=== PATIENT | male | born 1955 | race Caucasian/White ===

== ENCOUNTER 2020-11-05 07:43 | Emergency (ER) | payer MEDICARE, SELFPAY ==
[2020-11-05] VITALS (30 sets, daily range): BP systolic 117–177; BP diastolic 53–83; PULSE 90–113; RESP 16–26; TEMP 37.4; O2SAT 95–99
--- NOTE | ~2020-11-05 | XR_ITS ---
EXAMINATION: XR chest 1V portable EXAM DATE: 11/05/2020 08:30 INDICATION: weakness/fever, HX of diabetes, HTN . TECHNIQUE: Portable AP frontal chest x-ray was obtained. Comparison is made to prior examination from 04/29/2019. FINDINGS: The lungs are clear. There are no pleural effusions. Cardiac silhouette is prominent but magnified on this AP technique. There is no pneumothorax suspected. The bones and soft tissues are unremarkable. IMPRESSION: No acute cardiopulmonary findings. Reviewed, dictated and finalized at location B. ER ASSEMBLER
[2020-11-05 08:04] LABS: Glucose Point of Care 290 (65-105)
--- NOTE | 2020-11-05 08:17 | ED.FEVER ---
HPI - Fever General Chief Complaint: Fever Stated Complaint: Fever Time Seen by Provider: 11/05/20 07:45 History of Present Illness HPI Narrative: Patient is a 65-year-old male who presents the ER. Symptoms began last night and continued this morning. He has been taking Tylenol for it. Reports she was incontinent of urine today and has had some mild nausea. He also reports dizziness when going from sitting to standing. Patient is on tacrolimus due to a liver transplant performed 7 years ago. Denies any runny nose/sore throat/productive cough. No sick contacts. He did go to a yesterday but otherwise has not been out in public over the last couple days. Denies of any abdominal discomfort or additional GI complaints. reports patient occasionally gets mildly confused when he has fevers. Currently patient is oriented x3 but is just having difficulty remembering the name of his rejection medication. Related Data Home Medications Medication Instructions Recorded Confirmed alendronate-vitamin D3 1 tablet PO WEEKLY 11/05/20 amlodipine 5 mg PO DAILY 11/05/20 aspirin 81 mg PO DAILY 11/05/20 insulin glargine [Lantus Solostar 25 unit SUBCUT QAM 11/05/20 U-100 Insulin] insulin lispro 1 sliding scale dose SUBCUT 11/05/20 USEASDIRECTD losartan 100 mg PO DAILY 11/05/20 metoprolol tartrate 50 mg PO DAILY 11/05/20 vobqtfuagytl-mpq-rxqw-FA-vit K tablet PO 11/05/20 [Adults Multivitamin] pravastatin [Pravachol] 40 mg PO DAILY 11/05/20 prednisone 5 mg PO DAILY 11/05/20 tacrolimus [Prograf] 1 mg PO Q12H 11/05/20 Allergies Allergy/AdvReac Type Severity Reaction Status Date / Time No Known Allergies Allergy Verified 03/14/19 21:51 Review of Systems Review of Systems: All systems reviewed & are unremarkable except as noted in HPI and below Constitutional: Constitutional: Reports chills, Reports fatigue and Reports fever(s) ENT: Denies nasal congestion and Denies sore throat Cardiovascular: Cardiovascular: Denies chest pain and Denies radiating jaw, neck or arm pain Respiratory: Respiratory: Denies cough, Denies dyspnea and Denies wheezing Gastrointestinal: Gastrointestinal: Denies abdominal pain, Denies diarrhea, Denies nausea and Denies vomiting Genitourinary: Genitourinary: Denies dysuria and Reports urinary incontinence Musculoskeletal: Musculoskeletal: Denies back pain and Denies muscle cramps PMFSH Past Medical History Medical History (Updated 11/05/20 @ 10:38 by Jerry Doss MD) Diabetes type 2, controlled History of pneumothorax Hyperlipidemia Hypertension Renal cell carcinoma Surgical History Surgical History (Updated 11/05/20 @ 10:36 by Jerry Doss MD) History of chest tube placement History of colonoscopy History of kidney surgery History of liver transplant Social History Social History (Updated 11/05/20 @ 08:21 by Jerry Doss MD) Smoking status: Former smoker Gender identity (if verbalized by the patient): Male Sexual Orientation (if Verbalized by the Patient): Straight or Heterosexual Exam Narrative: Exam Narrative: GENERAL: Well-appearing, well-nourished, and in no acute distress. HEAD: Normocephalic, atraumatic. CHEST: Clear to auscultation. No respiratory distress. HEART: Regular rate and rhythm. Normal peripheral pulses. ABDOMEN: Soft, nontender, nondistended, normal active bowel sounds. EXTREMITIES: Normal range of motion. No edema. SKIN: Warm, dry, no rash. NEURO: Alert and oriented x3. PSYCH: Normal mood and affect. Course CLIENT PROJECT COORDINATOR/PA Physician Supervision Patient resting comfortably. Has received IV fluid. Reports he feels much better and like to go home. He is not having confusion is remembering his medicines. Unremarkable work-up in terms of finding a source of his infection. Patient now reports that he had an operation 2 weeks ago to have some cancer removed from his kidney. This may have caused him to be exposed to COVID-1
[2020-11-05] MEDS: SODIUM CHLORIDE 0.9% IV 1,000 ML 999 ML IV CONT (08:21)
[2020-11-05 08:22] LABS: Basophils Percent Auto 0.4 % (0.2-1.2); Eosinophils Absolute Auto 0.3 K/mm3 (0-0.3); Eosinophils Percent Auto 2.8 % (0-4.4); Hematocrit 36.6 % (42.0-52.0); Hemoglobin 11.9 g/dL (14.0-18.0); Immature Granulocyte Absolute 0.06 K/mm3 (0.00-0.031); Immature Granulocyte Percent A 0.6 % (0-0.5); Lymphocytes Absolute Auto 0.73 K/mm3 (0.9-3.2); Lymphocytes Percent Auto 7.5 % (18.3-44.2); Mean Corpuscular HGB Conc 32.5 g/dl (32-36); Mean Corpuscular Hemoglobin 26.8 pg (26-34); Mean Corpuscular Volume 82.4 fl (80-100); Mean Platelet Volume 11.4 fl (7.4-10.4); Monocytes Percent Auto 9.7 % (2.6-8.5); Neutrophils Absolute Auto 7.7 K/mm3 (1.3-6.7); Platelet Count Result 204 k/mm3 (150-375); Red Blood Count 4.44 M/mm3 (4.6-6.20); Red Cell Distribution Width 14.6 % (11.5-14.5); White Blood Count 9.8 K/mm3 (4.5-10.0)
[2020-11-05 08:41] LABS: Ammonia 11 umol/L (9-30)
[2020-11-05 08:42] LABS: Alanine Aminotransferase 18 U/L (4-50); Albumin Level 3.8 g/dL (3.5-5.1); Alkaline Phosphatase 86 U/L (38-126); Anion Gap 7 mmol/L (8-16); Aspartate Amino Transferase 28 U/L (17-59); Blood Urea Nitrogen 31 mg/dL (9-20); Calcium 8.9 mg/dL (8.4-10.2); Carbon Dioxide 29 mmol/L (22-30); Chloride 98 mmol/L (98-107); Estimated CRCL calculation 50 ml/min; Estimated Glomerular Filt Rate 43; Glucose 280 mg/dL (75-110); Potassium 4.4 mmol/L (3.4-5.0); Sodium 134 mmol/L (137-145)
[2020-11-05 09:47] LABS: Add Urine Microscopic? YES; Appearance Urine Clear (Clear); Bacteria Urine Trace /hpf; Bilirubin Urine Negative (Negative); Blood Urine 1+ (Negative); Color Urine Yellow (Yellow); Glucose Urine UA 1+ mg/dL (Negative); Ketones Urine Negative (Negative); Leukocyte Esterase Ur Trace LEU/UL (Negative); Nitrate Urine Negative (Negative); Protein Urine 1+ mg/dL (Negative); RBC Urine 0-2 /hpf (0-2); Specific Grav Ur 1.017 (1.001-1.035); Urobilinogen Urine Negative mg/dL (<2.0)
[2020-11-05 18:19] LABS: SARS-CoV-2 RNA PCR Negative
== END 2020-11-05 10:57 | disposition home or self-care (01) ==
PROVIDERS: Emergency Provider Emergency Medicine; PCP Internal Medicine
DX: Z20.828 Contact with and (suspected) exposure to other viral communicable diseases (principal); B34.9 Viral infection, unspecified; E11.9 Type 2 diabetes mellitus without complications; Z79.4 Long term (current) use of insulin; E78.5 Hyperlipidemia, unspecified; I10 Essential (primary) hypertension; Z85.528 Personal history of other malignant neoplasm of kidney
CPT/HCPCS: 36415; 71045; 80053; 81001; 82140; 82948; 85025; 87077; 87086; 87088; 87186; 87635; 87804; 96360; 99283; C9803; J7030; U0003

== ENCOUNTER 2020-11-05 16:53 | Emergency (ER) | payer MEDICARE, SELFPAY ==
[2020-11-05] VITALS (7 sets, daily range): BP systolic 146–182; BP diastolic 61–75; PULSE 80–95; RESP 16–28; TEMP 38.1–39.5; O2SAT 95–100
--- NOTE | ~2020-11-05 | CT_ITS ---
EXAMINATION: CT abdomen pelvis w con DATE: 11/05/2020 18:24 INDICATION: Nausea, vomiting and fever. TECHNIQUE: Computed tomography (CT) of the abdomen and pelvis was performed with 100 cc Omnipaque 350 intravenous contrast. The dose-length product was 1158.43 mGy-cm. Automated exposure control and ite rative reconstruction technique were employed. COMPARISON: CT dated 09/22/2012. FINDINGS: There is a 5 mm right lower lobe nodule, image 10. There is dependent atelectasis. Heart si ze normal. There is atherosclerosis. Status post cholecystectomy with expected prominence of the bile ducts. Spleen is enlarged. There is bilateral renal atrophy. There is a hypodense exophytic left dipesh al mass measuring 3.9 x 3.8 cm with surrounding perinephric fluid. There are bilateral renal arterial calcifications. There is a transplant kidney in the the right pelvis with mild periureteral edema. Bowel pattern is nonobstructive. There is fat-containing umbilical hernia. Bladder is distended witho ut focal abnormality. No free air or free fluid. Moderate lumbar spondylosis with dextrocurvature of the lumbar spine. IMPRESSION: 1. Hypodense 3.9 cm left renal mass with surrounding perinephric edema/fluid. Differential diagnosis includes hemorrhagic/infected cyst, subcapsular hematoma and neoplasm. Bilateral renal atrophy. 2: Transplanted right pelvic kidney with mild periureteral/perinephric edema. Consider ascending urin paco tract infection. There are subtle areas of hypovascularity of the transplant kidney, suspicious f or pyelonephritis. 3: 5 mm right lower lobe nodule. Follow-up low dose CT chest in 12 months recommended. Reviewed, dictated and finalized at location A. CORNER MACHINE OPERATOR IMPRESSION: 1. Hypodense 3.9 cm left renal mass with surrounding perinephric edema/fluid. D ifferential diagnosis includes hemorrhagic/infected cyst, subcapsular hematoma and neoplasm. Bilateral renal atrophy. 2: Transplanted right pelvic kidney with mild periureteral/perinephric edema. C onsider ascending urinary tract infection. There are subtle areas of hypovascul arity of the transplant kidney, suspicious for pyelonephritis. 3: 5 mm right lower lobe nodule. Follow-up low dose CT chest in 12 months yael mmended.
--- NOTE | 2020-11-05 16:58 | PC.NURSE ---
PT O2 DROPPED FROM 95% ON RA TO 89%, 2L O2 PLACED VIA NC ON PTLANCE AT BEDSIDE.
[2020-11-05] MEDS: SODIUM CHLORIDE 0.9% IV 1,000 ML 999 ML IV CONT ×2 (17:30→18:17)
[2020-11-05 17:40] LABS: Basophils Percent Auto 0.3 % (0.2-1.2); Eosinophils Absolute Auto 0.1 K/mm3 (0-0.3); Eosinophils Percent Auto 0.4 % (0-4.4); Hematocrit 37.5 % (42.0-52.0); Hemoglobin 12.3 g/dL (14.0-18.0); Immature Granulocyte Absolute 0.14 K/mm3 (0.00-0.031); Immature Granulocyte Percent A 1.1 % (0-0.5); Lymphocytes Absolute Auto 0.47 K/mm3 (0.9-3.2); Lymphocytes Percent Auto 3.8 % (18.3-44.2); Mean Corpuscular HGB Conc 32.8 g/dl (32-36); Mean Corpuscular Hemoglobin 27.4 pg (26-34); Mean Corpuscular Volume 83.5 fl (80-100); Mean Platelet Volume 10.9 fl (7.4-10.4); Monocytes Absolute Auto 1.2 K/mm3 (0.1-0.6); Monocytes Percent Auto 9.6 % (2.6-8.5); Neutrophils Absolute Auto 10.5 K/mm3 (1.3-6.7); Neutrophils Percent Auto 84.8 % (45.5-73.1); Platelet Count Result 168 k/mm3 (150-375); Red Blood Count 4.49 M/mm3 (4.6-6.20); Red Cell Distribution Width 14.7 % (11.5-14.5); White Blood Count 12.3 K/mm3 (4.5-10.0)
[2020-11-05 17:48] LABS: Lactic Acid Reflex 1.3 mmol/L (0.7-2.1)
[2020-11-05 17:49] LABS: Alanine Aminotransferase 17 U/L (4-50); Alkaline Phosphatase 84 U/L (38-126); Anion Gap 11 mmol/L (8-16); Aspartate Amino Transferase 24 U/L (17-59); Bilirubin,Total 1.5 mg/dL (0.2-1.3); Blood Urea Nitrogen 28 mg/dL (9-20); CRP 5.9 mg/dL (<1.0); Calcium 8.6 mg/dL (8.4-10.2); Carbon Dioxide 27 mmol/L (22-30); Chloride 95 mmol/L (98-107); Estimated CRCL calculation 47 ml/min; Estimated Glomerular Filt Rate 40; Glucose 328 mg/dL (75-110); INR 1.2; Potassium 4.8 mmol/L (3.4-5.0); Prothrombin Time 15.9 Seconds (11.1-14.7); Sodium 133 mmol/L (137-145)
[2020-11-05 17:51] LABS: Partial Thromboplastin Time 36.1 SECONDS (22.3-36.8)
--- NOTE | 2020-11-05 18:26 | ED.FEVER ---
HPI - Fever General Chief Complaint: Fever <Jerry Doss MD - Last Filed: 11/05/20 20:32> Stated Complaint: fever <Jerry Doss MD - Last Filed: 11/05/20 20:32> Time Seen by Provider: 11/05/20 20:55 <Jerry Doss MD - Last Filed: 11/05/20 20:32> History of Present Illness HPI Narrative: Patient is a 65-year-old male who presents ER with fever. This is a second visit today. He was swabbed for Covid earlier in the day. He had recurrence of his fever with weakness so they called 9 1 sent him here. His fever is higher than he did experience earlier in the day and is currently 103.1. He had negative chest x-ray and flu swab. He has not been having any symptoms other than fever and weakness. He felt a little forgetful earlier in the day but was not overtly altered. Patient reports he is also feeling foggy now but he is not confused. He is having no pain or cough. Just feels sluggish and weak. He received Tylenol around noon. Of note he did have a surgery 2 weeks ago to remove renal cell carcinoma from the surface of the kidney. He has not been having any flank pain or abdominal pain since then. <Jerry Doss MD - Last Filed: 11/05/20 20:32> Related Data Home Medications: Home Medications Medication Instructions Recorded Confirmed alendronate-vitamin D3 1 tablet PO WEEKLY 11/05/20 amlodipine 5 mg PO DAILY 11/05/20 aspirin 81 mg PO DAILY 11/05/20 insulin glargine [Lantus Solostar 25 unit SUBCUT QAM 11/05/20 U-100 Insulin] insulin lispro 1 sliding scale dose SUBCUT 11/05/20 USEASDIRECTD losartan 100 mg PO DAILY 11/05/20 metoprolol tartrate 50 mg PO DAILY 11/05/20 nagefhwxvwxb-gbr-qwqp-FA-vit K tablet PO 11/05/20 [Adults Multivitamin] pravastatin [Pravachol] 40 mg PO DAILY 11/05/20 prednisone 5 mg PO DAILY 11/05/20 tacrolimus [Prograf] 1 mg PO Q12H 11/05/20 <Jerry Doss MD - Last Filed: 11/05/20 20:32> Allergies/Adverse Reactions: Allergies Allergy/AdvReac Type Severity Reaction Status Date / Time No Known Allergies Allergy Verified 03/14/19 21:51 <Jerry Doss MD - Last Filed: 11/05/20 20:32> Review of Systems Review of Systems: All systems reviewed & are unremarkable except as noted in HPI and below <Jerry Doss MD - Last Filed: 11/05/20 20:32> Constitutional: Constitutional: Reports chills, Reports fever(s) and Reports weakness <Jerry Doss MD - Last Filed: 11/05/20 20:32> ENT: Denies headache(s), Denies nasal congestion, Denies sinus pressure and Denies sore throat <Jerry Doss MD - Last Filed: 11/05/20 20:32> Cardiovascular: Cardiovascular: Denies chest pain, Reports diaphoresis and Denies rapid heart rate <Jerry Doss MD - Last Filed: 11/05/20 20:32> Respiratory: Respiratory: Denies cough and Denies dyspnea <Jerry Doss MD - Last Filed: 11/05/20 20:32> Gastrointestinal: Gastrointestinal: Denies abdominal pain, Denies diarrhea, Reports nausea and Reports vomiting <Jerry Doss MD - Last Filed: 11/05/20 20:32> Genitourinary: Genitourinary: Denies dysuria, Denies flank pain and Reports urinary incontinence (Earlier in the day) <Jerry Doss MD - Last Filed: 11/05/20 20:32> PMF Past Medical History Medical History: Medical History (Updated 11/06/20 @ 00:00 by Kurt Torrez) Diabetes type 2, controlled History of pneumothorax Hyperlipidemia Hypertension Renal cell carcinoma <Jerry Doss MD - Last Filed: 11/05/20 20:32> Surgical History Surgical History: Surgical History (Updated 11/05/20 @ 10:36 by Jerry Doss MD) History of chest tube placement History of colonoscopy History of kidney surgery History of liver transplant <Jerry Doss MD - Last Filed: 11/05/20 20:32> Social History Social History: Social History (Updated 11/05/20 @ 08:21 by Jerry Doss MD) Smoking status: Former smoker Gender id
--- NOTE | 2020-11-05 19:06 | PC.NURSE ---
REPORT TO DIAN SANDERS AT THIS TIME, HE HAS ASSUMED PT CARE.
--- NOTE | 2020-11-05 20:39 | PC.NURSE ---
pt. found sitting on edge of bed; assisted back into bed, yellow clasp on bracelet, bed alarm placed under pt., yellow triangle on door.
[2020-11-05 20:57] LABS: Base Excess ABG -3.5 mEq/l (+/-2.0); Carboxyhemoglobin 1.4 % THb (0-2.0); Device NASAL CANNULA; Fractional Inspired Oxygen 32 %; HCO3 ABG 20.2 mEq/l (22.0-26.0); Methemoglobin ABG 0.2 %THb (0-1.5); Modified Allen's Test Pass; Oxygen Content ABG 15.8 %vol (16.0-22.0); Oxygen Saturation ABG 95.7 % (95.0-100.0); Oxyhemoglobin 93.4 % THb (90.0-100.0); PCO2 ABG 32.1 mmHg (35.0-45.0); PO2 ABG 76.6 mmHg (80.0-100.0); PO2 FiO2 Ratio Arterial Blood 2.39 %; Site Drawn LEFT RADIAL; pH ABG 7.417 (7.350-7.450)
--- NOTE | 2020-11-05 21:39 | PC.NURSE ---
called [facility] to request transport. ETA [phone]
--- NOTE | 2020-11-05 22:49 | PC.NURSE ---
called [facility] for ETA update. ETA [phone]
--- NOTE | 2020-11-05 23:37 | PCDIET ---
[facility] called and update ETA to [phone]
--- NOTE | 2020-11-05 23:38 | PC.NURSE ---
[facility] called and update ETA to [phone].
--- NOTE | 2020-11-06 00:48 | PC.NURSE ---
called [facility] for ETA update. ETA [phone]
[2020-11-06 01:22] VITALS: BP 146/64; PULSE 93; RESP 18; O2SAT 98
[2020-11-06 01:58] VITALS: BP 146/89; PULSE 89; RESP 18; TEMP 37.4; O2SAT 100
== END 2020-11-06 01:59 | disposition short-term general hospital (02) ==
PROVIDERS: Emergency Medicine; Emergency Provider Emergency Medicine; PCP Internal Medicine
DX: N10 Acute pyelonephritis (principal); E11.9 Type 2 diabetes mellitus without complications; E78.6 Lipoprotein deficiency; I10 Essential (primary) hypertension; Z85.528 Personal history of other malignant neoplasm of kidney; Z79.4 Long term (current) use of insulin
CPT/HCPCS: 36415; 36600; 71045; 74177; 80053; 81001; 82140; 82375; 82805; 82948; 83050; 83605; 85025; 85610; 85730; 86140; 87040; 87077; 87086; 87088; 87186; 87804; 96360; 96365; 96367; 99285; C9803; J0131; J0696; J3370; J7030; Q9967; U0003

== ENCOUNTER → 2021-06-02 15:03 | Outpatient (CLI) | payer MEDICARE, SELFPAY ==
--- NOTE | ~2021-06-02 | MR_ITS ---
EXAMINATION: MR brain/brain stem wo con EXAM DATE: 06/02/2021 16:26 INDICATION: Other amnesia . Memory loss. TECHNIQUE: Magnetic resonance imaging (MRI) of the brain/brain stem obtained without contrast. Sagitt al T1, axial diffusion, gradient echo (T2*), T1, T2, FLAIR sequences obtained. There is no prior st udy for comparison. FINDINGS: There are no areas of restricted diffusion to suggest acute infarction. There is no acute hemorrhage seen on the T2*, a hemosiderin sensitive sequence. No intraparenchymal brain mass lesion. There is mild to moderate periventricular and subcortical T2/FLAIR signal hyperintensity, nonspecifi c but probably related to small vessel ischemic disease (microangiopathy). There is mild to moderat e prominence of the sulci and ventricles related to cerebral atrophy. There are no extra-axial meera ections. Flow voids are seen in the cerebral arteries on the T2-weighted sequences consistent with t heir expected patency. The orbits are unremarkable. Soft tissue is unremarkable. IMPRESSION: 1. No acute intracranial findings. 2. Chronic age related findings. Reviewed, dictated and finalized at location G.
== END ==
PROVIDERS: PCP Internal Medicine; Visit Provider Internal Medicine
DX: R41.3 Other amnesia (principal)
CPT/HCPCS: 70551

== ENCOUNTER 2021-11-15 13:26 | Emergency (ER) | payer MEDICARE, SELFPAY ==
[2021-11-15 14:48] VITALS: BP 142/68; PULSE 66; RESP 16; TEMP 36.4; O2SAT 99
--- NOTE | 2021-11-15 15:32 | ED.GENADULT ---
HPI - General Adult General Chief complaint: Upper Respiratory Infection Stated complaint: lump in throat Source: patient Mode of arrival: ambulatory Limitations: no limitations History of Present Illness HPI narrative: Patient presents for evaluation of sore throat that started yesterday. He also reports left sided cervical lymphadenopathy. Denies any fever, chills, cough, shortness of breath. Denies any dental pain. States 2-3 days ago he was around his grandson who tested positive for Covid. Covid test this morning which was negative. Patient states that he had Covid while hospitalized in the past. He has received both Covid vaccinations and his booster. Denies any difficulty breathing or swallowing. No additional complaints or concerns. He states his symptoms are markedly improved since arriving here. No intervention was performed. Related Data Home Medications Medication Instructions Recorded Confirmed alendronate-vitamin D3 1 tablet PO WEEKLY 11/05/20 11/15/21 amlodipine 10 mg PO DAILY 11/05/20 11/15/21 aspirin 81 mg PO DAILY 11/05/20 11/15/21 insulin glargine [Lantus Solostar 25 unit SUBCUT QAM 11/05/20 11/15/21 U-100 Insulin] insulin lispro 1 sliding scale dose SUBCUT 11/05/20 11/15/21 USEASDIRECTD losartan 100 mg PO DAILY 11/05/20 11/15/21 mcffbjzsgsif-qmx-yzyz-FA-vit K 1 tablet PO DAILY 11/05/20 11/15/21 [Adults Multivitamin] tacrolimus [Prograf] 2 mg PO Q12H 11/05/20 metoprolol tartrate 25 mg PO DAILY 11/15/21 11/15/21 Allergies Allergy/AdvReac Type Severity Reaction Status Date / Time No Known Allergies Allergy Verified 11/15/21 15:03 Review of Systems Review of Systems: CONSTITUTIONAL: Denies fever, chills, or sweats. EYES: Denies visual changes, redness, or discharge. ENT: Reports sore throat. Denies rhinorrhea, congestion, or otalgia. CARDIOVASCULAR: Denies chest pain, palpitations, or edema. RESPIRATORY: Denies cough or dyspnea. GASTROINTESTINAL: Denies abdominal pain, nausea, vomiting, or diarrhea. GENITOURINARY: Denies dysuria or hematuria. SKIN: Denies rash or itching. MUSCULOSKELETAL: Denies back pain, joint pain, or myalgia. ENDOCRINE: Reports left sided cervical lymphadenopathy. NEUROLOGIC: Denies headache, numbness, dizziness, or weakness. PSYCHIATRIC: Denies anxiety or depression. [facility] Past Medical History Medical History Diabetes type 2, controlled History of pneumothorax Hyperlipidemia Hypertension Renal cell carcinoma Surgical History Surgical History History of chest tube placement History of colonoscopy History of kidney surgery History of liver transplant Family History Family History Father Heart disease Mother Family history unknown Social History Social History (Updated 11/15/21 @ 15:36 by RACHELLE Diaz, ) Smoking status: Former smoker Substance use: never Gender identity (if verbalized by the patient): Male Sexual Orientation (if Verbalized by the Patient): Straight or Heterosexual Spiritual care concerns: No Exam Narrative: GENERAL: Well-appearing, well-nourished, and in no acute distress. HEAD: Normocephalic, atraumatic. EYES: PERRLA and EOMI. ENT: Nares clear, no rhinorrhea or epistaxis. Mucous membranes moist. Posterior pharynx with erythema but no exudate. Bilateral TMs pearly hernandez nonbulging NECK: Supple. No adenopathy or masses. No carotid bruits or JVD CHEST: Clear to auscultation. No respiratory distress. No wheezes rales or rhonchi HEART: Regular rate and rhythm. No murmur heard. Normal peripheral pulses. ABDOMEN: Soft, nontender, nondistended, normal active bowel sounds. EXTREMITIES: Normal range of motion. No edema. SKIN: Warm, dry, no rash. NEURO: No focal deficits. Alert and oriented x3. PSYCH: Normal mood and affect. Cou
[2021-11-16 14:14] LABS: SARS-CoV-2 RNA PCR Negative
== END 2021-11-15 16:50 | disposition home or self-care (01) ==
PROVIDERS: Emergency Provider Nurse Practitioner; PCP Internal Medicine
DX: J02.9 Acute pharyngitis, unspecified (principal); E11.9 Type 2 diabetes mellitus without complications; E78.5 Hyperlipidemia, unspecified; I10 Essential (primary) hypertension; Z87.891 Personal history of nicotine dependence; Z79.4 Long term (current) use of insulin; Z20.822 Contact with and (suspected) exposure to COVID-19
CPT/HCPCS: 87081; 87880; 99213; C9803; G0463; U0003; U0005

== ENCOUNTER → 2021-11-17 14:33 | Outpatient (CLI) | payer MEDICARE, SELFPAY ==
--- NOTE | ~2021-11-17 | CT_ITS ---
EXAMINATION: CT soft tissue neck w con DATE: 11/17/2021 15:01 INDICATION: Left neck abscess and pain. TECHNIQUE: Computed tomography (CT) of the neck was performed with 75 mL Omnipaque-350 intravenous co ntrast. Automated exposure control and iterative reconstruction technique were employed. The dose-lissett gth product was 413.48 mGy-cm. COMPARISON: None FINDINGS: There is mild emphysema. There is mild scarring at the lung apices. There are likely change s of ocular lens replacement surgeries. The left submandibular gland is enlarged with surrounding fat stranding. There is a 4 x 2 mm stone in the left lower mouth in the duct for left submandibular glan d. There is plaque in the proximal internal carotid arteries with less than 50% stenosis relative to normal distal artery lumen diameters. There is an increased number of normal-sized left submandibular lymph nodes, likely reactive. There is a carious lesion involving a right mandibular molar. There ar e periapical lucencies involving 2 right maxillary molars. There is severe cervical spondylosis. IMPRESSION: 1. 4 x 2 mm stone in the left submandibular duct with inflammation of the left submandibular gland. Reviewed, dictated and finalized at location A. CAPTAIN
[2021-11-17 14:50] LABS: Estimated Glomerular Filt Rate 35
== END ==
PROVIDERS: PCP Internal Medicine; Visit Provider Internal Medicine
DX: R22.1 Localized swelling, mass and lump, neck (principal)
CPT/HCPCS: 70491; Q9967

== ENCOUNTER 2023-08-09 10:54 | Emergency (ER) | payer MEDICARE, SELFPAY ==
--- NOTE | ~2023-08-09 | XR_ITS ---
EXAMINATION: XR chest 2V DATE: 08/09/2023 12:05 INDICATION: Shortness of breath. Atrial fibrillation. TECHNIQUE: PA and lateral views of the chest were obtained. COMPARISON: Chest radiograph dated 11/05/2020 FINDINGS: Minimal streaky atelectasis at the left costophrenic angle. No other airspace opacities, pulmonary ed reji, pleural effusion or pneumothorax. The cardiomediastinal silhouette is normal. Mild thoracic spon dylosis. Postoperative change of the right upper quadrant which appear to correspond to surgical clip s surrounding the inferior vena cava on CT of the abdomen and pelvis dated 11/05/2020. IMPRESSION: 1. Minimal likely lingular streaky atelectasis at the left costophrenic angle. No other acute cardiop ulmonary disease. Reviewed, dictated and finalized at location A. IMPRESSION: 1. Minimal likely lingular streaky atelectasis at the left costophrenic angle. No other acute cardiopulmonary disease.
--- NOTE | 2023-08-09 10:56 | ECG_ITS ---
Measurements Intervals Morris Rate: 72 P: 29 RI: 294 QRS: -52 QRSD: 152 T: 44 QT: 411 QTc: 450 Interpretive Statements SINUS RHYTHM WITH FIRST DEGREE AV BLOCK ATRIAL PREMATURE COMPLEX RIGHT BUNDLE BRANCH BLOCK LEFT ANTERIOR FASCICULAR BLOCK ABNORMAL ECG COMPARED TO ECG 03/14/2019 21:58:40 FIRST DEGREE AV BLOCK NOW PRESENT Electronically Signed On 08-09-2023 11:22:21 CDT by Waldo Arnold D.O.
[2023-08-09 11:03] VITALS: BP 167/76; PULSE 76; RESP 18; TEMP 36.6; O2SAT 100
[2023-08-09 11:27] LABS: Basophils Percent Auto 0.6 % (0.2-1.2); Eosinophils Absolute Auto 0.3 K/mm3 (0-0.3); Eosinophils Percent Auto 4.1 % (0-4.4); Hematocrit 36.7 % (42.0-52.0); Hemoglobin 11.3 g/dL (14.0-18.0); Immature Granulocyte Absolute 0.05 K/mm3 (0.00-0.031); Immature Granulocyte Percent A 0.7 % (0-0.5); Lymphocytes Absolute Auto 1.34 K/mm3 (0.9-3.2); Lymphocytes Percent Auto 18.8 % (18.3-44.2); Mean Corpuscular HGB Conc 30.8 g/dl (32-36); Mean Corpuscular Hemoglobin 26.2 pg (26-34); Mean Corpuscular Volume 85.2 fl (80-100); Mean Platelet Volume 11.5 fl (7.4-10.4); Monocytes Absolute Auto 0.6 K/mm3 (0.1-0.6); Neutrophils Absolute Auto 4.8 K/mm3 (1.3-6.7); Neutrophils Percent Auto 66.8 % (45.5-73.1); Platelet Count Result 165 k/mm3 (150-375); Red Blood Count 4.31 M/mm3 (4.6-6.20); Red Cell Distribution Width 15.3 % (11.5-14.5); White Blood Count 7.1 K/mm3 (4.5-10.0)
[2023-08-09 11:39] LABS: Alanine Aminotransferase 34 U/L (6-50); Albumin Level 4.2 g/dL (3.5-5.1); Alkaline Phosphatase 84 U/L (38-126); Anion Gap 9 mmol/L (8-16); Aspartate Amino Transferase 32 U/L (17-59); Bilirubin,Total 0.6 mg/dL (0.2-1.3); Blood Urea Nitrogen 35 mg/dL (9-20); Calcium 9.3 mg/dL (8.4-10.2); Carbon Dioxide 27 mmol/L (22-30); Chloride 105 mmol/L (98-107); Estimated CRCL calculation 47 ml/min; Estimated Glomerular Filt Rate 43; Glucose 80 mg/dL (65-110); Potassium 4.1 mmol/L (3.4-5.0); Sodium 141 mmol/L (137-145)
[2023-08-09 13:21] VITALS: PULSE 80; O2SAT 99
[2023-08-09 13:22] VITALS: BP 171/77; PULSE 60; RESP 15; TEMP 36.6
[2023-08-09 13:28] LABS: Glucose Point of Care 68 mg/dl (65-105)
[2023-08-09 13:32] VITALS: BP 166/84; PULSE 61; RESP 20; TEMP 36.6
[2023-08-09 14:12] LABS: Glucose Point of Care 84 mg/dl (65-105)
--- NOTE | 2023-08-09 14:13 | PC.NURSE ---
Bedside glucose 84. Pt states he feels better
[2023-08-09 14:17] VITALS: BP 166/69; PULSE 56; RESP 18; TEMP 36.6
[2023-08-09 15:04] LABS: INR 1.1; Prothrombin Time 14.6 Seconds (11.1-14.7)
[2023-08-09 15:05] LABS: Partial Thromboplastin Time 31.7 SECONDS (22.3-36.8)
[2023-08-09 15:08] LABS: D Dimer 0.66 ug/mL (<0.48)
[2023-08-09 15:33] LABS: NT Pro B Type Natriuretic Pept 1510 pg/mL (19.9-100); Troponin I < 0.012 ng/mL (0.000-0.034)
--- NOTE | 2023-08-09 16:17 | ED.SOB ---
HPI - SOB/Dyspnea General Chief Complaint: Shortness of Breath/Dyspnea Stated Complaint: AFIB symptoms Time Seen by Provider: 08/09/23 14:06 Source: patient and RN notes reviewed Mode of arrival: ambulatory Limitations: no limitations History of Present Illness HPI Narrative: This is a 68 year old male with history of hypertension, liver and kidney transplant who presents for evaluation of shortness of breath. PAtient reports he has had shortness of breath with exertion for months. He denies chest pain, cough, wheezing, nausea, vomiting, leg swelling. He states he called his PCP who told him to come to ER. He denies orthopnea, CHF Related Data Home Medications Medication Instructions Recorded Confirmed alendronate 70 mg-cholecalciferol 1 tablet PO WEEKLY 11/05/20 11/15/21 (vitamin D3) 2,800 unit tablet amlodipine 5 mg tablet 10 mg PO DAILY 11/05/20 11/15/21 aspirin 81 mg tablet 81 mg PO DAILY 11/05/20 11/15/21 insulin glargine 100 unit/mL (3 25 unit subcut QAM 11/05/20 11/15/21 mL) subcutaneous pen (Lantus Solostar U-100 Insulin) insulin lispro 100 unit/mL 1 sliding scale dose subcut 11/05/20 11/15/21 subcutaneous cartridge USEASDIRECTD losartan 100 mg tablet 100 mg PO DAILY 11/05/20 11/15/21 multivit with minerals-iron 18 1 tablet PO DAILY 11/05/20 11/15/21 mg-folic ac 400 mcg-vit K 25 mcg tablet (Adults Multivitamin) tacrolimus 1 mg capsule, 2 mg PO Q12H 11/05/20 immediate-release (Prograf) metoprolol tartrate 25 mg tablet 25 mg PO DAILY 11/15/21 11/15/21 Allergies Allergy/AdvReac Type Severity Reaction Status Date / Time No Known Allergies Allergy Verified 11/15/21 15:03 Review of Systems Review of Systems: All systems reviewed & are unremarkable except as noted in HPI and below Constitutional: Constitutional: Denies weakness Cardiovascular: Cardiovascular: Denies syncope, Denies rapid heart rate, Denies irregular heart rhythm, Denies leg edema and Reports dyspnea Respiratory: Respiratory: Denies chest congestion, Denies hemoptysis, Denies excessive phlegm production and Reports dyspnea Gastrointestinal: Gastrointestinal: Denies abdominal pain, Denies hematochezia, Denies diarrhea and Denies vomiting Genitourinary: Genitourinary: Denies hematuria, Denies dysuria, Denies penile discharge and Denies testicular pain Musculoskeletal: Musculoskeletal: Denies joint swelling, Denies loss of height and Denies muscle weakness Neurologic: Denies syncope, Denies focal weakness and Denies weakness PMFSH Past Medical History Medical History Diabetes type 2, controlled History of pneumothorax Hyperlipidemia Hypertension Renal cell carcinoma Surgical History Surgical History History of chest tube placement History of colonoscopy History of kidney surgery History of liver transplant Family History Family History Father Heart disease Mother Family history unknown Social History Social History Smoking status: Former smoker Substance use: never Gender identity (if verbalized by the patient): Male Sexual Orientation (if Verbalized by the Patient): Straight or Heterosexual Spiritual care concerns: No Exam Const: General: no acute distress and alert Nutritional Appearance: well nourished Orientation/consciousness: patient oriented x3 HENMT: Head: normal to inspection Eyes: EOM: EOMs intact bilaterally Resp: Effort & Inspection: normal respiratory effort Auscultation: clear to auscultation bilaterally Cardio: Rate: regular rate Rhythm: regular rhythm Heart sounds: no murmurs GI: GI Palp: Yes Soft to palpation, No Tenderness to palpation present (GI) and No Guarding due to palpation present (GI) Auscultation: normal bowel sounds Back/Spine/P
[2023-08-09 16:35] VITALS: BP 159/89; PULSE 82; RESP 18; O2SAT 97
== END 2023-08-09 16:35 | disposition home or self-care (01) ==
PROVIDERS: Emergency Medicine; Emergency Provider General Practice; PCP Internal Medicine
DX: R06.00 Dyspnea, unspecified (principal); R94.31 Abnormal electrocardiogram [ECG] [EKG]; E11.9 Type 2 diabetes mellitus without complications; Z79.4 Long term (current) use of insulin; I10 Essential (primary) hypertension; E78.5 Hyperlipidemia, unspecified; Z85.528 Personal history of other malignant neoplasm of kidney
CPT/HCPCS: 36415; 71046; 80053; 82948; 83880; 84484; 85025; 85380; 85610; 85730; 93005; 99284

== ENCOUNTER 2024-03-08 21:34 | Inpatient (IN) | payer MEDICARE, SELFPAY ==
--- NOTE | ~2024-03-08 | CT_ITS ---
Clinical Indication: Sepsis CT Scan of the Chest, Abdomen, and Pelvis without Contrast: Technique: Contiguous sections were acquired throughout the chest, abdomen, and pelvis without IV con trast administration. Dose reduction technique was used on this scan by utilizing automated exposure control and iterative reconstruction technique. The dose-length product (DLP) was 1554.21 mGy-cm. COMPARISON: 11/05/2020 Findings: There is no evidence of any significant mediastinal, hilar or axillary lymphadenopathy. There atheros clerotic calcifications of the aorta and coronary arteries. There is no evidence of pleural or pericardial effusion. Stable 5 mm peripheral right basilar pulmonary nodule (axial image 98). There is extensive left lower lobe consolidation, compatible with pneumonia. There is mild emphysematous change in the upper lobes . The liver, spleen, pancreas, gallbladder, and adrenal glands are within normal limits. Kidneys are at rophic bilaterally. There is a fat-containing masslike region at the left kidney which likely represe nt chronic post ablation change as compared to prior CT. Right lower quadrant transplant kidney is pr esent, without hydronephrosis. There are atherosclerotic calcifications of the aorta. No lymphadenop athy. No bowel obstruction or bowel wall thickening. There is no evidence to suggest acute appendicitis. Sm all fat-containing umbilical hernia noted. Probable urinary bladder wall thickening diffusely. No pelvic mass seen. No ascites. Impression: Extensive left lower lobe pneumonia. Stable 5 mm basilar pulmonary nodule. Stability over this time intervals compatible with benignity. Mild emphysema upper lobes. Possible cystitis. Correlate with urinalysis. Fat-containing masslike lesion left kidney suggest chronic postablation changes as compared to prior CT. Correlate with any relevant prior history. Small fat-containing umbilical hernia. Reviewed, dictated and finalized at [facility]. Impression: Extensive left lower lobe pneumonia. Stable 5 mm basilar pulmonary nodule. Stability over this time intervals compat ible with benignity. Mild emphysema upper lobes. Possible cystitis. Correlate with urinalysis. Fat-containing masslike lesion left kidney suggest chronic postablation changes as compared to prior CT. Correlate with any relevant prior history. Small fat-containing umbilical hernia.
--- NOTE | ~2024-03-08 | XR_ITS ---
EXAMINATION: XR chest 2V DATE: 03/08/2024 22:00 INDICATION: Cough and fever. TECHNIQUE: Frontal and lateral views of the chest were obtained on 3 radiographs. COMPARISON: Chest 2 views 08/09/2023 FINDINGS: There are airspace opacities in left lower lobe. No pleural effusion or pneumothorax. The h eart size is normal. There is a left chest wall pacer with leads in the right atrium and right ventri lexy. IMPRESSION: 1. Airspace opacities in left lower lobe, consistent with atelectasis versus pneumonia. Reviewed, dictated and finalized at location E. IMPRESSION: 1. Airspace opacities in left lower lobe, consistent with atelectasis versus pn eumonia.
[2024-03-08 21:39] VITALS: BP 177/99; PULSE 103; RESP 24; TEMP 38.3; O2SAT 97
--- NOTE | 2024-03-08 21:44 | ECG_ITS ---
SEE SCANNED COPY FOR CONFIRMED REPORT MTDD
--- NOTE | 2024-03-08 22:11 | ED.GENADULT ---
HPI - General Adult General Chief complaint: Shortness of Breath/Dyspnea Stated complaint: sob, fever Time Seen by Provider: 03/08/24 21:59 History of Present Illness HPI narrative: Patient is a 68-year-old male who presents to the emergency department this evening accompanied by his due to spiking a fever and having 2 hours prior. Patient states he was doing well and had no symptoms all day today until around 8:00 p.m. when he is developed a fever and started to have some chills. Patient admits that he did start to have some URI symptoms today and started to cough. Patient is currently on immunosuppressants, tacrolimus which she has been taking since 2012 when he had a liver and kidney transplant at [facility]. 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 He denies any additional symptoms including chest pain, dysuria or hematuria, admits to feeling nauseous but denies any vomiting episodes, denies abdominal pain, denies any back pain and has no additional symptoms or concerns at this time. Related Data Home Medications Medication Instructions Recorded Confirmed alendronate 70 mg-cholecalciferol 1 tablet PO WEEKLY 11/05/20 11/15/21 (vitamin D3) 2,800 unit tablet amlodipine 5 mg tablet 10 mg PO DAILY 11/05/20 11/15/21 aspirin 81 mg tablet 81 mg PO DAILY 11/05/20 11/15/21 insulin glargine 100 unit/mL (3 25 unit subcut QAM 11/05/20 11/15/21 mL) subcutaneous pen (Lantus Solostar U-100 Insulin) insulin lispro 100 unit/mL 1 sliding scale dose subcut 11/05/20 11/15/21 subcutaneous cartridge USEASDIRECTD losartan 100 mg tablet 100 mg PO DAILY 11/05/20 11/15/21 multivit with minerals-iron 18 1 tablet PO DAILY 11/05/20 11/15/21 mg-folic ac 400 mcg-vit K 25 mcg tablet (Adults Multivitamin) tacrolimus 1 mg capsule, 2 mg PO Q12H 11/05/20 immediate-release (Prograf) metoprolol tartrate 25 mg tablet 25 mg PO DAILY 11/15/21 11/15/21 Allergies Allergy/AdvReac Type Severity Reaction Status Date / Time No Known Allergies Allergy Verified 11/15/21 15:03 Review of Systems Review of Systems: All systems are reviewed and are negative unless stated otherwise in the HPI. [facility] Past Medical History Medical History Diabetes type 2, controlled History of pneumothorax Hyperlipidemia Hypertension Renal cell carcinoma Surgical History Surgical History History of chest tube placement History of colonoscopy History of kidney surgery History of liver transplant Family History Family History Father Heart disease Mother Family history unknown Social History Social History Smoking status: Former smoker Substance use: never Gender identity (if verbalized by the patient): Male Sexual Orientation (if Verbalized by the Patient): Straight or Heterosexual Spiritual care concerns: No Exam Narrative: General: Alert, awake, febrile, rigors, in no acute distress. HEENT: PERRL, no rhinorrhea, no post nasal drip, oropharynx clear. Neck: Trachea midline, no JVD, no lymphadenopathy. Cardiovascular: Tachycardic with regular rhythm, no murmurs, rubs or gallops, no peripheral edema. Respiratory: Clear to auscultation bilaterally, no tachypnea, no wheezing, no rhonchi, no rubs, no respiratory distress. Abdomen: Soft, nontender, nondistended, no rebound, no guarding, no peritoneal signs. Musculoskeletal: No joint swelling or deformity, normal muscle tone. Skin: No rashes or petechia, no signs of infection. Psychiatric: Alert and oriented, normal behavior and judgment for situation. Neurological: Alert and oriented to person, place, and time. Follows all commands. No focal deficits, speech is clear and fluent. Course Vital Signs Vital signs: Vital Signs Temperat
[2024-03-08] MEDS: IBUPROFEN 400 MG TABLET PO (22:14)
[2024-03-08 22:15] LABS: Basophils Percent Auto 0.3 % (0.2-1.2); Eosinophils Absolute Auto 0.2 K/mm3 (0-0.3); Eosinophils Percent Auto 1.4 % (0-4.4); Hematocrit 39.4 % (42.0-52.0); Hemoglobin 12.4 g/dL (14.0-18.0); Immature Granulocyte Absolute 0.06 K/mm3 (0.00-0.031); Immature Granulocyte Percent A 0.5 % (0-0.5); Lymphocytes Percent Auto 12.3 % (18.3-44.2); Mean Corpuscular HGB Conc 31.5 g/dl (32-36); Mean Corpuscular Hemoglobin 26.2 pg (26-34); Mean Corpuscular Volume 83.1 fl (80-100); Mean Platelet Volume 11.1 fl (7.4-10.4); Monocytes Absolute Auto 0.7 K/mm3 (0.1-0.6); Monocytes Percent Auto 5.7 % (2.6-8.5); Neutrophils Absolute Auto 9.7 K/mm3 (1.3-6.7); Neutrophils Percent Auto 79.8 % (45.5-73.1); Platelet Count Result 215 k/mm3 (150-375); Red Blood Count 4.74 M/mm3 (4.6-6.20); Red Cell Distribution Width 15.9 % (11.5-14.5); White Blood Count 12.2 K/mm3 (4.5-10.0)
[2024-03-08 22:22] LABS: Influenza A QL RT-PCR Negative (Negative); Influenza B QL RT-PCR Negative (Negative); RSV RNA, RT-PCR Negative (Negative); SARS-CoV-2 RNA PCR Negative (Negative)
[2024-03-08 22:26] LABS: Lactic Acid Reflex 1.3 mmol/L (0.7-2.0)
[2024-03-08 22:27] LABS: Alanine Aminotransferase 20 U/L (6-50); Albumin Level 4.7 g/dL (3.5-5.1); Alkaline Phosphatase 74 U/L (38-126); Anion Gap 10 mmol/L (4-12); Aspartate Amino Transferase 28 U/L (17-59); Bilirubin,Total 0.6 mg/dL (0.2-1.3); Blood Urea Nitrogen 46 mg/dL (9-20); Calcium 9.5 mg/dL (8.4-10.2); Carbon Dioxide 25 mmol/L (22-30); Chloride 108 mmol/L (98-107); Estimated CRCL calculation 44 ml/min; Estimated Glomerular Filt Rate 40; Glucose 129 mg/dL (65-110); Potassium 4.7 mmol/L (3.4-5.0); Sodium 143 mmol/L (137-145)
[2024-03-08 22:31] VITALS: BP 184/75; PULSE 91; PULSE 97; RESP 25; TEMP 39.7; O2SAT 100
[2024-03-08 22:32] VITALS: O2SAT 100
[2024-03-08 22:44] VITALS: TEMP 38.3
[2024-03-08 22:48] VITALS: BP 184/75; PULSE 106; RESP 24; TEMP 38.3; O2SAT 97
[2024-03-08] MEDS: ONDANSETRON INJ 4 MG/2 ML VIAL IV PUSH (22:53)
[2024-03-08] MEDS: SODIUM CHLORIDE 0.9% IV 1,000 ML 999 ML IV CONT (23:39)
[2024-03-09] VITALS (22 sets, daily range): BP systolic 112–156; BP diastolic 56–83; PULSE 62–118; RESP 16–95; TEMP 36.1–39.4; O2SAT 22–97; BMI 33.5
[2024-03-09] MEDS: AZITHROMYCIN 500 MG/NS 250 ML 500 MG/250 ML BAG 250 MG IVPB ×2 (00:13→23:38)
--- NOTE | 2024-03-09 00:50 | PC.NURSE ---
Patient's temperature was checked via orally. Temperature of [address] Narvaez who VRBO 650mg PO Tylenol.
[2024-03-09] MEDS: ACETAMINOPHEN 325 MG TABLET 650 MG PO (00:54)
[2024-03-09 01:17] LABS: Appearance Urine Clear (Clear); Bilirubin Urine Negative (Negative); Blood Urine Negative (Negative); Color Urine Yellow (Yellow); Glucose Urine UA Negative (Negative); Ketones Urine Negative (Negative); Leukocyte Esterase Ur Negative LEU/UL (Negative); Nitrate Urine Negative (Negative); Protein Urine Negative (Negative); Specific Grav Ur 1.018 (1.001-1.035); pH Urine 6.5 (5.0-9.0)
[2024-03-09 01:35] LABS: Add Urine Microscopic? NO
[2024-03-09] MEDS: IBUPROFEN 400 MG TABLET PO (02:05)
--- NOTE | 2024-03-09 02:08 | PM.IMHP ---
H&P: HPI History of Present Illness Date/Time: 03/09/24 02:08 Chief Complaint: chills Narrative: This is a 68-year-old male with past medical history significant for liver and kidney transplant, on immunosuppressant therapy, insulin-dependent diabetes mellitus, dyslipidemia. patient presents to the emergency room due to episode of chills, fever generalized malaise, muscle aches and pains x1 day duration. Patient had been in his usual state of health up until this time. Preliminary workup was significant for chest x-ray with left lower lobe infiltrates. Patient has been admitted for further evaluation management and treatment. EXAMINATION: XR chest 2V DATE: 03/08/2024 22:00 INDICATION: Cough and fever. TECHNIQUE: Frontal and lateral views of the chest were obtained on 3 radiographs. COMPARISON: Chest 2 views 08/09/2023 FINDINGS: There are airspace opacities in left lower lobe. No pleural effusion or pneumothorax. The heart size is normal. There is a left chest wall pacer with leads in the right atrium and right ventricle. IMPRESSION: 1. Airspace opacities in left lower lobe, consistent with atelectasis versus pneumonia. Review of Systems Review of Systems: chills, fever, generalized malaise x1 day Constitutional: Constitutional: Reports chills, Reports fever(s), Reports malaise, Reports poor appetite and Reports weakness Eyes: Eyes: Denies change in vision ENT: Denies dysphagia and Denies odynophagia Cardiovascular: Cardiovascular: Denies chest pain, Denies radiating jaw, neck or arm pain and Denies palpitations Respiratory: Respiratory: Denies cough, Denies excessive phlegm production and Denies dyspnea Gastrointestinal: Gastrointestinal: Denies abdominal pain, Denies diarrhea, Denies nausea and Denies vomiting Genitourinary: Genitourinary: Denies dysuria Musculoskeletal: Musculoskeletal: Reports myalgias Integumentary/Breasts: Skin/Breast: Denies rash Neurologic: Denies focal weakness and Denies Sensory deficit (Neuro) Psychiatric: Psychiatric: Reports no additional psychiatric complaints and Reports as per HPI Endocrine: Endocrine: Denies cold intolerance, Denies fatigue, Denies flushing, Denies heat intolerance, Denies polyphagia, Denies polydipsia, Denies polyuria and Denies palpitations Hematologic/Lymphatic: Hematologic/Lymphatic: Reports no additional hematologic/lymphatic complaints and Reports as per HPI Allergic/Immunologic: Allergic/Immunologic: Reports no additional allergic/immunologic complaints and Reports as per HPI [facility] Past Medical History Medical History (Updated 03/09/24 @ 05:55 by Chivo Monaco MD) Diabetes type 2, controlled History of pneumothorax Hyperlipidemia Hypertension Renal cell carcinoma Surgical History Surgical History History of chest tube placement History of colonoscopy History of kidney surgery History of liver transplant Family History Family History Father Heart disease Mother Family history unknown Social History Social History Smoking status: Former smoker Alcohol intake: former Substance use: never Do You Feel Safe in your Home?: Yes Lack of Transportation: No Lack of Food: Never True Current Housing: I Have Housing Concerned About Future Housing: No Difficulty Paying Gas/Electric Bills: No Difficulty Paying for Meds: No Currently Unemployed: No Education: High School Diploma/GED Difficulty w/ Childcare or Family Care: No Gender identity (if verbalized by the patient): Male Sexual Orientation (if Verbalized by the Patient): Straight or Heterosexual Spiritual care concerns: Yes Meds Home Medications and Allergies Home Medications Medication Instructions Recorded Confirmed Type alendronate 70 mg-cholecalciferol 1 tab
--- NOTE | 2024-03-09 03:13 | ADMGEN ---
This patient, Luis Manuel Tracy, was admitted to 3 [facility] Surg Room 331-01. Patient/family oriented to hospital policies and general routines including ID bracelet, bed and alarms, visiting hours, pain management, procedures, bathroom and other care routines, personal items, smoking policy, room service/diet, and visiting hours. Information on how to activate the Rapid Response Team has been discussed. Patient/Family are encouraged to report perceived risks to care and to ask questions if they do not understand what they are told or what they should do.
[2024-03-09] MEDS: VANCOMYCIN 1,250 MG/NS 250 ML 1,250 MG/250 ML BAG 166.67 MG IVPB ×2 (08:02→10:06)
[2024-03-09] MEDS: METOPROLOL TARTRATE 25 MG TABLET PO ×2 (08:03→20:47)
[2024-03-09] MEDS: LOSARTAN POTASSIUM 100 MG TABLET PO (08:03)
[2024-03-09] MEDS: amLODIPine BESYLATE 5 MG TABLET PO ×2 (08:04→20:47)
[2024-03-09] MEDS: INSULIN GLARGINE (*BKC) 100 UNITS/ML 25 UNITS SUB-Q (08:05)
[2024-03-09] MEDS: TACROLIMUS 0.5 MG CAPSULE 2 MG PO ×2 (08:05→20:47)
[2024-03-09 08:42] LABS: Basophils Percent Auto 0.2 % (0.2-1.2); Eosinophils Absolute Auto 0.2 K/mm3 (0-0.3); Eosinophils Percent Auto 0.9 % (0-4.4); Hematocrit 35.7 % (42.0-52.0); Immature Granulocyte Absolute 0.19 K/mm3 (0.00-0.031); Lymphocytes Absolute Auto 1.61 K/mm3 (0.9-3.2); Lymphocytes Percent Auto 8.7 % (18.3-44.2); Mean Corpuscular HGB Conc 30.8 g/dl (32-36); Mean Corpuscular Hemoglobin 26.2 pg (26-34); Mean Platelet Volume 11.7 fl (7.4-10.4); Monocytes Absolute Auto 1.6 K/mm3 (0.1-0.6); Monocytes Percent Auto 8.8 % (2.6-8.5); Neutrophils Absolute Auto 14.9 K/mm3 (1.3-6.7); Neutrophils Percent Auto 80.4 % (45.5-73.1); Platelet Count Result 171 k/mm3 (150-375); Red Cell Distribution Width 16.6 % (11.5-14.5); White Blood Count 18.6 K/mm3 (4.5-10.0)
[2024-03-09 08:45] LABS: Glucose Point of Care 138 mg/dl (65-105)
[2024-03-09 08:56] LABS: Alanine Aminotransferase 16 U/L (6-50); Albumin Level 3.9 g/dL (3.5-5.1); Alkaline Phosphatase 65 U/L (38-126); Anion Gap 5 mmol/L (4-12); Aspartate Amino Transferase 21 U/L (17-59); Bilirubin,Total 0.9 mg/dL (0.2-1.3); Blood Urea Nitrogen 47 mg/dL (9-20); Calcium 8.4 mg/dL (8.4-10.2); Carbon Dioxide 26 mmol/L (22-30); Chloride 108 mmol/L (98-107); Estimated CRCL calculation 38 ml/min; Estimated Glomerular Filt Rate 33; Glucose 141 mg/dL (65-110); Potassium 4.9 mmol/L (3.4-5.0); Sodium 139 mmol/L (137-145)
[2024-03-09] MEDS: CEFEPIME 1 GM/NS 50 ML 1 GM/50 ML BAG IVPB ×2 (09:40→20:48)
[2024-03-09 09:47] LABS: MRSA (PCR) NOT DETECTED (NOT DETECTE)
--- NOTE | 2024-03-09 10:35 | PC.NURSE ---
Received from via wheelchair. Voiding without difficulty.
[2024-03-09 11:42] LABS: Glucose Point of Care 186 mg/dl (65-105)
--- NOTE | 2024-03-09 13:33 | PC.NURSE ---
On 03/09/24, the student, [Elena Crow], provided care and [facility] patient. I have reviewed the student's documentation and agree with the findings.
--- NOTE | 2024-03-09 14:50 | PM.IMPN ---
Progress Note: A&P Assessment and Plan (1) Pneumonia: Code(s): J18.9 - Pneumonia, unspecified organism Status: Acute Assessment and Plan: Patient presented to the ED due to fever, fatigue, cough and shortness of breath. Chest x-ray consistent with atelectasis versus pneumonia. CT chest abdomen pelvis showing extensive lower lobe pneumonia. In giving history of immuno suppressant therapy we are going to switch to broad-spectrum antibiotic Rocephin and Zithromax initiated on 03/08, vanco added on 03/09 Duonebs q6h Sputum culture ordered. Blood culture pending. RSV, flu and COVID negative Patient not requiring O2 supplementation at this time. (2) Diabetes type 2, controlled: Code(s): E11.9 - Type 2 diabetes mellitus without complications Status: Acute Assessment and Plan: Insulin Lispro sliding scale, Accu-checks qAc and HS and Hold oral hypoglycemics Initiate hypoglycemic precautions (3) Hypertension: Code(s): I10 - Essential (primary) hypertension Status: Acute Assessment and Plan: continue home meds Subjective Date/time seen: 03/09/24 14:50 Interval history: patient doing well today. Patient's symptoms developed several hours prior to ED presentation. He developed high a grade fevers as well as cough and shortness of breath. Patient states that he has been short of breath for quite some time now and got a pacemaker back in December in hopes that this would help but it has not. He has no history of lung disease. Will order DuoNebs for him. Patient originally in a double room but due to his immunocompromised state I requested him to be put in a single room. Exam Narrative: GENERAL: Comfortable, no acute distress HENMT: moist mucous membranes EYES: EOM intact b/l NECK: no lymphadenopathy RESPIRATORY: bibasilar crackles, no increased respiratory effort CARDIO: Regular rate and rhythm GI: soft, nontender, bowel sounds present SKIN/EXTREMITIES: no rashes, no edema, no redness or tenderness NEURO: PROM intact, answers questions appropriately, A&O x4 Objective Data Vital Signs Vital Signs: Vital Signs - 24 hr 03/08/24 21:39 03/08/24 22:31 03/08/24 22:31 Temperature 100.9 F H Pulse Rate 103 H 97 Respiratory Rate 24 H Blood Pressure 177/99 H Pulse Oximetry 97 100 Oxygen Delivery Room Air Room Air 03/08/24 22:31 03/08/24 22:32 03/08/24 22:44 Temperature 103.4 F H 100.9 F H Pulse Rate 91 Respiratory Rate 25 H Blood Pressure 184/75 H Pulse Oximetry 100 100 Oxygen Delivery Room Air 03/08/24 22:48 03/09/24 00:49 03/09/24 01:41 Temperature 100.9 F H 103 F H Pulse Rate 106 H 90 74 Respiratory Rate 24 H 17 20 Blood Pressure 184/75 H 136/62 116/63 Pulse Oximetry 97 94 94 Oxygen Delivery 03/09/24 01:24 03/09/24 01:51 03/09/24 02:35 Temperature 102.2 F H 102.2 F H 100.5 F H Pulse Rate Respiratory Rate Blood Pressure Pulse Oximetry Oxygen Delivery 03/09/24 02:58 03/09/24 04:28 03/09/24 03:28 Temperature 98.1 F Pulse Rate 70 69 70 Respiratory Rate 95 H 20 Blood Pressure 112/76 120/56 L Pulse Oximetry 22 L 94 Oxygen Delivery 03/09/24 08:15 03/09/24 08:15 03/09/24 10:30 Temperature 97.0 F L Pulse Rate 118 H 87 Respiratory Rate 17 Blood Pressure 119/83 Pulse Oximetry 96 Oxygen Delivery Room Air 03/09/24 12:04 03/09/24 12:50 03/09/24 13:35 Temperature 97.1 F L Pulse Rate 74 62 Respiratory Rate 16 Blood Pressure 133/61 Pulse Oximetry 97 Oxygen Delivery Room Air Intake/Output Intake/Output: Intake & Output 03/06/24 03/07/24 03/08/24 03/09/24 23:59 23:59 23:59 23:59 Intake Total 2470 Balance 2470 Meds/Results Medications: Active Medications Generic Name Dose Route Start Last Admin Trade Name Freq PRN Reason Stop Dose Admin Amlodipine Besylate 5 mg 03/09/24 09:00 03/09/24 08:04 A
[2024-03-09 16:41] LABS: Glucose Point of Care 203 mg/dl (65-105)
[2024-03-09] MEDS: INSULIN ASPART (*BKC) 100 UNITS/ML SUB-Q (16:54)
[2024-03-09] MEDS: INSULIN GLARGINE (*BKC) 100 UNITS/ML 20 UNITS SUB-Q (17:14)
[2024-03-09 20:44] LABS: Glucose Point of Care 201 mg/dl (65-105)
[2024-03-09] MEDS: PRAVASTATIN SODIUM 20 MG TABLET 40 MG PO (20:47)
[2024-03-09] MEDS: predniSONE 5 MG TABLET PO (20:48)
[2024-03-09] MEDS: ALBUTEROL SULFATE NEB 2.5 MG/3 ML INH INHALATION (21:23)
[2024-03-09] MEDS: ACETAMINOPHEN 500 MG TABLET PO (22:18)
[2024-03-09] MEDS: LACTATED RINGERS 1,000 ML 999 ML IV CONT (22:19)
[2024-03-10] VITALS (21 sets, daily range): BP systolic 148–179; BP diastolic 60–73; PULSE 70–116; RESP 16–20; TEMP 36.5–37.1; O2SAT 90–97
[2024-03-10] MEDS: ALBUTEROL SULFATE NEB 2.5 MG/3 ML INH INHALATION ×4 (01:54→19:53)
[2024-03-10 05:48] LABS: Estimated CRCL calculation 42 ml/min; Estimated Glomerular Filt Rate 37
[2024-03-10 06:04] LABS: Procalcitonin 1.8 ng/mL
[2024-03-10] MEDS: ASPIRIN 81 MG ENTERIC TABLET PO (06:21)
[2024-03-10] MEDS: VANCOMYCIN 1,500 MG/NS 500 ML 1,500 MG/500 ML BAG 250 MG IVPB (06:21)
[2024-03-10 07:17] LABS: Basophils Percent Auto 0.2 % (0.2-1.2); Eosinophils Absolute Auto 0.1 K/mm3 (0-0.3); Eosinophils Percent Auto 0.6 % (0-4.4); Hematocrit 32.8 % (42.0-52.0); Hemoglobin 9.9 g/dL (14.0-18.0); Immature Granulocyte Absolute 0.09 K/mm3 (0.00-0.031); Immature Granulocyte Percent A 0.7 % (0-0.5); Lymphocytes Absolute Auto 0.55 K/mm3 (0.9-3.2); Lymphocytes Percent Auto 4.5 % (18.3-44.2); Mean Corpuscular HGB Conc 30.2 g/dl (32-36); Mean Corpuscular Volume 86.1 fl (80-100); Mean Platelet Volume 12.4 fl (7.4-10.4); Monocytes Absolute Auto 0.9 K/mm3 (0.1-0.6); Monocytes Percent Auto 7.6 % (2.6-8.5); Neutrophils Absolute Auto 10.6 K/mm3 (1.3-6.7); Neutrophils Percent Auto 86.4 % (45.5-73.1); Platelet Count Result 155 k/mm3 (150-375); Red Blood Count 3.81 M/mm3 (4.6-6.20); Red Cell Distribution Width 16.6 % (11.5-14.5); White Blood Count 12.3 K/mm3 (4.5-10.0)
[2024-03-10 07:28] LABS: Alanine Aminotransferase 14 U/L (6-50); Albumin Level 3.5 g/dL (3.5-5.1); Alkaline Phosphatase 65 U/L (38-126); Anion Gap 6 mmol/L (4-12); Aspartate Amino Transferase 24 U/L (17-59); Bilirubin,Total 0.9 mg/dL (0.2-1.3); Blood Urea Nitrogen 41 mg/dL (9-20); Calcium 8.4 mg/dL (8.4-10.2); Carbon Dioxide 22 mmol/L (22-30); Chloride 107 mmol/L (98-107); Estimated CRCL calculation 42 ml/min; Estimated Glomerular Filt Rate 37; Glucose 179 mg/dL (65-110); Potassium 4.8 mmol/L (3.4-5.0); Sodium 135 mmol/L (137-145)
[2024-03-10 08:12] LABS: Glucose Point of Care 187 mg/dl (65-105)
[2024-03-10] MEDS: CEFEPIME 1 GM/NS 50 ML 1 GM/50 ML BAG IVPB ×2 (08:31→20:16)
[2024-03-10] MEDS: INSULIN GLARGINE (*BKC) 100 UNITS/ML 25 UNITS SUB-Q (08:32)
[2024-03-10] MEDS: LOSARTAN POTASSIUM 100 MG TABLET PO (08:33)
[2024-03-10] MEDS: METOPROLOL TARTRATE 25 MG TABLET PO ×2 (08:33→20:15)
[2024-03-10] MEDS: TACROLIMUS 0.5 MG CAPSULE 2 MG PO ×2 (08:33→20:16)
[2024-03-10 12:08] LABS: Glucose Point of Care 260 mg/dl (65-105)
[2024-03-10] MEDS: INSULIN ASPART (*BKC) 100 UNITS/ML SUB-Q ×2 (12:13→17:15)
--- NOTE | 2024-03-10 12:22 | PM.IMPN ---
Progress Note: A&P Assessment and Plan (1) Pneumonia: Code(s): J18.9 - Pneumonia, unspecified organism Status: Acute Assessment and Plan: Patient presented to the ED due to fever, fatigue, cough and shortness of breath. Chest x-ray consistent with atelectasis versus pneumonia. CT chest abdomen pelvis showing extensive lower lobe pneumonia. In giving history of immuno suppressant therapy we are going to switch to broad-spectrum antibiotic Rocephin and Zithromax initiated on 03/08, vanco added on 03/09 03/10 Antibiotics transition to Rocephin, p.o. azithromycin and vanc was discontinued due to negative MRSA screen Duonebs q6h Sputum culture ordered. Blood culture pending. RSV, flu and COVID negative Patient not requiring O2 supplementation at this time. (2) Diabetes type 2, controlled: Code(s): E11.9 - Type 2 diabetes mellitus without complications Status: Acute Assessment and Plan: Insulin Lispro sliding scale, Accu-checks qAc and HS and Hold oral hypoglycemics Initiate hypoglycemic precautions (3) Hypertension: Code(s): I10 - Essential (primary) hypertension Status: Acute Assessment and Plan: continue home meds Subjective Date/time seen: 03/10/24 12:22 Interval history: Patient doing well today. He is still having cough and sputum production but sputum production is less. He states that DuoNebs are helping. Would like to keep for more night to monitor overall progress and possible discharge tomorrow. Blood cultures have remained no growth to date. Patient still states that he is short of breath but this is slowly improving. Exam Narrative: GENERAL: Comfortable, no acute distress HENMT: moist mucous membranes EYES: EOM intact b/l NECK: no lymphadenopathy RESPIRATORY: bibasilar crackles, no increased respiratory effort - lung sounds improved CARDIO: Regular rate and rhythm GI: soft, nontender, bowel sounds present SKIN/EXTREMITIES: no rashes, no edema, no redness or tenderness NEURO: PROM intact, answers questions appropriately, A&O x4 Objective Data Vital Signs Vital Signs: Vital Signs - 24 hr 03/09/24 12:50 03/09/24 13:35 03/09/24 16:00 Temperature 97.1 F L Pulse Rate 62 78 Respiratory Rate 16 Blood Pressure 133/61 Pulse Oximetry 97 Oxygen Delivery Room Air 03/09/24 19:22 03/09/24 20:47 03/09/24 21:26 Temperature 98.5 F Pulse Rate 72 72 86 Respiratory Rate 18 18 Blood Pressure 156/67 H Pulse Oximetry 97 Oxygen Delivery 03/09/24 22:18 03/09/24 20:00 03/09/24 20:45 Temperature 101.3 F H Pulse Rate 70 Respiratory Rate Blood Pressure Pulse Oximetry Oxygen Delivery Room Air 03/10/24 00:00 03/09/24 23:30 03/09/24 21:36 Temperature 99.8 F H Pulse Rate 70 87 Respiratory Rate 18 Blood Pressure Pulse Oximetry Oxygen Delivery 03/09/24 21:25 03/10/24 01:58 03/10/24 01:55 Temperature Pulse Rate 77 77 Respiratory Rate 18 Blood Pressure Pulse Oximetry 94 94 Oxygen Delivery Room Air CPAP 03/09/24 23:00 03/10/24 04:00 03/10/24 05:49 Temperature 98.8 F Pulse Rate 82 71 73 Respiratory Rate 18 Blood Pressure 155/61 H Pulse Oximetry 94 97 Oxygen Delivery CPAP 03/10/24 07:50 03/10/24 07:50 03/10/24 08:03 Temperature Pulse Rate 89 92 Respiratory Rate 20 20 Blood Pressure Pulse Oximetry 90 Oxygen Delivery Room Air 03/10/24 08:33 03/10/24 08:33 03/10/24 11:29 Temperature Pulse Rate 95 Respiratory Rate Blood Pressure Pulse Oximetry 90 Oxygen Delivery Room Air Room Air Intake/Output Intake/Output: Intake & Output 03/07/24 03/08/24 03/09/24 03/10/24 23:59 23:59 23:59 23:59 Intake Total 3190 920 Output Total 250 Balance 3190 670 Meds/Results Medications: Active Medications Generic Name Dose Route Start Last Admin Trade Name Freq PRN Reason S
--- NOTE | 2024-03-10 12:41 | PC.NURSE ---
On 03/10/24, the student, [Elena Crow], provided care and [facility]. I have reviewed the student's documentation and agree with the findings.
[2024-03-10 17:13] LABS: Glucose Point of Care 336 mg/dl (65-105)
[2024-03-10] MEDS: INSULIN GLARGINE (*BKC) 100 UNITS/ML 20 UNITS SUB-Q (17:16)
[2024-03-10] MEDS: predniSONE 5 MG TABLET PO (20:15)
[2024-03-10] MEDS: AZITHROMYCIN 250 MG TABLET 500 MG PO (20:15)
[2024-03-10] MEDS: amLODIPine BESYLATE 5 MG TABLET PO (20:15)
[2024-03-10] MEDS: PRAVASTATIN SODIUM 20 MG TABLET 40 MG PO (20:16)
[2024-03-10 20:26] LABS: Glucose Point of Care 371 mg/dl (65-105)
[2024-03-10] MEDS: CALCIUM CARBONATE (TUMS) 500 MG (200 MG ELEMENTAL) PO (20:52)
[2024-03-10] MEDS: INSULIN ASPART (*BKC) 100 UNITS/ML 8 UNITS SUB-Q (21:25)
[2024-03-11] VITALS (11 sets, daily range): BP systolic 158; BP diastolic 66; PULSE 64–102; RESP 16–18; TEMP 36.6; O2SAT 92–97
[2024-03-11 00:22] LABS: Glucose Point of Care 315 mg/dl (65-105)
[2024-03-11] MEDS: INSULIN ASPART (*BKC) 100 UNITS/ML SUB-Q ×2 (00:35→08:23)
[2024-03-11] MEDS: ALBUTEROL SULFATE NEB 2.5 MG/3 ML INH INHALATION ×2 (02:09→07:09)
[2024-03-11 05:22] LABS: Hematocrit 33.5 % (42.0-52.0); Hemoglobin 10.3 g/dL (14.0-18.0); Mean Corpuscular HGB Conc 30.7 g/dl (32-36); Mean Corpuscular Hemoglobin 25.9 pg (26-34); Mean Corpuscular Volume 84.4 fl (80-100); Mean Platelet Volume 12.1 fl (7.4-10.4); Platelet Count Result 158 k/mm3 (150-375); Red Blood Count 3.97 M/mm3 (4.6-6.20); Red Cell Distribution Width 16.2 % (11.5-14.5); White Blood Count 7.9 K/mm3 (4.5-10.0)
[2024-03-11 05:41] LABS: Anion Gap 6 mmol/L (4-12); Blood Urea Nitrogen 33 mg/dL (9-20); Calcium 9.1 mg/dL (8.4-10.2); Carbon Dioxide 25 mmol/L (22-30); Chloride 104 mmol/L (98-107); Estimated CRCL calculation 42 ml/min; Estimated Glomerular Filt Rate 37; Glucose 278 mg/dL (65-110); Potassium 4.6 mmol/L (3.4-5.0); Sodium 135 mmol/L (137-145)
[2024-03-11 08:04] LABS: Glucose Point of Care 287 mg/dl (65-105)
[2024-03-11] MEDS: TACROLIMUS 0.5 MG CAPSULE 2 MG PO (08:22)
[2024-03-11] MEDS: METOPROLOL TARTRATE 25 MG TABLET PO (08:22)
[2024-03-11] MEDS: LOSARTAN POTASSIUM 100 MG TABLET PO (08:22)
[2024-03-11] MEDS: INSULIN GLARGINE (*BKC) 100 UNITS/ML 25 UNITS SUB-Q (08:23)
[2024-03-11] MEDS: CEFEPIME 1 GM/NS 50 ML 1 GM/50 ML BAG IVPB (08:27)
--- NOTE | 2024-03-11 10:29 | PM.DS ---
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 Workup in the ED significant with chest x-ray showing pneumonia. Patient originally started on vancomycin, cefepime and azithromycin. Patient shortness of breath and cough improved with antibiotic therapy. He was also started on Duo Nebs. Patient remained afebrile while in the hospital. Patient improved during hospital stay. Will discharge him home on Levaquin. Time Spent with Patient Time attestation: Total time spent providing and/or coordinating discharge services: Exam Narrative: GENERAL: Comfortable, no acute distress HENMT: moist mucous membranes EYES: EOM intact b/l NECK: no lymphadenopathy RESPIRATORY: bibasilar crackles, no increased respiratory effort - lung sounds improved CARDIO: Regular rate and rhythm GI: soft, nontender, bowel sounds present SKIN/EXTREMITIES: no rashes, no edema, no redness or tenderness NEURO: PROM intact, answers questions appropriately, A&O x4 DS: Data Data Completed and Pending Labs on day of discharge: Labs from last 24 hours 03/11/24 03/11/24 03/11/24 07:43 04:52 00:18 WBC 7.9 RBC 3.97 L Hgb 10.3 L Hct 33.5 L MCV 84.4 MCH 25.9 L MCHC 30.7 L RDW 16.2 H Plt Count 158 MPV 12.1 H Sodium 135 L Potassium 4.6 Chloride 104 Carbon Dioxide 25 Anion Gap 6 BUN 33 H Creatinine 1.80 H Estim Creat Clear Calc 42 Estimated GFR 37 L Glucose 278 H POC Capillary Glucose 287 H 315 H Calcium 9.1 Ur L.pneumophila Ag 03/10/24 03/10/24 03/10/24 20:24 17:02 16:27 WBC RBC Hgb Hct MCV MCH MCHC RDW Plt Count MPV Sodium Potassium Chloride Carbon Dioxide Anion Gap BUN Creatinine Estim Creat Clear Calc Estimated GFR Glucose POC Capillary Glucose 371 H 336 H Calcium Ur L.pneumophila Ag Pending 03/10/24 11:58 WBC RBC Hgb Hct MCV MCH MCHC RDW Plt Count MPV Sodium Potassium Chloride Carbon Dioxide Anion Gap BUN Creatinine Estim Creat Clear Calc Estimated GFR Glucose POC Capillary Glucose 260 H Calcium Ur L.pneumophila Ag Preliminary micro results at discharge 03/08/24 22:42 Blood Culture - Preliminary Blood 03/08/24 22:42 Blood Culture - Preliminary Blood Discharge Plan Discharge Discharging Clinician: Rocío Scanlon Patient Disposition: Home, Self-Care Activity: no preference Diet: diabetic Discharge Instructions: Medications: Levaquin 750 mg daily through 03/14/2024. Next dose tomorrow. Discharge disposition: Take medications as prescribed Monitor blood pressures Avoid social areas, you wear a mask when in social settings Encouraged to continue with yearly vaccinations Return to the emergency department if he developed sudden shortness of breath, chest pain, nausea, vomiting, upset stomach or intractable diarrhea Return to the emergency department if you develop fever greater than 100.4 Follow-up with the primary care physician within 1-2 weeks Thank you for [facility] for your healthcare needs Patient Instructions: Antibiotic Form Stand Alone Forms: General Discharge Information Follow-up/Referrals: Jacky
[2024-03-11] MEDS: levoFLOXacin 750 MG TABLET PO (11:16)
[2024-03-20 16:37] LABS: Legionella pneumophila Ag Ur NOT DETECTED
[2024-03-20 18:23] LABS: Mycoplasma IgM Antibody Titer 85 U/mL
== END 2024-03-11 11:28 | disposition home or self-care (01) | DRG 194 ==
LOC: ANHED 03-09 02:27 → ANH3MEDSUR 03-09 02:53 → ANH2MED 03-09 10:20
PROVIDERS: Internal Medicine Critical Care Medicine; Student in an Organized Health Care Education/Training Program; Admitting Provider Internal Medicine; Emergency Provider Emergency Medicine; PCP Internal Medicine; Visit Provider Internal Medicine
DX: J18.9 Pneumonia, unspecified organism (principal); D84.821 Immunodeficiency due to drugs; Z94.4 Liver transplant status; Z94.0 Kidney transplant status; E11.9 Type 2 diabetes mellitus without complications; E78.5 Hyperlipidemia, unspecified; I10 Essential (primary) hypertension; Z20.822 Contact with and (suspected) exposure to COVID-19; Z79.621 Long term (current) use of calcineurin inhibitor; Z79.4 Long term (current) use of insulin; Z85.528 Personal history of other malignant neoplasm of kidney; Z95.0 Presence of cardiac pacemaker
CPT/HCPCS: 36415; 71046; 71250; 74176; 80048; 80053; 81003; 82565; 82948; 83605; 84145; 85025; 85027; 86738; 87040; 87449; 87637; 87641; 93005; 94640; 96365; 96367; 96375; 99285; A9270; J0456; J0692; J0696; J1815; J2405; J3370; J7030; J7120; J7512

== ENCOUNTER 2024-05-01 15:05 | Outpatient (CLI) | payer MEDICARE, SELFPAY ==
--- NOTE | ~2024-05-01 | XR_ITS ---
EXAMINATION: XR chest 2V Exam Date/Time: 05/01/2024 15:08 CDT HISTORY: PNEUMONIA OF LOWER LEFT LOBE Comparison: 03/08/2024. RESULT: Lines, tubes, and devices: Left chest pacer with intact leads. Lungs and pleura: Clear. Cardiomediastinal silhouette: Stable. Other: No acute osseous or upper abdominal finding. IMPRESSION: No acute cardiopulmonary process. Interval resolution of the previously described left lower lobe air space disease. Reviewed, dictated and finalized at location K. IMPRESSION: No acute cardiopulmonary process. Interval resolution of the previously describ ed left lower lobe airspace disease.
== END 2024-05-01 15:06 ==
LOC: MICIMG 15:07
PROVIDERS: PCP Internal Medicine; Visit Provider Registered Nurse
DX: J18.9 Pneumonia, unspecified organism (principal)
CPT/HCPCS: 71046

== ENCOUNTER 2025-08-04 08:26 | Inpatient (IN) | payer MEDICARE, SELFPAY ==
--- OUTSIDE RECORDS SUMMARY | 2015-02-08 04:07 | XMS_ITS | Continuity of Care Document ---
Author Organization [facility] Address [address] [place] [address] Phone Care Team Providers Care Beet Topper Name Role Phone Aashish ELECTROSTATIC PAINTER, Cynthia Unavailable Unavailable Allergies, Adverse Reactions, Alerts Substance Reaction Status Criticality No Known Drug Allergies Other Active No I nformation Medications Medication Instructions Dosage Effective Dates (start - stop) Status Comments CIALIS 20 MG TABLET 1 DIRECTE - Act jan METRONIDAZOLE 0.75% APPLICS 1 BID - Active ASPIRIN 81 MG TABLET 1 DAILY - Activ e SINGULAIR 10 MG TABLET 1 QPM - Act jan MULTIVITAMIN TABS 1 QD-daily - Active CINNAMON 500MG CAPS 1 BID - Active DRISDOL 43703 UNIT CAPS 1 Q WEEK - Ac tive CHROMIUM PICOLINATE TABS 1 BID - A ctive ALPHA LIPOIC ACID 300MG CAPS 4 BID - Active BYETTA 10MCG/0.04 MCG 10 BID - Acti ve TRICOR 145MG TABS 1 QD-daily - Active METFORMIN HCL 1000MG TABS 1 BID - Active GLIMEPIRIDE 4MG TABS 1 QD-daily - Acti ve LANTUS 100 U/ML UNITS 43 DAILY - Acti ve ACTOS 45MG TABS 1 QD-daily - Active HYZAAR 100-25MG TABS 1 QD-daily - Acti ve Advance Directives Directive Yes / No Effective Date File Name No Information Encounters Encounter Description Practice Location Reason(s) For Visit Diagnoses Date Provider Providers Copied on Encounter [facility], [address], [place], [place], [address] , [place] tel: [phone] [facility] No Information 5 Aashish Marie. [address], [place], [place], [address]. tel: [phone] [facility], [address], [place], [place], [address] , tel: [phone] Conversion Department No Information 1 Conversion Doctor. [address] [place] [address], [address], . [facility], [address], [place], [place], [address] , tel: [phone] [facility] BALANOPOSTHITISRO SACEA 9 Willem Bach. [address] [place] [address], [address], [place], [place], [address], . tel: [phone] [facility], [address], [place], [place], [address] , [place] tel: [phone] [facility] CHRONIC RHINITISVITAMIN D DEFICIENCY NOS 8 Jaskaran Mead. [address] , [address], [place], [place], [address], [place]. tel: [phone] [facility], [address], [place], [place], [address] , [place] tel: [phone] [facility] ALLERGIC RHINITIS NOS 8 Conversion Doctor. [address] [place] [address], [address], [place]. [facility], [address], [place], [place], [address] , tel: [phone] [facility] CERVICALGIADMII WO CMP NT ST UNCNTRBRACHIAL NEURITIS NOS 7 Willem Bach. [address] [place] [address], [address], [place], [place], [address], . tel: [phone] [facility], [address], [place], [place], [address] , tel: [phone] [facility] OBESITY NOSHYPERLIPIDEMIA NEC/NOSIMPOTENCE, ORGANIC ORIGNSCRN MALIG NEOP-PROSTATEBENI GN HYPERTENSION Willem Isreal. [address] [place] [address], [address], [place], [place], [address], [place]. tel:[phone] [facility], [address], [place], [place], [address] , [place] tel: [phone] [facility] MIXED HYPERLIPIDEMIAHYP ERTENSION NOSDMII WO CMP UNCNTRLD 3 Bangura Isreal. [address] [place] [address], [address], [place], [place], [address], [place]. tel:[phone] Family History Family Member Type Diagnosis Age At Onset No Information Immunizations Vaccine Date Status Comments 78772 - Influenza administered Source: So urce Unspecified Payers Payer name Insurance type Covered constitution party ID Authoriza tion(s) No Information Social History Type Description Quantity Date Captured Comments Sex Male Smoking Status No Information Chief Complaint And Reason For Visit No Information Reason For Referral Reason For Referral No Information History Of Present Illness Encounter Date Complaint History Of Prese nt Illness No Information Functional Status Date Functional Assessmen t No Information Instructions Date Instruction Additional Infor mation No Information Assessments Type Assessment Date No Information Patient Care Teams Name Effective Dates (start - stop) Status Members No Information
[2025-08-04] VITALS (23 sets, daily range): BP systolic 100–149; BP diastolic 48–71; PULSE 90–112; RESP 18–26; TEMP 37.4–39.4; O2SAT 92–100; BMI 25.9
--- NOTE | ~2025-08-04 | XR_ITS ---
Examination: XR chest 2V Clinical History: f/u pna Comparison: 08/04/2025 Technique: PA and Lateral Findings: Left pacemaker. Cardiomediastinal silhouette normal size and configuration. Lungs clear. No acute bony abnormality. IMPRESSION: 1. No acute cardiopulmonary findings. 2. Right basilar airspace disease resolved. Reviewed, dictated and finalized at location R.
--- NOTE | ~2025-08-04 | XR_ITS ---
Examination: XR chest 2V Clinical History: fever and sob Comparison: 05/01/2024 Technique: PA and Lateral Findings: Left pacemaker. Heart size normal. Right middle lobe airspace disease. No pleural effusion. No acute bony abnormality. IMPRESSION: 1. Right basilar pneumonia. Recommend surveillance until resolution. Reviewed, dictated and finalized at location .
--- OUTSIDE RECORDS SUMMARY | 2025-08-04 08:53 | XMS_ITS ---
Author Organization [facility] Address [address] [place] [address] Care Team Providers Care Principal Systems Engineer Name Role Phone Melania Hall RN Unavailable [phone] Jean-Pierre Long DPM Unavailable [phone] Dhiraj Gaitan DO Unavailable [phone] Adrian Sanchez MD Unavailable [phone] Marlon Trujillo MD Primary Care Provider [phone] Madelyn Gonzalez MD Unavailable [phone] Peter Felton RN Unavailable Unavaila ble Dialysis Access Sites Type Status Location Placement Date Removal Da te Hemodialysis Cath Double Inactive Right N anish (side) - Anterior 11/26/2020 12/04/2020 Hemodialysis Cath Triple Inactive Right N anish (side) - Anterior 11/07/2020 11/26/2020 Procedures Procedure Name Priority Date/Time Associated Diagnosis Comments POCT GLUCOSE DEVICE Routine 07/23/2025 7:16 AM CDT CAPSULE ENDOSCOPY SMALL HALEY L EXAM 07/23/2025 7:00 AM CDT Anemia, unspecified type PANCREATIC ELASTASE, STOOL Routine 06/15 9:44 AM CDT Diarrhea, unspecified type C. 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 Encounter for surgical aftercare following surgery on the circulatory system US ARTERIAL DOPPLER LOWER EXTREMITY BILATERAL Schedule Routine, Read Routine (OP Routine) 06/05/2025 1:42 PM CDT Venous insufficiency 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 Encounter for surgical aftercare following surgery on the circulatory system POCT HEMOGLOBIN A1C Routine 06/01/2025 10:06 AM CDT Type 2 diabetes mellitus with stage 3b chronic kidney disease, with long-term current use of insulin (HCC) POCT GLUCOSE DEVICE Routine 05/29/2025 9:43 AM CDT SURGICAL PATHOLOGY Routine 05/29/2025 9:04 AM CDT Diarrhea, unspecified type COLON BIOPSY 05/29/2025 8:58 AM CDT Diarrhea, unspecified type ESOPHAGOGASTRODUODENOSCOPY BIOPSY 05/29/2025 8:58 AM CDT Diarrhea, unspecified type EGD 05/29/2025 8:55 AM CDT COLONOSCOPY 05/29/2025 8:55 AM CDT POC BLOOD GAS AND CHEMISTRIE S, VENOUS Routine 05/29/2025 7:42 AM CDT C-PEPTIDE Routine 05/22/2025 11:53 AM CDT CTA ABDOMINAL AORTA AND BILATERAL ILIOFEMORAL RUNOFF Schedule Routine, Read Routine (OP Routine) 05/17/2025 5:15 PM CDT Encounter for surgical aftercare following surgery on the circulatory system PVD (peripheral vascular disease) EGFR Routine 05/17/2025 12:42 PM CDT Diarrhea, unspecified type TSH Routine 05/17/2025 12:42 PM CDT Diarrhea, unspecified type TISSUE TRANSGLUTAMINASE, IGA Routine 01/2025 12:42 PM CDT Diarrhea, unspecified type CRP (ACUTE PHASE) Routine 05/17/2025 12:42 PM CDT Diarrhea, unspecified type CBC WITHOUT DIFFERENTIAL Routine 025 12:42 PM CDT Diarrhea, unspecified type COMPREHENSIVE METABOLIC PANEL Routine 12:42 PM CDT Diarrhea, unspecified type FERRITIN Routine 05/08/2025 11:35 AM CDT Malignant neoplasm of ascending colon (HCC) IRON PROFILE W/ IBC Routine 05/08/2025 11:35 AM CDT Malignant neoplasm of ascending colon (HCC) COMPREHENSIVE METABOLIC PANEL Routine 11:35 AM CDT Malignant neoplasm of ascending colon (HCC) CEA Routine 05/08/2025 11:35 AM CDT Malignant neoplasm of ascending colon (HCC) CBC WITH AUTO DIFFERENTIAL Routine 05/08 11:35 AM CDT Malignant neoplasm of ascending colon (HCC) LIPID PANEL Routine 05/08/2025 11:35 AM CDT Type 2 diabetes mellitus with stage 3b chronic kidney disease, with long-term current use of insulin (HCC) ALBUMIN CREATININE RATIO, URINE Routine 12/20/2023 PSA, TOTAL Routine 12/20/2023 HEPATITIS C ANTIBODY Routine 11/26/2020 5:17 AM LINECASTING MACHINE KEYBOARD OPERATOR from Last 3 Months or Most Recently Relevant to Health Maintenance Allergies No known active allergies Medications multivitamin tablet Take 1 tablet by mouth daily after lunch At lunch Active BD Ultra-Fine Georgina Pen Needle 32 gauge x 5/32 needle Active pen needle, diabetic 32 gauge x 5/32 needle USE 1 PEN NEEDLE NEEDED Active cholecalciferol (VITAMIN D-3) 2000 unit tablet Take 1 tablet (2,000 Units total) by mouth every morning Active losartan (COZAAR) 100 mg tablet Take 1 tablet (100 mg total) by mouth every morning Active metoprolol tartrate (LOPRESSOR) 25 mg immediate release tablet Take 1 tablet (25 mg total) by mouth 2 (two) times a day Active magnesium oxide (MAG-OX) 250 mg (150.8 mg elemental) tablet Take 1 tablet (250 mg total) by mouth nightly Active calcium carbonate (TUMS ORAL) Take 1 tablet by mouth as needed (Cramping) Active ipratropium (ATROVENT) 42 mcg (0.06 %) nasal spray Administer 2 sprays into each nostril daily Active ketoconazole (NIZORAL) 2 % cream Apply 1 Application topically daily Active aspirin 81 mg enteric coated tablet Take 1 tablet (81 mg total) by mouth daily Daily for 21 days and then go back to every 48 hours as previously prescribed Active True Metrix Glucose Test Strip strip Active TRUEplus Lancets 28 gauge misc Active alpha lipoic acid 600 mg capsule Take by mouth A ctive coenzyme [id number] 100-5 mg-unit capsule Take 1 capsule by mouth daily Active LANTUS 100 unit/mL (3 mL) pen for injection Inject 45 Units under the skin daily 45 mL 025 2025 Active semaglutide 0.25 mg or 0.5 mg (2 mg/3 mL) pen injector injection Inject 0.5 mg under the skin once a week 9 mL 025 2025 Active insulin medical insurance verifier cart,aut,G6/7,cnt r (Omnipod 5 G6-G7 Intro Kt,Gen5,) cartridgeIndicati ons:Type 2 diabetes mellitus with stage 3b chronic kidney disease, with long-term current use of insulin (HCC) To change POD every 2 days 1 each 025 Active Additional Information Patient taking differently: To change POD every 2 daysBasal 1.2 units hr (only in manual mode)ICR 12:00 am 8gm5:00 pm 7.5 gmISF 30 grams to 1 unit insulin, Reported on 06/05/2025 insulin pump cart,auto,BT,G6/7 (Omnipod 5 G6-G7 Pods, Gen 5,) cartridgeIndicati ons:Type 2 diabetes mellitus with stage 3b chronic kidney disease, with long-term current use of insulin ([facility]) To change POD every 2 days 45 each 3 Active predniSONE (DELTASONE) 5 mg tablet TAKE 1 TABLET BY MOUTH DAILY 90 tablet 3 025 Active amLODIPine (NORVASC) 10 mg tablet TAKE 1 TABLET BY MOUTH EVERY NIGHT 90 tablet 3 Active HumaLOG 100 unit/mL vial for injectionIndicati ons:Type 2 diabetes mellitus with hyperglycemia, with long-term current use of insulin ([facility]) For use via insulin pump. TDD 100 units. 30 mL 11 Active rosuvastatin (CRESTOR) 40 mg tabletIndications :Hyperlipidemia, unspecified hyperlipidemia type Take 1 tablet (40 mg total) by mouth daily 90 tablet 3 025 2025 Active ferrous sulfate 325 mg (65 mg of elemental iron) tabletIndications :Iron Deficiency Anemia Take 1 tablet (325 mg total) by mouth 2 (two) times a day with meals 60 tablet 5 Active blood-glucose sensor (Dexcom G7 Sensor) deviceIndications :Type 2 diabetes mellitus with stage 3b chronic kidney disease, with long-term current use of insulin ([facility]) Change sensor every 10 days 9 each 3 025 Active ondansetron ODT (ZOFRAN-ODT) 4 mg disintegrating tabletIndications :Diarrhea, unspecified type Take 1 tablet (4 mg total) by mouth every 6 (six) hours as needed for nausea or vomiting 2 tablet 025 Active cholestyramine (cholestyramine light) 4 gram powder in packet MIX 1 PACKET WITH LIQUID AND DRINK 3 TIMES DAILY BEFORE MEALS 240 packet 1 025 Active tacrolimus 1 mg immediate-release capsule TAKE 2 CAPSULES BY MOUTH EARLY IN THE MORNING BEFORE BREAKFAST AND 1 CAPSULE BY MOUTH AT NIGHT 270 capsule 3 025 Active pancrelipase (Creon) 24,000 units of lipase capsuleIndication s:exocrine pancreatic insufficiency Take 1 capsule by mouth 3 (three) times a day with meals Take 1 capsule by mouth daily with snacks. 120 capsule 11 025 Active tacrolimus 1 mg immediate-release capsule TAKE 2 CAPSULES BY MOUTH EARLY IN THE MORNING BEFORE BREAKFAST AND 1 CAPSULE EVERY NIGHT 270 capsule 3 024 2024 Discontinued Active Problems Patient Care Coordination No te Formatting of this note migh t be different from the original. Labs at [facility] in [facility] FAX: [phone] Problem Noted Date Diagnosed Date Diarrhea 05/17/2025 Assessment & Plan (05/17/2025 2:58 PM CDT): Patient presents to the GI office with chronic diarrhea in the setting of a history of colon cancer status post right hemicolectomy, S/P liver transplant/cadaver renal transplant in the setting of iron deficiency anemia and daily magnesium supplementation use. Differential includes microscopic colitis, intestinal resection related/bile acid diarrhea, magnesium supplementation related, CMV colitis, malignancy, etc. We will proceed with an EGD/colonoscopy as the next step in evaluation. I have explained the technique, benefits, alternatives, and the risks to the patient, including bleeding, perforation, infection, missed lesions, as well as the adverse effects possible with sedation. The patient is aware and informed of these risks as well as dangelo-procedural instructions and is willing to proceed. We will check labs and stool studies. If work-up unremarkable and patient has progressive/persistent symptoms moving forward, then would consider SIBO. Consider alternative to magnesium supplementation with PCP. Continue current medications, including Imodium and Questran to optimize bowel habits. 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 Take per package directions Antihistamines like Claritin or Zyrtec as needed for drainage. Take per package directions Delsym (cough suppressant) and Mucinex (cough expectorant) as needed for coughing. Follow package directions Frequent cough drops and lozenges Increase sugar free fluids, especially decaffeinated ones Sleep with head of bed raised to promote drainage Flonase or nasal saline spray, 2 sprays each nostril daily Discussed the life expectancy of a viral illness is 7 to 10 days. Discussed supportive measures including increase fluid intake, rest, use of Tylenol/Motrin for discomfort and/or fevers. Avoid spreading the virus by remaining at home and away from others until you are fever-free (temperature below 100) for 24 hours. Good handwashing and covering your mouth when coughing are also important. If you are not improving or worsening in the next 5-7 days you must go to your PCP, or Urgent Care/ER to be SEEN and reevaluated. No further prescriptions or refills will be given by phone without another evaluation. If you develop a high fever 103+, neck stiffness, trouble breathing, chest pain, or other life threatening symptoms GO TO THE ER IMMEDIATELY. Acute postoperative abdominal pain 08/17/2024 Colonic mass 08/15/2024 Malignant neoplasm of ascending colon 07/05/2024 Second degree AV block 05/02/2024 Sinus node dysfunction 05/02/2024 Pacemaker 05/02/2024 Acute osteomyelitis of left ankle or foot 2022 Acute osteomyelitis of right ankle or foot 04/08 Irritable bowel syndrome with diarrhea 2 Thrombocytopenia 11/28/2020 Assessment & Plan (12/09/2020 10:41 AM LINECASTING MACHINE KEYBOARD OPERATOR): Unclear etiology. Down from normal (was in the 200s on admission), suspect due to COVID - now resolved Assessment & Plan (12/08/2020 12:20 PM LINECASTING MACHINE KEYBOARD OPERATOR): Unclear etiology. Down from normal (was in the 200s on admission), suspect due to COVID - now resolved Assessment & Plan (12/07/2020 6:24 PM LINECASTING MACHINE KEYBOARD OPERATOR): Unclear etiology. Down from normal (was in the 200s on admission), suspect due to COVID - now resolved Assessment & Plan (12/06/2020 1:52 PM LINECASTING MACHINE KEYBOARD OPERATOR): Unclear etiology. Down from normal (was in the 200s on admission), suspect due to COVID - now resolved Assessment & Plan (12/05/2020 6:35 PM LINECASTING MACHINE KEYBOARD OPERATOR): Unclear etiology. Down from normal (was in the 200s on admission), suspect due to COVID - now resolved Assessment & Plan (12/04/2020 3:11 PM LINECASTING MACHINE KEYBOARD OPERATOR): Unclear etiology. Down from normal (was in the 200s on admission) -HIT negative -Suspect 2/2 coronavirus Assessment & Plan (12/03/2020 9:34 PM LINECASTING MACHINE KEYBOARD OPERATOR): Unclear etiology. Down from normal (was in the 200s on admission) -HIT negative -Suspect 2/2 coronavirus Assessment & Plan (12/02/2020 7:31 PM LINECASTING MACHINE KEYBOARD OPERATOR): Unclear etiology. Down from normal (was in the 200s on admission) -HIT negative -Suspect 2/2 coronavirus Assessment & Plan (12/01/2020 10:30 AM LINECASTING MACHINE KEYBOARD OPERATOR): Unclear etiology. Down from normal (was in the 200s on admission) -HIT negative -Suspect 2/2 coronavirus Assessment & Plan (11/30/2020 11:18 AM LINECASTING MACHINE KEYBOARD OPERATOR): New today to 142. Unclear etiology. Down from normal (was in the 200s on admission) -HIT negative -Suspect 2/2 coronavirus Assessment & Plan (11/29/2020 1:13 PM LINECASTING MACHINE KEYBOARD OPERATOR): New today to 142. Unclear etiology. Down from normal (was in the 200s on admission) -HIT negative -Suspect 2/2 coronavirus Anemia 11/23/2020 Assessment & Plan (12/09/2020 10:41 AM LINECASTING MACHINE KEYBOARD OPERATOR): 2/2 AoCKD + AoCD. No clinical signs of bleeding or hemodynamic instability. -Hgb stable 8-9 -blood consented, transfuse as needed Assessment & Plan (12/08/2020 12:20 PM LINECASTING MACHINE KEYBOARD OPERATOR): 2/2 AoCKD + AoCD. No clinical signs of bleeding or hemodynamic instability. -Hgb stable 8-9 -blood consented, transfuse as needed Assessment & Plan (12/07/2020 6:24 PM LINECASTING MACHINE KEYBOARD OPERATOR): 2/2 AoCKD + AoCD. No clinical signs of bleeding or hemodynamic instability. -Hgb stable 8-9 -blood consented, transfuse as needed Assessment & Plan (12/06/2020 1:51 PM LINECASTING MACHINE KEYBOARD OPERATOR): 2/2 AoCKD + AoCD. No clinical signs of bleeding or hemodynamic instability. -Hgb stable 8-9 -blood consented, transfuse as needed Assessment & Plan (12/05/2020 6:35 PM LINECASTING MACHINE KEYBOARD OPERATOR): 2/2 AoCKD + AoCD. No clinical signs of bleeding or hemodynamic instability. -Hgb stable 8-9 -blood consented, transfuse as needed Assessment & Plan (12/04/2020 3:11 PM LINECASTING MACHINE KEYBOARD OPERATOR): 2/2 AoCKD + AoCD. No clinical signs of bleeding or hemodynamic instability. -Hgb stable 8-9 -blood consented, transfuse as needed Assessment & Plan (12/03/2020 9:33 PM LINECASTING MACHINE KEYBOARD OPERATOR): 2/2 AoCKD + AoCD. No clinical signs of bleeding or hemodynamic instability. -Hgb stable 8-9 -blood consented, transfuse as needed Assessment & Plan (12/02/2020 7:30 PM LINECASTING MACHINE KEYBOARD OPERATOR): 2/2 AoCKD + AoCD. No clinical signs of bleeding or hemodynamic instability. -Hgb stable 8-9 -blood consented, transfuse as needed Assessment & Plan (12/01/2020 10:28 AM LINECASTING MACHINE KEYBOARD OPERATOR): 2/2 AoCKD + AoCD. No clinical signs of bleeding or hemodynamic instability. -Hgb stable 8-9 -blood consented, transfuse as needed Assessment & Plan (11/30/2020 11:16 AM LINECASTING MACHINE KEYBOARD OPERATOR): 2/2 AoCKD + AoCD. No clinical signs of bleeding or hemodynamic instability. -Hgb stable 8-9 -blood consented, transfuse as needed Assessment & Plan (11/26/2020 5:38 PM LINECASTING MACHINE KEYBOARD OPERATOR): 2/2 AoCKD + AoCD. No clinical signs of bleeding or hemodynamic instability. -Hgb stable 8-9 -blood consented, transfuse as needed Assessment & Plan (11/24/2020 10:52 AM LINECASTING MACHINE KEYBOARD OPERATOR): 2/2 AoCKD + AoCD. No clinical signs of bleeding or hemodynamic instability. - blood consented, transfuse as needed Assessment & Plan (11/23/2020 2:58 PM LINECASTING MACHINE KEYBOARD OPERATOR): 2/2 AoCKD + AoCD. No clinical signs of bleeding or hemodynamic instability. - blood consented, transfuse as needed Abdominal aortic aneurysm (AAA) 11/06/2020 Assessment & Plan (12/05/2020 6:35 PM LINECASTING MACHINE KEYBOARD OPERATOR): Stable at 2.2cm on OSH CT. -Continue outpatient follow up. Assessment & Plan (12/04/2020 3:11 PM LINECASTING MACHINE KEYBOARD OPERATOR): Stable at 2.2cm on OSH CT. -Continue outpatient follow up. Assessment & Plan (12/03/2020 9:33 PM LINECASTING MACHINE KEYBOARD OPERATOR): Stable at 2.2cm on OSH CT. -Continue outpatient follow up. Assessment & Plan (12/02/2020 7:30 PM LINECASTING MACHINE KEYBOARD OPERATOR): Stable at 2.2cm on OSH CT. -Continue outpatient follow up. Assessment & Plan (12/01/2020 10:27 AM LINECASTING MACHINE KEYBOARD OPERATOR): Stable at 2.2cm on OSH CT. -Continue outpatient follow up. Assessment & Plan (11/30/2020 11:15 AM LINECASTING MACHINE KEYBOARD OPERATOR): Stable at 2.2cm on OSH CT. -Continue outpatient follow up. Assessment & Plan (11/25/2020 11:39 PM LINECASTING MACHINE KEYBOARD OPERATOR): Stable at 2.2cm on OSH CT. -Continue outpatient follow up. Assessment & Plan (11/24/2020 10:52 AM LINECASTING MACHINE KEYBOARD OPERATOR): -Stable at 2.2cm on OSH CT. Continue outpatient follow up. Assessment & Plan (11/23/2020 2:57 PM LINECASTING MACHINE KEYBOARD OPERATOR): -Stable at 2.2cm on OSH CT. Continue outpatient follow up. Assessment & Plan (11/17/2020 10:36 AM LINECASTING MACHINE KEYBOARD OPERATOR): -Stable at 2.2cm on OSH CT. Continue outpatient follow up. Assessment & Plan (11/16/2020 10:34 AM LINECASTING MACHINE KEYBOARD OPERATOR): -Stable at 2.2cm on OSH CT. Continue outpatient follow up. Assessment & Plan (11/15/2020 12:38 PM LINECASTING MACHINE KEYBOARD OPERATOR): -Stable at 2.2cm on OSH CT. Continue outpatient follow up. Assessment & Plan (11/14/2020 3:30 PM LINECASTING MACHINE KEYBOARD OPERATOR): -Stable at 2.2cm on OSH CT. Continue outpatient follow up. 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 -Pt already follows with Urology and does not require referral to Oncology at this point in time given that he has localized disease (discussed with Urology) Assessment & Plan (12/08/2020 12:19 PM LINECASTING MACHINE KEYBOARD OPERATOR): Mass of left tanana kidney seen on MRI on 07/15/20, followed up with IR with biopsy and cryoablation on 10/18/20, pathology positive for clear cell RCC. -Pt already follows with Urology and does not require referral to Oncology at this point in time given that he has localized disease (discussed with Urology) Assessment & Plan (12/07/2020 6:24 PM LINECASTING MACHINE KEYBOARD OPERATOR): Mass of left tanana kidney seen on MRI on 07/15/20, followed up with IR with biopsy and cryoablation on 10/18/20, pathology positive for clear cell RCC. -Pt already follows with Urology and does not require referral to Oncology at this point in time given that he has localized disease (discussed with Urology) Assessment & Plan (12/06/2020 1:50 PM LINECASTING MACHINE KEYBOARD OPERATOR): Mass of left tanana kidney seen on MRI on 07/15/20, followed up with IR with biopsy and cryoablation on 10/18/20, pathology positive for clear cell RCC. -Pt already follows with Urology and does not require referral to Oncology at this point in time given that he has localized disease (discussed with Urology) Assessment & Plan (12/05/2020 6:34 PM LINECASTING MACHINE KEYBOARD OPERATOR): Mass of left tanana kidney seen on MRI on 07/15/20, followed up with IR with biopsy and cryoablation on 10/18/20, pathology positive for clear cell RCC. -Pt already follows with Urology and does not require referral to Oncology at this point in time given that he has localized disease (discussed with Urology) Assessment & Plan (12/04/2020 3:06 PM LINECASTING MACHINE KEYBOARD OPERATOR): Mass of left tanana kidney seen on MRI on 07/15/20, followed up with IR with biopsy and cryoablation on 10/18/20, pathology positive for clear cell RCC. -Pt already follows with Urology and does not require referral to Oncology at this point in time given that he has localized disease (discussed with Urology) Assessment & Plan (12/03/2020 9:32 PM LINECASTING MACHINE KEYBOARD OPERATOR): Mass of left tanana kidney seen on MRI on 07/15/20, followed up with IR with biopsy and cryoablation on 10/18/20, pathology positive for clear cell RCC. -Pt already follows with Urology and does not require referral to Oncology at this point in time given that he has localized disease (discussed with Urology) Assessment & Plan (12/02/2020 7:28 PM LINECASTING MACHINE KEYBOARD OPERATOR): Mass of left tanana kidney seen on MRI on 07/15/20, followed up with IR with biopsy and cryoablation on 10/18/20, pathology positive for clear cell RCC. -Oncology has not evaluated and patient has not been staged, however OSH CT c/a/p w/contrast does not note metastatic disease. -PET CT 11/18: no residual activity in L tanana kidney, speaking with Onc can just do outpatient follow up, no need for official consult. Can call [phone] for outpatient appointment. - Need to discuss if pt requires Urology follow up as patients usually undergo nephrectomy of tanana kidney. Assessment & Plan (12/01/2020 10:28 AM LINECASTING MACHINE KEYBOARD OPERATOR): Mass of left tanana kidney seen on MRI on 07/15/20, followed up with IR with biopsy and cryoablation on 10/18/20, pathology positive for clear cell RCC. -Oncology has not evaluated and patient has not been staged, however OSH CT c/a/p w/contrast does not note metastatic disease. -PET CT 11/18: no residual activity in L tanana kidney, speaking with Onc can just do outpatient follow up, no need for official consult. Can call [phone] for outpatient appointment. Assessment & Plan (11/30/2020 11:16 AM LINECASTING MACHINE KEYBOARD OPERATOR): Mass of left tanana kidney seen on MRI on 07/15/20, followed up with IR with biopsy and cryoablation on 10/18/20, pathology positive for clear cell RCC. -Oncology has not evaluated and patient has not been staged, however OSH CT c/a/p w/contrast does not note metastatic disease. -PET CT 11/18: no residual activity in L tanana kidney, speaking with Onc can just do outpatient follow up, no need for official consult. Can call [phone] for outpatient appointment. Assessment & Plan (11/26/2020 5:38 PM LINECASTING MACHINE KEYBOARD OPERATOR): Mass of left tanana kidney seen on MRI on 07/15/20, followed up with IR with biopsy and cryoablation on 10/18/20, pathology positive for clear cell RCC. -Oncology has not evaluated and patient has not been staged, however OSH CT c/a/p w/contrast does not note metastatic disease. -PET CT 11/18: no residual activity in L tanana kidney, speaking with Onc can just do outpatient follow up, no need for official consult. Can call [phone] for outpatient appointment. Assessment & Plan (11/24/2020 10:53 AM LINECASTING MACHINE KEYBOARD OPERATOR): -Mass of left tanana kidney seen on MRI on 07/15/20, followed up with IR with biopsy and cryoablation on 10/18/20, pathology positive for clear cell RCC. -Oncology has not evaluated and patient has not been staged, however OSH CT c/a/p w/contrast does not note metastatic disease. -Discussed case with oncology on 11/16/20, due to likely prolonged hospitalization, complete staging with inpatient PET, oncology will schedule follow up for treatment of RCC. -PET CT: no residual activity in L [place] kidney, speaking with Onc can just do outpatient follow up, no need for official consult. Can call [phone] for outpatient appointment. Assessment & Plan (11/23/2020 2:56 PM LINECASTING MACHINE KEYBOARD OPERATOR): -Mass of left tanana kidney seen on MRI on 07/15/20, followed up with IR with biopsy and cryoablation on 10/18/20, pathology positive for clear cell RCC. -Oncology has not evaluated and patient has not been staged, however OSH CT c/a/p w/contrast does not note metastatic disease. -Discussed case with oncology on 11/16/20, due to likely prolonged hospitalization, complete staging with inpatient PET, oncology will schedule follow up for treatment of RCC. -PET CT: no residual activity in [place] kidney, speaking with Onc can just do outpatient follow up, no need for official consult. Can call [phone] for outpatient appointment. Assessment & Plan (11/17/2020 10:36 AM LINECASTING MACHINE KEYBOARD OPERATOR): -Mass of left tanana kidney seen on MRI on 07/15/20, followed up with IR with biopsy and cryoablation on 10/18/20, pathology positive for clear cell RCC. -Oncology has not evaluated and patient has not been staged, however OSH CT c/a/p w/contrast does not note metastatic disease. -Discussed case with oncology on 11/16/20, due to likely prolonged hospitalization, complete staging with inpatient PET, oncology will schedule follow up for treatment of RCC. Assessment & Plan (11/16/2020 10:33 AM LINECASTING MACHINE KEYBOARD OPERATOR): -Mass of left tanana kidney seen on MRI on 07/15/20, followed up with IR with biopsy and cryoablation on 10/18/20, pathology positive for clear cell RCC. -Oncology has not evaluated and patient has not been staged, however OSH CT c/a/p w/contrast does not note metastatic disease. -Discussed case with oncology on 11/16/20, due to likely prolonged hospitalization, complete staging with inpatient PET, oncology will schedule follow up for treatment of RCC. Assessment & Plan (11/15/2020 12:38 PM LINECASTING MACHINE KEYBOARD OPERATOR): -Mass of left tanana kidney seen on MRI on 07/15/20, followed up with IR with biopsy and cryoablation on 10/18/20, pathology positive for clear cell RCC. -Oncology has not evaluated and patient has not been staged, however OSH CT c/a/p w/contrast does not note metastatic disease. -Will discuss with oncology for inpatient/outpatient evaluation. Assessment & Plan (11/14/2020 3:25 PM LINECASTING MACHINE KEYBOARD OPERATOR): -Mass of left tanana kidney seen on MRI on 07/15/20, followed up with IR with biopsy and cryoablation on 10/18/20, pathology positive for clear cell RCC. -Oncology has not evaluated and patient has not been staged, however OSH CT c/a/p w/contrast does not note metastatic disease. -Will discuss with oncology in AM for inpatient/outpatient evaluation. Assessment & Plan (11/06/2020 5:08 PM LINECASTING MACHINE KEYBOARD OPERATOR): Left kidney mass, on 10/18, percutaneous cryoablation and percutaneous ablation of left tanana kidney lower pole mass Bx showing clear RCC Assessment & Plan (08/07/2020 9:00 AM CDT): Concerning for malignancy; followed by Dr. Rodgers in Urology. Mr. Tracy is strongly considering ablation under the direction of Interventional Radiology. I suggested he follow up with Dr. Rodgers regarding his decision. HTN (hypertension) 03/15/2019 Assessment & Plan (12/09/2020 10:40 AM LINECASTING MACHINE KEYBOARD OPERATOR): -Hold amlodipine 10 and metoprolol 25 BID given orthostasis Assessment & Plan (12/08/2020 12:19 PM LINECASTING MACHINE KEYBOARD OPERATOR): -Hold amlodipine 10 and metoprolol 25 BID given orthostasis Assessment & Plan (12/07/2020 6:24 PM LINECASTING MACHINE KEYBOARD OPERATOR): -Hold amlodipine 10 and metoprolol 25 BID given orthostasis Assessment & Plan (12/06/2020 1:51 PM LINECASTING MACHINE KEYBOARD OPERATOR): -Hold amlodipine 10 and metoprolol 25 BID given orthostasis Assessment & Plan (12/05/2020 6:34 PM LINECASTING MACHINE KEYBOARD OPERATOR): -Hold amlodipine 10 and metoprolol 25 BID given orthostasis Assessment & Plan (12/04/2020 3:06 PM LINECASTING MACHINE KEYBOARD OPERATOR): -Hold amlodipine 10 and metoprolol 25 BID given orthostasis Assessment & Plan (12/03/2020 9:33 PM LINECASTING MACHINE KEYBOARD OPERATOR): -Hold amlodipine 10 and metoprolol 25 BID given orthostasis Assessment & Plan (12/02/2020 7:29 PM LINECASTING MACHINE KEYBOARD OPERATOR): -Hold amlodipine 10 and metoprolol 25 BID given orthostasis Assessment & Plan (12/01/2020 10:29 AM LINECASTING MACHINE KEYBOARD OPERATOR): -Hold amlodipine 10 given orthostasis -Cont metoprolol 25 BID Assessment & Plan (11/30/2020 11:17 AM LINECASTING MACHINE KEYBOARD OPERATOR): -Hold amlodipine 10 given orthostasis -Cont metoprolol 25 BID Assessment & Plan (11/26/2020 5:35 PM LINECASTING MACHINE KEYBOARD OPERATOR): -c/w amlodipine 10 and metoprolol 25 BID Assessment & Plan (11/17/2020 10:36 AM LINECASTING MACHINE KEYBOARD OPERATOR): -Well controlled with amlodipine and metoprolol. Assessment & Plan (11/16/2020 10:17 AM LINECASTING MACHINE KEYBOARD OPERATOR): -Well controlled with amlodipine and metoprolol. Assessment & Plan (11/15/2020 12:35 PM LINECASTING MACHINE KEYBOARD OPERATOR): -Well controlled with amlodipine and metoprolol. Assessment & Plan (11/13/2020 11:19 AM LINECASTING MACHINE KEYBOARD OPERATOR): Hx HTN; Home meds Norvasc, losartan, and metop. Initially held in setting of shock, restarted norvasc and lower dose metoprolol yesterday, PRN labetolol. -continue norvasc -increase metoprolol to 25mg BID -hold losartan Assessment & Plan (05/04/2019 1:08 PM CDT): A: Patient with history of HTN, still runs hypertensive at times. P: - Continue metoprolol 25 BID - Continue norvasc 10 daily - Continue losartan 100 daily - Monitor VS Assessment & Plan (05/03/2019 12:44 PM CDT): A: Patient with history of HTN, still runs hypertensive at times. P: - Continue metoprolol 25 BID - Continue norvasc 10 daily - Continue losartan 100 daily - Monitor VS Assessment & Plan (05/02/2019 2:01 PM CDT): A: Patient with history of HTN, still runs hypertensive at times. P: - Continue metoprolol 25 BID - Continue norvasc 10 daily - Continue losartan 100 daily - Monitor VS Assessment & Plan (05/01/2019 10:10 AM CDT): A: Patient with history of HTN, still runs hypertensive at times. P: - Continue metoprolol 25 BID - Continue norvasc 10 daily - Continue losartan 100 daily - Monitor VS Assessment & Plan (04/30/2019 12:05 PM CDT): Continue home metoprolol, losartan, and metoprolol. Remains hypertensive despite sepsis Assessment & Plan (04/29/2019 9:43 AM CDT): Continue with his current antihypertensive medications monitor his blood pressures closely while septic Assessment & Plan (03/21/2019 3:35 PM CDT): Agree with increased dose of 10 mg of amlodipine. Pt to monitor BP at home and call if elevated Assessment & Plan (03/20/2019 11:05 AM CDT): continue home metop, and losartan Increased amlodipine 10 Assessment & Plan (03/15/2019 6:13 AM CDT): Well controlled on admission, no BONNIE. No c/f sepsis at this time. -continue home amlodipine, metop, losartan Peripheral arterial disease 03/15/2019 Assessment & Plan (12/09/2020 10:40 AM LINECASTING MACHINE KEYBOARD OPERATOR): S/p left femoral bypass -Resume aspirin and statin on discharge for secondary prevention. Assessment & Plan (12/08/2020 12:19 PM LINECASTING MACHINE KEYBOARD OPERATOR): S/p left femoral bypass -Resume aspirin and statin on discharge for secondary prevention. Assessment & Plan (12/07/2020 6:24 PM LINECASTING MACHINE KEYBOARD OPERATOR): S/p left femoral bypass -Resume aspirin and statin on discharge for secondary prevention. Assessment & Plan (12/06/2020 1:51 PM LINECASTING MACHINE KEYBOARD OPERATOR): S/p left femoral bypass -Resume aspirin and statin on discharge for secondary prevention. Assessment & Plan (12/05/2020 6:34 PM LINECASTING MACHINE KEYBOARD OPERATOR): S/p left femoral bypass -Resume aspirin and statin on discharge for secondary prevention. Assessment & Plan (12/04/2020 3:06 PM LINECASTING MACHINE KEYBOARD OPERATOR): S/p left femoral bypass -Resume aspirin and statin on discharge for secondary prevention. Assessment & Plan (12/03/2020 9:33 PM LINECASTING MACHINE KEYBOARD OPERATOR): S/p left femoral bypass -Resume aspirin and statin on discharge for secondary prevention. Assessment & Plan (12/02/2020 7:29 PM LINECASTING MACHINE KEYBOARD OPERATOR): S/p left femoral bypass -Resume aspirin and statin on discharge for secondary prevention. Assessment & Plan (11/25/2020 11:35 PM LINECASTING MACHINE KEYBOARD OPERATOR): S/p left femoral bypass -Resume aspirin and statin on discharge for secondary prevention. Assessment & Plan (11/17/2020 10:36 AM LINECASTING MACHINE KEYBOARD OPERATOR): -S/p left femoral bypass. Resume aspirin and statin on discharge for secondary prevention. Assessment & Plan (11/16/2020 10:17 AM LINECASTING MACHINE KEYBOARD OPERATOR): -S/p left femoral bypass. Resume aspirin and statin on discharge for secondary prevention. Assessment & Plan (11/15/2020 12:35 PM LINECASTING MACHINE KEYBOARD OPERATOR): -S/p left femoral bypass. Resume aspirin and statin on discharge for secondary prevention. Assessment & Plan (11/14/2020 3:35 PM LINECASTING MACHINE KEYBOARD OPERATOR): -S/p left femoral bypass. Resume aspirin and statin on discharge for secondary prevention. Assessment & Plan (03/15/2019 6:14 AM CDT): S/p b/l fem-pop bypass. No current extremity wounds. Cont asa 81, home statin. Obstructive sleep apnea 03/15/2019 Assessment & Plan (05/04/2019 1:09 PM CDT): A: History of ESTEBAN, stable and managed with home machine. P: - Continue home CPAP Assessment & Plan (05/03/2019 12:44 PM CDT): A: History of ESTEBAN, stable and managed with home machine. P: - Continue home CPAP Assessment & Plan (05/02/2019 2:01 PM CDT): A: History of ESTEBAN, stable and managed with home machine. P: - Continue home CPAP Assessment & Plan (05/01/2019 10:09 AM CDT): A: History of ESTEBAN, stable and managed with home machine. P: - Continue home CPAP Assessment & Plan (04/30/2019 12:07 PM CDT): Continue home CPAP Assessment & Plan (03/15/2019 6:15 AM CDT): On home CPAP. Cont use when sleeping in hospital. Diabetic ulcer of right great toe 04/19/2018 Overview (04/19/2018): Added automatically from request for surgery [id number] Assessment & Plan (05/04/2019 1:08 PM CDT): A: He has a right pinky toe ulcer which is not draining. No evidence of OM on XR or MRI P: - Wound consulted, recs to continue dressing with silver gel bandages BID - Continue to monitor Assessment & Plan (05/03/2019 12:43 PM CDT): A: He has a right pinky toe ulcer which is not draining. No evidence of OM on XR or MRI P: - Wound consulted, recs to continue dressing with bandages BID - Continue to monitor Assessment & Plan (05/02/2019 2:01 PM CDT): A: He has a right pinky toe ulcer which is not draining. No evidence of OM on XR P: - Wound consulted, appreciate recs Assessment & Plan (05/01/2019 10:07 AM CDT): A: He has a right pinky toe ulcer which is not draining. No evidence of OM on XR P: - Wound consulted, appreciate recs Assessment & Plan (04/30/2019 12:03 PM CDT): He has a right pinky toe ulcer which is not draining. No evidence of OM on XR - Wound consult Assessment & Plan (04/29/2019 9:42 AM CDT): He has a right pinky toe ulcer which is not draining but is erythematous and edematous. We will check a foot x-ray to ensure that he does not have osteomyelitis. Will order wound consult. Diabetes mellitus 10/15/2017 Assessment & Plan (12/09/2020 10:40 AM LINECASTING MACHINE KEYBOARD OPERATOR): Complicated by severe hyperglycemia requiring insulin gtt in ICU. -Blood sugars have been well controlled, now elevating due to HC -c/w lantus to 30u qhs, lispro 7U TID, SSI. Now that HC stopped expect improvement in glycemic control Assessment & Plan (12/08/2020 12:19 PM LINECASTING MACHINE KEYBOARD OPERATOR): Complicated by severe hyperglycemia requiring insulin gtt in ICU. -Blood sugars have been well controlled, now elevating due to HC -c/w lantus to 30u qhs, lispro 7U TID, SSI. Now that HC stopped expect improvement in glycemic control Assessment & Plan (12/07/2020 6:23 PM LINECASTING MACHINE KEYBOARD OPERATOR): Complicated by severe hyperglycemia requiring insulin gtt in ICU. -Blood sugars have been well controlled, now elevating due to HC -c/w lantus to 30u qhs, lispro 7U TID, SSI for now Assessment & Plan (12/06/2020 1:51 PM LINECASTING MACHINE KEYBOARD OPERATOR): Complicated by severe hyperglycemia requiring insulin gtt in ICU. -Blood sugars have been well controlled, now elevating due to HC -c/w lantus to 30u qhs, lispro 7U TID, SSI for now Assessment & Plan (12/05/2020 6:34 PM LINECASTING MACHINE KEYBOARD OPERATOR): Complicated by severe hyperglycemia requiring insulin gtt in ICU. -Blood sugars have been well controlled -c/w lantus to 30u qhs, lispro 7U TID, SSI Assessment & Plan (12/04/2020 3:06 PM LINECASTING MACHINE KEYBOARD OPERATOR): Complicated by severe hyperglycemia requiring insulin gtt in ICU. -Blood sugars have been well controlled -c/w lantus to 30u qhs, lispro 7U TID, SSI Assessment & Plan (12/03/2020 9:32 PM LINECASTING MACHINE KEYBOARD OPERATOR): Complicated by severe hyperglycemia requiring insulin gtt in ICU. -Blood sugars have been well controlled -c/w lantus to 30u qhs, lispro 7U TID, SSI Assessment & Plan (12/02/2020 7:29 PM LINECASTING MACHINE KEYBOARD OPERATOR): Complicated by severe hyperglycemia requiring insulin gtt in ICU. -Blood sugars have been well controlled -c/w lantus to 30u qhs, lispro 7U TID, SSI Assessment & Plan (12/01/2020 10:28 AM LINECASTING MACHINE KEYBOARD OPERATOR): Complicated by severe hyperglycemia requiring insulin gtt in ICU. -Blood sugars have been well controlled -c/w lantus to 30u qhs, lispro 7U TID, SSI Assessment & Plan (11/30/2020 11:17 AM LINECASTING MACHINE KEYBOARD OPERATOR): Complicated by severe hyperglycemia requiring insulin gtt in ICU. -c/w lantus to 30u qhs, lispro 7U TID, SSI Assessment & Plan (11/29/2020 1:12 PM LINECASTING MACHINE KEYBOARD OPERATOR): Complicated by severe hyperglycemia requiring insulin gtt in ICU. -c/w lantus to 30u qhs, lispro 7U TID, SSI Assessment & Plan (11/24/2020 10:53 AM LINECASTING MACHINE KEYBOARD OPERATOR): Complicated by severe hyperglycemia requiring insulin gtt in ICU. - cont lantus 26U qHS, lispro 7U TID, SSI Assessment & Plan (11/23/2020 2:57 PM LINECASTING MACHINE KEYBOARD OPERATOR): Complicated by severe hyperglycemia requiring insulin gtt in ICU. - cont lantus 26U qHS, lispro increased 5-->7U TID, HDSSI Assessment & Plan (11/17/2020 10:36 AM LINECASTING MACHINE KEYBOARD OPERATOR): -Complicated by severe hyperglycemia requiring insulin gtt. -Home insulin regimen: Lantus 25u qAM and 20 qPM, SSI with meals. -Continue NPH 15u TID with SSI, glucose well controlled. Assessment & Plan (11/16/2020 10:17 AM LINECASTING MACHINE KEYBOARD OPERATOR): -Complicated by severe hyperglycemia requiring insulin gtt. -Home insulin regimen: Lantus 25u qAM and 20 qPM, SSI with meals. -Continue NPH 15u TID with SSI, glucose well controlled. Assessment & Plan (11/15/2020 12:34 PM LINECASTING MACHINE KEYBOARD OPERATOR): -Complicated by severe hyperglycemia requiring insulin gtt. -Home insulin regimen: Lantus 25u qAM and 20 qPM, SSI with meals. -Continue NPH 15u TID with SSI, glucose well controlled. Assessment & Plan (11/14/2020 3:02 PM LINECASTING MACHINE KEYBOARD OPERATOR): -Complicated by severe hyperglycemia requiring insulin gtt. -Home insulin regimen: Lantus 25u qAM and 20 qPM, SSI with meals. -Continue NPH 15u TID with SSI, glucose well controlled. Assessment & Plan (11/13/2020 11:17 AM LINECASTING MACHINE KEYBOARD OPERATOR): Hx DM2 on insulin. Home regimen Lantus 25 units q am and 20 units q pm with SSI at meal time. Hgb A1C 7.7. Previously on insulin gtt, now NPH 9U Q8H and SSI, tube feeds held overnight after extubation -will restart tube feeds, increase NPH to 15U Q8H, continue SSI Assessment & Plan (05/04/2019 1:08 PM CDT): A: Patient's sugars better controlled, ranging from 141-244 today. P: - Will continue with Lantus 25 units subcu qAM and 25 units qPM - Continue with lispro 12 units subcu t.i.d. with meals - Continue with Mid-dose SSI - POCT glucose Assessment & Plan (05/03/2019 12:43 PM CDT): A: Patient's sugars continued to be elevated, yesterday ranging from 179-319. Managing with diabetic medications, will titrate as necessary. P: - Will continue with Lantus 25 units subcu qAM and 25 units qPM - Continue with lispro 12 units subcu t.i.d. with meals - Continue with Mid-dose SSI, consider increasing to High dose - POCT glucose Assessment & Plan (05/02/2019 2:01 PM CDT): A: Patient's sugars continued to be elevated, yesterday ranging from 235-336 yesterday. Managing with diabetic medications, will titrate as necessary. P: - Will continue with Lantus 25 units subcu qAM and 25 units qPM - Continue with lispro to 12 units subcu t.i.d. with meals - Increase to Mid-dose SSI - POCT glucose Assessment & Plan (05/01/2019 10:06 AM CDT): A: Patient's sugars continued to be elevated, yesterday ranging from 203-351 with this morning sugar 235. Managing with diabetic medications, will titrate as necessary. P: - Will continue with Lantus 25 units subcu qAM and increase to 25 units qPM - Increase lispro to 12 units subcu t.i.d. with meals - SSI and POCT glucose Assessment & Plan (04/30/2019 12:04 PM CDT): Continue home regimen of Lantus 25 units subcu q.a.m., 20 units subcu q.p.m., and lispro 10 units subcu t.i.d. with meals. Continue SSI and POCT Assessment & Plan (04/29/2019 9:48 AM CDT): We will continue the patient on his current insulin regimen of Lantus 25 units subcu q.a.m., 20 units subcu q.p.m., and lispro 10 units subcu t.i.d. with meals. We will continue with lispro sliding scale insulin. Continue with Accu-Cheks. Assessment & Plan (03/22/2019 9:07 AM CDT): - lantus 28 BID, 10u mealtime insulin w/ HDSSI Assessment & Plan (03/17/2019 4:10 PM CDT): Patient required insulin infusion overnight, now transitioned to lantus and SSI Assessment & Plan (03/15/2019 6:12 AM CDT): Diabetes well-managemd. Home Lantus 25 QAM, 20 QPM, Lipro SSI/carb counting -dose reduced 25% to 15 BID, MDSSI. High risk medications (not anticoagulants) long- term use 08/14/2013 Assessment & Plan (03/21/2019 3:34 PM CDT): -Fk level 2-3 at home. Continue Tacro 2 mg in the AM and 1 mg in the PM, level today 5.7 and acceptable. -Patient off antimetabolite d/t CMV -Continue Prednisone 5 mg/day Assessment & Plan (03/17/2019 4:17 PM CDT): -Fk level 2-3 at home. Continue Tacro 2 mg in the AM and 1 mg in the PM, level today 5.5 -Patient off antimetabolite d/t CMV -Continue Prednisone 5 mg/day Assessment & Plan (03/16/2019 2:49 PM CDT): -Fk level acceptable, continue Tacro 2 mg in the AM and 1 mg in the PM, will check trough in AM -Patient off antimetabolite d/t CMV -Continue Prednisone 5 mg/day History of 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/27/2013 Assessment & Plan (11/24/2020 10:54 AM LINECASTING MACHINE KEYBOARD OPERATOR): -Transplant team following. Assessment & Plan (11/23/2020 2:55 PM LINECASTING MACHINE KEYBOARD OPERATOR): -Transplant team following. Assessment & Plan (11/17/2020 10:36 AM LINECASTING MACHINE KEYBOARD OPERATOR): -Transplant team following. Assessment & Plan (11/16/2020 10:17 AM LINECASTING MACHINE KEYBOARD OPERATOR): -Transplant team following. Assessment & Plan (11/15/2020 12:34 PM LINECASTING MACHINE KEYBOARD OPERATOR): -Transplant team following. Assessment & Plan (11/14/2020 3:02 PM LINECASTING MACHINE KEYBOARD OPERATOR): -Transplant team following. Assessment & Plan (11/08/2020 3:50 PM LINECASTING MACHINE KEYBOARD OPERATOR): Hx of HCC, s/p liver/kidney transplant 07/2013, home meds prednisone and tacrolimus -transplant following; appreciate recs Assessment & Plan (08/07/2020 8:58 AM CDT): He has stable allograft function. I saw no reason to change his current immunosuppression. He is going to have labs done tomorrow. We will continue to monitor his labs intermittently. Further changes based on his clinical course. Follow-up in 1-2 years or when clinically indicated. Assessment & Plan (05/04/2019 1:08 PM CDT): A: History of liver transplant, stable at this time. P: - C/w Tacro 2qAM and 1qPM - Liver team aware of patient Assessment & Plan (05/03/2019 12:44 PM CDT): A: History of liver transplant, stable at this time. P: - C/w Tacro 2qAM and 1qPM - Liver team aware of patient Assessment & Plan (05/02/2019 2:01 PM CDT): A: History of liver transplant, stable at this time. Tacro level today 4.3. P: - C/w Tacro 2qAM and 1qPM - Liver team aware of patient Assessment & Plan (05/01/2019 10:08 AM CDT): A: History of liver transplant, stable at this time P: - C/w Tacro 2qAM and 1qPM - Liver team aware of patient Assessment & Plan (04/30/2019 12:04 PM CDT): Liver transplant team notified. - Tacro trough 4.1 Assessment & Plan (04/29/2019 9:45 AM CDT): We will notify liver transplant team. Will check a tacrolimus trough in the a.m.. Assessment & Plan (03/15/2019 6:12 AM CDT): 08/2013. Stable function. Last evaluation in 08/2018. Abdominal MR this year unremarkable. Not on OI prophylaxis. -Liver tx consult -cont tacrolimus 2 in AM, 1 in PM -tacro trough prior to AM dose History of renal transplant 07/27/2013 Assessment & Plan (12/09/2020 10:40 AM LINECASTING MACHINE KEYBOARD OPERATOR): 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/2013 -c/w pred 5 every day -c/w tacro to 2mg/1mg, check trough daily -transplant has signed off as we are awaiting dispo Assessment & Plan (12/08/2020 12:18 PM LINECASTING MACHINE KEYBOARD OPERATOR): 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/2013 -c/w pred 5 every day -c/w tacro to 2mg/1mg, check trough daily -transplant has signed off as we are awaiting dispo Assessment & Plan (12/07/2020 6:23 PM LINECASTING MACHINE KEYBOARD OPERATOR): 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/2013 -c/w pred 5 every day -c/w tacro to 2mg/1mg, check trough daily -transplant has signed off as we are awaiting dispo Assessment & Plan (12/06/2020 1:50 PM LINECASTING MACHINE KEYBOARD OPERATOR): 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/2013 -c/w pred 5 every day -c/w tacro to 2mg/1mg, check trough daily -transplant has signed off as we are awaiting dispo Assessment & Plan (12/05/2020 6:34 PM LINECASTING MACHINE KEYBOARD OPERATOR): 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/2013 -c/w pred 5 every day -c/w tacro to 2mg/1mg, check trough daily -appreciate transplant recommendations Assessment & Plan (12/04/2020 3:05 PM LINECASTING MACHINE KEYBOARD OPERATOR): 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/2013 -c/w pred 5 every day -c/w tacro to 2mg/1mg, check trough daily -appreciate transplant recommendations Assessment & Plan (12/03/2020 9:31 PM LINECASTING MACHINE KEYBOARD OPERATOR): 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/2013 -c/w pred 5 every day -c/w tacro to 2mg/1mg, check trough daily -appreciate transplant recommendations Assessment & Plan (12/02/2020 7:28 PM LINECASTING MACHINE KEYBOARD OPERATOR): 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/2013 -c/w pred 5 every day -c/w tacro to 2mg/1mg, check trough daily -appreciate transplant recommendations Assessment & Plan (12/01/2020 10:28 AM LINECASTING MACHINE KEYBOARD OPERATOR): 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/2013 -c/w pred 5 every day -c/w tacro to 2mg/1mg, check trough daily -appreciate transplant recommendations Assessment & Plan (11/30/2020 11:17 AM LINECASTING MACHINE KEYBOARD OPERATOR): 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/2013 -c/w pred 5 every day -c/w tacro to 2mg/1mg, check trough daily -appreciate transplant recommendations Assessment & Plan (11/26/2020 5:35 PM LINECASTING MACHINE KEYBOARD OPERATOR): 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/2013 -c/w pred 5 every day -c/w tacro to 2mg/1mg, check trough daily -appreciate transplant recommendations Assessment & Plan (11/24/2020 10:54 AM LINECASTING MACHINE KEYBOARD OPERATOR): -Transplant team following. -cont tacro & pred -tacro decreased to 4mg bid 11/23, CTM tacro trough daily Assessment & Plan (11/23/2020 2:55 PM LINECASTING MACHINE KEYBOARD OPERATOR): -Transplant team following. -cont tacro & pred Assessment & Plan (11/17/2020 10:36 AM LINECASTING MACHINE KEYBOARD OPERATOR): -Transplant team following. Assessment & Plan (11/16/2020 10:17 AM LINECASTING MACHINE KEYBOARD OPERATOR): -Transplant team following. Assessment & Plan (11/15/2020 12:35 PM LINECASTING MACHINE KEYBOARD OPERATOR): -Transplant team following. Assessment & Plan (11/14/2020 3:02 PM LINECASTING MACHINE KEYBOARD OPERATOR): -Transplant team following. Assessment & Plan (11/13/2020 11:18 AM LINECASTING MACHINE KEYBOARD OPERATOR): Hx renal failure, s/p renal liver Tx 07/2013 -Renal transplant following -continue Tacrolimus 3 mg q am and pm -continue home prednisone -daily tac level Assessment & Plan (05/04/2019 1:09 PM CDT): A: History of renal transplant, stable on home meds. P: - Continue tacro 2 mg qAM and 1 mg qPM - Continue prednisone 5 mg daily - Renal transplant aware of patient Assessment & Plan (05/03/2019 12:44 PM CDT): A: History of renal transplant, stable on home meds. P: - Continue tacro 2 mg qAM and 1 mg qPM - Continue prednisone 5 mg daily - Renal transplant aware of patient Assessment & Plan (05/02/2019 2:01 PM CDT): A: History of renal transplant, stable on home meds. Tacro level today 4.3. P: - Continue tacro 2 mg qAM and 1 mg qPM - Continue prednisone 5 mg daily - Renal transplant aware of patient Assessment & Plan (05/01/2019 10:08 AM CDT): A: History of renal transplant, stable on home meds. P: - Continue tacro 2 mg qAM and 1 mg qPM - Continue prednisone 5 mg daily - Renal transplant aware of patient Assessment & Plan (04/30/2019 12:06 PM CDT): - Renal transplant team following. Appreciate recommendations - Continue tacro 2 mg qAM and 1 mg qPM - Continue prednisone 5 mg daily Assessment & Plan (04/29/2019 9:50 AM CDT): Consulted Renal Transplant Team to follow. Assessment & Plan (03/17/2019 8:32 PM CDT): - Renal transplant following - cont tacrolimus, prednisone Assessment & Plan (03/15/2019 6:12 AM CDT): 08/2013. Stable function. Last evaluation in 08/2018. Not on OI prophylaxis. -Renal tx consult -cont tacrolimus 2 in AM, 1 in PM -tacro trough prior to AM dose Immunizations Immunization Administration Dates Next Due Influenza, Quad, Adjuvantate d, Intramuscular 08/20/2021 Influenza, Quadrivalent, Hig h Dose, Preservative Free, Intrr 08/17/2023,09/01/2022,09/11/2020,08/25,09/08/2018 Influenza, Quadrivalent, Spl it, Preservative Free, Intramuscular 09/07/2016 Influenza, Trivalent, High D ose, Split, Preservative Free, Intramuscular 09/11/2020,08/25/2019,09/08/2018 Influenza, Trivalent, IM (MDV) 09/18/2012 Influenza, Trivalent, Preser vative Free, Intramuscular 09/15/2017,08/21/2015,08/29/2014,09/19 Influenza, Unspecified 07/27/2024,08/17/2023,02/2020 Pfizer Sars-Cov-2 Bivalent V accination (12+ YRS) 09/01/2022 Pneumococcal Conjugate PCV 13 06/22/2019, 015 Pneumococcal Polysaccharide PPV23 04/29/2023, Tdap 07/02/2021 Social History Tobacco Use Types Packs/Day Years Used Date Smoking Tobacco: Former Cigarettes 3 36 1 966 - 2002 Passive Smoke Exposure: Never Smokeless Tobacco: Never Tobacco Cessation:Counseling Given: Not Answered Alcohol Use Standard Drinks/Week Comments No 0 (1 standard drink = 0.6 oz pur e alcohol) AUDIT-C Answer Date Recorded Q1: How often do you have a drink containing alcohol? Never 05/29/2025 Q2: How many drinks containi ng alcohol do you have on a typical day when you are drinking? Patient does not drink Q3: How often do you have si x or more drinks on one occasion? Never 05/29/2025 Personal Safety Answer Date Recorded Have you ever been in or are you currently in a harmful physical or emotional relationship or is someone making you feel afraid or unsafe? Denies 07/23/2025 Sex and Gender Information Value Date Recorded Sex Assigned at Not on file Legal Sex Male 1:13 AM LINECASTING MACHINE KEYBOARD OPERATOR Gender Identity Not on file Sexual Orientation Straight 05/24/2019 8: 40 AM CDT Occupation Industry Job Start Date Job End Date Retired Not on file Not on file Not on file Last Filed Vital Signs Vital Sign Reading Time Taken Comments Blood Pressure 136/70 07/23/2025 7:12 AM CDT Pulse 81 07/23/2025 7:12 AM CDT Temperature 36.1 C (97 F) 07/23/2025 7:12 AM CDT Respiratory Rate 16 07/23/2025 7:12 AM CDT Oxygen Saturation 100% 07/23/2025 7:12 AM CDT Inhaled Oxygen Concentration - - Weight 83.9 kg (185 lb) 07/23/2025 7:12 AM CDT Height 177.8 cm (5' 10) 06/05/2025 2:28 PM CDT Body Mass Index 26.54 06/05/2025 2:28 PM CDT Results * POCT glucose (07/23/2025 7:16 AM CDT) Glucose, POC 176 70 - 199 mg/dL Blood 07/23/2025 7:16 AM CDT 07/23/2025 7:16 AM CDT Fernando Rodarte MD LAB POCT ORDERABLES - DEV ICE Final Result Performing Organization Address City/[facility]/ZIP Co de Phone Number [facility] [address] [place] [address] * (ABNORMAL) Pancreatic elastase, stool (06/15/2025 9:44 AM CDT) Pancreatic elastase, stool 191(L) >200 (Normal) mcg/g Alfonso ref Lab Comment: Interpretation: Borderline (100-200 mcg/g); Consistent with slight to moderate pancreatic insufficiency Test Performed by: [facility] [address] [id number] Flap Maker: Anuradha Meyers Ph.D.; CLIA# [id number] Stool 06/15/2025 9:44 AM CDT 06/15/2025 9:46 AM CDT Fernando Rodarte MD LAB BODY FLUIDS AND STOOL S ORDERABLES Final Result Performing Organization Address City/[facility]/ZIP Co de Phone Number [id number] [place] [address] Alfonso ref Lab * C. difficile testing Stool (06/14/2025 8:00 AM CDT) Pathologist [facility] C. diff result Negative, DNA Negative , DNA C. diff interp Negative for toxigenic Clostridioides (Clostridium) difficile. Analysis performed by detection of gene(s) encoding C. difficile toxin(s). The nucleic acid detection assay used is cleared by the [place] Food and Drug administration and its performance characteristics have been verified by the performing laboratory. [facility] Stool 06/14/2025 8:00 AM CDT 06/14/2025 10:56 AM CDT Fernando Rodarte MD LAB MICROBIOLOGY - GENERA L ORDERABLES Final Result Performing Organization Address [facility] Co de Phone Number [address] [place] [place] [address] * Cryptosporidium and Giardia antigen assay Stool (06/14/2025 8:00 AM CDT) [facility] Giardia Ag Negative Negative Comment:Testing performed by : [facility], [address] [place] [address]., [id number] Cryptosporidium Ag Negative Negative [facility] Comment: Interpretive data: Testing performed by the [facility] using an immunoassay that detects Cryptosporidium and Giardia antigens in stool specimens. If comprehensive examination for ova and parasites is required, please request Ova and Parasite Examination. Testing performed by: [facility], [address] [place]., [address] Stool 06/14/2025 8:00 AM CDT 06/14/2025 3:55 PM CDT Fernnado Rodarte MD LAB MICROBIOLOGY - GENERA L ORDERABLES Final Result Performing Organization Address City/[facility] Co de Phone Number [address] [place] [employer] [address] * Stool culture Stool Rectum (06/14/2025 8:00 AM CDT) Direct Specimen Exam Shiga Toxin Testing: Antigen detection assay for Shiga-toxin NEGATIVE for Shiga Toxin 1 and Shiga Toxin 2. Comment:Testing performed by : [facility], [address] [place]., [address] Report Final Report: No growth of enteric bacterial pathogens [facility] CHAIDEZ Comment:Testing performed by : [facility], [address] [place]., [address] Stool (Rectum) 06/14/2025 8: 00 AM CDT 06/14/2025 3:54 PM CDT Narrative [facility] CHAIDEZ - 06/18/2025 11:37 AM CDT Specimen received in a sterile container. Testing performed by [facility] ([phone]). Routine stool cultures include procedures to detect Salmonella, Shigella, Edwardsiella, Aeromonas, Pleisiomonas, Campylobacter, Yersinia, E. coli O157, and Shiga-like toxins. Vibrio is cultured only upon special request. If Vibrio is suspected, please call the laboratory at [phone]. Interpretive data was last updated March 22, 2017. us Fernando Rodarte MD LAB MICROBIOLOGY - GENERA L ORDERABLES Final Result [facility] [address] [facility] Department [place] [address] * US Arterial Duplex Lower Extremity Right Limited (06/05/2025 1:42 PM CDT) Anatomical Region Laterality Modality Vascular Right Ultrasound 06/05/2025 12:4 5 PM CDT Narrative 06/06/2025 9:10 AM CDT [employer] [facility] [employer] [facility] - Department of Vascular Surgery, Vascular Laboratory [address] [place] [id number] [place] Lower Extremity Arterial Duplex Report Patient Name: LUIS MANUEL TRACY : 1955 Study Date: 06/05/2025 12:45:00 PM Gender: M Tech: BAD Location: [facility] Ref Provider: ROGER OSULLIVAN Quality: Adequate Order Provider: ROGER OSULLIVAN PROCEDURES: Arterial Report: Right Lower Extremity Arterial Duplex Exam. INDICATIONS: I87.2 Venous insufficiency (chronic) (peripheral), I70.213 Atherosclerosis of tanana arteries of extremities with intermittent claudication, bilateral legs, and Z48.812 Encounter for surgical aftercare following surgery on the circulatory system. MEASUREMENTS: Right Value Units Rt PREFITTER DOORS Dst PSV 62 cm/s Rt Profunda Dst PSV 170 cm/s Rt Superficial Femoral Prx PSV 121 cm/s Rt Superficial Femoral Mid PSV 85 cm/s Rt Superficial Femoral Dst PSV 51 cm/s Rt Pop Prx PSV 42 cm/s Rt Post Tibial Mid PSV 51 cm/s Rt Ant Tibial Mid PSV 111 cm/s Rt Peroneal Mid PSV 68 cm/s Right Value Units FINDINGS: Performing Medical Education Specialist: Natalya Moya RVT. Right Common Femoral: The right common femoral waveform is multiphasic. Right Profunda: The right profunda waveform is multiphasic. Right Proximal Superficial Femoral Artery: The right proximal femoral artery waveform is multiphasic. Right Mid Superficial Femoral Artery: The right mid femoral artery waveform is multiphasic. Right Distal Superficial Femoral Artery: The right distal femoral artery waveform is multiphasic. Right Popliteal: The right popliteal waveform is multiphasic. Right Posterior Tibial: The right posterior tibial waveform is multiphasic. Right Anterior Tibial: The right anterior tibial waveform is multiphasic. Right Peroneal: The right peroneal artery waveform is multiphasic. Comments: Images of the right tibioperoneal trunk can be seen on sequence 14-23. CONCLUSIONS: 1. Duplex imaging of the right lower extremity tanana arteries reveals patent vessels with no flow limiting lesions identified. Flow velocities as measured above. See Ankle Brachial Index report. 2. See Ankle/ Brachial Index report. HISTORY: PVD, LLE BPG, kidney transplant. PREVIOUS STUDIES: No previous studies for comparison. DISCLAIMER: The study images and the final report will be retained in the patient chart by the Vascular Laboratory for the legally required time period. This chart constitutes the legal record of any testing performed. ATTESTATION: I have reviewed and interpreted the pertinent images and measurements of this study. I attest to the conclusions in the final report that is provided above. Electronically Signed By: Roger Osullivan MD [facility] [phone] 06/06/2025 9:09:44 AM CDT Procedure Note Roger Osullivan MD - 06/06/2025 [facility] - Department of Vascular Surgery,Vascular Laboratory [address] [place] [address] [place] Lower Extremity Arterial Duplex Report Patient Name: LUIS MANUEL TRACY : 1955 Study Date: 06/05/2025 12:45:00 PM Gender: M Tech: BAD Location: [facility] Ref Provider: ROGER OSULLIVAN Quality: Adequate Order Provider: ROGER OSULLIVAN PROCEDURES: Arterial Report: Right Lower Extremity Arterial Duplex Exam. INDICATIONS: I87.2 Venous insufficiency (chronic) (peripheral), I70.213 Atherosclerosisof tanana arteries of extremities with intermittent claudication, bilateral legs,and Z48.812 Encounter for surgical aftercare following surgery on the circulatorysystem. MEASUREMENTS: Right Value Units Rt PREFITTER DOORS Dst PSV 62 cm/s Rt Profunda Dst PSV 170 cm/s Rt Superficial Femoral Prx PSV 121 cm/s Rt Superficial Femoral Mid PSV 85 cm/s Rt Superficial Femoral Dst PSV 51 cm/s Rt Pop Prx PSV 42 cm/s Rt Post Tibial Mid PSV 51 cm/s Rt Ant Tibial Mid PSV 111 cm/s Rt Peroneal Mid PSV 68 cm/s Right Value Units FINDINGS: Performing Medical Education Specialist: Natalya Moya RVT. Right Common Femoral: The right common femoral waveform is multiphasic. Right Profunda: The right profunda waveform is multiphasic. Right Proximal Superficial Femoral Artery: The right proximal femoral artery waveform is multiphasic. Right Mid Superficial Femoral Artery: The right mid femoral artery waveform is multiphasic. Right Distal Superficial Femoral Artery: The right distal femoral artery waveform is multiphasic. Right Popliteal: The right popliteal waveform is multiphasic. Right Posterior Tibial: The right posterior tibial waveform is multiphasic. Right Anterior Tibial: The right anterior tibial waveform is multiphasic. Right Peroneal: The right peroneal artery waveform is multiphasic. Comments: Images of the right tibioperoneal trunk can be seen on sequence 14-23. CONCLUSIONS: 1. Duplex imaging of the right lower extremity tanana arteries revealspatent vessels with no flow limiting lesions identified. Flow velocities as measuredabove. See Ankle Brachial Index report. 2. See Ankle/ Brachial Index report. HISTORY: PVD, LLE BPG, kidney transplant. PREVIOUS STUDIES: No previous studies for comparison. DISCLAIMER: The study images and the final report will be retained in the patientchart by the Vascular Laboratory for the legally required time period. This chartconstitutes the legal record of any testing performed. ATTESTATION: I have reviewed and interpreted the pertinent images and measurements ofthis study. I attest to the conclusions in the final report that is provided above. Electronically Signed By: Roger Osullivan MD [facility] [phone] 06/06/2025 9:09:44 AM CDT us Roger Osullivan MD IMG US PROCEDURES Final Result * US Arterial Doppler Lower Extremity Bilateral (06/05/2025 1:42 PM CDT) Anatomical Region Laterality Modality Vascular Bilateral Ultrasound 06/05/2025 12:4 8 PM CDT Narrative 06/06/2025 9:11 AM CDT [facility] - Department of Vascular Surgery, Vascular Laboratory [address] [place] [address] Lower Extremity Arterial Doppler Report Patient Name: LUIS MANUEL TRACY : 1955 Study Date: 06/05/2025 12:48:00 PM Gender: M Tech: Natalya Moya [facility] Location: [facility] Provider: ROGER OSULLIVAN Quality: Adequate Order Provider: ROGER OSULLIVAN PROCEDURES: Arterial Report: Bilateral lower extremity arterial Doppler exam at rest. INDICATIONS: I87.2 Venous insufficiency (chronic) (peripheral), I70.213 Atherosclerosis of tanana arteries of extremities with intermittent claudication, bilateral legs, and Z48.812 Encounter for surgical aftercare following surgery on the circulatory system. MEASUREMENTS: Right Value Units Left Value Units Rt Brachial Pressure 183 mmHg Lt Brachial Pressure 178 mmHg Rt MELTING FURNACE SKIMMER Pressure 196 mmHg Lt MELTING FURNACE SKIMMER Pressure 149 mmHg Rt DPA Pressure 184 mmHg Lt DPA Pressure 241 mmHg Rt 1st Digit Pressure 94 mmHg Lt 1st Digit Pressure 94 mmHg Rt PT DEXTER Resting 1.07 Lt PT DEXTER Resting 0.81 Rt AT DEXTER Resting 1.01 Lt AT DEXTER Resting 1.32 Rt Digit/Arm Index 0.51 Lt Digit/Arm Index 0.51 Right Value Units Left Value Units FINDINGS: Performing Medical Education Specialist: Natalya Moya RVT. Right All Levels: The right common femoral, popliteal, posterior tibial and anterior tibial artery waveforms are multiphasic. Left Common Femoral Artery Analysis: The common femoral artery waveform is multiphasic. Left Popliteal Artery Analysis: Popliteal artery waveform is not assessed due to h/o bypass graft. Left Posterior Tibial Artery Analysis: The posterior tibial waveform is multiphasic. Left Anterior Tibial Artery Analysis: The anterior tibial waveform is multiphasic. CONCLUSIONS: 1. The above listed right Ankle/Brachial Index at rest is within normal limits (for reference, normal resting DEXTER is 0.90 - 1.4; DEXTER >1.4 due to non-compressible arteries is not diagnostic). 2. The above listed left ankle pressures and Ankle/Brachial Index are artifactually elevated due to limited vessel compressibility. The finding is consistent with arterial calcification thus left DEXTER is not diagnostic. 3. Bilateral Digit/Arm Indices are abnormal (for reference, abnormal ANGIE is <0.6). HISTORY: 06/11/23 AMPUTATION LEFT FOURTH TOE s/p on 04/02/2021 Left leg angiogram 5 mm cutting balloon Angiosculpt MELTING FURNACE SKIMMER of bypass graft. 06/22/17 Lt Fem to AK lorie BPG. - PREVIOUS STUDIES: Previous study on 03/28/2024 RT 0.77, Lt 0.68 - DISCLAIMER: The study images and the final report will be retained in the patient chart by the Vascular Laboratory for the legally required time period. This chart constitutes the legal record of any testing performed. ATTESTATION: I have reviewed and interpreted the pertinent images and measurements of this study. I attest to the conclusions in the final report that is provided above. Electronically Signed By: Roger Osullivan MD [facility] [phone] 06/06/2025 9:10:29 AM CDT Procedure Note Roger Osullivan MD - 06/06/2025 [facility] - Department of Vascular Surgery,Vascular Laboratory [address] [place] [address] Lower Extremity Arterial Doppler Report Patient Name: LUIS MANUEL TRACY : 1955 Study Date: 06/05/2025 12:48:00 PM Gender: M Tech: Natalya Moya Nadira Location: [facility] Provider: ROGER OSULLIVAN Quality: Adequate Order Provider: ROGER OSULLIVAN PROCEDURES: Arterial Report: Bilateral lower extremity arterial Doppler exam at rest. INDICATIONS: I87.2 Venous insufficiency (chronic) (peripheral), I70.213 Atherosclerosisof tanana arteries of extremities with intermittent claudication, bilateral legs,and Z48.812 Encounter for surgical aftercare following surgery on the circulatorysystem. MEASUREMENTS: Right Value Units Left Value Units Rt Brachial Pressure 183 mmHg Lt Brachial Pressure 178 mmHg Rt MELTING FURNACE SKIMMER Pressure 196 mmHg Lt MELTING FURNACE SKIMMER Pressure 149 mmHg Rt DPA Pressure 184 mmHg Lt DPA Pressure 241 mmHg Rt 1st Digit Pressure 94 mmHg Lt 1st Digit Pressure 94 mmHg Rt PT DEXTER Resting 1.07 Lt PT DEXTER Resting 0.81 Rt AT DEXTER Resting 1.01 Lt AT DEXTER Resting 1.32 Rt Digit/Arm Index 0.51 Lt Digit/Arm Index 0.51 Right Value Units Left Value Units FINDINGS: Performing Medical Education Specialist: Natalya Moya RVT. Right All Levels: The right common femoral, popliteal, posterior tibial and anterior tibialartery waveforms are multiphasic. Left Common Femoral Artery Analysis: The common femoral artery waveform is multiphasic. Left Popliteal Artery Analysis: Popliteal artery waveform is not assessed due to h/o bypass graft. Left Posterior Tibial Artery Analysis: The posterior tibial waveform is multiphasic. Left Anterior Tibial Artery Analysis: The anterior tibial waveform is multiphasic. CONCLUSIONS: 1. The above listed right Ankle/Brachial Index at rest is within normallimits (for reference, normal resting DEXTER is 0.90 - 1.4; DEXTER >1.4 due tonon-compressible arteries is not diagnostic). 2. The above listed left ankle pressures and Ankle/Brachial Index areartifactually elevated due to limited vessel compressibility. The finding is consistentwith arterial calcification thus left DEXTER is not diagnostic. 3. Bilateral Digit/Arm Indices are abnormal (for reference, abnormal DAIis <0.6). HISTORY: 06/11/23 AMPUTATION LEFT FOURTH TOE s/p on 04/02/2021 Left leg angiogram 5 mm cutting balloon Angiosculpt PTAof bypass graft. 06/22/17 Lt Fem to AK pop BPG. - PREVIOUS STUDIES: Previous study on 03/28/2024 RT 0.77, Lt 0.68 - DISCLAIMER: The study images and the final report will be retained in the patientchart by the Vascular Laboratory for the legally required time period. This chartconstitutes the legal record of any testing performed. ATTESTATION: I have reviewed and interpreted the pertinent images and measurements ofthis study. I attest to the conclusions in the final report that is provided above. Electronically Signed By: Roger Osullivan MD [facility] [phone] 06/06/2025 9:10:29 AM CDT us Roger Osullivan MD IMG US PROCEDURES Final Result * POCT hemoglobin A1c (06/01/2025 10:06 AM CDT) Hemoglobin A1C, POC 5.6 4.0 - 5.6 % Blood 06/01/2025 10:0 6 AM CDT us Madelyn Gonzalez MD POINT OF CARE TEST ORDERABLES Final Result * POCT glucose (05/29/2025 9:43 AM CDT) Glucose, POC 99 70 - 199 mg/dL Blood 05/29/2025 9:43 AM CDT 05/29/2025 9:43 AM CDT us Fernando Rodarte MD LAB POCT ORDERABLES - DEV ICE Final Result [facility] [address] [place] [address] * Surgical pathology (05/29/2025 9:04 AM CDT) Tissue (Duodenum, Biopsy) 05/29/2025 9:04 AM CDT Tissue specimen (specimen) (Gastric/Stomach biopsy) 05/29/2025 9:05 AM CDT Tissue specimen (specimen) (Colon, Biopsy) 05/29/2025 9:21 AM CDT Narrative PATHOLOGY [facility] - 05/30/2025 3:30 PM CDT [facility] Department of Pathology [address] [place] [id number] Note to Patients: This report may contain a detailed description of human tissue sent by a health care provider to the laboratory for pathologic evaluation. The content of this report is essential for diagnosis and may provide important critical findings. This information may be unfamiliar to patients to review without a medical professional present. It is advised that the patient review this report in the presence of a health care provider who can answer questions and explain the details. Final Report Patient Name: LUIS MANUEL TRACY : 1955 (Age: 69) Gender: M Address: [address] [place] [address] Hospital #: [id number] Service: Gastro Location: Patient Type: [facility] OUTPATIENT Taken: 05/29/2025 Received: 05/29/2025 Accessioned: 05/29/2025 Reported: 05/30/2025 Physician(s): MD Marlon Wen M.D. Diagnosis: A. Duodenum, biopsy - Duodenal mucosa with no histopathologic abnormality - No evidence of celiac disease (no significant intraepithelial lymphocytosis) B. Stomach, body and antrum, biopsy - Antral gland mucosa with mild chronic inactive gastritis - Oxyntic gland mucosa with no histopathologic abnormality - Negative for H. pylori organisms (immunohistochemical stain) C. Colon, random, biopsies - Colonic mucosa with no histopathologic abnormality - No histologic features of microscopic colitis Mani Plaza M.D. Report Electronically Reviewed and Signed Out By Mani Plaza M.D. 05/30/2025 15:30:16 Specimen(s) Received: A: Duodenal biopsies rule out Celiac B: Gastric body and antrum biopsies rule out H. pylori C: Random colon biopsies rule out microscopic colitis and COD Microscopic Description: Microscopic examination is performed. Microscopic examination is performed. MHLUMINAL2 Distribution Clinical History: The patient is a 69-year-old man with unspecified diarrhea. Operative procedure: Upper GI endoscopy and colonoscopy with biopsy. Gross Description Received in three formalin jars labeled with the patient's identifiers. A. Labeled duodenal biopsies rule out celiac and consists of four garcia-pink tissue fragments ranging from 0.2-0.3 cm. Entirely submitted. Labeled A1. Jar 0. B. Labeled gastric body and antrum biopsies rule out H pylori and consists of six garcia-pink tissue fragments ranging from 0.1-0.5 cm. Entirely submitted. Labeled B1. Jar 0. C. Labeled random colon biopsies rule out microscopic colitis and COD and consists of multiple garcia-pink tissue fragments ranging from 0.2-0.4 cm. Entirely submitted. Labeled C1 to C2. Jar 0. jjb/05/29/2025 12:07 KIMBERLYN Ha, PA (ASCP) Microscopic slide review and interpretation for this case was performed at [facility], Department of Surgical Pathology, #1 [facility] [place], [place] [id number], [place] [address] CLIA # [id number] us Fernando Rodarte MD LAB PATHOLOGY ORDERABLES Final Result PATHOLOGY [facility] * EGD (05/29/2025 8:55 AM CDT) Anatomical Region Laterality Modality Other Narrative Procedure Note Fernando Rodarte MD - 05/29/2025 8:55 AM CDT [facility] GI ENDOSCOPY Patient Name: Luis Manuel Tracy Procedure Date: 05/29/2025 8:55 AM Date of : 1955 Admit Type: Outpatient Age: 69 Gender: Male Attending MD: Fernando Rodarte M.D., Room: [facility] ENDOSCOPY ROOM 04 Note Status: Finalized Procedure: Upper GI endoscopy Indications: Chronic diarrhea, Iron deficiency anemia Referring MD: Marlon Trujillo M.D. Providers: Fernando Rodarte M.D. Medicines: See the Anesthesia note for documentation of the administered medications Complications: No immediate complications. Estimated Blood Loss: Estimated blood loss was minimal. Procedure: Pre-Anesthesia Assessment: - Prior to the procedure, a History and Physicalwas performed, and patient medications and allergieswere reviewed. The risks and benefits of the procedureand the sedation options and risks were discussed withthe patient. All questions were answered and informed consent was obtained. Patient identification and proposed procedure were verified. After reviewingthe risks and benefits, the patient was deemed in satisfactory condition to undergo the procedure.The anesthesia plan was to use monitored anesthesiacare (MAC). Immediately prior to administration of medications, the patient was re-assessed foradequacy to receive sedatives. The heart rate, respiratory rate, oxygen saturations, blood pressure, adequacyof pulmonary ventilation, and response to care were monitored throughout the procedure. The physical status of the patient was re-assessed after the procedure. The benefits, risks, and alternatives to theprocedure and sedation were discussed and informed consentwas obtained. The scope was passed under direct vision. The Endoscope was introduced through the mouth, and advanced to the second part of duodenum. The upperGI endoscopy was accomplished without difficulty. The patient tolerated the procedure well. Findings: The examined esophagus was normal. Patchy non-erosive mildly erythematous mucosa was found in thegastric antrum. Biopsies were taken with a cold forceps for Helicobacterpylori testing. The examined duodenum was normal. Biopsies for histology were takenwith a cold forceps for evaluation of celiac disease. Impression: - Normal esophagus. - Gastritis. Biopsied. - Normal examined duodenum. Biopsied. Recommendation: - Await pathology results. - Avoid NSAIDs. Low dose ASA ok if clinicallyindicated - Proceed to colonoscopy. Fernando Rodarte M.D. 05/29/2025 9:15:15 AM Number of Addenda: 0 Note Initiated On: 05/29/2025 8:55 AM Recognized by the [employer] for promoting quality in endoscopy Fernando Rodarte MD ENDOSCOPY PROCEDURES Taya l Result * Colonoscopy (05/29/2025 8:55 AM CDT) Anatomical Region Laterality Modality Other Narrative Procedure Note Fernando Rodarte MD - 05/29/2025 8:55 AM CDT [facility] GI ENDOSCOPY Patient Name: Luis Manuel Tracy Procedure Date: 05/29/2025 8:55 AM Date of : 1955 Admit Type: Outpatient Age: 69 Gender: Male Attending MD: Fernando Rodarte M.D., Room: [facility] ENDOSCOPY ROOM 04 Note Status: Finalized Procedure: Colonoscopy Indications: chronic diarrhea in the setting of a history ofcolon cancer status post right hemicolectomy, S/P liver transplant/cadaver renal transplant in the settingof iron deficiency anemia Referring MD: Marlon Trujillo M.D. Providers: Fernando Rodarte M.D. Medicines: See the Anesthesia note for documentation of the administered medications Complications: No immediate complications. Estimated Blood Loss: Estimated blood loss was minimal. Procedure: Pre-Anesthesia Assessment: - Prior to the procedure, a History and Physicalwas performed, and patient medications and allergieswere reviewed. The risks and benefits of the procedureand the sedation options and risks were discussed withthe patient. All questions were answered and informed consent was obtained. Patient identification and proposed procedure were verified. After reviewingthe risks and benefits, the patient was deemed in satisfactory condition to undergo the procedure.The anesthesia plan was to use monitored anesthesiacare (MAC). Immediately prior to administration of medications, the patient was re-assessed foradequacy to receive sedatives. The heart rate, respiratory rate, oxygen saturations, blood pressure, adequacyof pulmonary ventilation, and response to care were monitored throughout the procedure. The physical status of the patient was re-assessed after the procedure. The benefits, risks and alternatives of theprocedure and sedation were discussed and informed consentwas obtained. All questions were answered. Please referto the signed informed consent document in the medical record. The scope was passed under direct vision.The [id number] colonoscope was introduced through theanus and advanced to the ileocolonic anastomosis. The colonoscopy was performed without difficulty. The patient tolerated the procedure well. The qualityof the bowel preparation was good. Scope insertiontime was 5 minutes. Scope withdrawal time was 13minutes. Prep was administered in a split dose. Findings: The perianal and digital rectal examinations were normal. h/o right hemicolectomy Normal/healthy appearing ileocolic anastomosis. Visualized ileum normal. Colonic mucosa normal. Biopsies for histology were taken with a cold forceps for evaluation of microscopic colitis, CMV. Diverticula (mild) were found in the sigmoid colon. Internal hemorrhoids were found. The hemorrhoids were small. Impression: - Colonic mucosa normal. Biopsied. - Diverticulosis in the sigmoid colon. - Internal hemorrhoids. Recommendation: - Await pathology results. - Resume previous diet today. - Discharge patient to home. - Increase fiber. - If biopsies from the upper endoscopy are unremarkable, then have an eye towards a patency capsule followed by a capsule endoscopy as the next step. - Patient has a contact number available for emergencies. The signs and symptoms of potential delayed complications were discussed with thepatient. Return to normal activities tomorrow. Written discharge instructions were provided to thepatient. - I would be happy to see you in my GI clinic ifyou have further questions or concerns or if symptoms progress - Repeat colonoscopy in 3 years for surveillance. Fernando Rodarte M.D. 05/29/2025 9:45:46 AM Number of Addenda: 0 Note Initiated On: 05/29/2025 8:55 AM Recognized by the [employer] for promoting quality in endoscopy Fernando Rodarte MD ENDOSCOPY PROCEDURES Taya l Result * (ABNORMAL) POC Blood Gas and Chemistries, Venous - (05/29/2025 7:42 AM CDT) pH,michael POC 7.35 7.32 - 7.43 pCO2, michael POC 49 40 - 50 mmHg [facility] pO2,michael POC 28 mmHg [facility] Comment: Interpretive Data No reference range established. Current interpretive data was last revised 2020. HCO3, michael (Calc) POC 27 20 - 30 mmol/L [facility] Base excess, michael POC 1 mmol/L [facility] Comment: Interpretive Data No reference range established. Current interpretive data was last revised 2020. Hemoglobin, michael POC 11.2(L) 13.0 - 17.5 g/dL [facility] Hematocrit, michael POC 33.0(L) 38.9 - 50.3 % [facility] Sodium, michael POC 145 135 - 145 mmol/L [facility] Potassium, michael POC 3.4 3.3 - 4.9 mmol/L [facility] Comment: Interpretive Data This method is not able to assess for hemolysis, which may falsely increase potassium concentrations. If further testing is needed to evaluate this result, consider in-laboratory plasma potassium. Current Interpretive Data was last revised on 2022. Glucose, michael POC 64(L) 70 - 199 mg/dL [facility] Ionized Calcium, michael POC 4.80 4.50 - 5.10 mg/dL [facility] Blood 05/29/2025 7:42 AM CDT 05/29/2025 7:42 AM CDT Fernando Rodarte MD LAB POCT ORDERABLES - DEV ICE Final Result Performing Organization Address [facility]/ZIP Co de Phone Number [facility] [address] [place] [address] * (ABNORMAL) C-peptide (05/22/2025 11:53 AM CDT) [facility] C-Peptide, Serum 0.8(L) 1.1 - 4.4 ng/mL [facility] - 01 Comment:C-Peptide reference interval is for fasting patients. 05/22/2025 11:5 3 AM CDT 05/22/2025 Narrative [facility] - 05/23/2025 9:10 AM CDT Performed at: [address] [place], [place] [id number] Flap Maker: Jacob Cho PhD, Phone: [phone] us Madelyn Gonzalez MD LAB BLOOD ORDERABLES Final Re sult Performing Organization Address [facility] Co de Phone Number [facility] - 01 * CTA Abdominal Aorta And Bilateral Iliofemoral Runoff (05/17/2025 5:15 PM CDT) Anatomical Region Laterality Modality Body Bilateral Computed Tomogra phy 05/23/2025 8:26 AM CDT Narrative 05/23/2025 8:36 AM CDT EXAM DESCRIPTION: CTA ABDOMINAL AORTA AND BILATERAL ILIOFEMORAL RUNOFF REASON FOR STUDY: Claudication or leg ischemia BLE edema, ischemia TECHNIQUE: CTA of the abdominal aorta with bilateral lower extremity runoff was performed without and with intravenous contrast using helical scanning technique. Precontrast and arterial images were obtained of the lower extremities. Images reviewed with soft tissue and bone windows. Reconstructed coronal and sagittal MPR images reviewed. All images stored on PACS. 3D MIP images rendered on scanning unit and reviewed at time of interpretation. Automated exposure control was used as a dose optimization technique for this examination. CONTRAST TYPE/DOSE: 120mL of IOVERSOL 350 MG IODINE/ML INTRAVENOUS SYRINGE injected via intravenous COMPARISON: None available FINDINGS: VASCULATURE: NON-CONTRASTED IMAGING: Extensive atherosclerotic calcified plaque diffusely. ABDOMINAL AORTA: No dissection, aneurysm, intramural hematoma, rupture, or penetrating atherosclerotic ulcer. MESENTERIC/RENAL: No flowing limiting disease. Single bilateral renal arteries. No anatomic variation of the mesenteric vessels. PELVIC VASCULATURE: Common/external iliac arteries: No dissection, aneurysm, intramural hematoma, rupture, or penetrating atherosclerotic ulcer. No flow limiting disease. Internal iliac arteries: No dissection, aneurysm or flow limiting disease. RIGHT LOWER EXTREMITY VASCULATURE: The right common femoral artery is patent and bifurcates with patent profunda femoral artery. The right superficial femoral artery demonstrates diffuse atherosclerotic calcified and noncalcified plaque most prominent through the adductor canal region with 50-75% stenosis suggested. The right popliteal is patent with continued extensive calcification obscuring detail with 50-75% stenosis suspected. Trifurcation vessels are heavily calcified and obscures with multifocal severe stenoses or occlusions suggested as likely LEFT LOWER EXTREMITY VASCULATURE: The left common femoral artery is patent and bifurcates with patent profunda femoral artery. 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 Bypass graft identified with patent proximal anastomosis from the common femoral. This is patent through the thigh region with patent distal anastomosis of the popliteal above the patella level. The distal popliteal is heavily calcified but patent, trifurcations with heavily calcified vessels obscuring detail with multifocal stenoses or occlusions suspect. ABDOMEN/PELVIS: LOWER CHEST: No significant pulmonary abnormalities. No effusion. LIVER: Normal size. No identified cystic or solid masses. No cysts. GALLBLADDER: Surgically absent with clips in place. BILE DUCTS: No intrahepatic or extrahepatic ductal dilatation. SPLEEN: Normal size. No focal lesions. PANCREAS: No identified cystic or solid masses. No significant calcifications. No adjacent inflammation or peripancreatic fluid collections. Pancreatic duct not dilated. ADRENALS: Normal. KIDNEYS/URINARY TRACT: Marked atrophic change bilaterally. Fatty cortical lesion on the left may indicate angiomyolipoma. Transplant kidney right iliac fossa without hydronephrosis. Normal bladder. GI: No dilated bowel loops. No obvious wall thickening. Normal appendix. No significant diverticular disease. PERITONEUM: No ascites or free air. RETROPERITONEUM: No mass or adenopathy. REPRODUCTIVE: No significant abnormality. MUSCULOSKELETAL: No acute findings. OTHER: No other abnormality. IMPRESSION: 1. No aortoiliac inflow stenosis to the lower extremities bilaterally. 2. Right leg demonstrates 50-75% stenosis of the superficial femoral artery through the adductor canal region with additional 50-75% stenosis of the popliteal artery. Trifurcation vessels are heavily calcified and obscured with multifocal stenoses or occlusions suspect. 3. Left leg demonstrates chronically occluded superficial femoral artery with patent bypass graft from the common femoral to the popliteal artery. The distal popliteal is heavily calcified but patent, trifurcations with heavily calcified vessels obscuring detail with multifocal stenoses or occlusions suspect. 4. Transplant kidney right iliac fossa without hydronephrosis. THIS IS AN ELECTRONICALLY VERIFIED FINAL REPORT 05/23/2025 8:36 AM - Electronically signed by Johnny Dennis M.D. RB T: Report ID: [id number] Reading Location: [id number] Procedure Note Johnny Dennis MD - 05/23/2025 EXAM DESCRIPTION: CTA ABDOMINAL AORTA AND BILATERAL ILIOFEMORAL RUNOFF REASON FOR STUDY: Claudication or leg ischemia BLE edema, ischemia TECHNIQUE: CTA of the abdominal aorta with bilateral lower extremityrunoff was performed without and with intravenous contrast using helicalscanning technique. Precontrast and arterial images were obtained of the lower extremities. Images reviewed with soft tissue and bone windows. Reconstructed coronal and sagittal MPR images reviewed. All images storedon PACS. 3D MIP images rendered on scanning unit and reviewed at time of interpretation. Automated exposure control was used as a doseoptimization technique for this examination. CONTRAST TYPE/DOSE: 120mL of IOVERSOL 350 MG IODINE/ML INTRAVENOUSSYRINGE injected via intravenous COMPARISON: None available FINDINGS: VASCULATURE: NON-CONTRASTED IMAGING: Extensive atherosclerotic calcified plaque diffusely. ABDOMINAL AORTA: No dissection, aneurysm, intramural hematoma, rupture,or penetrating atherosclerotic ulcer. MESENTERIC/RENAL: No flowing limiting disease. Single bilateral renal arteries. No anatomic variation of the mesenteric vessels. PELVIC VASCULATURE: Common/external iliac arteries: No dissection, aneurysm, intramural hematoma, rupture, or penetrating atherosclerotic ulcer. No flow limiting disease. Internal iliac arteries: No dissection, aneurysm or flow limitingdisease. RIGHT LOWER EXTREMITY VASCULATURE: The right common femoral artery is patent and bifurcates with patentprofunda femoral artery. The right superficial femoral artery demonstrates diffuse atherosclerotic calcified and noncalcified plaque most prominent throughthe adductor canal region with 50-75% stenosis suggested. The right poplitealis patent with continued extensive calcification obscuring detail with 50-75% stenosis suspected. Trifurcation vessels are heavily calcified andobscures with multifocal severe stenoses or occlusions suggested as likely LEFT LOWER EXTREMITY VASCULATURE: The left common femoral artery is patent and bifurcates with patentprofunda femoral artery. The left superficial femoral artery is chronicallyoccluded. Bypass graft identified with patent proximal anastomosis from the common femoral. This is patent through the thigh region with patent distal anastomosis of the popliteal above the patella level. The distalpopliteal is heavily calcified but patent, trifurcations with heavily calcified vessels obscuring detail with multifocal stenoses or occlusions suspect. ABDOMEN/PELVIS: LOWER CHEST: No significant pulmonary abnormalities. No effusion. LIVER: Normal size. No identified cystic or solid masses. No cysts. GALLBLADDER: Surgically absent with clips in place. BILE DUCTS: No intrahepatic or extrahepatic ductal dilatation. SPLEEN: Normal size. No focal lesions. PANCREAS: No identified cystic or solid masses. No significant calcifications. No adjacent inflammation or peripancreatic fluidcollections. Pancreatic duct not dilated. ADRENALS: Normal. KIDNEYS/URINARY TRACT: Marked atrophic change bilaterally. Fattycortical lesion on the left may indicate angiomyolipoma. Transplant kidney right iliac fossa without hydronephrosis. Normal bladder. GI: No dilated bowel loops. No obvious wall thickening. Normalappendix. No significant diverticular disease. PERITONEUM: No ascites or free air. RETROPERITONEUM: No mass or adenopathy. REPRODUCTIVE: No significant abnormality. MUSCULOSKELETAL: No acute findings. OTHER: No other abnormality. IMPRESSION: 1. No aortoiliac inflow stenosis to the lower extremities bilaterally. 2. Right leg demonstrates 50-75% stenosis of the superficial femoralartery through the adductor canal region with additional 50-75% stenosis of the popliteal artery. Trifurcation vessels are heavily calcified and obscuredwith multifocal stenoses or occlusions suspect. 3. Left leg demonstrates chronically occluded superficial femoral artery with patent bypass graft from the common femoral to the popliteal artery.The distal popliteal is heavily calcified but patent, trifurcations withheavily calcified vessels obscuring detail with multifocal stenoses or occlusions suspect. 4. Transplant kidney right iliac fossa without hydronephrosis. THIS IS AN ELECTRONICALLY VERIFIED FINAL REPORT 05/23/2025 8:36 AM - Electronically signed by Johnny Dennis M.D. RB T: Report ID: [id number] Reading Location: [place] [address] us Roger Osullivan MD IMG CT PROCEDURES Final Result * (ABNORMAL) eGFR (05/17/2025 12:42 PM CDT) eGFR 39(L) >=60 mL/min/1. 73 m2 Comment: Interpretive Data Reference Interval Normal >/= 90 mL/min/1.73m2 Mildly decreased* 60 - 89 mL/min/1.73m2 Mildly to moderately decreased 45 - 59 mL/min/1.73m2 Moderately to severely decreased 30 - 44 mL/min/1.73m2 Severely decreased 15 - 29 mL/min/1.73m2 Kidney Failure < 15 mL/min/1.73m2 *Relative to young adult level Estimated glomerular filtration rate is determined by the 2020 CKD-EPI equation recommended by the National Kid[employer] (A Unifying Approach to GFR Estimation: Recommendations of the NKF-ASK Task Force on Reassessing the Inclusion of Race in Diagnosing Kidney Disease, JASN 202). The CKD-EPI equation should not be used for patients with unstable renal function and has not been validated in children and those over 70. Current interpretive data was last reviewed 2021. Blood 05/17/2025 12:4 2 PM CDT 05/17/2025 12:54 PM CDT us Fernando Rodarte MD LAB BLOOD ORDERABLES Taya l Result [facility] [address] Department [place] [address] * Tissue transglutaminase IgA (TGG-IgA Ab) (05/17/2025 12:42 PM CDT) Pathologist [facility] TTG ab, IgA <0.5 <=14.9 units/mL Comment: Interpretive data Negative: <15 units/mL Positive: > or equal to 15 units/mL Current interpretive data was last revised on 2017. Testing performed by: [facility], [address] [place]., [address] Blood 05/17/2025 12:4 2 PM CDT 05/17/2025 3:33 PM CDT Fernando Rodarte MD LAB BLOOD ORDERABLES Taya vyas Result [facility] [address] Department [place] [address] * (ABNORMAL) CBC without differential (05/17/2025 12:42 PM CDT) [facility] WBC 8.14 3.80 - 9.90 K/cumm Hgb 10.7(L) 13.0 - 17.5 g/dL [facility] Hct 34.0(L) 38.9 - 50.3 % [facility] Plt 190 150 - 400 K/cumm [facility] MPV 11.1 9.1 - 12.3 fL [facility] RBC 3.96(L) 4.30 - 5.80 M/cumm [facility] MCV 85.9 81.3 - 96.4 fL [facility] MCH 27.0(L) 27.1 - 33.3 pg [facility] MCHC 31.5(L) 32.3 - 35.7 g/dL [facility] RDW CV 15.4(H) 11.1 - 14.9 % [facility] RDW SD 48.3(H) 35.7 - 48.1 fL [facility] NRBC abs 0.00 0.00 - 0.01 K/cumm [facility] Blood 05/17/2025 12:4 2 PM CDT 05/17/2025 12:54 PM CDT Fernando Rodarte MD LAB BLOOD ORDERABLES Taya l Result Performing Organization Address City/[facility]/ZIP Co de Phone Number [address] [address] * CRP (acute phase) (05/17/2025 12:42 PM CDT) [facility] CRP 5.0 <=10.0 mg/L Blood 05/17/2025 12:4 2 PM CDT 05/17/2025 12:54 PM CDT Fernando Rodarte MD LAB BLOOD ORDERABLES Taya l Result Performing Organization Address [facility] Co de Phone Number [address] [address] * TSH (05/17/2025 12:42 PM CDT) [facility] Thyroid Stimulating Hormone 0.87 0.30 - 4.20 mcIUnit/mL Blood 05/17/2025 12:4 2 PM CDT 05/17/2025 12:54 PM CDT Fernando Rodarte MD LAB BLOOD ORDERABLES Taya l Result Performing Organization Address [facility] Co de Phone Number [address] [address] * (ABNORMAL) Comprehensive metabolic panel (05/17/2025 12:42 PM CDT) [facility] Sodium 141 135 - 145 mmol/L Potassium, pl 4.4 3.3 - 4.9 mmol/L [facility] Chloride 112(H) 97 - 110 mmol/L [facility] CO2 19(L) 22 - 32 mmol/L [facility] Anion gap 10 2 - 15 mmol/L [facility] BUN 51(H) 6 - 25 mg/dL [facility] Creatinine 1.82(H) 0.80 - 1.30 mg/dL [facility] Glucose 105 70 - 199 mg/dL [facility] Comment: Interpretive Data Fasting glucose >/= 126 mg/dl is diagnostic for diabetes. Fasting is defined as no caloric intake for at least 8 hours. Fasting glucose between 100 mg/dl to 125 mg/dl is diagnostic of prediabetes. In a patient with classic symptoms of hyperglycemia or hyperglycemic crisis, a random glucose >/= 200 mg/dl is diagnostic for diabetes. In the absence of unequivocal hyperglycemia, results should be confirmed by repeat testing. The classification and Diagnosis of Diabetes Diabetes Care 2021; 46: S19-S40. Current interpretive data was last revised 2022. Calcium 9.1 8.5 - 10.3 mg/dL [facility] Bilirubin, total 0.4 0.1 - 1.2 mg/dL [facility] Protein, pl 6.9 6.5 - 8.5 g/dL [facility] Albumin 4.2 3.5 - 5.0 g/dL [facility] Alk phos 87 40 - 130 Units/L [facility] ALT 15 7 - 55 Units/L [facility] AST 22 10 - 50 Units/L [facility] Blood 05/17/2025 12:4 2 PM CDT 05/17/2025 12:54 PM CDT us Fernando Rodarte MD LAB BLOOD ORDERABLES Taya vyas Result [facility] [address] [place] [address] * Iron profile w/ IBC (05/08/2025 11:35 AM CDT) [facility] Iron Bind.Cap.(TIBC) 259 250 - 450 ug/dL [facility] - 01 UIBC 214 111 - 343 ug/dL [facility] - 01 Iron 45 38 - 169 ug/dL [facility] - 01 Iron saturation 17 15 - 55 % [facility] - 01 Blood 05/08/2025 11:3 5 AM CDT 05/08/2025 Narrative [facility] - 05/09/2025 11:36 AM CDT Performed at: [address] [place] [id number] Flap Maker: Jacob Cho PhD, Phone: [phone] us Nakul Hinojosa MD LAB BLOOD ORDERABLES Final Result [facility] - 01 * (ABNORMAL) CBC with auto differential (05/08/2025 11:35 AM CDT) WBC 5.4 3.4 - 10.8 x10E3/uL [facility] - 01 RBC 3.71(L) 4.14 - 5.80 x10E6/uL [facility] - 01 Hgb 10.0(L) 13.0 - 17.7 g/dL [facility] - 01 Hct 34.6(L) 37.5 - 51.0 % [facility] - 01 MCV 93 79 - 97 fL [facility] - 01 MCH 27.0 26.6 - 33.0 pg [facility] - 01 MCHC 28.9(L) 31.5 - 35.7 g/dL [facility] - 01 Rdw 15.5(H) 11.6 - 15.4 % [facility] - 01 Platelets 211 150 - 450 x10E3/uL [facility] - 01 Neutrophils pct 66 Not Estab. % [facility] - 01 Lymphs pct 22 Not Estab. % [facility] - 01 Monocytes pct 10 Not Estab. % [facility] - 01 Eosinophils pct 2 Not Estab. % [facility] - 01 Basophil pct 0 Not Estab. % [facility] - 01 Neutrophil abs 3.5 1.4 - 7.0 x10E3/uL [facility] - 01 Lymphs (Absolute) 1.2 0.7 - 3.1 x10E3/uL [facility] - 01 Monocyte abs 0.6 0.1 - 0.9 x10E3/uL [facility] - 01 Eosinophils, abs 0.1 0.0 - 0.4 x10E3/uL [facility] - 01 Basophils, abs 0.0 0.0 - 0.2 x10E3/uL [facility] - 01 Immature Granulocytes 0 Not Estab. % [facility] - 01 Immature Grans (Abs) 0.0 0.0 - 0.1 x10E3/uL [facility] - 01 Blood 05/08/2025 11:3 5 AM CDT 05/08/2025 Narrative [facility] - 05/09/2025 8:11 AM CDT Performed at: [address] [place] [address] [id number] Flap Maker: Jacob Cho PhD, Phone: [phone] Result [facility] Nakul Hinojosa MD LAB BLOOD ORDERABLES Final Result Performing Organization Address City/[facility] Co de Phone Number [facility] - * Ferritin (05/08/2025 11:35 AM CDT) Pathologist [facility] Ferritin 126 30 - 400 ng/mL [facility] - 01 Blood 05/08/2025 11:3 5 AM CDT 05/08/2025 Narrative [facility] - 05/09/2025 11:36 AM CDT Performed at: [address] [place] [address] [id number] Flap Maker: Jacob Cho PhD, Phone: [phone] Result [facility] Nakul Hinojosa MD LAB BLOOD ORDERABLES Final Result Performing Organization Address [facility] de Phone Number [facility] - * CEA (05/08/2025 11:35 AM CDT) Pathologist [facility] CEA 1.6 0.0 - 4.7 ng/mL [facility] - 01 Comment: Nonsmokers <3.9 Smokers <5.6 [facility] Electrochemiluminescence Immunoassay (ECLIA) Values obtained with different assay methods or kits cannot be used interchangeably. Results cannot be interpreted as absolute evidence of the presence or absence of malignant disease. Blood 05/08/2025 11:3 5 AM CDT 05/08/2025 Narrative [facility] - 05/09/2025 11:36 AM CDT Performed at: [address] [place] [address] [id number] Flap Maker: Jacob Cho PhD, Phone: [phone] Nakul Hinojosa MD LAB BLOOD ORDERABLES Final Result [facility] - * (ABNORMAL) Lipid panel (05/08/2025 11:35 AM CDT) Cholesterol 65(L) 100 - 199 mg/dL [facility] - 01 Triglycerides 101 0 - 149 mg/dL [facility] - 01 HDL Cholesterol 28(L) >39 mg/dL [facility] - 01 VLDL 20 5 - 40 mg/dL [facility] - 01 LDL, calculated 17 0 - 99 mg/dL [facility] - 01 Blood 05/08/2025 11:3 5 AM CDT 05/08/2025 Narrative [facility] - 05/09/2025 3:10 PM CDT Performed at: [address] [place] [address] [id number] Flap Maker: Jacob Cho PhD, Phone: [phone] Madelyn Gonzalez MD LAB BLOOD ORDERABLES Final Re sult Performing Organization Address City/[facility]/ZIP Co de Phone Number [facility] - 01 * (ABNORMAL) Comprehensive metabolic panel (05/08/2025 11:35 AM CDT) Glucose 89 70 - 99 mg/dL [facility] - 01 BUN 46(H) 8 - 27 mg/dL [facility] - 01 Creatinine, Serum 1.52(H) 0.76 - 1.27 mg/dL [facility] - 01 eGFR 49(L) >59 mL/min/1.7 3 [facility] - 01 BUN/creat ratio 30(H) 10 - 24 [facility] - 01 Sodium 143 134 - 144 mmol/L [facility] - 01 Potassium, sr 4.7 3.5 - 5.2 mmol/L [facility] - 01 Chloride 107(H) 96 - 106 mmol/L [facility] - 01 CO2 22 20 - 29 mmol/L [facility] - 01 Calcium 9.2 8.6 - 10.2 mg/dL [facility] - 01 Protein, sr 6.4 6.0 - 8.5 g/dL [facility] - 01 Albumin 4.1 3.8 - 4.8 g/dL [facility] - 01 Globulin, Total 2.3 1.5 - 4.5 g/dL [facility] - 01 Bilirubin, Total 0.3 0.0 - 1.2 mg/dL [facility] - 01 Alk phos 82 44 - 121 IU/L [facility] - 01 AST 21 0 - 40 IU/L [facility] - 01 ALT 12 0 - 44 IU/L [facility] - 01 Blood 05/08/2025 11:3 5 AM CDT 05/08/2025 Narrative [facility] - 05/09/2025 11:36 AM CDT Performed at: [address] [id number] Flap Maker: Jacob Cho PhD, Phone: [phone] Nakul Hinojosa MD LAB BLOOD ORDERABLES Final Result Performing Organization Address [facility] Co de Phone Number [facility] - 01 * PSA, total (12/20/2023) SCRIBED PSA, Total 0.6 0.0 - 4.0 TX[facility] NO LAB FOUND Blood 12/20/2023 Historical Provider LAB BLOOD ORDERABLES Taya l Result Performing Organization Address City/[facility]/ZIP Co de Phone Number [facility] NO LAB FOUND * Albumin Creatinine Ratio, Urine (12/20/2023) SCRIBED Creatinine, Urine 92.5 N/A [facility] NO LAB FOUND SCRIBED Microalbumin 7.6 N/A [facility] NO LAB FOUND SCRIBED Microalb/Creat Ratio 8 0 - 29 [facility] NO LAB FOUND Urine 12/20/2023 Historical Provider LAB URINE ORDERABLES Taya l Result Performing Organization Address City/[facility]/ZIP Co de Phone Number [facility] NO LAB FOUND * Hepatitis C antibody (11/26/2020 5: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 Does NOT exclude the possibility of recent exposure to HCV. 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
--- OUTSIDE RECORDS SUMMARY | 2025-08-04 08:53 | XMS_ITS | Clinical Summary ---
Author Organization [facility] Address [address], [place] [address] Phone Care Team Providers Care Reformatory Attendant Name Role Phone Unavailable Primary Care Provider Unavailabl e Medications aspirin (ST SANDRA) 81 MG EC tablet 1 tab/cap qday 05/24/2012 Active simvastatin (ZOCOR) 20 MG tablet 1 tab/cap qday 0 05/24/2012 Active omega-3 (FISH OIL) 1000 MG capsule 1 cap bid 05/24/2012 Active furosemide (LASIX) 40 MG tablet 1 tab qday 0 05/24/2012 Active losartan (COZAAR) 50 MG tablet 1 tab/cap qday 0 05/24/2012 Active cloNIDine (CATAPRES) 0.2 MG tablet 1 tab/cap tid 0 09/28/2012 Activ e insulin glargine (LANTUS) 100 UNIT/ML injection as directed 09/28/2012 Active metoprolol tartrate (LOPRESSOR) 50 MG tablet 1 tab/cap qday 09/28/2012 Active vardenafil (LEVITRA) 10 MG tablet 1 tab/cap qday PRN 05/24/2012 Active Active Problems Problem Noted Date Diagnosed Date Primary malignant neoplasm of liver 04/10/2013 Overview (01/28/2019): Converted unresolved ICD9, potential mismatch. Heart failure 04/10/2013 Chronic kidney disease, stage 3 (moderate) 01/01 Type 2 diabetes mellitus wit h other diabetic kidney complication 01/01/2013 Proteinuria 05/05/2012 Overview (01/28/2019): Converted unresolved ICD9, potential mismatch. Essential (primary) hypertension 05/05/2012 Other and unspecified hyperlipidemia 05/05/2012 Overview (01/28/2019): Converted unresolved ICD9, potential mismatch. Social History Tobacco Use Types Packs/Day Years Used Date Smoking Tobacco: Never Assessed Sex and Gender Information Value Date Recorded Sex Assigned at Not on file Legal Sex Male 9:55 AM [facility] Gender Identity Not on file Sexual Orientation Not on file Last Filed Vital Signs Vital Sign Reading Time Taken Comments Blood Pressure 138/78 04/12/2013 12:01 AM CDT Pulse - - Temperature 36.6 C (97.9 F) 04/12/2013 12:01 AM CDT Respiratory Rate - - Oxygen Saturation - - Inhaled Oxygen Concentration - - Weight 92.1 kg (203 lb) 04/12/2013 12:01 AM CDT Height 175.3 cm (5' 9) 04/12/2013 12:01 AM CDT Body Mass Index 29.98 04/12/2013 12:01 AM CDT Plan of Treatment Not on file
--- OUTSIDE RECORDS SUMMARY | 2025-08-04 08:53 | XMS_ITS | Encounter Summary ---
Author Organization [facility] Healthcare Address [address] [place] [address] Care Team Providers Care Public Health Specialist Name Role Phone Marta Kwong RN Unavailable [phone] Marlon Trujillo MD Primary Care Provider Melania Hall RN Unavailable [phone] Jean-Pierre LongM Unavailable [phone] Dhiraj Gaitan DO Unavailable [phone] Adrian Sanchez MD Unavailable [phone] Sherry Funes Unavailable Unavailable Nakul Hinojosa MD Unavailable [phone] Marlon Trujillo MD Primary Care Provider [phone] Madelyn Gonzalez MD Unavailable [phone] Peter Felton RN Unavailable Unavaila ble Encounter Details Date Type Department Care Team (Late st Contact Info) Description 05/11/2019 Telephone [facility] Radiology [address] [place] [address] Sherry Akers, DIAN Social History Tobacco Use Types Packs/Day Years Used Date Smoking Tobacco: Former Cigarettes 3 36 1 966 - 2002 Smokeless Tobacco: Never Alcohol Use Standard Drinks/Week Comments No 0 (1 standard drink = 0.6 oz pur e alcohol) Sex and Gender Information Value Date Recorded Sex Assigned at Not on file Legal Sex Male 1:13 AM [employer] [employer] Gender Identity Not on file Sexual Orientation Straight 05/24/2019 8: 40 AM CDT documented as of this encounter Miscellaneous Notes * Telephone Encounter - Sherry Akers RN - 05/11/2019 4:57 PM CDT documented in this encounter Plan of Treatment Not on file documented as of this encounter Visit Diagnoses Not on filedocumented in this encounter Additional Health Concerns Infection Onset Date Last Indicated Resolved Time COVID: Suspected 11/08/2020 11/08/2020 11/08/2020 10:03 AM [facility] [employer] Respiratory Infection (BLAINE), contact + droplet Comment:IP Review - Patient classified as Low Risk for COVID-19 and has one negative COVID-19 test. Patient meets criteria for COVID-19 isolation discontinuation Automatically added due to negative COVID-19 result. 11/08/2020 11/08/2020 11/08/2020 3:[address] Exposure, COVID-19 Comment:IP Review- Patient was exposed to a positive patient Isreal Cohen ([phone]). Testing not required for exposed patient unless symptomatic. Will need to be on precautions until 12/02/20 11/18/20 6:29 PM Lisa Galindo 11/18/2020 11/18/2020 11/28/2020 6:43 PM [employer] COVID: Suspected 11/19/2020 11/19/2020 11/19/2020 11:09 AM [employer] [employer] Respiratory Infection (BLAINE), contact + droplet Comment:Automatically added due to negative COVID-19 result. 11/19/2020 11/19/2020 11/20/2020 4:2 1 PM [employer] [employer] VRE 11/23/2020 11/23/2020 07/02/2021 5:00 AM CDT COVID: Suspected 11/28/2020 11/28/2020 11/28/2020 6:43 PM [facility] [employer] COVID19 11/28/2020 11/28/2020 12/30/2020 3:05 AM [employer] [employer] COVID: Recovered Comment:Added based on recent COVID infection. 12/30/2020 01/03/2021 04/29/2021 3:05 AM C DT COVID: Suspected 09/17/2024 09/17/2024 09/17/2024 10:55 AM [facility] [employer] C. difficile suspected 05/17/2025 06/14/202505/18 7:26 PM CDT C. difficile suspected 06/14/2025 06/14/202506/14 12:01 PM CDT documented as of this encounter Care Teams Public Health Specialist Relationship Specialty Start Date End Date Marlon Trujillo MD [address] [address] PCP - General Internal Medicine 09/09/18 11/30/24 Marlon Trujillo MD [address] [place] [address] PCP - General Internal Medicine 12/01/24 Marta Kwong, RN [address] [address] Mechanical Supervisor 04/18/18 06/19/25 Melania Hall RN [address] [address] Mechanical Supervisor 04/20/18 Jean-Pierre Long DPM [address] [place] [address] Consulting Physician Foot and Ankle Surg 06/11/23 Dhiraj Gaitan DO [address] [place] [address] Consulting Physician Gastroenterology 05/16/24 Adrian Sanchez MD [address] [facility] [id number] [place] [address] Surgeon Colon and Rectal Surgery 06/28/24 Sherry Funes RMA Surgical Prehabilitation and Readiness (SPAR) Coordinator 07/06/24 08/14/24 Nakul Hinojosa MD Medical Oncologist/Police Booking Officer Medical Oncology 09/11/24 06/27/25 Madelyn Gonzalez MD [address] [place] [address] Consulting Physician Endocrinology Diabetes & Metabolism 05/25/25 Peter Felton, film composerMechanical Supervisor Transplant 06/19/25 documented as of this encounter
--- OUTSIDE RECORDS SUMMARY | 2025-08-04 08:54 | XMS_ITS ---
Author Organization [facility] Address [address] [place] [address] Care Team Providers Care Lump Maker Name Role Phone Melania Hall RN Unavailable [phone] Jean-Pierre Long DPM Unavailable [phone] Dhiraj Gaitan DO Unavailable [phone] Adrian Sanchez MD Unavailable [phone] Marlon Trujillo MD Primary Care Provider [phone] Madelyn Gonzalez MD Unavailable Peter Felton RN Unavailable Unavaila ble Active Problems Patient Care Coordination No te Formatting of this note migh t be different from the original. Labs at [facility] in [facility] FAX: [phone] Problem Noted Date Diagnosed Date Diarrhea 05/17/2025 [...] 09/17/2024 Assessment & Plan (09/17/2024 10:42 AM CHEMISTRY LABORATORY TECHNICIAN): Rapid covid, flu negative Rapid strep negative [...] 11/28/2020 Assessment & Plan (12/09/2020 10:41 AM CHEMISTRY LABORATORY TECHNICIAN): Unclear etiology. Down from normal (was in the 200s on admission), suspect due to COVID - now resolved Assessment & Plan (12/08/2020 12:20 PM CHEMISTRY LABORATORY TECHNICIAN): Unclear etiology. Down from normal (was in the 200s on admission), suspect due to COVID - now resolved Assessment & Plan (12/07/2020 6:24 PM CHEMISTRY LABORATORY TECHNICIAN): Unclear etiology. Down from normal (was in the 200s on admission), suspect due to COVID - now resolved Assessment & Plan (12/06/2020 1:52 PM CHEMISTRY LABORATORY TECHNICIAN): Unclear etiology. Down from normal (was in the 200s on admission), suspect due to COVID - now resolved Assessment & Plan (12/05/2020 6:35 PM CHEMISTRY LABORATORY TECHNICIAN): Unclear etiology. Down from normal (was in the 200s on admission), suspect due to COVID - now resolved Assessment & Plan (12/04/2020 3:11 PM CHEMISTRY LABORATORY TECHNICIAN): Unclear etiology. Down from normal (was in the 200s on admission) -HIT negative -Suspect 2/2 coronavirus Assessment & Plan (12/03/2020 9:34 PM CHEMISTRY LABORATORY TECHNICIAN): Unclear etiology. Down from normal (was in the 200s on admission) -HIT negative -Suspect 2/2 coronavirus Assessment & Plan (12/02/2020 7:31 PM CHEMISTRY LABORATORY TECHNICIAN): Unclear etiology. Down from normal (was in the 200s on admission) -HIT negative -Suspect 2/2 coronavirus Assessment & Plan (12/01/2020 10:30 AM CHEMISTRY LABORATORY TECHNICIAN): Unclear etiology. Down from normal (was in the 200s on admission) -HIT negative -Suspect 2/2 coronavirus Assessment & Plan (11/30/2020 11:18 AM CHEMISTRY LABORATORY TECHNICIAN): New today to 142. Unclear etiology. Down from normal (was in the 200s on admission) -HIT negative -Suspect 2/2 coronavirus Assessment & Plan (11/29/2020 1:13 PM CHEMISTRY LABORATORY TECHNICIAN): New today to 142. Unclear etiology. Down from normal (was in the 200s on admission) -HIT negative -Suspect 2/2 coronavirus Anemia 11/23/2020 Assessment & Plan (12/09/2020 10:41 AM CHEMISTRY LABORATORY TECHNICIAN): 2/2 AoCKD + AoCD. No clinical signs of bleeding or hemodynamic instability. -Hgb stable 8-9 -blood consented, transfuse as needed Assessment & Plan (12/08/2020 12:20 PM CHEMISTRY LABORATORY TECHNICIAN): 2/2 AoCKD + AoCD. No clinical signs of bleeding or hemodynamic instability. -Hgb stable 8-9 -blood consented, transfuse as needed Assessment & Plan (12/07/2020 6:24 PM CHEMISTRY LABORATORY TECHNICIAN): 2/2 AoCKD + AoCD. No clinical signs of bleeding or hemodynamic instability. -Hgb stable 8-9 -blood consented, transfuse as needed Assessment & Plan (12/06/2020 1:51 PM CHEMISTRY LABORATORY TECHNICIAN): 2/2 AoCKD + AoCD. No clinical signs of bleeding or hemodynamic instability. -Hgb stable 8-9 -blood consented, transfuse as needed Assessment & Plan (12/05/2020 6:35 PM CHEMISTRY LABORATORY TECHNICIAN): 2/2 AoCKD + AoCD. No clinical signs of bleeding or hemodynamic instability. -Hgb stable 8-9 -blood consented, transfuse as needed Assessment & Plan (12/04/2020 3:11 PM CHEMISTRY LABORATORY TECHNICIAN): 2/2 AoCKD + AoCD. No clinical signs of bleeding or hemodynamic instability. -Hgb stable 8-9 -blood consented, transfuse as needed Assessment & Plan (12/03/2020 9:33 PM CHEMISTRY LABORATORY TECHNICIAN): 2/2 AoCKD + AoCD. No clinical signs of bleeding or hemodynamic instability. -Hgb stable 8-9 -blood consented, transfuse as needed Assessment & Plan (12/02/2020 7:30 PM CHEMISTRY LABORATORY TECHNICIAN): 2/2 AoCKD + AoCD. No clinical signs of bleeding or hemodynamic instability. -Hgb stable 8-9 -blood consented, transfuse as needed Assessment & Plan (12/01/2020 10:28 AM CHEMISTRY LABORATORY TECHNICIAN): 2/2 AoCKD + AoCD. No clinical signs of bleeding or hemodynamic instability. -Hgb stable 8-9 -blood consented, transfuse as needed Assessment & Plan (11/30/2020 11:16 AM CHEMISTRY LABORATORY TECHNICIAN): 2/2 AoCKD + AoCD. No clinical signs of bleeding or hemodynamic instability. -Hgb stable 8-9 -blood consented, transfuse as needed Assessment & Plan (11/26/2020 5:38 PM CHEMISTRY LABORATORY TECHNICIAN): 2/2 AoCKD + AoCD. No clinical signs of bleeding or hemodynamic instability. -Hgb stable 8-9 -blood consented, transfuse as needed Assessment & Plan (11/24/2020 10:52 AM CHEMISTRY LABORATORY TECHNICIAN): 2/2 AoCKD + AoCD. No clinical signs of bleeding or hemodynamic instability. - blood consented, transfuse as needed Assessment & Plan (11/23/2020 2:58 PM CHEMISTRY LABORATORY TECHNICIAN): 2/2 AoCKD + AoCD. No clinical signs of bleeding or hemodynamic instability. - blood consented, transfuse as needed Abdominal aortic aneurysm (AAA) 11/06/2020 Assessment & Plan (12/05/2020 6:35 PM CHEMISTRY LABORATORY TECHNICIAN): Stable at 2.2cm on OSH CT. -Continue outpatient follow up. Assessment & Plan (12/04/2020 3:11 PM CHEMISTRY LABORATORY TECHNICIAN): Stable at 2.2cm on OSH CT. -Continue outpatient follow up. Assessment & Plan (12/03/2020 9:33 PM CHEMISTRY LABORATORY TECHNICIAN): Stable at 2.2cm on OSH CT. -Continue outpatient follow up. Assessment & Plan (12/02/2020 7:30 PM CHEMISTRY LABORATORY TECHNICIAN): Stable at 2.2cm on OSH CT. -Continue outpatient follow up. Assessment & Plan (12/01/2020 10:27 AM CHEMISTRY LABORATORY TECHNICIAN): Stable at 2.2cm on OSH CT. -Continue outpatient follow up. Assessment & Plan (11/30/2020 11:15 AM CHEMISTRY LABORATORY TECHNICIAN): Stable at 2.2cm on OSH CT. -Continue outpatient follow up. Assessment & Plan (11/25/2020 11:39 PM CHEMISTRY LABORATORY TECHNICIAN): Stable at 2.2cm on OSH CT. -Continue outpatient follow up. Assessment & Plan (11/24/2020 10:52 AM CHEMISTRY LABORATORY TECHNICIAN): -Stable at 2.2cm on OSH CT. Continue outpatient follow up. Assessment & Plan (11/23/2020 2:57 PM CHEMISTRY LABORATORY TECHNICIAN): -Stable at 2.2cm on OSH CT. Continue outpatient follow up. Assessment & Plan (11/17/2020 10:36 AM CHEMISTRY LABORATORY TECHNICIAN): -Stable at 2.2cm on OSH CT. Continue outpatient follow up. Assessment & Plan (11/16/2020 10:34 AM CHEMISTRY LABORATORY TECHNICIAN): -Stable at 2.2cm on OSH CT. Continue outpatient follow up. Assessment & Plan (11/15/2020 12:38 PM CHEMISTRY LABORATORY TECHNICIAN): -Stable at 2.2cm on OSH CT. Continue outpatient follow up. Assessment & Plan (11/14/2020 3:30 PM CHEMISTRY LABORATORY TECHNICIAN): -Stable at 2.2cm on OSH CT. Continue outpatient follow up. Assessment & Plan (11/06/2020 2:56 PM CHEMISTRY LABORATORY TECHNICIAN): Hx infrarenal AAA CT scan 11/06/2020 measures 2.2 cm Clear cell renal cell carcinoma 08/07/2020 Assessment & Plan (12/09/2020 10:40 AM CHEMISTRY LABORATORY TECHNICIAN): Mass of left upper [place] kidney seen on MRI on 07/15/20, followed up with IR with biopsy and cryoablation on 10/18/20, pathology positive for clear cell RCC. -Pt already follows with Urology and does not require referral to Oncology at this point in time given that he has localized disease (discussed with Urology) Assessment & Plan (12/08/2020 12:19 PM CHEMISTRY LABORATORY TECHNICIAN): Mass of left upper [place] kidney seen on MRI on 07/15/20, followed up with IR with biopsy and cryoablation on 10/18/20, pathology positive for clear cell RCC. -Pt already follows with Urology and does not require referral to Oncology at this point in time given that he has localized disease (discussed with Urology) Assessment & Plan (12/07/2020 6:24 PM CHEMISTRY LABORATORY TECHNICIAN): Mass of left upper [place] kidney seen on MRI on 07/15/20, followed up with IR with biopsy and cryoablation on 10/18/20, pathology positive for clear cell RCC. -Pt already follows with Urology and does not require referral to Oncology at this point in time given that he has localized disease (discussed with Urology) Assessment & Plan (12/06/2020 1:50 PM CHEMISTRY LABORATORY TECHNICIAN): Mass of left upper [place] kidney seen on MRI on 07/15/20, followed up with IR with biopsy and cryoablation on 10/18/20, pathology positive for clear cell RCC. -Pt already follows with Urology and does not require referral to Oncology at this point in time given that he has localized disease (discussed with Urology) Assessment & Plan (12/05/2020 6:34 PM CHEMISTRY LABORATORY TECHNICIAN): Mass of left upper [place] kidney seen on MRI on 07/15/20, followed up with IR with biopsy and cryoablation on 10/18/20, pathology positive for clear cell RCC. -Pt already follows with Urology and does not require referral to Oncology at this point in time given that he has localized disease (discussed with Urology) Assessment & Plan (12/04/2020 3:06 PM CHEMISTRY LABORATORY TECHNICIAN): Mass of left upper [place] kidney seen on MRI on 07/15/20, followed up with IR with biopsy and cryoablation on 10/18/20, pathology positive for clear cell RCC. -Pt already follows with Urology and does not require referral to Oncology at this point in time given that he has localized disease (discussed with Urology) Assessment & Plan (12/03/2020 9:32 PM CHEMISTRY LABORATORY TECHNICIAN): Mass of left upper [place] kidney seen on MRI on 07/15/20, followed up with IR with biopsy and cryoablation on 10/18/20, pathology positive for clear cell RCC. -Pt already follows with Urology and does not require referral to Oncology at this point in time given that he has localized disease (discussed with Urology) Assessment & Plan (12/02/2020 7:28 PM CHEMISTRY LABORATORY TECHNICIAN): Mass of left upper [place] kidney seen on MRI on 07/15/20, followed up with IR with biopsy and cryoablation on 10/18/20, pathology positive for clear cell RCC. -Oncology has not evaluated and patient has not been staged, however OSH CT c/a/p w/contrast does not note metastatic disease. -PET CT 11/18: no residual activity in L upper [place] kidney, speaking with Onc can just do outpatient follow up, no need for official consult. Can call [phone] for outpatient appointment. - Need to discuss if pt requires Urology follow up as patients usually undergo nephrectomy of upper sioux kidney. Assessment & Plan (12/01/2020 10:28 AM CHEMISTRY LABORATORY TECHNICIAN): Mass of left upper [place] kidney seen on MRI on 07/15/20, followed up with IR with biopsy and cryoablation on 10/18/20, pathology positive for clear cell RCC. -Oncology has not evaluated and patient has not been staged, however OSH CT c/a/p w/contrast does not note metastatic disease. -PET CT 11/18: no residual activity in L upper [place] kidney, speaking with Onc can just do outpatient follow up, no need for official consult. Can call [phone] for outpatient appointment. Assessment & Plan (11/30/2020 11:16 AM CHEMISTRY LABORATORY TECHNICIAN): Mass of left upper [place] kidney seen on MRI on 07/15/20, followed up with IR with biopsy and cryoablation on 10/18/20, pathology positive for clear cell RCC. -Oncology has not evaluated and patient has not been staged, however OSH CT c/a/p w/contrast does not note metastatic disease. -PET CT 11/18: no residual activity in L upper [place] kidney, speaking with Onc can just do outpatient follow up, no need for official consult. Can call [phone] for outpatient appointment. Assessment & Plan (11/26/2020 5:38 PM CHEMISTRY LABORATORY TECHNICIAN): Mass of left upper [place] kidney seen on MRI on 07/15/20, followed up with IR with biopsy and cryoablation on 10/18/20, pathology positive for clear cell RCC. -Oncology has not evaluated and patient has not been staged, however OSH CT c/a/p w/contrast does not note metastatic disease. -PET CT 11/18: no residual activity in L upper [place] kidney, speaking with Onc can just do outpatient follow up, no need for official consult. Can call [phone] for outpatient appointment. Assessment & Plan (11/24/2020 10:53 AM CHEMISTRY LABORATORY TECHNICIAN): -Mass of left upper [place] kidney seen on MRI on 07/15/20, followed [...] -PET CT: no residual activity in L upper [place] kidney, speaking with Onc can just do outpatient follow up, no need for official consult. Can call [phone] for outpatient appointment. Assessment & Plan (11/23/2020 2:56 PM CHEMISTRY LABORATORY TECHNICIAN): -Mass of left upper [place] kidney seen on MRI on 07/15/20, followed [...] -PET CT: no residual activity in L upper [place] kidney, speaking with Onc can just do outpatient follow up, no need for official consult. Can call [phone] for outpatient appointment. Assessment & Plan (11/17/2020 10:36 AM CHEMISTRY LABORATORY TECHNICIAN): -Mass of left upper [place] kidney seen on MRI on 07/15/20, followed [...] RCC. Assessment & Plan (11/16/2020 10:33 AM CHEMISTRY LABORATORY TECHNICIAN): -Mass of left upper [place] kidney seen on MRI on 07/15/20, followed [...] RCC. Assessment & Plan (11/15/2020 12:38 PM CHEMISTRY LABORATORY TECHNICIAN): -Mass of left upper [place] kidney seen on MRI on 07/15/20, followed up with IR with biopsy and cryoablation on 10/18/20, pathology positive for clear cell RCC. -Oncology has not evaluated and patient has not been staged, however OSH CT c/a/p w/contrast does not note metastatic disease. -Will discuss with oncology for inpatient/outpatient evaluation. Assessment & Plan (11/14/2020 3:25 PM CHEMISTRY LABORATORY TECHNICIAN): -Mass of left upper [place] kidney seen on MRI on 07/15/20, followed up with IR with biopsy and cryoablation on 10/18/20, pathology positive for clear cell RCC. -Oncology has not evaluated and patient has not been staged, however OSH CT c/a/p w/contrast does not note metastatic disease. -Will discuss with oncology in AM for inpatient/outpatient evaluation. Assessment & Plan (11/06/2020 5:08 PM CHEMISTRY LABORATORY TECHNICIAN): Left kidney mass, on 10/18, percutaneous cryoablation and percutaneous ablation of left upper [place] kidney lower pole mass Bx showing clear RCC Assessment & Plan (08/07/2020 9:00 AM CDT): Concerning for malignancy; followed by Dr. Rodgers in Urology. Mr. Tracy is strongly considering ablation under the direction of Interventional Radiology. I suggested he follow up with Dr. Rodgers regarding his decision. HTN (hypertension) 03/15/2019 Assessment & Plan (12/09/2020 10:40 AM CHEMISTRY LABORATORY TECHNICIAN): -Hold amlodipine 10 and metoprolol 25 BID given orthostasis Assessment & Plan (12/08/2020 12:19 PM CHEMISTRY LABORATORY TECHNICIAN): -Hold amlodipine 10 and metoprolol 25 BID given orthostasis Assessment & Plan (12/07/2020 6:24 PM CHEMISTRY LABORATORY TECHNICIAN): -Hold amlodipine 10 and metoprolol 25 BID given orthostasis Assessment & Plan (12/06/2020 1:51 PM CHEMISTRY LABORATORY TECHNICIAN): -Hold amlodipine 10 and metoprolol 25 BID given orthostasis Assessment & Plan (12/05/2020 6:34 PM CHEMISTRY LABORATORY TECHNICIAN): -Hold amlodipine 10 and metoprolol 25 BID given orthostasis Assessment & Plan (12/04/2020 3:06 PM CHEMISTRY LABORATORY TECHNICIAN): -Hold amlodipine 10 and metoprolol 25 BID given orthostasis Assessment & Plan (12/03/2020 9:33 PM CHEMISTRY LABORATORY TECHNICIAN): -Hold amlodipine 10 and metoprolol 25 BID given orthostasis Assessment & Plan (12/02/2020 7:29 PM CHEMISTRY LABORATORY TECHNICIAN): -Hold amlodipine 10 and metoprolol 25 BID given orthostasis Assessment & Plan (12/01/2020 10:29 AM CHEMISTRY LABORATORY TECHNICIAN): -Hold amlodipine 10 given orthostasis -Cont metoprolol 25 BID Assessment & Plan (11/30/2020 11:17 AM CHEMISTRY LABORATORY TECHNICIAN): -Hold amlodipine 10 given orthostasis -Cont metoprolol 25 BID Assessment & Plan (11/26/2020 5:35 PM CHEMISTRY LABORATORY TECHNICIAN): -c/w amlodipine 10 and metoprolol 25 BID Assessment & Plan (11/17/2020 10:36 AM CHEMISTRY LABORATORY TECHNICIAN): -Well controlled with amlodipine and metoprolol. Assessment & Plan (11/16/2020 10:17 AM CHEMISTRY LABORATORY TECHNICIAN): -Well controlled with amlodipine and metoprolol. Assessment & Plan (11/15/2020 12:35 PM CHEMISTRY LABORATORY TECHNICIAN): -Well controlled with amlodipine and metoprolol. Assessment & Plan (11/13/2020 11:19 AM CHEMISTRY LABORATORY TECHNICIAN): Hx HTN; Home meds Norvasc, losartan, and [...] 03/15/2019 Assessment & Plan (12/09/2020 10:40 AM CHEMISTRY LABORATORY TECHNICIAN): S/p left femoral bypass -Resume aspirin and statin on discharge for secondary prevention. Assessment & Plan (12/08/2020 12:19 PM CHEMISTRY LABORATORY TECHNICIAN): S/p left femoral bypass -Resume aspirin and statin on discharge for secondary prevention. Assessment & Plan (12/07/2020 6:24 PM CHEMISTRY LABORATORY TECHNICIAN): S/p left femoral bypass -Resume aspirin and statin on discharge for secondary prevention. Assessment & Plan (12/06/2020 1:51 PM CHEMISTRY LABORATORY TECHNICIAN): S/p left femoral bypass -Resume aspirin and statin on discharge for secondary prevention. Assessment & Plan (12/05/2020 6:34 PM CHEMISTRY LABORATORY TECHNICIAN): S/p left femoral bypass -Resume aspirin and statin on discharge for secondary prevention. Assessment & Plan (12/04/2020 3:06 PM CHEMISTRY LABORATORY TECHNICIAN): S/p left femoral bypass -Resume aspirin and statin on discharge for secondary prevention. Assessment & Plan (12/03/2020 9:33 PM CHEMISTRY LABORATORY TECHNICIAN): S/p left femoral bypass -Resume aspirin and statin on discharge for secondary prevention. Assessment & Plan (12/02/2020 7:29 PM CHEMISTRY LABORATORY TECHNICIAN): S/p left femoral bypass -Resume aspirin and statin on discharge for secondary prevention. Assessment & Plan (11/25/2020 11:35 PM CHEMISTRY LABORATORY TECHNICIAN): S/p left femoral bypass -Resume aspirin and statin on discharge for secondary prevention. Assessment & Plan (11/17/2020 10:36 AM CHEMISTRY LABORATORY TECHNICIAN): -S/p left femoral bypass. Resume aspirin and statin on discharge for secondary prevention. Assessment & Plan (11/16/2020 10:17 AM CHEMISTRY LABORATORY TECHNICIAN): -S/p left femoral bypass. Resume aspirin and statin on discharge for secondary prevention. Assessment & Plan (11/15/2020 12:35 PM CHEMISTRY LABORATORY TECHNICIAN): -S/p left femoral bypass. Resume aspirin and statin on discharge for secondary prevention. Assessment & Plan (11/14/2020 3:35 PM CHEMISTRY LABORATORY TECHNICIAN): -S/p left femoral bypass. Resume aspirin and [...] (04/19/2018): Added automatically from request for surgery [id number] Assessment & Plan (05/04/2019 1:08 PM CDT): [...] 10/15/2017 Assessment & Plan (12/09/2020 10:40 AM CHEMISTRY LABORATORY TECHNICIAN): Complicated by severe hyperglycemia requiring insulin gtt in ICU. -Blood sugars have been well controlled, now elevating due to HC -c/w lantus to 30u qhs, lispro 7U TID, SSI. Now that HC stopped expect improvement in glycemic control Assessment & Plan (12/08/2020 12:19 PM CHEMISTRY LABORATORY TECHNICIAN): Complicated by severe hyperglycemia requiring insulin gtt in ICU. -Blood sugars have been well controlled, now elevating due to HC -c/w lantus to 30u qhs, lispro 7U TID, SSI. Now that HC stopped expect improvement in glycemic control Assessment & Plan (12/07/2020 6:23 PM CHEMISTRY LABORATORY TECHNICIAN): Complicated by severe hyperglycemia requiring insulin gtt in ICU. -Blood sugars have been well controlled, now elevating due to HC -c/w lantus to 30u qhs, lispro 7U TID, SSI for now Assessment & Plan (12/06/2020 1:51 PM CHEMISTRY LABORATORY TECHNICIAN): Complicated by severe hyperglycemia requiring insulin gtt in ICU. -Blood sugars have been well controlled, now elevating due to HC -c/w lantus to 30u qhs, lispro 7U TID, SSI for now Assessment & Plan (12/05/2020 6:34 PM CHEMISTRY LABORATORY TECHNICIAN): Complicated by severe hyperglycemia requiring insulin gtt in ICU. -Blood sugars have been well controlled -c/w lantus to 30u qhs, lispro 7U TID, SSI Assessment & Plan (12/04/2020 3:06 PM CHEMISTRY LABORATORY TECHNICIAN): Complicated by severe hyperglycemia requiring insulin gtt in ICU. -Blood sugars have been well controlled -c/w lantus to 30u qhs, lispro 7U TID, SSI Assessment & Plan (12/03/2020 9:32 PM CHEMISTRY LABORATORY TECHNICIAN): Complicated by severe hyperglycemia requiring insulin gtt in ICU. -Blood sugars have been well controlled -c/w lantus to 30u qhs, lispro 7U TID, SSI Assessment & Plan (12/02/2020 7:29 PM CHEMISTRY LABORATORY TECHNICIAN): Complicated by severe hyperglycemia requiring insulin gtt in ICU. -Blood sugars have been well controlled -c/w lantus to 30u qhs, lispro 7U TID, SSI Assessment & Plan (12/01/2020 10:28 AM CHEMISTRY LABORATORY TECHNICIAN): Complicated by severe hyperglycemia requiring insulin gtt in ICU. -Blood sugars have been well controlled -c/w lantus to 30u qhs, lispro 7U TID, SSI Assessment & Plan (11/30/2020 11:17 AM CHEMISTRY LABORATORY TECHNICIAN): Complicated by severe hyperglycemia requiring insulin gtt in ICU. -c/w lantus to 30u qhs, lispro 7U TID, SSI Assessment & Plan (11/29/2020 1:12 PM CHEMISTRY LABORATORY TECHNICIAN): Complicated by severe hyperglycemia requiring insulin gtt in ICU. -c/w lantus to 30u qhs, lispro 7U TID, SSI Assessment & Plan (11/24/2020 10:53 AM CHEMISTRY LABORATORY TECHNICIAN): Complicated by severe hyperglycemia requiring insulin gtt in ICU. - cont lantus 26U qHS, lispro 7U TID, SSI Assessment & Plan (11/23/2020 2:57 PM CHEMISTRY LABORATORY TECHNICIAN): Complicated by severe hyperglycemia requiring insulin gtt in ICU. - cont lantus 26U qHS, lispro increased 5-->7U TID, HDSSI Assessment & Plan (11/17/2020 10:36 AM CHEMISTRY LABORATORY TECHNICIAN): -Complicated by severe hyperglycemia requiring insulin gtt. -Home insulin regimen: Lantus 25u qAM and 20 qPM, SSI with meals. -Continue NPH 15u TID with SSI, glucose well controlled. Assessment & Plan (11/16/2020 10:17 AM CHEMISTRY LABORATORY TECHNICIAN): -Complicated by severe hyperglycemia requiring insulin gtt. -Home insulin regimen: Lantus 25u qAM and 20 qPM, SSI with meals. -Continue NPH 15u TID with SSI, glucose well controlled. Assessment & Plan (11/15/2020 12:34 PM CHEMISTRY LABORATORY TECHNICIAN): -Complicated by severe hyperglycemia requiring insulin gtt. -Home insulin regimen: Lantus 25u qAM and 20 qPM, SSI with meals. -Continue NPH 15u TID with SSI, glucose well controlled. Assessment & Plan (11/14/2020 3:02 PM CHEMISTRY LABORATORY TECHNICIAN): -Complicated by severe hyperglycemia requiring insulin gtt. -Home insulin regimen: Lantus 25u qAM and 20 qPM, SSI with meals. -Continue NPH 15u TID with SSI, glucose well controlled. Assessment & Plan (11/13/2020 11:17 AM CHEMISTRY LABORATORY TECHNICIAN): Hx DM2 on insulin. Home regimen Lantus [...] 07/27/2013 Assessment & Plan (11/24/2020 10:54 AM CHEMISTRY LABORATORY TECHNICIAN): -Transplant team following. Assessment & Plan (11/23/2020 2:55 PM CHEMISTRY LABORATORY TECHNICIAN): -Transplant team following. Assessment & Plan (11/17/2020 10:36 AM CHEMISTRY LABORATORY TECHNICIAN): -Transplant team following. Assessment & Plan (11/16/2020 10:17 AM CHEMISTRY LABORATORY TECHNICIAN): -Transplant team following. Assessment & Plan (11/15/2020 12:34 PM CHEMISTRY LABORATORY TECHNICIAN): -Transplant team following. Assessment & Plan (11/14/2020 3:02 PM CHEMISTRY LABORATORY TECHNICIAN): -Transplant team following. Assessment & Plan (11/08/2020 3:50 PM CHEMISTRY LABORATORY TECHNICIAN): Hx of HCC, s/p liver/kidney transplant 07/2013, [...] 07/27/2013 Assessment & Plan (12/09/2020 10:40 AM CHEMISTRY LABORATORY TECHNICIAN): 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/2013 -c/w pred 5 every day -c/w tacro to 2mg/1mg, check trough daily -transplant has signed off as we are awaiting dispo Assessment & Plan (12/08/2020 12:18 PM CHEMISTRY LABORATORY TECHNICIAN): 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/2013 -c/w pred 5 every day -c/w tacro to 2mg/1mg, check trough daily -transplant has signed off as we are awaiting dispo Assessment & Plan (12/07/2020 6:23 PM CHEMISTRY LABORATORY TECHNICIAN): 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/2013 -c/w pred 5 every day -c/w tacro to 2mg/1mg, check trough daily -transplant has signed off as we are awaiting dispo Assessment & Plan (12/06/2020 1:50 PM CHEMISTRY LABORATORY TECHNICIAN): 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/2013 -c/w pred 5 every day -c/w tacro to 2mg/1mg, check trough daily -transplant has signed off as we are awaiting dispo Assessment & Plan (12/05/2020 6:34 PM CHEMISTRY LABORATORY TECHNICIAN): 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/2013 -c/w pred 5 every day -c/w tacro to 2mg/1mg, check trough daily -appreciate transplant recommendations Assessment & Plan (12/04/2020 3:05 PM CHEMISTRY LABORATORY TECHNICIAN): 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/2013 -c/w pred 5 every day -c/w tacro to 2mg/1mg, check trough daily -appreciate transplant recommendations Assessment & Plan (12/03/2020 9:31 PM CHEMISTRY LABORATORY TECHNICIAN): 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/2013 -c/w pred 5 every day -c/w tacro to 2mg/1mg, check trough daily -appreciate transplant recommendations Assessment & Plan (12/02/2020 7:28 PM CHEMISTRY LABORATORY TECHNICIAN): 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/2013 -c/w pred 5 every day -c/w tacro to 2mg/1mg, check trough daily -appreciate transplant recommendations Assessment & Plan (12/01/2020 10:28 AM CHEMISTRY LABORATORY TECHNICIAN): 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/2013 -c/w pred 5 every day -c/w tacro to 2mg/1mg, check trough daily -appreciate transplant recommendations Assessment & Plan (11/30/2020 11:17 AM CHEMISTRY LABORATORY TECHNICIAN): 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/2013 -c/w pred 5 every day -c/w tacro to 2mg/1mg, check trough daily -appreciate transplant recommendations Assessment & Plan (11/26/2020 5:35 PM CHEMISTRY LABORATORY TECHNICIAN): 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/2013 -c/w pred 5 every day -c/w tacro to 2mg/1mg, check trough daily -appreciate transplant recommendations Assessment & Plan (11/24/2020 10:54 AM CHEMISTRY LABORATORY TECHNICIAN): -Transplant team following. -cont tacro & pred -tacro decreased to 4mg bid 11/23, CTM tacro trough daily Assessment & Plan (11/23/2020 2:55 PM CHEMISTRY LABORATORY TECHNICIAN): -Transplant team following. -cont tacro & pred Assessment & Plan (11/17/2020 10:36 AM CHEMISTRY LABORATORY TECHNICIAN): -Transplant team following. Assessment & Plan (11/16/2020 10:17 AM CHEMISTRY LABORATORY TECHNICIAN): -Transplant team following. Assessment & Plan (11/15/2020 12:35 PM CHEMISTRY LABORATORY TECHNICIAN): -Transplant team following. Assessment & Plan (11/14/2020 3:02 PM CHEMISTRY LABORATORY TECHNICIAN): -Transplant team following. Assessment & Plan (11/13/2020 11:18 AM CHEMISTRY LABORATORY TECHNICIAN): Hx renal failure, s/p renal liver Tx [...] PM -tacro trough prior to AM dose Current Treatment and Therapy Plans No current plan information found. Past Treatment and Therapy Plans No past plan information found. Lifetime Dose Tracking * Chemical Lifetime Dose Automatic Entry Manual Entr y Fluoro Time 32.172 minutes 27.972 minutes 4.2 minutes Air kerma at the reference point (Ka,r) 170.39 mGy 1 02.39 mGy 68 mGy DLP 8,620 mGycm 8,620 mGycm 0 mGycm DAP 222.86 Gy-cm2 0 Gy-cm2 222.86 Gy-cm2 Resolved Problems Problem Noted Date Diagnosed Date Resolved Date Orthostasis 11/30/2020 08/12/2022 Assessment & Plan (12/09/2020 10:42 AM CHEMISTRY LABORATORY TECHNICIAN): Despite multiple fluid boluses pt remains orthostatic and SBP dropped to 75 on 12/05. Considered adrenal insufficiency in the context of acute illness. Trialled HC 50mg IV Q8 hr x 3 doses then HC 25 IV x 3 with no change. Despite repeat IVF challenge he is still orthostatic (he has been given at least 6 x 1L IVF boluses since 12/01). All BP meds stopped and no other medications to blame. Do not suspect infection as orthostasis has been present for > 7 days and he remains without fevers and at his baseline. Pt intermittently has issues with lightheadedness then at other times has no problems standing. Planned to trial daily midodrine on 12/08 in order to assist with minimizing symptoms so he can participate in therapy at rehab. Cont FATOU hose and abdominal binder. Assessment & Plan (12/08/2020 12:25 PM CHEMISTRY LABORATORY TECHNICIAN): Despite multiple fluid boluses pt remains orthostatic and SBP dropped to 75 on 12/05. Considered adrenal insufficiency in the context of acute illness. Trialled HC 50mg IV Q8 hr x 3 doses then HC 25 IV x 3 with no change. Despite repeat IVF challenge he is still orthostatic (he has been given at least 6 x 1L IVF boluses since 12/01). All BP meds stopped and no other medications to blame. Do not suspect infection as orthostasis has been present for > 7 days and he remains without fevers and at his baseline. Pt intermittently has issues with lightheadedness then at other times has no problems standing. Plan for trial of daily midodrine today in order to assist with minimizing symptoms so he can participate in therapy at rehab. Cont FATOU hose and abdominal binder. Assessment & Plan (12/07/2020 6:24 PM CHEMISTRY LABORATORY TECHNICIAN): Despite multiple fluid boluses pt remains orthostatic and SBP dropped to 75 12/05. Considered adrenal insufficiency in the context of acute illness. Trialled HC 50mg IV Q8 hr x 3 doses then HC 25 IV x 3 with no change. Gave 2 more 1L NS boluses today. Pt intermittently has issues with lightheadedness then at other times has no issues. Will consider trial of daily midodrine tomorrow (pt had high BP from HC while supine) in order to assist with minimizing symptoms so he can participate in therapy at rehab. Assessment & Plan (12/06/2020 1:50 PM CHEMISTRY LABORATORY TECHNICIAN): Despite multiple fluid boluses pt remains orthostatic and SBP dropped to 75 12/05. Differential includes adrenal insufficiency in the context of acute illness. Trialled HC 50mg IV Q8 hr x 3 doses and pt feels much improved. Will repeat orthostatic VS today, consider HC 25 IV x 3 as taper vs stop pending results. Assessment & Plan (12/05/2020 6:33 PM CHEMISTRY LABORATORY TECHNICIAN): Despite multiple fluid boluses pt remains orthostatic and SBP dropped to 75 today. Differential includes adrenal insufficiency in the context of acute illness. Will trial HC 50mg IV Q8 hr x 3 doses and re-evaluate. Hold further IVF given no response and mildly reduced EF on last TTE Assessment & Plan (12/04/2020 3:05 PM CHEMISTRY LABORATORY TECHNICIAN): Patient orthostatic with systolic drop in BP 140 > 80 when standing -Now with likely post-ATN diuresis with increased fluid losses -Bolus IVF PRN cautiously given mildly reduced EF and ESRD. -Hold Amlodipine and metoprolol 12/02 Assessment & Plan (12/03/2020 9:31 PM CHEMISTRY LABORATORY TECHNICIAN): Patient orthostatic with systolic drop in BP 140 > 80 when standing -Now with likely post-ATN diuresis with increased fluid losses -Bolus IVF PRN cautiously given mildly reduced EF and ESRD. -Hold Amlodipine and metoprolol 12/02 Assessment & Plan (12/02/2020 7:28 PM CHEMISTRY LABORATORY TECHNICIAN): Patient orthostatic with systolic drop in BP 140 > 80 when standing -Now with likely post-ATN diuresis with increased fluid losses -Bolus IVF PRN cautiously given mildly reduced EF and ESRD. Given additional 1L this AM. -Hold Amlodipine and metoprolol today Assessment & Plan (12/01/2020 10:30 AM CHEMISTRY LABORATORY TECHNICIAN): Patient orthostatic with systolic drop in BP 140 > 80 when standing -Now with likely post-ATN diuresis with increased fluid losses -Bolus IVF PRN cautiously given mildly reduced EF and ESRD. Given additional 1L this AM. -Hold Amlodipine Assessment & Plan (11/30/2020 11:15 AM CHEMISTRY LABORATORY TECHNICIAN): Patient orthostatic with systolic drop in BP 140 > 80 when standing -Bolus IVF PRN cautiously given mildly reduced EF and ESRD s/p 500 LR bolus x3 since 11/29 -Hold Amlodipine Coronavirus infection 11/29/20202021 Assessment & Plan (12/09/2020 10:41 AM CHEMISTRY LABORATORY TECHNICIAN): - He presented with no symptoms. A CXR showed bibasilar opacities likely 2/2 atelecstasis. - COVID-19 RNA PCR was sent on 11/28/2020. The patient's testing for COVID-19 is POSITIVE. The patient does not have evidence of viral pneumonia. - Clinical complications of COVID-19 include: WIthout symptoms - The patient does not currently require supplemental oxygen. Sats are currently 97% on RA. Closely monitor continuous pulse oximetry for evidence of decompensation. - Prior and active treatments: Remdesivir 11/29-12/04. - COVID-19 droplet and contact precautions per hospital protocol. - Given history of kidney transplant and immunosuppressed state, will need 20 day quarantine from 11/28 despite minimal symptoms Assessment & Plan (12/08/2020 12:18 PM CHEMISTRY LABORATORY TECHNICIAN): - He presented with no symptoms. A CXR showed bibasilar opacities likely 2/2 atelecstasis. - COVID-19 RNA PCR was sent on 11/28/2020. The patient's testing for COVID-19 is POSITIVE. The patient does not have evidence of viral pneumonia. - Clinical complications of COVID-19 include: WIthout symptoms - The patient does not currently require supplemental oxygen. Sats are currently 97% on RA. Closely monitor continuous pulse oximetry for evidence of decompensation. - Prior and active treatments: Remdesivir 11/29-12/04. - COVID-19 droplet and contact precautions per hospital protocol. - Given history of kidney transplant and immunosuppressed state, will need 20 day quarantine from 11/28 despite minimal symptoms Assessment & Plan (12/07/2020 6:23 PM CHEMISTRY LABORATORY TECHNICIAN): - He presented with no symptoms. A CXR showed bibasilar opacities likely 2/2 atelecstasis. - COVID-19 RNA PCR was sent on 11/28/2020. The patient's testing for COVID-19 is POSITIVE. The patient does not have evidence of viral pneumonia. - Clinical complications of COVID-19 include: WIthout symptoms - The patient does not currently require supplemental oxygen. Sats are currently 97% on RA. Closely monitor continuous pulse oximetry for evidence of decompensation. - Prior and active treatments: Remdesivir 11/29-12/04. - COVID-19 droplet and contact precautions per hospital protocol. - Given history of kidney transplant and immunosuppressed state, will need 20 day quarantine from 11/28 despite minimal symptoms Assessment & Plan (12/06/2020 1:49 PM CHEMISTRY LABORATORY TECHNICIAN): - He presented with no symptoms. A CXR showed bibasilar opacities likely 2/2 atelecstasis. - COVID-19 RNA PCR was sent on 11/28/2020. The patient's testing for COVID-19 is POSITIVE. The patient does not have evidence of viral pneumonia. - Clinical complications of COVID-19 include: WIthout symptoms - The patient does not currently require supplemental oxygen. Sats are currently 97% on RA. Closely monitor continuous pulse oximetry for evidence of decompensation. - Prior and active treatments: Remdesivir 11/29-12/04. - COVID-19 droplet and contact precautions per hospital protocol. - Given history of kidney transplant and immunosuppressed state, will need 20 day quarantine from 11/28 despite minimal symptoms Assessment & Plan (12/05/2020 6:32 PM CHEMISTRY LABORATORY TECHNICIAN): - He presented with no symptoms. A CXR showed bibasilar opacities likely 2/2 atelecstasis. - COVID-19 RNA PCR was sent on 11/28/2020. The patient's testing for COVID-19 is POSITIVE. The patient does not have evidence of viral pneumonia. - Clinical complications of COVID-19 include: WIthout symptoms - The patient does not currently require supplemental oxygen. Sats are currently 97% on RA. Closely monitor continuous pulse oximetry for evidence of decompensation. - Prior and active treatments: Remdesivir 11/29-12/04. - COVID-19 droplet and contact precautions per hospital protocol. - Given history of kidney transplant and immunosuppressed state, will likely need 20 day quarantine from 11/28 despite minimal symptoms Assessment & Plan (12/04/2020 3:05 PM CHEMISTRY LABORATORY TECHNICIAN): - He presented with no symptoms. A CXR showed bibasilar opacities likely 2/2 atelecstasis. - COVID-19 RNA PCR was sent on 11/28/2020. The patient's testing for COVID-19 is POSITIVE. The patient does not have evidence of viral pneumonia. - Clinical complications of COVID-19 include: WIthout symptoms - The patient does not currently require supplemental oxygen. Sats are currently 97% on RA. Closely monitor continuous pulse oximetry for evidence of decompensation. - Prior and active treatments: Remdesivir 11/29-12/04. - Continue supportive care with antitussives and antipyretics as needed. COVID- 19 droplet and contact precautions per hospital protocol. - Given history of kidney transplant and immunosuppressed state, will likely need 20 day quarantine from 11/28 despite minimal symptoms Assessment & Plan (12/03/2020 9:31 PM CHEMISTRY LABORATORY TECHNICIAN): - He presented with no symptoms. A CXR showed bibasilar opacities likely 2/2 atelecstasis. - COVID-19 RNA PCR was sent on 11/28/2020. The patient's testing for COVID-19 is POSITIVE. The patient does not have evidence of viral pneumonia. - Clinical complications of COVID-19 include: WIthout symptoms - The patient does not currently require supplemental oxygen. Sats are currently 97% on RA. Closely monitor continuous pulse oximetry for evidence of decompensation. - Prior and active treatments: Remdesivir 11/29-12/04. - Continue supportive care with antitussives and antipyretics as needed. COVID- 19 droplet and contact precautions per hospital protocol. - Given history of kidney transplant and immunosuppressed state, will likely need 20 day quarantine from 11/28 despite minimal symptoms Assessment & Plan (12/02/2020 7:25 PM CHEMISTRY LABORATORY TECHNICIAN): - He presented with no symptoms. A CXR showed bibasilar opacities likely 2/2 atelecstasis. - COVID-19 RNA PCR was sent on 11/28/2020. The patient's testing for COVID-19 is POSITIVE. The patient does not have evidence of viral pneumonia. - Clinical complications of COVID-19 include: WIthout symptoms - The patient does not currently require supplemental oxygen. Sats are currently 97% on RA. Closely monitor continuous pulse oximetry for evidence of decompensation. Wean oxygen as tolerated. - Prior and active treatments: Remdesivir 11/29-. - Continue supportive care with antitussives and antipyretics as needed. COVID- 19 droplet and contact precautions per hospital protocol. - Given history of kidney transplant and immunosuppressed state, will likely need 20 day quarantine from 11/28 despite minimal symptoms Assessment & Plan (12/01/2020 10:28 AM CHEMISTRY LABORATORY TECHNICIAN): - He presented with no symptoms. A CXR showed bibasilar opacities likely 2/2 atelecstasis. - COVID-19 RNA PCR was sent on 11/28/2020. The patient's testing for COVID-19 is POSITIVE. The patient does not have evidence of viral pneumonia. - Clinical complications of COVID-19 include: WIthout symptoms - The patient does not currently require supplemental oxygen. Sats are currently 97% on RA. Closely monitor continuous pulse oximetry for evidence of decompensation. Wean oxygen as tolerated. - Prior and active treatments: Remdesivir 11/29-. - Continue supportive care with antitussives and antipyretics as needed. COVID- 19 droplet and contact precautions per hospital protocol. - Given history of kidney transplant and immunosuppressed state, will likely need 20 day quarantine from 11/28 despite minimal symptoms Assessment & Plan (11/30/2020 11:17 AM CHEMISTRY LABORATORY TECHNICIAN): - He presented with no symptoms. A CXR showed bibasilar opacities likely 2/2 atelecstasis. - COVID-19 RNA PCR was sent on 11/28/2020. The patient's testing for COVID-19 is POSITIVE. The patient does not have evidence of viral pneumonia. - Clinical complications of COVID-19 include: WIthout symptoms - The patient does not currently require supplemental oxygen. Sats are currently 97% on RA. Closely monitor continuous pulse oximetry for evidence of decompensation. Wean oxygen as tolerated. - Prior and active treatments: Remdesivir 11/29-. - Continue supportive care with antitussives and antipyretics as needed. COVID- 19 droplet and contact precautions per hospital protocol. - Given history of kidney transplant and immunosuppressed state, will likely need 20 day quarantine from 11/28 despite minimal symptoms Assessment & Plan (11/29/2020 1:11 PM CHEMISTRY LABORATORY TECHNICIAN): - He presented with no symptoms. A CXR showed bibasilar opacities likely 2/2 atelecstasis. - COVID-19 RNA PCR was sent on 11/28/2020. The patient's testing for COVID-19 is POSITIVE. The patient does not have evidence of viral pneumonia. - Clinical complications of COVID-19 include: WIthout symptoms - The patient does not currently require supplemental oxygen. Sats are currently 97% on RA. Closely monitor continuous pulse oximetry for evidence of decompensation. Wean oxygen as tolerated. - Prior and active treatments: Remdesivir 11/29-. - Continue supportive care with antitussives and antipyretics as needed. COVID- 19 droplet and contact precautions per hospital protocol. Leukopenia 11/26/2020 08/12/2022 Assessment & Plan (12/09/2020 10:41 AM CHEMISTRY LABORATORY TECHNICIAN): WBC 1.7 with ANC ~1000, has been persistently 1-2 over the last several days. Not neutropenic. Possibly related to critical illness and now recovery vs immunosuppression (tacro level was elevated for several days with now reduced dose) -now resolved Assessment & Plan (12/08/2020 12:20 PM CHEMISTRY LABORATORY TECHNICIAN): WBC 1.7 with ANC ~1000, has been persistently 1-2 over the last several days. Not neutropenic. Possibly related to critical illness and now recovery vs immunosuppression (tacro level was elevated for several days with now reduced dose) -now resolved Assessment & Plan (12/07/2020 6:24 PM CHEMISTRY LABORATORY TECHNICIAN): WBC 1.7 with ANC ~1000, has been persistently 1-2 over the last several days. Not neutropenic. Possibly related to critical illness and now recovery vs immunosuppression (tacro level was elevated for several days with now reduced dose) -now resolved Assessment & Plan (12/06/2020 1:51 PM CHEMISTRY LABORATORY TECHNICIAN): WBC 1.7 with ANC ~1000, has been persistently 1-2 over the last several days. Not neutropenic. Possibly related to critical illness and now recovery vs immunosuppression (tacro level was elevated for several days with now reduced dose) -now resolved Assessment & Plan (12/05/2020 6:36 PM CHEMISTRY LABORATORY TECHNICIAN): WBC 1.7 with ANC ~1000, has been persistently 1-2 over the last several days. Not neutropenic. Possibly related to critical illness and now recovery vs immunosuppression (tacro level was elevated for several days with now reduced dose) -now resolved Assessment & Plan (12/04/2020 3:11 PM CHEMISTRY LABORATORY TECHNICIAN): WBC 1.7 with ANC ~1000, has been persistently 1-2 over the last several days. Not neutropenic. Possibly related to critical illness and now recovery vs immunosuppression (tacro level was elevated for several days with now reduced dose) -WBC recovering Assessment & Plan (12/03/2020 9:33 PM CHEMISTRY LABORATORY TECHNICIAN): WBC 1.7 with ANC ~1000, has been persistently 1-2 over the last several days. Not neutropenic. Possibly related to critical illness and now recovery vs immunosuppression (tacro level was elevated for several days with now reduced dose) -WBC recovering Assessment & Plan (12/02/2020 7:31 PM CHEMISTRY LABORATORY TECHNICIAN): WBC 1.7 with ANC ~1000, has been persistently 1-2 over the last several days. Not neutropenic. Possibly related to critical illness and now recovery vs immunosuppression (tacro level was elevated for several days with now reduced dose) -WBC recovering Assessment & Plan (11/27/2020 2:44 PM CHEMISTRY LABORATORY TECHNICIAN): WBC 1.7 with ANC ~1000, has been persistently 1-2 over the last several days. Not neutropenic. Possibly related to critical illness and now recovery vs immunosuppression (tacro level was elevated for several days with now reduced dose) -follow up as outpatient in 1-2 weeks Exposure to COVID-19 virus 11/23/2020 0 12/02/2020 Assessment & Plan (11/30/2020 11:17 AM CHEMISTRY LABORATORY TECHNICIAN): Pt exposed to COVID + neighbor on 11/18/2020. also exposed 2/2 visiting at bedside. COVID neg x2 (11/19, 11/20). - patient is to remain on isolation precautions x14 days from exposure (11/18 - 12/02) - remains afebrile and asymptomatic -Patient tested positive 11/28 Assessment & Plan (11/29/2020 1:12 PM CHEMISTRY LABORATORY TECHNICIAN): Pt exposed to COVID + neighbor on 11/18/2020. also exposed 2/2 visiting at bedside. COVID neg x2 (11/19, 11/20). - patient is to remain on isolation precautions x14 days from exposure (11/18 - 12/02) - remains afebrile and asymptomatic -Patient tested positive 11/28 Assessment & Plan (11/24/2020 10:52 AM CHEMISTRY LABORATORY TECHNICIAN): Pt exposed to COVID + neighbor on 11/18/2020. also exposed 2/2 visiting at bedside. COVID neg x2 (11/19, 11/20). - patient is to remain on isolation precautions x14 days from exposure (11/18 - 12/02) - work-up of fever as above Assessment & Plan (11/23/2020 2:54 PM CHEMISTRY LABORATORY TECHNICIAN): Pt exposed to COVID + neighbor on 11/18/2020. also exposed 2/2 visiting at bedside. COVID neg x2 (11/19, 11/20). - patient is to remain on isolation precautions x14 days from exposure (11/18 - 12/02) - work-up of fever as above Dysphagia 11/16/2020 11/26/2020 Assessment & Plan (11/25/2020 11:37 PM CHEMISTRY LABORATORY TECHNICIAN): Failed swallow eval on 11/15/20, patient accidentally pulled NG on 11/17/20. Passed swallow evaluation 11/19. -c/w regular diet Assessment & Plan (11/24/2020 10:53 AM CHEMISTRY LABORATORY TECHNICIAN): Failed swallow eval on 11/15/20, patient accidentally pulled NG on 11/17/20. Passed swallow evaluation 11/19. -Reg diet Assessment & Plan (11/23/2020 2:56 PM CHEMISTRY LABORATORY TECHNICIAN): Failed swallow eval on 11/15/20, patient accidentally pulled NG on 11/17/20. Passed swallow evaluation 11/19. -Reg diet Assessment & Plan (11/17/2020 10:37 AM CHEMISTRY LABORATORY TECHNICIAN): -Failed swallow eval on 11/15/20, patient accidentally pulled NG on 11/17/20. -Speech therapy called on 11/17 for re-evaluation vs G-tube placement. Assessment & Plan (11/16/2020 10:34 AM CHEMISTRY LABORATORY TECHNICIAN): -Failed swallow eval on 11/15/20, continue feeding through NG. -Will discuss with speech therapy on likely recover vs G-tube placement. Bacterial pneumonia 11/14/2020 11/25/19 Assessment & Plan (11/17/2020 10:37 AM CHEMISTRY LABORATORY TECHNICIAN): -Right middle and lower lobe consolidation concerning for hospital acquired pneumonia. -Continue Unasyn, if patient continues to be febrile will broaden coverage. Assessment & Plan (11/16/2020 10:34 AM CHEMISTRY LABORATORY TECHNICIAN): -Right middle and lower lobe consolidation concerning for hospital acquired pneumonia. -Continue Unasyn, if patient continues to be febrile will broaden coverage. Assessment & Plan (11/15/2020 12:40 PM CHEMISTRY LABORATORY TECHNICIAN): -Right middle and lower lobe consolidation concerning for hospital acquired pneumonia. -Continue Unasyn, if patient continues to be febrile will broaden coverage. Assessment & Plan (11/14/2020 3:37 PM CHEMISTRY LABORATORY TECHNICIAN): -Right middle and lower lobe consolidation concerning for hospital acquired pneumonia. -Continue Unasyn, if patient continues to be febrile will broaden coverage. Acute renal failure (ARF) ([facility]) 11/07/2020 08/12/2022 Assessment & Plan (12/09/2020 10:41 AM CHEMISTRY LABORATORY TECHNICIAN): Failure of transplant kidney secondary to sepsis now has had renal recovery - s/p tunneled HD line 11/26 removed 12/04 - Renal has now signed off Assessment & Plan (12/08/2020 12:18 PM CHEMISTRY LABORATORY TECHNICIAN): Failure of transplant kidney secondary to sepsis now has had renal recovery - s/p tunneled HD line 11/26 removed 12/04 - Renal has now signed off Assessment & Plan (12/07/2020 6:20 PM CHEMISTRY LABORATORY TECHNICIAN): 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 Patient appears to be having renal recovery - s/p tunneled HD line 11/26 will now plan for removal tomorrow - Renal following for HD needs, discuss plan regarding tunneled line and outpatient HD given likelihood for renal recovery -Suspect patient has post-ATN diuresis. 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 Patient appears to be having renal recovery - s/p tunneled HD line 11/26 will now plan for removal tomorrow - Renal following for HD needs, discuss plan regarding tunneled line and outpatient HD given likelihood for renal recovery -Suspect patient has post-ATN diuresis. 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 Patient appears to be having renal recovery - s/p tunneled HD line 11/26. - Renal following for HD needs, discuss plan regarding tunneled line and outpatient HD given likelihood for renal recovery - Monitor for post-ATN diuresis. 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 Patient appears to be able renal recovery - s/p tunneled HD line 11/26. - Renal following for HD needs - Monitor for post-ATN diuresis. 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 - s/p tunneled HD line 11/26 - Plan for HD MWF - F/u renal recs - possibility of some renal recovery, but most likely will need prolonged course of HD. 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 - Will need tunneled HD line, deferred until stable from infection standpoint. - Plan for HD MWF - F/u renal recs - possibility of some renal recovery, but most likely will need prolonged course of HD. 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 - Will need tunneled HD line, deferred until stable from infection standpoint. - Plan for HD today, then HD MWF - F/u renal recs - possibility of some renal recovery, but most likely will need prolonged course of HD. 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 -Transplant nephrology following, increase tacrolimus to 4mg bid per transplant, continue prednisone 5mg daily. -Awaiting renal recovery before able to assess if patient will be dialysis dependent. 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 -Transplant nephrology following, increase tacrolimus to 4mg bid per transplant, continue prednisone 5mg daily. -Awaiting renal recovery before able to assess if patient will be dialysis dependent. 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 -Transplant nephrology following, increase tacrolimus to 4mg bid per transplant, continue prednisone 5mg daily. -Awaiting renal recovery before able to assess if patient will be dialysis dependent. 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 -Transplant nephrology following, increase tacrolimus to 4mg bid per transplant, continue prednisone 5mg daily. -Awaiting renal recovery before able to assess if patient will be dialysis dependent. Assessment & Plan (11/13/2020 11:16 AM CHEMISTRY LABORATORY TECHNICIAN): Septic shock, consider pyelonephritis, vs atypicals considering immunosuppression. Started on CVVHD 11/07, improved UOP with lasix challenge 11/10, renal following, last dialysis 11/12 iHD with volume removal. -renal plans to hold on dialysis for now, keep trialysis catheter -monitor Cr and UOP trends -renal transplant following, f/u recs -renally dosed medications -avoid nephrotoxins Metabolic acidosis 11/07/2020 0 Assessment & Plan (11/08/2020 3:55 PM CHEMISTRY LABORATORY TECHNICIAN): Combined respiratory and metabolic; non-anion gap. -resolved in the setting of continued HD Diagnosis unknown 11/06/2020 08/12/2022 Sepsis 11/06/2020 08/12/2022 Assessment & Plan (12/09/2020 10:41 AM CHEMISTRY LABORATORY TECHNICIAN): Initially admitted for E faecalis pyelonephritis/bacteremia along with multifocal PNA, s/p 2 weeks of IV unasyn (completed 11/19). Then developed new fevers 1/4 with sxs of sepsis in setting of neutropenia (although fevers started prior to decline in WBC). - s/p empiric treatment with linezolid/cefe for 7 days () - appreciate transplant ID recs, now signed off Assessment & Plan (12/08/2020 12:20 PM CHEMISTRY LABORATORY TECHNICIAN): Initially admitted for E faecalis pyelonephritis/bacteremia along with multifocal PNA, s/p 2 weeks of IV unasyn (completed 11/19). Then developed new fevers 1/4 with sxs of sepsis in setting of neutropenia (although fevers started prior to decline in WBC). - s/p empiric treatment with linezolid/cefe for 7 days () - appreicate transplant ID recs, now signed off Assessment & Plan (12/07/2020 6:24 PM CHEMISTRY LABORATORY TECHNICIAN): Initially admitted for E faecalis pyelonephritis/bacteremia along with multifocal PNA, s/p 2 weeks of IV unasyn (completed 11/19). Then developed new fevers 1/4 with sxs of sepsis in setting of neutropenia (although fevers started prior to decline in WBC). - s/p empiric treatment with linezolid/cefe for 7 days () - appreicate transplant ID recs, now signed off Assessment & Plan (12/06/2020 1:51 PM CHEMISTRY LABORATORY TECHNICIAN): Initially admitted for E faecalis pyelonephritis/bacteremia along with multifocal PNA, s/p 2 weeks of IV unasyn (completed 11/19). Then developed new fevers 1/4 with sxs of sepsis in setting of neutropenia (although fevers started prior to decline in WBC). - s/p empiric treatment with linezolid/cefe for 7 days () - appreicate transplant ID recs, now signed off Assessment & Plan (12/05/2020 6:34 PM CHEMISTRY LABORATORY TECHNICIAN): Initially admitted for E faecalis pyelonephritis/bacteremia along with multifocal PNA, s/p 2 weeks of IV unasyn (completed 11/19). Then developed new fevers 1/4 with sxs of sepsis in setting of neutropenia (although fevers started prior to decline in WBC). - s/p empiric treatment with linezolid/cefe for 7 days () - appreicate transplant ID recs, now signed off Assessment & Plan (12/04/2020 3:11 PM CHEMISTRY LABORATORY TECHNICIAN): Initially admitted for E faecalis pyelonephritis/bacteremia along with multifocal PNA, s/p 2 weeks of IV unasyn (completed 11/19). Then developed new fevers 1/4 with sxs of sepsis in setting of neutropenia (although fevers started prior to decline in WBC). - s/p empiric treatment with linezolid/cefe for 7 days () - appreicate transplant ID recs, now signed off Assessment & Plan (12/03/2020 9:33 PM CHEMISTRY LABORATORY TECHNICIAN): Initially admitted for E faecalis pyelonephritis/bacteremia along with multifocal PNA, s/p 2 weeks of IV unasyn (completed 11/19). Then developed new fevers 1/4 with sxs of sepsis in setting of neutropenia (although fevers started prior to decline in WBC). - s/p empiric treatment with linezolid/cefe for 7 days () - appreicate transplant ID recs, now signed off Assessment & Plan (12/02/2020 7:30 PM CHEMISTRY LABORATORY TECHNICIAN): Initially admitted for E faecalis pyelonephritis/bacteremia along with multifocal PNA, s/p 2 weeks of IV unasyn (completed 11/19). Then developed new fevers 1/4 with sxs of sepsis in setting of neutropenia (although fevers started prior to decline in WBC). - s/p empiric treatment with linezolid/cefe for 7 days (11/21-) - appreicate transplant ID recs, now signed off Assessment & Plan (11/28/2020 1:06 PM CHEMISTRY LABORATORY TECHNICIAN): Initially admitted for E faecalis pyelonephritis/bacteremia along with multifocal PNA, s/p 2 weeks of IV unasyn (completed 11/19). Then developed new fevers 1/4 with sxs of sepsis in setting of neutropenia (although fevers started prior to decline in WBC). - workup has been negative with RVP, BClx, CXR, UA, COVID, CMV, Cdiff - s/p empiric treatment with linezolid/cefe for 7 days (11/21-) - appreicate transplant ID recs, now signed off Assessment & Plan (11/24/2020 10:52 AM CHEMISTRY LABORATORY TECHNICIAN): Initially admitted for E faecalis pyelonephritis/bacteremia along with multifocal PNA, s/p 2 weeks of IV unasyn (completed 11/19). -Then developed new fevers 1/4 with sxs of sepsis in setting of neutropenia (although fevers started prior to decline in WBC). /5 BCx +staph epi (1/4 bottles) likely contaminant. / BCx NGTD. 11/19 UCx neg. RVP neg, COVID neg x2. CXR unchanged from prior. CMV PCR neg. - Started empirically on linezolid/cefe 11/21. Currently afebrile, HDS. Will cont abx for now, CIS. If becomes febrile again in a few days, would repeat COVID testing given COVID exposure. - F/u transplant ID recs Assessment & Plan (11/23/2020 2:50 PM CHEMISTRY LABORATORY TECHNICIAN): Initially admitted for E faecalis pyelonephritis/bacteremia along with multifocal PNA, s/p 2 weeks of IV unasyn (completed 11/19). -Then developed new fevers 1/4 with sxs of sepsis in setting of neutropenia (although fevers started prior to decline in WBC). 1/5 BCx +staph epi (1/4 bottles) likely contaminant. /7 BCx NGTD. 11/19 UCx neg. RVP neg, COVID neg x2. CXR unchanged from prior. CMV PCR neg. - Started empirically on linezolid/cefe 11/21. Currently afebrile, HDS. Will cont abx for now, CIS. If continues to be febrile in a few days, would repeat COVID testing given COVID exposure. - F/u transplant ID recs Assessment & Plan (11/17/2020 10:36 AM CHEMISTRY LABORATORY TECHNICIAN): -Secondary to E faecalis pyelonephritis and bacteremia, no other sources of infection identified. Patient had comprehensive work up with LP which was negative. -Positive culture is from OSH on 11/05/20 on 2 of 2 bottles, sensitive to ampicillin and vancomycin. -Continue Unasyn, transplant ID consulted for final treatment course and duration. Assessment & Plan (11/16/2020 10:34 AM CHEMISTRY LABORATORY TECHNICIAN): -Secondary to E faecalis pyelonephritis and bacteremia, no other sources of infection identified. Patient had comprehensive work up with LP which was negative. -Positive culture is from OSH on 11/05/20 on 2 of 2 bottles, sensitive to ampicillin and vancomycin. -Continue Unasyn, transplant ID consulted for final treatment course and duration. Assessment & Plan (11/15/2020 12:38 PM CHEMISTRY LABORATORY TECHNICIAN): -Secondary to E faecalis pyelonephritis and bacteremia, no other sources of infection identified. Patient had comprehensive work up with LP which was negative. -Positive culture is from OSH on 11/05/20 on 2 of 2 bottles, sensitive to ampicillin and vancomycin. -Continue Unasyn, transplant ID consulted for final treatment course and duration. Assessment & Plan (11/14/2020 3:29 PM CHEMISTRY LABORATORY TECHNICIAN): -Secondary to E faecalis pyelonephritis and bacteremia, no other sources of infection identified. Patient had comprehensive work up with LP which was negative. -Positive culture is from OSH on 11/05/20 on 2 of 2 bottles, sensitive to ampicillin and vancomycin. -Continue Unasyn, transplant ID consulted for final treatment course and duration. Assessment & Plan (11/13/2020 11:24 AM CHEMISTRY LABORATORY TECHNICIAN): Shock resolved; source likely pyelo which was noted on CT scan performed [facility] 11/05 (uploaded to [facility] with damian nguyen), continued concern for possible meningitis in setting of encephalopathy and immunosuppression. LP opening pressure 20. E. Faecalis bacteremia and UTI at OSH from 11/05. 11/06 blood cultures x 2 NG, 11/11 blood cultures x 2 NGTD. EBV, blasto, histo, aspergillus, crypto all negative. Off pressors. 11/11 CT concerning for pyelonephritis. On unasyn -continue unasyn (first negative blood culture 11/06). -f/u cultures Encephalopathy acute 11/06/2020 020 Assessment & Plan (11/12/2020 11:47 AM CHEMISTRY LABORATORY TECHNICIAN): Unclear etiology, concern for infectious cause, or 2/2 sepsis and metabolic disturbance. Head CT (-), LP 11/06; opening pressure 20; f/u cx-NGTD -improvements now; de-escalated abx coverage Non-healing wound of lower extremity 01/19/2020 08/07/2020 Overview (01/19/2020): Added automatically from request for surgery [id number] Septicemia due to group B Streptococcus 05/01/2019 08/07/2020 Assessment & Plan (05/02/2019 1:39 PM CDT): Unclear source, but patient did present with high fevers. Blood cultures 04/29 grew GBS, repeat negative from same day after receiving antibiotics. Concern for possible underlying OM of right fifth toe given persistent open wound. Patient has recent history of E faecalis bacteremia with unclear source as well, most likely partially treated OM. Patient has otherwise no localizing symptoms. Recommendations: - pending R foot MRI to rule out underlying OM - agree with ESR/CRP - continue ceftriaxone 2g q24h which will provide better coverage for GBS - given prior Enterococcus bacteremia, ok to continue vancomycin 1g q12h for now but might be able to discontinue depending MRI results Therapeutic drug monitoring 05/01/2019 08/12/2022 Assessment & Plan (05/02/2019 1:39 PM CDT): Continue vancomycin 1g q12h, obtain trough before 4th dose Vancomycin can cause renal impairment, neutropenia, eosinophilia, DRESS, ototoxicity, and thrombocytopenia. Due to the side effects, CBC and BMP should be monitored weekly while on vancomycin. Ceftriaxone: Monitoring weekly CBC and CMP for possibility of rash/eosinophilia and pseudocholelithiasis (gallbladder sludging) or hepatitis. Rarely, ceftriaxone can cause drug fever, hepatitis, neutropenia, thrombocytopenia, hemolytic anemia, cholecystitis, or interstitial nephritis. Septicemia due to enterococcus 03/18/2019 04/29/2019 Assessment & Plan (03/21/2019 3:35 PM CDT): JOAN without vegetations. Has monica in place for ampicillin x 2 weeks Assessment & Plan (03/18/2019 12:51 PM CDT): With cultures from 03/15 positive /2 initial cultures. Unclear source - Repeated cultures are so far NGTD, CT C/A/P without obvious pathology - Will need to followup culture susceptibilities, continue ampicillin but increased dose to 2g q6h - Based on NOVA score, would recommend JOAN, we have no initial source for infection and with possible embolic evidence, would need to rule out infective endocarditis - If no evidence of IE, will need 14 days of IV abx therapy, otherwise 6 weeks for IE Altered mental state 03/17/2019 020 Assessment & Plan (03/20/2019 11:04 AM CDT): Likely related to fever/infection. - continue to treat fevers/infection - Improved c/ abx Hypoxia 03/17/2019 08/07/2020 Assessment & Plan (03/17/2019 8:31 PM CDT): hypoxic on floor and transferred to unit. Has since improved, may have been in setting of AMS and fevers. Sepsis 03/16/2019 08/07/2020 Assessment & Plan (05/04/2019 1:07 PM CDT): A: Luis Manuel Tracy is a 63 y/o male who presented as transfer from [facility] for bacteremia. Since arriving, patient says he has been doing well and feeling much better. He denies f/c, CP, SoB, JARQUIN, n/v/d, or other GI and symptoms. Physical exam negative for tachycardia, diaphoresis, or fevers. Blood Cx here NGTD. Patient stable with no changes. He is waiting to receive JOAN to rule out endocarditis. Pending this, he will be discharged to home with appropriate antibiotic treatment and outpatient follow up. Physical exam is unrevealing and unremarkable with no signs of infection. He will return to his home with home health care and infusion. P: - 1/2 blood cultures from [facility] prelim positive for GBS, susceptibility report put into physical chart - Blood Cx here NGTD since 04/29 10:54am - Continue with Ceftriaxone 2g Q24H. If no evidence of endocarditis, will need 2 week course. If evidence of endocarditis, will need 6 week course per ID - JOAN to be performed today - Disposition pending JOAN test results Assessment & Plan (05/03/2019 12:42 PM CDT): A: Luis Manuel Tracy is a 63 y/o male who presented as transfer from [facility] for bacteremia. Since arriving, patient says he has been doing well and feeling much better. He denies f/c, CP, SoB, JARQUIN, n/v/d, or other GI and symptoms. Physical exam negative for tachycardia, diaphoresis, or fevers. Blood Cx here NGTD. Patient stable at this time with no signs of infection. MRI demonstrated no findings of acute osteo and TTE did not show any evidence of vegetations. After discussing with patient, ID, and cardiology, we are going to pursue JOAN for complete diagnostic evaluation of cardiac imaging to rule out endocarditis. Patient will receive procedure tomorrow and disposition will be pending based on findings. No other issues or concerns at this time. P: - 1/2 blood cultures from [facility] prelim positive for GBS, susceptibility report put into physical chart - Blood Cx here NGTD since 04/29 10:54am - Discontinued vancomycin given negative MRI and trough elevated (25.2) - Continue with Ceftriaxone 2g Q24H. If no evidence of endocarditis, will need 2 week course. If evidence of endocarditis, will need 6 week course per ID - JOAN to be performed tomorrow, NPO @ [facility] and cardiology consulted - Disposition pending JOAN test results Assessment & Plan (05/02/2019 2:00 PM CDT): A: Luis Manuel Tracy is a 63 y/o male who presented as transfer from [facility] for bacteremia. Since arriving, patient says he has been doing well and feeling much better. He denies f/c, CP, SoB, JARQUIN, n/v/d, or other GI and symptoms. Physical exam negative for tachycardia, diaphoresis, or fevers. Blood Cx here NGTD. [facility] reported 1/2 Blood Cx positive for gram+ cocci which grew out GBS. ID consulted and following, with recommendations to rule out sources of infection and Abx treatment. ESR 13 and CRP 24.9, physical exam still unchanged. His vancomycin was supratherapeutic (21.6) so de-escalated to 1000mg Q12H. Also switched Abx from cefepime to CTX for better coverage of GBS. No acute issues or concerns to report. P: - 1/2 blood cultures from [facility] prelim positive for GBS, susceptibility report put into physical chart - Blood Cx here NGTD since 04/29 10:54am - Continue with vancomycin 1g Q12H and Ceftriaxone 2g Q24H - Ordering MRI R FOOT WWO CONTRAST, TTE - IR consulted for Monica placement, will do tomorrow - Pending disposition for IV Abx and treatment plan Assessment & Plan (05/01/2019 11:40 AM CDT): A: Luis Manuel Tracy is a 63 y/o male who presented as transfer from [facility] for bacteremia. Since arriving, patient says he has been doing well and feeling much better. He denies f/c, CP, SoB, JARQUIN, n/v/d, or other GI and symptoms. Physical exam negative for tachycardia, diaphoresis, or fevers. Blood Cx here NGTD. [facility] reported 1/2 Blood Cx positive for gram+ cocci. Currently on Vancomycin and Cefepime. P: - 1/2 blood cultures from [facility] prelim positive for GPC in chains --> will touch base today for any further updates - Blood Cx NGTD since 04/29 10:54am, so will not draw today - Continue with vancomycin and cefepime for now - Will defer ID consult until speciation from blood cultures Assessment & Plan (04/30/2019 12:02 PM CDT): Patient admitted with fever and leukocytosis. Per patient, this episode feels similar to his symptoms one month prior when he developed E faecalis bacteremia. - Fever and leukocytosis have resolved - 1/2 blood cultures from [facility] prelim positive for GPC in chains. - Daily blood cultures until cleared. - Continue vancomycin and cefepime - Will defer ID consult until speciation from blood cultures - CXR at OSH negative. UA without evidence of infection. Panorex with dental caries but no abscess or other evidence of infection. - Stop IVF. Patient tolerating PO Assessment & Plan (04/29/2019 9:48 AM CDT): Patient has probable sepsis. Possible bacteremia. We will check blood cultures and empirically treat with vancomycin and cefepime to cover gram-positive and gram-negative bacteria. Assessment & Plan (03/17/2019 4:20 PM CDT): D/T fever, tachycardia, tachypnea, leukopenia, and suspected source of infection ( unclear primary source, however patient does havd 1/2 bottles from 1 set of blood cultures positive for GPC), patient does meet sepsis criteria. Blood cultures speciated enterococcus faecalis -Repeat BC 03/16 NGTD -Vanc and Cefe d/c; patient remains on Ampicillin Assessment & Plan (03/16/2019 3:01 PM CDT): D/T fever, tachycardia, tachypnea, leukopenia, and suspected source of infection ( unclear primary source, however patient does havd 1/2 bottles from 1 set of blood cultures positive for GPC), patient does meet sepsis criteria. Primary source thought to be possibly meningitic -Repeat BC today -Vanc d/c, patient remains on Ampicillin for Listeria coverage as well as Cefe. Please make sure antibiotics are renally adjusted Acute hypoxemic respiratory failure 03/16/2019 11/25/2020 Assessment & Plan (11/17/2020 10:36 AM CHEMISTRY LABORATORY TECHNICIAN): -Secondary to pneumonia and septic shock. Resolve and now on room air. Assessment & Plan (11/16/2020 10:17 AM CHEMISTRY LABORATORY TECHNICIAN): -Secondary to pneumonia and septic shock. Resolve and now on room air. Assessment & Plan (11/15/2020 12:36 PM CHEMISTRY LABORATORY TECHNICIAN): -Secondary to pneumonia and septic shock. Resolve and now on room air. Assessment & Plan (11/14/2020 3:03 PM CHEMISTRY LABORATORY TECHNICIAN): -Secondary to pneumonia and septic shock. Resolve and now on room air. Assessment & Plan (11/13/2020 2:24 PM CHEMISTRY LABORATORY TECHNICIAN): 2/2 PNA/lung abscess. Intubated for mental status on 11/06, extubated 11/12. Wore BiPap overnight, chronic CPAP 12 user at home. On RA -continue unasyn with plan for 4 weeks abx -CPAP 12, Fi02 21% at night -IS -OOBTC Assessment & Plan (03/16/2019 3:00 PM CDT): Patient found to have an increasing oxygen requirement and found to be hypoxic with Pa02 54. With patient being altered, patient then required acute bipap -Improved, patient now on nasal cannula and appears more alert Fever 03/15/2019 08/07/2020 Assessment & Plan (04/29/2019 9:45 AM CDT): Patient was febrile blood cultures were obtained at the outside hospital and patient was given vancomycin cefepime. He has defervesced. We will empirically treat with vancomycin and cefepime for now. We will follow vancomycin level. We will check repeat blood cultures, urine culture, cataracts, and right foot x-ray. Assessment & Plan (03/22/2019 9:08 AM CDT): possibly 2/2 E. Faecalis bacteremia vs EBV - clinically stable otherwise, normotensive w/o other evidence of sepsis - Bcx growing E faecalis (1/2 here), EBV IgM + - E. Faecalis ampicillin sensitive - source not yet identified. Urine no growth. Echo without vegetations. CT A/P unrevealing. LP with 0 nucleated cells, protein 68. No lines. - ID Consult for further workup/length of abx course. JOAN - no vegetations - 14 days going home -Will need home health for IV infusion - Monica in Assessment & Plan (03/15/2019 6:10 AM CDT): Patient without significant localizing symptoms for fever. Though recently ill with viral URI and ear infection, patient does not show any of these symptoms. Fever is quite high but no white count and CRP negative. Feel this is likely viral etiology but given immunosuppressed status will do full workup. Additionally, he does have small ulcer on right foot where he has had osteo in the past. ESR not checked at OSH. This is unlikely osteo as it was negative probe to bone but could be source of infection regardless. He was started on broad-spectrum abx at OSH per [facility] provider recommendations. Plan: -Blood cultures with fungal isolators, UA, CXR, RVP -ESR to eval for osteo -Right foot XR to eval for osteo -gentle IVF for sensible lossses -Vanc, Cefe for broad spectrum coverage. CrCl 65 (vanc trough / 11:30 AM; rec'd dose at osh ED) Encounter for aftercare foll owing kidney transplant 09/14/2018 08/12/2022 Assessment & Plan (03/21/2019 3:35 PM CDT): Creatinine improved back to baseline of 1.4. His follow up appt with us is in August which we can keep unchanged Assessment & Plan (03/17/2019 4:16 PM CDT): Baseline Cr 1.6-1.7, upon admission to MICU, patient found to have an BONNIE with Cr 1.8<--2.0<--1.9. Thought to likely be d/t infectious process -UA demonstrates 2+ blood and 2+ protein, will send UPE (not sent yester -CMV and BK pending Assessment & Plan (03/16/2019 3:01 PM CDT): Baseline Cr 1.6-1.7, upon admission to MICU, patient found to have an BONNIE with Cr 2.0<--1.9<--1.8. Thought to likely be d/t infectious process -UA demonstrates 2+ blood and 2+ protein, will send UPE -CMV and BK pending Aftercare following surgery of the circulatory system 02/01/2017 08/07/2020 Osteomyelitis of fifth toe of right foot 06/02/2016 08/07/2020 Atherosclerosis of upper sioux artery of extremity 06/10/20 15 11/14/2020 Hyperlipidemia 03/08/2015 11/14/2020 Assessment & Plan (11/08/2020 3:51 PM CHEMISTRY LABORATORY TECHNICIAN): Hx HLD -holding pravastatin Assessment & Plan (03/18/2019 12:36 PM CDT): Continue home statin Assessment & Plan (03/15/2019 6:14 AM CDT): Cont home statin. Arteriosclerosis of artery of extremity 03/31/2013 11/14/2020
--- OUTSIDE RECORDS SUMMARY | 2025-08-04 08:54 | XMS_ITS | Encounter Summary ---
Author Organization [employer] Address [address] [place] [address] Care Team Providers Care Associate Field Service Engineer Name Role Phone Cliff Sen MD Primary Care Provider [phone] Encounter Details Date Type Department Care Team (Late st Contact Info) Description 05/26/2004 Outpatient Historical [facility] Internal Medicine [address] [place] [address]. [address] [place] [address] Cliff Sen MD [address] [facility] [address] [place] [address] Social History Tobacco Use Types Packs/Day Years Used Date Smoking Tobacco: Never Assessed Sex and Gender Information Value Date Recorded Sex Assigned at Not on file Legal Sex Male 3:17 AM OUTSIDE PARTS SALES Gender Identity Not on file Sexual Orientation Not on file documented as of this encounter Plan of Treatment Not on file documented as of this encounter Visit Diagnoses Not on filedocumented in this encounter Care Teams Associate Field Service Engineer Relationship Specialty Start Date End Date Cliff Sen MD [address] [facility] [place] [address] PCP - General 10/01/03 documented as of this encounter
--- OUTSIDE RECORDS SUMMARY | 2025-08-04 08:54 | XMS_ITS | Encounter Summary ---
Author Organization [facility] Address [address] [place] [address] Phone Care Team Providers Care Nursery Technician Name Role Phone Marlon Trujillo MD Primary Care Provider [phone] Katheryn Nguyen RN Unavailable [phone] Marta Kwong RN Unavailable [phone] Marlon Trujillo MD Primary Care Provider [phone] Melania Hall RN Unavailable [phone] Jean-Pierre LongM Unavailable [phone] Dhiraj Gaitan DO Unavailable [phone] Adrian Sanchez MD Unavailable [phone] Sherry Funes Unavailable Unavailable Nakul Hinojosa MD Unavailable [phone] Marlon Trujillo MD Primary Care Provider [phone] Madelyn Gonzalez MD Unavailable [phone] Peter Felton RN Unavailable Unavaila ble Encounter Details Date Type Department Care Team (Latest Contact Info) Description 08/25/2017 Orders Only [facility] CONVERSION Scanning, Provider Social History Tobacco Use Types Packs/Day Years Used Date Smoking Tobacco: Never Assessed Sex and Gender Information Value Date Recorded Sex Assigned at Not on file Legal Sex Male 1:13 AM RESPIRATORY THERAPY AIDE Gender Identity Not on file Sexual Orientation Straight 05/24/2019 8: 40 AM CDT documented as of this encounter Plan of Treatment Not on file documented as of this encounter Procedures Procedure Name Priority Date/Time Associated Diagnosis Comments VASCULAR LABORATORY REPORT 09/01/2017 10:03 PM CDT VASCULAR LABORATORY REPORT 08/25/2017 8:26 AM CDT documented in this encounter Results * VASCULAR LABORATORY REPORT (09/01/2017 10:03 PM CDT) Anatomical Region Laterality Modality Ultrasound us Provider Scanning CV VASCULAR PROCEDURES Final R esult * VASCULAR LABORATORY REPORT (08/25/2017 8:26 AM CDT) Anatomical Region Laterality Modality Ultrasound us Provider Scanning CV VASCULAR PROCEDURES Final R esult documented in this encounter Visit Diagnoses Not on filedocumented in this encounter Additional Health Concerns Infection Onset Date Last Indicated Resolved Time COVID: Suspected 11/08/2020 11/08/2020 11/08/2020 10:03 AM RESPIRATORY THERAPY AIDE Respiratory Infection (BLAINE), contact + droplet Comment:IP Review - Patient classified as Low Risk for COVID-19 and has one negative COVID-19 test. Patient meets criteria for COVID-19 isolation discontinuation Automatically added due to negative COVID-19 result. 11/08/2020 11/08/2020 11/08/2020 3:[address] Exposure, COVID-19 Comment:IP Review- Patient was exposed to a positive patient Isreal Cohen ([id number]). Testing not required for exposed patient unless symptomatic. Will need to be on precautions until 12/02/20 11/18/20 6:29 PM Lisa Galindo 11/18/2020 11/18/2020 11/28/2020 6:43 PM RESPIRATORY THERAPY AIDE COVID: Suspected 11/19/2020 11/19/2020 11/19/2020 11:09 AM RESPIRATORY THERAPY AIDE Respiratory Infection (BLAINE), contact + droplet Comment:Automatically added due to negative COVID-19 result. 11/19/2020 11/19/2020 11/20/2020 4:2 1 PM RESPIRATORY THERAPY AIDE VRE 11/23/2020 11/23/2020 07/02/2021 5:00 AM CDT COVID: Suspected 11/28/2020 11/28/2020 11/28/2020 6:43 PM RESPIRATORY THERAPY AIDE COVID19 11/28/2020 11/28/2020 12/30/2020 3:05 AM RESPIRATORY THERAPY AIDE COVID: Recovered Comment:Added based on recent COVID infection. 12/30/2020 01/03/2021 04/29/2021 3:05 AM C DT COVID: Suspected 09/17/2024 09/17/2024 09/17/2024 10:55 AM RESPIRATORY THERAPY AIDE C. difficile suspected 05/17/2025 06/14/202505/18 7:26 PM CDT C. difficile suspected 06/14/2025 06/14/202506/14 12:01 PM CDT documented as of this encounter Care Teams Nursery Technician Relationship Specialty Start Date End Date Marlon Trujillo MD PCP - General 12/30/16 09/08/18 Marlon Trujillo MD PCP - General Internal Medicine 09/09/18 11/30/24 Marlon Trujillo MD [address] [place] [address] PCP - General Internal Medicine 12/01/24 Katheryn Nguyen, RN [address] [address] Director Of Communications 04/12/18 09/08/18 Marta Kwong RN [address] [address] Director Of Communications 04/18/18 06/19/25 Melania Hall RN [address] [address] Director Of Communications 04/20/18 Jean-Pierre Long, ZHAO [address] [place] [address] Consulting Physician Foot and Ankle Surg 06/11/23 Dhiraj Gaitan DO [address] [facility] [place] [address] Consulting Physician Gastroenterology 05/16/24 Adrian Sanchez MD [address] [facility] [id number] [place] [address] Surgeon Colon and Rectal Surgery 06/28/24 Sherry Funes RMA Surgical Prehabilitation and Readiness (SPAR) Coordinator 07/06/24 08/14/24 Nakul Hinojosa MD Medical Oncologist/Rotary Drill Operator Medical Oncology 09/11/24 06/27/25 Madelyn Gonzalez MD [address] [facility] [address] [place], [place] [address] Consulting Physician Endocrinology Diabetes & Metabolism 05/25/25 Peter Felton, supervisor forming and temperingDirector Of Communications Transplant 06/19/25 documented as of this encounter
--- OUTSIDE RECORDS SUMMARY | 2025-08-04 08:54 | XMS_ITS | Encounter Summary ---
Author Organization [employer] Address [address] [place] [address] Care Team Providers Care Facing Grinder Name Role Phone Cliff Sen MD Primary Care Provider [phone] Encounter Details Date Type Department Care Team (Late st Contact Info) Description 11/12/2004 Outpatient Historical [facility] Internal Medicine [address] [place] [address]. [address] [place] [address] Cliff Sen MD [address] [facility] [address] [place] [address] Social History Tobacco Use Types Packs/Day Years Used Date Smoking Tobacco: Never Assessed Sex and Gender Information Value Date Recorded Sex Assigned at Not on file Legal Sex Male 3:17 AM BUILDING SPECIALIST Gender Identity Not on file Sexual Orientation Not on file documented as of this encounter Plan of Treatment Not on file documented as of this encounter Visit Diagnoses Not on filedocumented in this encounter Care Teams Facing Grinder Relationship Specialty Start Date End Date Cliff Sen MD [address] [facility] [address] [place] [address] PCP - General 10/01/03 documented as of this encounter
--- OUTSIDE RECORDS SUMMARY | 2025-08-04 08:54 | XMS_ITS ---
Author Organization [facility] Address [address] [place] [address] Care Team Providers Care Instructor Creeler Name Role Phone Melania Hall RN Unavailable [phone] Jean-Pierre Long DPM Unavailable [phone] Dhiraj Gaitan DO Unavailable [phone] Adrian Sanchez MD Unavailable [phone] Marlon Trujillo MD Primary Care Provider [phone] Madelyn Gonzalez MD Unavailable [phone] Peter Felton RN Unavailable Unavaila ble Transplant Episode Kidney Recipient [facility] ([place], [place]) - [facility] Organ Received: Left Kidney Transplanted on 07/25/2013 Marked as Active Follow-up on 07/25/2013 Kidney CoordinatorPeter Felton RN Phone: N/A Fax: N/A Email: N/A [place] Organ Diagnosis Organ 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 Infection History Noted Survival Infection Treatment Organism Resolved 09/17/2024 11 years 1 month Upper respirato ry tract infection 06/01/2023 9 years 10 months Acute osteomye litis of left ankle or foot (HCC) 04/08/2023 9 years 8 months Acute osteomyel itis of right ankle or foot (HCC) 11/29/2020 7 years 4 months Coronavirus infection 08/12/2022 11/14/2020 7 years 3 months Bacterial pneumonia 11/25/2020 06/02/2016 2 years 10 months Osteomyelitis of fifth toe of right foot (HCC) 08/07/2020 Donor Information Organ ABO Source Meets Risk Criteria HLA Match Mismatches Cross Match Left Kidney Transplanted O DBD No A: B: DR: T cell (Negative) T cell (Negative) B cell (Negative) B cell (Negative) Left Kidney Donor Serology Results Anti-CMV CMV IgG: Positive EBV IgG EBV VCA IgG: Positive Anti-HBcAb HBC Total: Negative HBsAg HBsAg: Negative HBV DNA No results on file Anti-HCV HCV: Negative Anti-HIV I/II No results on file Anti-HTLV I/II HTLV: Not Done RPR/VDRL RPR: Negative EBV IgM EBV VCA IgM: Negative HBsAb No results on file EBNA No results on file SARS CoV-2 No results on file Care Team Name Role Phone Fax Email Peter Felton, DIAN Kidney Coordinator N/A N/A N/A Becca Mace RN Secondary Coordinator Secondary Kidney Coordinator N/A N/A N/A Katheryn Nguyen RN Data Entry Associate [phone] N/A N/A Sara Jansen Multifold Operator [phone] N/A N/A Peter Felton RN Data Entry Associate N/A N/A N/A Events Post-Transplant Pre-Transplant Admitted: 07/19/2013 Referred: 03/14/2013 Transplanted: 07/25/2013 Evaluation began: 3 Discharged: 07/31/2013 Center waitlisted: 3
--- OUTSIDE RECORDS SUMMARY | 2025-08-04 08:54 | XMS_ITS | Encounter Summary ---
Author Organization [facility] Address [address] [place] [address] Care Team Providers Care Greeting Card Writer Name Role Phone Marlon Trujillo MD Primary Care Provider [phone] Peter Arevalo MD Unavailable [phone] Encounter Details Date Type Department Care Team (Late st Contact Info) Description 04/09/2023 Therapy Plan [facility] [address] [place] [address] Sammy Chris MD [address] [place] [address] Social History Tobacco Use Types Packs/Day Years Used Date Smoking Tobacco: Former Cigarettes 3 35 0 01/02/1967 - 01/02/2002 Smokeless Tobacco: Former Chew Alcohol Use Standard Drinks/Week Comments No 0 (1 standard drink = 0.6 oz pur e alcohol) AUDIT-C Answer Date Recorded Frequency of Alcohol Consumption Never 10/12/2018 Average Number of Drinks Not on file 018 Frequency of Binge Drinking Not on file 09/16 PHQ-2 Answer Date Recorded Patient Health Questionnaire-2 Score 0 11/12/2022 Sex and Gender Information Value Date Recorded Sex Assigned at Male 10/12/2018 8:46 AM PATTERN LAYOUT WORKER Legal Sex Male 8:57 PM CDT Gender Identity Male 10/12/2018 8:46 AM PATTERN LAYOUT WORKER Sexual Orientation Straight 10/12/2018 8: 46 AM PATTERN LAYOUT WORKER COVID-19 Exposure Response Date Recorded In the last 10 days, have yo u been in contact with someone who was confirmed or suspected to have Coronavirus/COVID-19? No / Unsure 04/07/2023 9:49 AM CDT documented as of this encounter Plan of Treatment Upcoming Encounters Date Type Department Care Team (Late st Contact Info) Description 08/06/2025 9:40 AM CDT Office Visit [facility] Family & Internal Medicine - [place] [address] [place] [address] Marlon Trujillo MD [address] [place] [address] Elena Bradshaw DO [address] [facility]. [address] [place], [place] [address] 09/02/2025 2:15 PM CDT Allied Health/Nurse Visit [facility] [place] [address] [place], [place] [address] Peter Arevalo MD Three [facility]. [address] [place], [place] [address] 09/03/2025 2:35 PM CDT Allied Health/Nurse Visit [facility] [place] [address] [place], [place] [address] Peter Arevalo MD Three [facility]. [address] [place], [place] [address] 04/30/2026 10:00 AM CDT Office Visit [facility] [place] [address] [place], [place] [address] Liz Burr PA 3 [facility] [address] [place], [place] [address] documented as of this encounter Visit Diagnoses Diagnosis Acute osteomyelitis of toe of right foot (CMS/HCC [facility])- Primary Acute osteomyelitis, ankle and foot documented in this encounter Additional Health Concerns Assessment Noted Time PHQ-9 Depression Total Score: 6 02/25/20 21 2:04 PM CDT documented as of this encounter Care Teams Greeting Card Writer Relationship Specialty Start Date End Date Marlon Trujillo MD [address] [place] [address] PCP - General INTERNAL MEDICINE 08/25/18 Peter Arevalo MD [address] [address] EP Natural Resources Technician CLINICAL CARDIAC ELECTROPHYSIOLOGY 12/06/24 documented as of this encounter
--- OUTSIDE RECORDS SUMMARY | 2025-08-04 08:54 | XMS_ITS | Clinical Summary ---
Author Organization [facility] Address [address] [facility] Attn: Epic Prelude ADT ZEKE THOMAS [address] Care Team Providers Care Soft Metals Engraver Hand Name Role Phone Cliff Sen MD Primary Care Provider [phone] Social History Tobacco Use Types Packs/Day Years Used Date Smoking Tobacco: Never Assessed Sex and Gender Information Value Date Recorded Sex Assigned at Not on file Legal Sex Male 3:17 AM VICE PRESIDENT TALENT MANAGEMENT Gender Identity Not on file Sexual Orientation Not on file Plan of Treatment Health Maintenance Due Date Last Done Comments DTAP/TDAP/TD VACCINES (1 - Tdap) 1972 COLORECTAL SCREENING 1998 Colorectal Cancer Screening 1998 FIT-DNA Q 3 years 1998 FIT/FOBT Q 1 year 1998 Flex Sig/CT Colonography Q 5 years 1998 PNEUMOCOCCAL VACCINE 50+ YEARS (1 of 1 - PCV) 07/22/20 03 ZOSTER VACCINE (1 of 2) 2003 INFLUENZA VACCINE (#1) 2025 RSV VACCINE (60+ or ) (1 - 1-dose 75+ series) 2028 Care Teams Soft Metals Engraver Hand Relationship Specialty Start Date End Date Cliff Sen MD [facility] [address] [address] PCP - General 10/01/03
--- OUTSIDE RECORDS SUMMARY | 2025-08-04 08:54 | XMS_ITS | Encounter Summary ---
Author Organization [facility] Address [address] [place] [address] Care Team Providers Care Vessel Scrapper Name Role Phone Marlon Trujillo MD Primary Care Provider [phone] Peter Arevalo MD Unavailable Encounter Details Date Type Department Care Team (Late Contact Info) Description 09/10/2023 Outbox Message [facility] [address] [place], [facility] Provider Stress test looks good Social History Tobacco Use Types Packs/Day Years [...] Sex Assigned at Male 10/12/2018 8:46 AM MORTGAGE LOAN COUNSELOR Legal Sex Male 8:57 PM CDT Gender Identity Male 10/12/2018 8:46 AM MORTGAGE LOAN COUNSELOR Sexual Orientation Straight 10/12/2018 8: 46 AM MORTGAGE LOAN COUNSELOR documented as of this encounter Plan of Treatment Upcoming Encounters Date Type Department Care Team (Late Contact Info) Description 08/06/2025 9:40 AM CDT Office Visit [facility] Family & Internal Medicine [address] [place] [address] Marlon Trujillo MD [address] [place] [address] Elena Bradshaw DO 3 [facility]. [address] [place] [address] 09/02/2025 2:15 PM CDT Allied Health/Nurse Visit [facility] [address] [facility] [place] [address] [place] [address] Peter Arevalo MD Three [facility]. [address] [place] [address] 09/03/2025 2:35 PM CDT Allied Health/Nurse Visit [facility] [address] [facility] [place] [address] [place] [address] Peter Arevalo MD Three [facility]. [facility] [address] [place] [address] 04/30/2026 10:00 AM CDT Office Visit [facility] [address] [facility], [facility] [address] [place] [address] iLz Burr PA 3 [facility] [address] [place], [place] [address] documented as of this encounter Visit Diagnoses Not on filedocumented in this encounter Additional Health Concerns Assessment Noted Time PHQ-9 Depression Total Score: 6 02/25/20 21 2:04 PM CDT documented as of this encounter Care Teams Vessel Scrapper Relationship Specialty Start Date End Date Marlon Trujillo MD [address] [place] [address] PCP - General INTERNAL MEDICINE 08/25/18 Peter Arevalo MD [address] [address] EP Tier Truck Driver CLINICAL CARDIAC ELECTROPHYSIOLOGY 12/06/24 documented as of this encounter
--- OUTSIDE RECORDS SUMMARY | 2025-08-04 08:54 | XMS_ITS | Clinical Summary ---
Author Organization [facility] Address [address] [place] [address] Care Team Providers Care Rn Staffing Name Role Phone Melania Hall RN Unavailable [phone] Jean-Pierre Long DPM Unavailable [phone] Dhiraj Gaitan DO Unavailable [phone] Adrian Sanchez MD Unavailable [phone] Marlon Trujillo MD Primary Care Provider [phone] Madelyn Gonzalez MD Unavailable [phone] Peter Felton RN Unavailable Unavaila ble Allergies No known active allergies Medications multivitamin [...] capsule Take by mouth A ctive coenzyme [id number] E 100-5 mg-unit capsule Take 1 capsule by mouth daily Active LANTUS 100 unit/mL (3 mL) pen for injection Inject 45 Units under the skin daily 45 mL 3 2025 Active semaglutide 0.25 mg or 0.5 mg (2 mg/3 mL) pen injector injection Inject 0.5 mg under the skin once a week 9 mL 025 2025 Active insulin concrete inspector cart,aut,G6/7,cnt r (Omnipod 5 G6-G7 Intro Kt,Gen5,) cartridgeIndicati ons:Type 2 diabetes mellitus with stage 3b chronic kidney disease, with long-term current use of insulin (HCC) To change POD every 2 days 1 each Active Additional Information Patient taking differently: To [...] (HCC) To change POD every 2 days 45 each 3 Active predniSONE (DELTASONE) 5 mg tablet TAKE 1 TABLET BY MOUTH DAILY 90 tablet 3 Active amLODIPine (NORVASC) 10 mg tablet TAKE 1 TABLET BY MOUTH EVERY NIGHT 90 tablet 3 025 Active HumaLOG 100 unit/mL vial for injectionIndicati ons:Type 2 diabetes mellitus with hyperglycemia, with long-term current use of insulin ([facility]) For use via insulin pump. TDD 100 units. 30 mL 11 025 Active rosuvastatin (CRESTOR) 40 mg tabletIndications :Hyperlipidemia, unspecified hyperlipidemia type Take 1 tablet (40 mg total) by mouth daily 90 tablet 3 025 2025 Active ferrous sulfate 325 mg (65 mg of elemental iron) tabletIndications :Iron Deficiency Anemia Take 1 tablet (325 mg total) by mouth 2 (two) times a day with meals 60 tablet 5 025 Active blood-glucose sensor ([employer] G7 Sensor) deviceIndications :Type 2 diabetes mellitus with stage 3b chronic kidney disease, with long-term current use of insulin ([facility]) Change sensor every 10 days [...] be different from the original. Labs at [facility] in [facility] FAX: [phone] Problem Noted Date Diagnosed Date Diarrhea 05/17/2025 [...] 09/17/2024 Assessment & Plan (09/17/2024 10:42 AM PRACTICE PROFESSIONAL): Rapid covid, flu negative Rapid strep negative [...] 11/28/2020 Assessment & Plan (12/09/2020 10:41 AM PRACTICE PROFESSIONAL): Unclear etiology. Down from normal (was in the 200s on admission), suspect due to COVID - now resolved Assessment & Plan (12/08/2020 12:20 PM PRACTICE PROFESSIONAL): Unclear etiology. Down from normal (was in the 200s on admission), suspect due to COVID - now resolved Assessment & Plan (12/07/2020 6:24 PM PRACTICE PROFESSIONAL): Unclear etiology. Down from normal (was in the 200s on admission), suspect due to COVID - now resolved Assessment & Plan (12/06/2020 1:52 PM PRACTICE PROFESSIONAL): Unclear etiology. Down from normal (was in the 200s on admission), suspect due to COVID - now resolved Assessment & Plan (12/05/2020 6:35 PM PRACTICE PROFESSIONAL): Unclear etiology. Down from normal (was in the 200s on admission), suspect due to COVID - now resolved Assessment & Plan (12/04/2020 3:11 PM PRACTICE PROFESSIONAL): Unclear etiology. Down from normal (was in the 200s on admission) -HIT negative -Suspect 2/2 coronavirus Assessment & Plan (12/03/2020 9:34 PM PRACTICE PROFESSIONAL): Unclear etiology. Down from normal (was in the 200s on admission) -HIT negative -Suspect 2/2 coronavirus Assessment & Plan (12/02/2020 7:31 PM PRACTICE PROFESSIONAL): Unclear etiology. Down from normal (was in the 200s on admission) -HIT negative -Suspect 2/2 coronavirus Assessment & Plan (12/01/2020 10:30 AM PRACTICE PROFESSIONAL): Unclear etiology. Down from normal (was in the 200s on admission) -HIT negative -Suspect 2/2 coronavirus Assessment & Plan (11/30/2020 11:18 AM PRACTICE PROFESSIONAL): New today to 142. Unclear etiology. Down from normal (was in the 200s on admission) -HIT negative -Suspect 2/2 coronavirus Assessment & Plan (11/29/2020 1:13 PM PRACTICE PROFESSIONAL): New today to 142. Unclear etiology. Down from normal (was in the 200s on admission) -HIT negative -Suspect 2/2 coronavirus Anemia 11/23/2020 Assessment & Plan (12/09/2020 10:41 AM PRACTICE PROFESSIONAL): 2/2 AoCKD + AoCD. No clinical signs of bleeding or hemodynamic instability. -Hgb stable 8-9 -blood consented, transfuse as needed Assessment & Plan (12/08/2020 12:20 PM PRACTICE PROFESSIONAL): 2/2 AoCKD + AoCD. No clinical signs of bleeding or hemodynamic instability. -Hgb stable 8-9 -blood consented, transfuse as needed Assessment & Plan (12/07/2020 6:24 PM PRACTICE PROFESSIONAL): 2/2 AoCKD + AoCD. No clinical signs of bleeding or hemodynamic instability. -Hgb stable 8-9 -blood consented, transfuse as needed Assessment & Plan (12/06/2020 1:51 PM PRACTICE PROFESSIONAL): 2/2 AoCKD + AoCD. No clinical signs of bleeding or hemodynamic instability. -Hgb stable 8-9 -blood consented, transfuse as needed Assessment & Plan (12/05/2020 6:35 PM PRACTICE PROFESSIONAL): 2/2 AoCKD + AoCD. No clinical signs of bleeding or hemodynamic instability. -Hgb stable 8-9 -blood consented, transfuse as needed Assessment & Plan (12/04/2020 3:11 PM PRACTICE PROFESSIONAL): 2/2 AoCKD + AoCD. No clinical signs of bleeding or hemodynamic instability. -Hgb stable 8-9 -blood consented, transfuse as needed Assessment & Plan (12/03/2020 9:33 PM PRACTICE PROFESSIONAL): 2/2 AoCKD + AoCD. No clinical signs of bleeding or hemodynamic instability. -Hgb stable 8-9 -blood consented, transfuse as needed Assessment & Plan (12/02/2020 7:30 PM PRACTICE PROFESSIONAL): 2/2 AoCKD + AoCD. No clinical signs of bleeding or hemodynamic instability. -Hgb stable 8-9 -blood consented, transfuse as needed Assessment & Plan (12/01/2020 10:28 AM PRACTICE PROFESSIONAL): 2/2 AoCKD + AoCD. No clinical signs of bleeding or hemodynamic instability. -Hgb stable 8-9 -blood consented, transfuse as needed Assessment & Plan (11/30/2020 11:16 AM PRACTICE PROFESSIONAL): 2/2 AoCKD + AoCD. No clinical signs of bleeding or hemodynamic instability. -Hgb stable 8-9 -blood consented, transfuse as needed Assessment & Plan (11/26/2020 5:38 PM PRACTICE PROFESSIONAL): 2/2 AoCKD + AoCD. No clinical signs of bleeding or hemodynamic instability. -Hgb stable 8-9 -blood consented, transfuse as needed Assessment & Plan (11/24/2020 10:52 AM PRACTICE PROFESSIONAL): 2/2 AoCKD + AoCD. No clinical signs of bleeding or hemodynamic instability. - blood consented, transfuse as needed Assessment & Plan (11/23/2020 2:58 PM PRACTICE PROFESSIONAL): 2/2 AoCKD + AoCD. No clinical signs of bleeding or hemodynamic instability. - blood consented, transfuse as needed Abdominal aortic aneurysm (AAA) 11/06/2020 Assessment & Plan (12/05/2020 6:35 PM PRACTICE PROFESSIONAL): Stable at 2.2cm on OSH CT. -Continue outpatient follow up. Assessment & Plan (12/04/2020 3:11 PM PRACTICE PROFESSIONAL): Stable at 2.2cm on OSH CT. -Continue outpatient follow up. Assessment & Plan (12/03/2020 9:33 PM PRACTICE PROFESSIONAL): Stable at 2.2cm on OSH CT. -Continue outpatient follow up. Assessment & Plan (12/02/2020 7:30 PM PRACTICE PROFESSIONAL): Stable at 2.2cm on OSH CT. -Continue outpatient follow up. Assessment & Plan (12/01/2020 10:27 AM PRACTICE PROFESSIONAL): Stable at 2.2cm on OSH CT. -Continue outpatient follow up. Assessment & Plan (11/30/2020 11:15 AM PRACTICE PROFESSIONAL): Stable at 2.2cm on OSH CT. -Continue outpatient follow up. Assessment & Plan (11/25/2020 11:39 PM PRACTICE PROFESSIONAL): Stable at 2.2cm on OSH CT. -Continue outpatient follow up. Assessment & Plan (11/24/2020 10:52 AM PRACTICE PROFESSIONAL): -Stable at 2.2cm on OSH CT. Continue outpatient follow up. Assessment & Plan (11/23/2020 2:57 PM PRACTICE PROFESSIONAL): -Stable at 2.2cm on OSH CT. Continue outpatient follow up. Assessment & Plan (11/17/2020 10:36 AM PRACTICE PROFESSIONAL): -Stable at 2.2cm on OSH CT. Continue outpatient follow up. Assessment & Plan (11/16/2020 10:34 AM PRACTICE PROFESSIONAL): -Stable at 2.2cm on OSH CT. Continue outpatient follow up. Assessment & Plan (11/15/2020 12:38 PM PRACTICE PROFESSIONAL): -Stable at 2.2cm on OSH CT. Continue outpatient follow up. Assessment & Plan (11/14/2020 3:30 PM PRACTICE PROFESSIONAL): -Stable at 2.2cm on OSH CT. Continue outpatient follow up. Assessment & Plan (11/06/2020 2:56 PM PRACTICE PROFESSIONAL): Hx infrarenal AAA CT scan 11/06/2020 measures 2.2 cm Clear cell renal cell carcinoma 08/07/2020 Assessment & Plan (12/09/2020 10:40 AM PRACTICE PROFESSIONAL): Mass of left [place] kidney seen on MRI on 07/15/20, followed up with IR with biopsy and cryoablation on 10/18/20, pathology positive for clear cell RCC. -Pt already follows with Urology and does not require referral to Oncology at this point in time given that he has localized disease (discussed with Urology) Assessment & Plan (12/08/2020 12:19 PM PRACTICE PROFESSIONAL): Mass of left [place] kidney seen on MRI on 07/15/20, followed up with IR with biopsy and cryoablation on 10/18/20, pathology positive for clear cell RCC. -Pt already follows with Urology and does not require referral to Oncology at this point in time given that he has localized disease (discussed with Urology) Assessment & Plan (12/07/2020 6:24 PM PRACTICE PROFESSIONAL): Mass of left [place] kidney seen on MRI on 07/15/20, followed up with IR with biopsy and cryoablation on 10/18/20, pathology positive for clear cell RCC. -Pt already follows with Urology and does not require referral to Oncology at this point in time given that he has localized disease (discussed with Urology) Assessment & Plan (12/06/2020 1:50 PM PRACTICE PROFESSIONAL): Mass of left [place] kidney seen on MRI on 07/15/20, followed up with IR with biopsy and cryoablation on 10/18/20, pathology positive for clear cell RCC. -Pt already follows with Urology and does not require referral to Oncology at this point in time given that he has localized disease (discussed with Urology) Assessment & Plan (12/05/2020 6:34 PM PRACTICE PROFESSIONAL): Mass of left [place] kidney seen on MRI on 07/15/20, followed up with IR with biopsy and cryoablation on 10/18/20, pathology positive for clear cell RCC. -Pt already follows with Urology and does not require referral to Oncology at this point in time given that he has localized disease (discussed with Urology) Assessment & Plan (12/04/2020 3:06 PM PRACTICE PROFESSIONAL): Mass of left [place] kidney seen on MRI on 07/15/20, followed up with IR with biopsy and cryoablation on 10/18/20, pathology positive for clear cell RCC. -Pt already follows with Urology and does not require referral to Oncology at this point in time given that he has localized disease (discussed with Urology) Assessment & Plan (12/03/2020 9:32 PM PRACTICE PROFESSIONAL): Mass of left [place] kidney seen on MRI on 07/15/20, followed up with IR with biopsy and cryoablation on 10/18/20, pathology positive for clear cell RCC. -Pt already follows with Urology and does not require referral to Oncology at this point in time given that he has localized disease (discussed with Urology) Assessment & Plan (12/02/2020 7:28 PM PRACTICE PROFESSIONAL): Mass of left [place] kidney seen on MRI on 07/15/20, followed up with IR with biopsy and cryoablation on 10/18/20, pathology positive for clear cell RCC. -Oncology has not evaluated and patient has not been staged, however OSH CT c/a/p w/contrast does not note metastatic disease. -PET CT 11/18: no residual activity in L [place] kidney, speaking with Onc can just do outpatient follow up, no need for official consult. Can call [phone] for outpatient appointment. - Need to discuss if pt requires Urology follow up as patients usually undergo nephrectomy of [place] kidney. Assessment & Plan (12/01/2020 10:28 AM PRACTICE PROFESSIONAL): Mass of left [place] kidney seen on MRI on 07/15/20, followed up with IR with biopsy and cryoablation on 10/18/20, pathology positive for clear cell RCC. -Oncology has not evaluated and patient has not been staged, however OSH CT c/a/p w/contrast does not note metastatic disease. -PET CT 11/18: no residual activity in L [place] kidney, speaking with Onc can just do outpatient follow up, no need for official consult. Can call [phone] for outpatient appointment. Assessment & Plan (11/30/2020 11:16 AM PRACTICE PROFESSIONAL): Mass of left [place] kidney seen on MRI on 07/15/20, followed up with IR with biopsy and cryoablation on 10/18/20, pathology positive for clear cell RCC. -Oncology has not evaluated and patient has not been staged, however OSH CT c/a/p w/contrast does not note metastatic disease. -PET CT 11/18: no residual activity in L [place] kidney, speaking with Onc can just do outpatient follow up, no need for official consult. Can call [phone] for outpatient appointment. Assessment & Plan (11/26/2020 5:38 PM PRACTICE PROFESSIONAL): Mass of left [place] kidney seen on MRI on 07/15/20, followed up with IR with biopsy and cryoablation on 10/18/20, pathology positive for clear cell RCC. -Oncology has not evaluated and patient has not been staged, however OSH CT c/a/p w/contrast does not note metastatic disease. -PET CT 11/18: no residual activity in L [place] kidney, speaking with Onc can just do outpatient follow up, no need for official consult. Can call [phone] for outpatient appointment. Assessment & Plan (11/24/2020 10:53 AM PRACTICE PROFESSIONAL): -Mass of left [place] kidney seen on MRI on 07/15/20, followed [...] -PET CT: no residual activity in L [place] kidney, speaking with Onc can just do outpatient follow up, no need for official consult. Can call [phone] for outpatient appointment. Assessment & Plan (11/23/2020 2:56 PM PRACTICE PROFESSIONAL): -Mass of left [place] kidney seen on MRI on 07/15/20, followed [...] -PET CT: no residual activity in L [place] kidney, speaking with Onc can just do outpatient follow up, no need for official consult. Can call [phone] for outpatient appointment. Assessment & Plan (11/17/2020 10:36 AM PRACTICE PROFESSIONAL): -Mass of left [place] kidney seen on MRI on 07/15/20, followed [...] RCC. Assessment & Plan (11/16/2020 10:33 AM PRACTICE PROFESSIONAL): -Mass of left [place] kidney seen on MRI on 07/15/20, followed [...] RCC. Assessment & Plan (11/15/2020 12:38 PM PRACTICE PROFESSIONAL): -Mass of left [place] kidney seen on MRI on 07/15/20, followed up with IR with biopsy and cryoablation on 10/18/20, pathology positive for clear cell RCC. -Oncology has not evaluated and patient has not been staged, however OSH CT c/a/p w/contrast does not note metastatic disease. -Will discuss with oncology for inpatient/outpatient evaluation. Assessment & Plan (11/14/2020 3:25 PM PRACTICE PROFESSIONAL): -Mass of left [place] kidney seen on MRI on 07/15/20, followed up with IR with biopsy and cryoablation on 10/18/20, pathology positive for clear cell RCC. -Oncology has not evaluated and patient has not been staged, however OSH CT c/a/p w/contrast does not note metastatic disease. -Will discuss with oncology in AM for inpatient/outpatient evaluation. Assessment & Plan (11/06/2020 5:08 PM PRACTICE PROFESSIONAL): Left kidney mass, on 10/18, percutaneous cryoablation and percutaneous ablation of left [place] kidney lower pole mass Bx showing clear RCC Assessment & Plan (08/07/2020 9:00 AM CDT): Concerning for malignancy; followed by Dr. Rodgers in Urology. Mr. Tracy is strongly considering ablation under the direction of Interventional Radiology. I suggested he follow up with Dr. Rodgers regarding his decision. HTN (hypertension) 03/15/2019 Assessment & Plan (12/09/2020 10:40 AM PRACTICE PROFESSIONAL): -Hold amlodipine 10 and metoprolol 25 BID given orthostasis Assessment & Plan (12/08/2020 12:19 PM PRACTICE PROFESSIONAL): -Hold amlodipine 10 and metoprolol 25 BID given orthostasis Assessment & Plan (12/07/2020 6:24 PM PRACTICE PROFESSIONAL): -Hold amlodipine 10 and metoprolol 25 BID given orthostasis Assessment & Plan (12/06/2020 1:51 PM PRACTICE PROFESSIONAL): -Hold amlodipine 10 and metoprolol 25 BID given orthostasis Assessment & Plan (12/05/2020 6:34 PM PRACTICE PROFESSIONAL): -Hold amlodipine 10 and metoprolol 25 BID given orthostasis Assessment & Plan (12/04/2020 3:06 PM PRACTICE PROFESSIONAL): -Hold amlodipine 10 and metoprolol 25 BID given orthostasis Assessment & Plan (12/03/2020 9:33 PM PRACTICE PROFESSIONAL): -Hold amlodipine 10 and metoprolol 25 BID given orthostasis Assessment & Plan (12/02/2020 7:29 PM PRACTICE PROFESSIONAL): -Hold amlodipine 10 and metoprolol 25 BID given orthostasis Assessment & Plan (12/01/2020 10:29 AM PRACTICE PROFESSIONAL): -Hold amlodipine 10 given orthostasis -Cont metoprolol 25 BID Assessment & Plan (11/30/2020 11:17 AM PRACTICE PROFESSIONAL): -Hold amlodipine 10 given orthostasis -Cont metoprolol 25 BID Assessment & Plan (11/26/2020 5:35 PM PRACTICE PROFESSIONAL): -c/w amlodipine 10 and metoprolol 25 BID Assessment & Plan (11/17/2020 10:36 AM PRACTICE PROFESSIONAL): -Well controlled with amlodipine and metoprolol. Assessment & Plan (11/16/2020 10:17 AM PRACTICE PROFESSIONAL): -Well controlled with amlodipine and metoprolol. Assessment & Plan (11/15/2020 12:35 PM PRACTICE PROFESSIONAL): -Well controlled with amlodipine and metoprolol. Assessment & Plan (11/13/2020 11:19 AM PRACTICE PROFESSIONAL): Hx HTN; Home meds Norvasc, losartan, and [...] 03/15/2019 Assessment & Plan (12/09/2020 10:40 AM PRACTICE PROFESSIONAL): S/p left femoral bypass -Resume aspirin and statin on discharge for secondary prevention. Assessment & Plan (12/08/2020 12:19 PM PRACTICE PROFESSIONAL): S/p left femoral bypass -Resume aspirin and statin on discharge for secondary prevention. Assessment & Plan (12/07/2020 6:24 PM PRACTICE PROFESSIONAL): S/p left femoral bypass -Resume aspirin and statin on discharge for secondary prevention. Assessment & Plan (12/06/2020 1:51 PM PRACTICE PROFESSIONAL): S/p left femoral bypass -Resume aspirin and statin on discharge for secondary prevention. Assessment & Plan (12/05/2020 6:34 PM PRACTICE PROFESSIONAL): S/p left femoral bypass -Resume aspirin and statin on discharge for secondary prevention. Assessment & Plan (12/04/2020 3:06 PM PRACTICE PROFESSIONAL): S/p left femoral bypass -Resume aspirin and statin on discharge for secondary prevention. Assessment & Plan (12/03/2020 9:33 PM PRACTICE PROFESSIONAL): S/p left femoral bypass -Resume aspirin and statin on discharge for secondary prevention. Assessment & Plan (12/02/2020 7:29 PM PRACTICE PROFESSIONAL): S/p left femoral bypass -Resume aspirin and statin on discharge for secondary prevention. Assessment & Plan (11/25/2020 11:35 PM PRACTICE PROFESSIONAL): S/p left femoral bypass -Resume aspirin and statin on discharge for secondary prevention. Assessment & Plan (11/17/2020 10:36 AM PRACTICE PROFESSIONAL): -S/p left femoral bypass. Resume aspirin and statin on discharge for secondary prevention. Assessment & Plan (11/16/2020 10:17 AM PRACTICE PROFESSIONAL): -S/p left femoral bypass. Resume aspirin and statin on discharge for secondary prevention. Assessment & Plan (11/15/2020 12:35 PM PRACTICE PROFESSIONAL): -S/p left femoral bypass. Resume aspirin and statin on discharge for secondary prevention. Assessment & Plan (11/14/2020 3:35 PM PRACTICE PROFESSIONAL): -S/p left femoral bypass. Resume aspirin and [...] (04/19/2018): Added automatically from request for surgery [id number] Assessment & Plan (05/04/2019 1:08 PM CDT): [...] 10/15/2017 Assessment & Plan (12/09/2020 10:40 AM PRACTICE PROFESSIONAL): Complicated by severe hyperglycemia requiring insulin gtt in ICU. -Blood sugars have been well controlled, now elevating due to HC -c/w lantus to 30u qhs, lispro 7U TID, SSI. Now that HC stopped expect improvement in glycemic control Assessment & Plan (12/08/2020 12:19 PM PRACTICE PROFESSIONAL): Complicated by severe hyperglycemia requiring insulin gtt in ICU. -Blood sugars have been well controlled, now elevating due to HC -c/w lantus to 30u qhs, lispro 7U TID, SSI. Now that HC stopped expect improvement in glycemic control Assessment & Plan (12/07/2020 6:23 PM PRACTICE PROFESSIONAL): Complicated by severe hyperglycemia requiring insulin gtt in ICU. -Blood sugars have been well controlled, now elevating due to HC -c/w lantus to 30u qhs, lispro 7U TID, SSI for now Assessment & Plan (12/06/2020 1:51 PM PRACTICE PROFESSIONAL): Complicated by severe hyperglycemia requiring insulin gtt in ICU. -Blood sugars have been well controlled, now elevating due to HC -c/w lantus to 30u qhs, lispro 7U TID, SSI for now Assessment & Plan (12/05/2020 6:34 PM PRACTICE PROFESSIONAL): Complicated by severe hyperglycemia requiring insulin gtt in ICU. -Blood sugars have been well controlled -c/w lantus to 30u qhs, lispro 7U TID, SSI Assessment & Plan (12/04/2020 3:06 PM PRACTICE PROFESSIONAL): Complicated by severe hyperglycemia requiring insulin gtt in ICU. -Blood sugars have been well controlled -c/w lantus to 30u qhs, lispro 7U TID, SSI Assessment & Plan (12/03/2020 9:32 PM PRACTICE PROFESSIONAL): Complicated by severe hyperglycemia requiring insulin gtt in ICU. -Blood sugars have been well controlled -c/w lantus to 30u qhs, lispro 7U TID, SSI Assessment & Plan (12/02/2020 7:29 PM PRACTICE PROFESSIONAL): Complicated by severe hyperglycemia requiring insulin gtt in ICU. -Blood sugars have been well controlled -c/w lantus to 30u qhs, lispro 7U TID, SSI Assessment & Plan (12/01/2020 10:28 AM PRACTICE PROFESSIONAL): Complicated by severe hyperglycemia requiring insulin gtt in ICU. -Blood sugars have been well controlled -c/w lantus to 30u qhs, lispro 7U TID, SSI Assessment & Plan (11/30/2020 11:17 AM PRACTICE PROFESSIONAL): Complicated by severe hyperglycemia requiring insulin gtt in ICU. -c/w lantus to 30u qhs, lispro 7U TID, SSI Assessment & Plan (11/29/2020 1:12 PM PRACTICE PROFESSIONAL): Complicated by severe hyperglycemia requiring insulin gtt in ICU. -c/w lantus to 30u qhs, lispro 7U TID, SSI Assessment & Plan (11/24/2020 10:53 AM PRACTICE PROFESSIONAL): Complicated by severe hyperglycemia requiring insulin gtt in ICU. - cont lantus 26U qHS, lispro 7U TID, SSI Assessment & Plan (11/23/2020 2:57 PM PRACTICE PROFESSIONAL): Complicated by severe hyperglycemia requiring insulin gtt in ICU. - cont lantus 26U qHS, lispro increased 5-->7U TID, HDSSI Assessment & Plan (11/17/2020 10:36 AM PRACTICE PROFESSIONAL): -Complicated by severe hyperglycemia requiring insulin gtt. -Home insulin regimen: Lantus 25u qAM and 20 qPM, SSI with meals. -Continue NPH 15u TID with SSI, glucose well controlled. Assessment & Plan (11/16/2020 10:17 AM PRACTICE PROFESSIONAL): -Complicated by severe hyperglycemia requiring insulin gtt. -Home insulin regimen: Lantus 25u qAM and 20 qPM, SSI with meals. -Continue NPH 15u TID with SSI, glucose well controlled. Assessment & Plan (11/15/2020 12:34 PM PRACTICE PROFESSIONAL): -Complicated by severe hyperglycemia requiring insulin gtt. -Home insulin regimen: Lantus 25u qAM and 20 qPM, SSI with meals. -Continue NPH 15u TID with SSI, glucose well controlled. Assessment & Plan (11/14/2020 3:02 PM PRACTICE PROFESSIONAL): -Complicated by severe hyperglycemia requiring insulin gtt. -Home insulin regimen: Lantus 25u qAM and 20 qPM, SSI with meals. -Continue NPH 15u TID with SSI, glucose well controlled. Assessment & Plan (11/13/2020 11:17 AM PRACTICE PROFESSIONAL): Hx DM2 on insulin. Home regimen Lantus [...] 07/27/2013 Assessment & Plan (11/24/2020 10:54 AM PRACTICE PROFESSIONAL): -Transplant team following. Assessment & Plan (11/23/2020 2:55 PM PRACTICE PROFESSIONAL): -Transplant team following. Assessment & Plan (11/17/2020 10:36 AM PRACTICE PROFESSIONAL): -Transplant team following. Assessment & Plan (11/16/2020 10:17 AM PRACTICE PROFESSIONAL): -Transplant team following. Assessment & Plan (11/15/2020 12:34 PM PRACTICE PROFESSIONAL): -Transplant team following. Assessment & Plan (11/14/2020 3:02 PM PRACTICE PROFESSIONAL): -Transplant team following. 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/2013 -c/w pred 5 every day -c/w tacro to 2mg/1mg, check trough daily -transplant has signed off as we are awaiting dispo Assessment & Plan (12/07/2020 6:23 PM PRACTICE PROFESSIONAL): 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/2013 -c/w pred 5 every day -c/w tacro to 2mg/1mg, check trough daily -transplant has signed off as we are awaiting dispo Assessment & Plan (12/06/2020 1:50 PM PRACTICE PROFESSIONAL): 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/2013 -c/w pred 5 every day -c/w tacro to 2mg/1mg, check trough daily -transplant has signed off as we are awaiting dispo Assessment & Plan (12/05/2020 6:34 PM PRACTICE PROFESSIONAL): 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/2013 -c/w pred 5 every day -c/w tacro to 2mg/1mg, check trough daily -appreciate transplant recommendations Assessment & Plan (12/04/2020 3:05 PM PRACTICE PROFESSIONAL): 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/2013 -c/w pred 5 every day -c/w tacro to 2mg/1mg, check trough daily -appreciate transplant recommendations Assessment & Plan (12/03/2020 9:31 PM PRACTICE PROFESSIONAL): 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/2013 -c/w pred 5 every day -c/w tacro to 2mg/1mg, check trough daily -appreciate transplant recommendations Assessment & Plan (12/02/2020 7:28 PM PRACTICE PROFESSIONAL): 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/2013 -c/w pred 5 every day -c/w tacro to 2mg/1mg, check trough daily -appreciate transplant recommendations Assessment & Plan (12/01/2020 10:28 AM PRACTICE PROFESSIONAL): 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 -cont tacro & pred -tacro decreased to 4mg bid 11/23, CTM tacro trough daily Assessment & Plan (11/23/2020 2:55 PM PRACTICE PROFESSIONAL): -Transplant team following. -cont tacro & pred Assessment & Plan (11/17/2020 10:36 AM PRACTICE PROFESSIONAL): -Transplant team following. Assessment & Plan (11/16/2020 10:17 AM PRACTICE PROFESSIONAL): -Transplant team following. Assessment & Plan (11/15/2020 12:35 PM PRACTICE PROFESSIONAL): -Transplant team following. Assessment & Plan (11/14/2020 3:02 PM PRACTICE PROFESSIONAL): -Transplant team following. Assessment & Plan (11/13/2020 11:18 AM PRACTICE PROFESSIONAL): Hx renal failure, s/p renal liver Tx [...] PM -tacro trough prior to AM dose Resolved Problems Problem Noted Date Diagnosed Date Resolved Date Orthostasis 11/30/2020 08/12/2022 Assessment & Plan (12/09/2020 10:42 AM PRACTICE PROFESSIONAL): Despite multiple fluid boluses pt remains orthostatic [...] binder. Assessment & Plan (12/08/2020 12:25 PM PRACTICE PROFESSIONAL): Despite multiple fluid boluses pt remains orthostatic [...] binder. Assessment & Plan (12/07/2020 6:24 PM PRACTICE PROFESSIONAL): Despite multiple fluid boluses pt remains orthostatic [...] rehab. Assessment & Plan (12/06/2020 1:50 PM PRACTICE PROFESSIONAL): Despite multiple fluid boluses pt remains orthostatic and SBP dropped to 75 12/05. Differential includes adrenal insufficiency in the context of acute illness. Trialled HC 50mg IV Q8 hr x 3 doses and pt feels much improved. Will repeat orthostatic VS today, consider HC 25 IV x 3 as taper vs stop pending results. Assessment & Plan (12/05/2020 6:33 PM PRACTICE PROFESSIONAL): Despite multiple fluid boluses pt remains orthostatic and SBP dropped to 75 today. Differential includes adrenal insufficiency in the context of acute illness. Will trial HC 50mg IV Q8 hr x 3 doses and re-evaluate. Hold further IVF given no response and mildly reduced EF on last TTE Assessment & Plan (12/04/2020 3:05 PM PRACTICE PROFESSIONAL): Patient orthostatic with systolic drop in BP 140 > 80 when standing -Now with likely post-ATN diuresis with increased fluid losses -Bolus IVF PRN cautiously given mildly reduced EF and ESRD. -Hold Amlodipine and metoprolol 12/02 Assessment & Plan (12/03/2020 9:31 PM PRACTICE PROFESSIONAL): Patient orthostatic with systolic drop in BP 140 > 80 when standing -Now with likely post-ATN diuresis with increased fluid losses -Bolus IVF PRN cautiously given mildly reduced EF and ESRD. -Hold Amlodipine and metoprolol 12/02 Assessment & Plan (12/02/2020 7:28 PM PRACTICE PROFESSIONAL): Patient orthostatic with systolic drop in BP 140 > 80 when standing -Now with likely post-ATN diuresis with increased fluid losses -Bolus IVF PRN cautiously given mildly reduced EF and ESRD. Given additional 1L this AM. -Hold Amlodipine and metoprolol today Assessment & Plan (12/01/2020 10:30 AM PRACTICE PROFESSIONAL): Patient orthostatic with systolic drop in BP 140 > 80 when standing -Now with likely post-ATN diuresis with increased fluid losses -Bolus IVF PRN cautiously given mildly reduced EF and ESRD. Given additional 1L this AM. -Hold Amlodipine Assessment & Plan (11/30/2020 11:15 AM PRACTICE PROFESSIONAL): Patient orthostatic with systolic drop in BP 140 > 80 when standing -Bolus IVF PRN cautiously given mildly reduced EF and ESRD s/p 500 LR bolus x3 since 11/29 -Hold Amlodipine Coronavirus infection 11/29/20202021 Assessment & Plan (12/09/2020 10:41 AM PRACTICE PROFESSIONAL): - He presented with no symptoms. A [...] symptoms Assessment & Plan (12/08/2020 12:18 PM PRACTICE PROFESSIONAL): - He presented with no symptoms. A [...] symptoms Assessment & Plan (12/07/2020 6:23 PM PRACTICE PROFESSIONAL): - He presented with no symptoms. A [...] symptoms Assessment & Plan (12/06/2020 1:49 PM PRACTICE PROFESSIONAL): - He presented with no symptoms. A [...] symptoms Assessment & Plan (12/05/2020 6:32 PM PRACTICE PROFESSIONAL): - He presented with no symptoms. A [...] symptoms Assessment & Plan (12/04/2020 3:05 PM PRACTICE PROFESSIONAL): - He presented with no symptoms. A [...] symptoms Assessment & Plan (12/03/2020 9:31 PM PRACTICE PROFESSIONAL): - He presented with no symptoms. A [...] symptoms Assessment & Plan (12/02/2020 7:25 PM PRACTICE PROFESSIONAL): - He presented with no symptoms. A [...] symptoms Assessment & Plan (12/01/2020 10:28 AM PRACTICE PROFESSIONAL): - He presented with no symptoms. A [...] symptoms Assessment & Plan (11/30/2020 11:17 AM PRACTICE PROFESSIONAL): - He presented with no symptoms. A [...] symptoms Assessment & Plan (11/29/2020 1:11 PM PRACTICE PROFESSIONAL): - He presented with no symptoms. A [...] 08/12/2022 Assessment & Plan (12/09/2020 10:41 AM PRACTICE PROFESSIONAL): WBC 1.7 with ANC ~1000, has been persistently 1-2 over the last several days. Not neutropenic. Possibly related to critical illness and now recovery vs immunosuppression (tacro level was elevated for several days with now reduced dose) -now resolved Assessment & Plan (12/08/2020 12:20 PM PRACTICE PROFESSIONAL): WBC 1.7 with ANC ~1000, has been persistently 1-2 over the last several days. Not neutropenic. Possibly related to critical illness and now recovery vs immunosuppression (tacro level was elevated for several days with now reduced dose) -now resolved Assessment & Plan (12/07/2020 6:24 PM PRACTICE PROFESSIONAL): WBC 1.7 with ANC ~1000, has been persistently 1-2 over the last several days. Not neutropenic. Possibly related to critical illness and now recovery vs immunosuppression (tacro level was elevated for several days with now reduced dose) -now resolved Assessment & Plan (12/06/2020 1:51 PM PRACTICE PROFESSIONAL): WBC 1.7 with ANC ~1000, has been persistently 1-2 over the last several days. Not neutropenic. Possibly related to critical illness and now recovery vs immunosuppression (tacro level was elevated for several days with now reduced dose) -now resolved Assessment & Plan (12/05/2020 6:36 PM PRACTICE PROFESSIONAL): WBC 1.7 with ANC ~1000, has been persistently 1-2 over the last several days. Not neutropenic. Possibly related to critical illness and now recovery vs immunosuppression (tacro level was elevated for several days with now reduced dose) -now resolved Assessment & Plan (12/04/2020 3:11 PM PRACTICE PROFESSIONAL): WBC 1.7 with ANC ~1000, has been persistently 1-2 over the last several days. Not neutropenic. Possibly related to critical illness and now recovery vs immunosuppression (tacro level was elevated for several days with now reduced dose) -WBC recovering Assessment & Plan (12/03/2020 9:33 PM PRACTICE PROFESSIONAL): WBC 1.7 with ANC ~1000, has been persistently 1-2 over the last several days. Not neutropenic. Possibly related to critical illness and now recovery vs immunosuppression (tacro level was elevated for several days with now reduced dose) -WBC recovering Assessment & Plan (12/02/2020 7:31 PM PRACTICE PROFESSIONAL): WBC 1.7 with ANC ~1000, has been persistently 1-2 over the last several days. Not neutropenic. Possibly related to critical illness and now recovery vs immunosuppression (tacro level was elevated for several days with now reduced dose) -WBC recovering Assessment & Plan (11/27/2020 2:44 PM PRACTICE PROFESSIONAL): WBC 1.7 with ANC ~1000, has been persistently 1-2 over the last several days. Not neutropenic. Possibly related to critical illness and now recovery vs immunosuppression (tacro level was elevated for several days with now reduced dose) -follow up as outpatient in 1-2 weeks Exposure to COVID-19 virus 11/23/2020 0 12/02/2020 Assessment & Plan (11/30/2020 11:17 AM PRACTICE PROFESSIONAL): Pt exposed to COVID + neighbor on 11/18/2020. also exposed 2/2 visiting at bedside. COVID neg x2 (11/19, 11/20). - patient is to remain on isolation precautions x14 days from exposure (11/18 - 12/02) - remains afebrile and asymptomatic -Patient tested positive 11/28 Assessment & Plan (11/29/2020 1:12 PM PRACTICE PROFESSIONAL): Pt exposed to COVID + neighbor on 11/18/2020. also exposed 2/2 visiting at bedside. COVID neg x2 (11/19, 11/20). - patient is to remain on isolation precautions x14 days from exposure (11/18 - 12/02) - remains afebrile and asymptomatic -Patient tested positive 11/28 Assessment & Plan (11/24/2020 10:52 AM PRACTICE PROFESSIONAL): Pt exposed to COVID + neighbor on 11/18/2020. also exposed 2/2 visiting at bedside. COVID neg x2 (11/19, 11/20). - patient is to remain on isolation precautions x14 days from exposure (11/18 - 12/02) - work-up of fever as above Assessment & Plan (11/23/2020 2:54 PM PRACTICE PROFESSIONAL): Pt exposed to COVID + neighbor on 11/18/2020. also exposed 2/2 visiting at bedside. COVID neg x2 (11/19, 11/20). - patient is to remain on isolation precautions x14 days from exposure (11/18 - 12/02) - work-up of fever as above Dysphagia 11/16/2020 11/26/2020 Assessment & Plan (11/25/2020 11:37 PM PRACTICE PROFESSIONAL): Failed swallow eval on 11/15/20, patient accidentally pulled NG on 11/17/20. Passed swallow evaluation 11/19. -c/w regular diet Assessment & Plan (11/24/2020 10:53 AM PRACTICE PROFESSIONAL): Failed swallow eval on 11/15/20, patient accidentally pulled NG on 11/17/20. Passed swallow evaluation 11/19. -Reg diet Assessment & Plan (11/23/2020 2:56 PM PRACTICE PROFESSIONAL): Failed swallow eval on 11/15/20, patient accidentally pulled NG on 11/17/20. Passed swallow evaluation 11/19. -Reg diet Assessment & Plan (11/17/2020 10:37 AM PRACTICE PROFESSIONAL): -Failed swallow eval on 11/15/20, patient accidentally pulled NG on 11/17/20. -Speech therapy called on 11/17 for re-evaluation vs G-tube placement. Assessment & Plan (11/16/2020 10:34 AM PRACTICE PROFESSIONAL): -Failed swallow eval on 11/15/20, continue feeding through NG. -Will discuss with speech therapy on likely recover vs G-tube placement. Bacterial pneumonia 11/14/2020 11/25/19 Assessment & Plan (11/17/2020 10:37 AM PRACTICE PROFESSIONAL): -Right middle and lower lobe consolidation concerning for hospital acquired pneumonia. -Continue Unasyn, if patient continues to be febrile will broaden coverage. Assessment & Plan (11/16/2020 10:34 AM PRACTICE PROFESSIONAL): -Right middle and lower lobe consolidation concerning for hospital acquired pneumonia. -Continue Unasyn, if patient continues to be febrile will broaden coverage. Assessment & Plan (11/15/2020 12:40 PM PRACTICE PROFESSIONAL): -Right middle and lower lobe consolidation concerning for hospital acquired pneumonia. -Continue Unasyn, if patient continues to be febrile will broaden coverage. Assessment & Plan (11/14/2020 3:37 PM PRACTICE PROFESSIONAL): -Right middle and lower lobe consolidation concerning for hospital acquired pneumonia. -Continue Unasyn, if patient continues to be febrile will broaden coverage. 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 Patient appears to be able renal recovery - s/p tunneled HD line 11/26. - Renal following for HD needs - Monitor for post-ATN diuresis. 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 - s/p tunneled HD line 11/26 - Plan for HD MWF - F/u renal recs - possibility of some renal recovery, but most likely will need prolonged course of HD. Assessment & Plan (11/24/2020 10:52 AM PRACTICE PROFESSIONAL): Failure of transplant kidney secondary to sepsis, not showing evidence of significant recovery. - Will need tunneled HD line, deferred until stable from infection standpoint. - Plan for HD MWF - F/u renal recs - possibility of some renal recovery, but most likely will need prolonged course of HD. Assessment & Plan (11/23/2020 2:52 PM PRACTICE PROFESSIONAL): Failure of transplant kidney secondary to sepsis, not showing evidence of significant recovery. - Will need tunneled HD line, deferred until stable from infection standpoint. - Plan for HD today, then HD MWF - F/u renal recs - possibility of some renal recovery, but most likely will need prolonged course of HD. Assessment & Plan (11/17/2020 10:36 AM PRACTICE PROFESSIONAL): -Failure of transplant kidney secondary to sepsis, showing evidence of renal recovery. -Transplant nephrology following, increase tacrolimus to 4mg bid per transplant, continue prednisone 5mg daily. -Awaiting renal recovery before able to assess if patient will be dialysis dependent. Assessment & Plan (11/16/2020 10:34 AM PRACTICE PROFESSIONAL): -Failure of transplant kidney secondary to sepsis, showing evidence of renal recovery. -Transplant nephrology following, increase tacrolimus to 4mg bid per transplant, continue prednisone 5mg daily. -Awaiting renal recovery before able to assess if patient will be dialysis dependent. Assessment & Plan (11/15/2020 12:40 PM PRACTICE PROFESSIONAL): -Failure of transplant kidney secondary to sepsis, showing evidence of renal recovery. -Transplant nephrology following, increase tacrolimus to 4mg bid per transplant, continue prednisone 5mg daily. -Awaiting renal recovery before able to assess if patient will be dialysis dependent. Assessment & Plan (11/14/2020 3:32 PM PRACTICE PROFESSIONAL): -Failure of transplant kidney secondary to sepsis, showing evidence of renal recovery. -Transplant nephrology following, increase tacrolimus to 4mg bid per transplant, continue prednisone 5mg daily. -Awaiting renal recovery before able to assess if patient will be dialysis dependent. Assessment & Plan (11/13/2020 11:16 AM PRACTICE PROFESSIONAL): Septic shock, consider pyelonephritis, vs atypicals considering immunosuppression. Started on CVVHD 11/07, improved UOP with lasix challenge 11/10, renal following, last dialysis 11/12 iHD with volume removal. -renal plans to hold on dialysis for now, keep trialysis catheter -monitor Cr and UOP trends -renal transplant following, f/u recs -renally dosed medications -avoid nephrotoxins Metabolic acidosis 11/07/2020 0 Assessment & Plan (11/08/2020 3:55 PM PRACTICE PROFESSIONAL): Combined respiratory and metabolic; non-anion gap. -resolved in the setting of continued HD Diagnosis unknown 11/06/2020 08/12/2022 Sepsis 11/06/2020 08/12/2022 Assessment & Plan (12/09/2020 10:41 AM PRACTICE PROFESSIONAL): Initially admitted for E faecalis pyelonephritis/bacteremia along with multifocal PNA, s/p 2 weeks of IV unasyn (completed 11/19). Then developed new fevers 1/4 with sxs of sepsis in setting of neutropenia (although fevers started prior to decline in WBC). - s/p empiric treatment with linezolid/cefe for 7 days () - appreciate transplant ID recs, now signed off Assessment & Plan (12/08/2020 12:20 PM PRACTICE PROFESSIONAL): Initially admitted for E faecalis pyelonephritis/bacteremia along with multifocal PNA, s/p 2 weeks of IV unasyn (completed 11/19). Then developed new fevers 1/4 with sxs of sepsis in setting of neutropenia (although fevers started prior to decline in WBC). - s/p empiric treatment with linezolid/cefe for 7 days () - appreicate transplant ID recs, now signed off Assessment & Plan (12/07/2020 6:24 PM PRACTICE PROFESSIONAL): Initially admitted for E faecalis pyelonephritis/bacteremia along with multifocal PNA, s/p 2 weeks of IV unasyn (completed 11/19). Then developed new fevers 1/4 with sxs of sepsis in setting of neutropenia (although fevers started prior to decline in WBC). - s/p empiric treatment with linezolid/cefe for 7 days () - appreicate transplant ID recs, now signed off Assessment & Plan (12/06/2020 1:51 PM PRACTICE PROFESSIONAL): Initially admitted for E faecalis pyelonephritis/bacteremia along with multifocal PNA, s/p 2 weeks of IV unasyn (completed 11/19). Then developed new fevers 1/4 with sxs of sepsis in setting of neutropenia (although fevers started prior to decline in WBC). - s/p empiric treatment with linezolid/cefe for 7 days () - appreicate transplant ID recs, now signed off Assessment & Plan (12/05/2020 6:34 PM PRACTICE PROFESSIONAL): Initially admitted for E faecalis pyelonephritis/bacteremia along with multifocal PNA, s/p 2 weeks of IV unasyn (completed 11/19). Then developed new fevers 1/4 with sxs of sepsis in setting of neutropenia (although fevers started prior to decline in WBC). - s/p empiric treatment with linezolid/cefe for 7 days () - appreicate transplant ID recs, now signed off Assessment & Plan (12/04/2020 3:11 PM PRACTICE PROFESSIONAL): Initially admitted for E faecalis pyelonephritis/bacteremia along with multifocal PNA, s/p 2 weeks of IV unasyn (completed 11/19). Then developed new fevers 1/4 with sxs of sepsis in setting of neutropenia (although fevers started prior to decline in WBC). - s/p empiric treatment with linezolid/cefe for 7 days () - appreicate transplant ID recs, now signed off Assessment & Plan (12/03/2020 9:33 PM PRACTICE PROFESSIONAL): Initially admitted for E faecalis pyelonephritis/bacteremia along with multifocal PNA, s/p 2 weeks of IV unasyn (completed 11/19). Then developed new fevers 1/4 with sxs of sepsis in setting of neutropenia (although fevers started prior to decline in WBC). - s/p empiric treatment with linezolid/cefe for 7 days () - appreicate transplant ID recs, now signed off Assessment & Plan (12/02/2020 7:30 PM PRACTICE PROFESSIONAL): Initially admitted for E faecalis pyelonephritis/bacteremia along with multifocal PNA, s/p 2 weeks of IV unasyn (completed 11/19). Then developed new fevers 1/4 with sxs of sepsis in setting of neutropenia (although fevers started prior to decline in WBC). - s/p empiric treatment with linezolid/cefe for 7 days (11/21-) - appreicate transplant ID recs, now signed off Assessment & Plan (11/28/2020 1:06 PM PRACTICE PROFESSIONAL): Initially admitted for E faecalis pyelonephritis/bacteremia along [...] off Assessment & Plan (11/24/2020 10:52 AM PRACTICE PROFESSIONAL): Initially admitted for E faecalis pyelonephritis/bacteremia along with multifocal PNA, s/p 2 weeks of IV unasyn (completed 11/19). -Then developed new fevers 1/4 with sxs of sepsis in setting of neutropenia (although fevers started prior to decline in WBC). 11/19 BCx +staph epi (/ bottles) likely contaminant. 11/21 BCx NGTD. 11/19 UCx neg. RVP neg, COVID neg x2. CXR unchanged from prior. CMV PCR neg. - Started empirically on linezolid/cefe 11/21. Currently afebrile, HDS. Will cont abx for now, CIS. If becomes febrile again in a few days, would repeat COVID testing given COVID exposure. - F/u transplant ID recs Assessment & Plan (11/23/2020 2:50 PM PRACTICE PROFESSIONAL): Initially admitted for E faecalis pyelonephritis/bacteremia along with multifocal PNA, s/p 2 weeks of IV unasyn (completed 11/19). -Then developed new fevers 1/4 with sxs of sepsis in setting of neutropenia (although fevers started prior to decline in WBC). 11/19 BCx +staph epi (1/4 bottles) likely contaminant. 11/21 BCx NGTD. 11/19 UCx neg. RVP neg, COVID neg x2. CXR unchanged from prior. CMV PCR neg. - Started empirically on linezolid/cefe 11/21. Currently afebrile, HDS. Will cont abx for now, CIS. If continues to be febrile in a few days, would repeat COVID testing given COVID exposure. - F/u transplant ID recs Assessment & Plan (11/17/2020 10:36 AM PRACTICE PROFESSIONAL): -Secondary to E faecalis pyelonephritis and bacteremia, no other sources of infection identified. Patient had comprehensive work up with LP which was negative. -Positive culture is from OSH on 11/05/20 on 2 of 2 bottles, sensitive to ampicillin and vancomycin. -Continue Unasyn, transplant ID consulted for final treatment course and duration. Assessment & Plan (11/16/2020 10:34 AM PRACTICE PROFESSIONAL): -Secondary to E faecalis pyelonephritis and bacteremia, no other sources of infection identified. Patient had comprehensive work up with LP which was negative. -Positive culture is from OSH on 11/05/20 on 2 of 2 bottles, sensitive to ampicillin and vancomycin. -Continue Unasyn, transplant ID consulted for final treatment course and duration. Assessment & Plan (11/15/2020 12:38 PM PRACTICE PROFESSIONAL): -Secondary to E faecalis pyelonephritis and bacteremia, no other sources of infection identified. Patient had comprehensive work up with LP which was negative. -Positive culture is from OSH on 11/05/20 on 2 of 2 bottles, sensitive to ampicillin and vancomycin. -Continue Unasyn, transplant ID consulted for final treatment course and duration. Assessment & Plan (11/14/2020 3:29 PM PRACTICE PROFESSIONAL): -Secondary to E faecalis pyelonephritis and bacteremia, no other sources of infection identified. Patient had comprehensive work up with LP which was negative. -Positive culture is from OSH on 11/05/20 on 2 of 2 bottles, sensitive to ampicillin and vancomycin. -Continue Unasyn, transplant ID consulted for final treatment course and duration. Assessment & Plan (11/13/2020 11:24 AM PRACTICE PROFESSIONAL): Shock resolved; source likely pyelo which was noted on CT scan performed [facility] 11/05 (uploaded to ROS[facility] with damian read), continued concern for possible meningitis in setting [...] 020 Assessment & Plan (11/12/2020 11:47 AM PRACTICE PROFESSIONAL): Unclear etiology, concern for infectious cause, or 2/2 sepsis and metabolic disturbance. Head CT (-), LP 11/06; opening pressure 20; f/u cx-NGTD -improvements now; de-escalated abx coverage Non-healing wound of lower extremity 01/19/2020 08/07/2020 Overview (01/19/2020): Added automatically from request for surgery [id number] Septicemia due to group B Streptococcus 05/01/2019 [...] PM CDT): With cultures from 03/15 positive 1/2 initial cultures. Unclear source - Repeated cultures [...] (05/04/2019 1:07 PM CDT): A: Luis Manuel Arnel Demarcus is a 63 y/o male who presented as transfer from [facility] for bacteremia. Since arriving, patient says he [...] infusion. P: - 1/2 blood cultures from [facility] prelim positive for GBS, susceptibility report put [...] Plan (05/03/2019 12:42 PM CDT): A: Luis Maunel Tracy is a 63 y/o male who presented as transfer from [facility] for bacteremia. Since arriving, patient says he [...] time. P: - 1/2 blood cultures from [facility] prelim positive for GBS, susceptibility report put [...] y/o male who presented as transfer from [facility] for bacteremia. Since arriving, patient says he has been doing well and feeling much better. He denies f/c, CP, SoB, JARQUIN, n/v/d, or other GI and symptoms. Physical exam negative for tachycardia, diaphoresis, or fevers. Blood Cx here NGTD. [facility] reported 1/2 Blood Cx positive for gram+ [...] report. P: - 1/2 blood cultures from [facility] prelim positive for GBS, susceptibility report put [...] y/o male who presented as transfer from [facility] for bacteremia. Since arriving, patient says he has been doing well and feeling much better. He denies f/c, CP, SoB, JARQUIN, n/v/d, or other GI and symptoms. Physical exam negative for tachycardia, diaphoresis, or fevers. Blood Cx here NGTD. [facility] reported 1/2 Blood Cx positive for gram+ cocci. Currently on Vancomycin and Cefepime. P: - 1/2 blood cultures from [facility] prelim positive for GPC in chains --> [...] have resolved - 1/2 blood cultures from [facility] prelim positive for GPC in chains. - [...] 11/25/2020 Assessment & Plan (11/17/2020 10:36 AM PRACTICE PROFESSIONAL): -Secondary to pneumonia and septic shock. Resolve and now on room air. Assessment & Plan (11/16/2020 10:17 AM PRACTICE PROFESSIONAL): -Secondary to pneumonia and septic shock. Resolve and now on room air. Assessment & Plan (11/15/2020 12:36 PM PRACTICE PROFESSIONAL): -Secondary to pneumonia and septic shock. Resolve and now on room air. Assessment & Plan (11/14/2020 3:03 PM PRACTICE PROFESSIONAL): -Secondary to pneumonia and septic shock. Resolve and now on room air. Assessment & Plan (11/13/2020 2:24 PM PRACTICE PROFESSIONAL): 2/2 PNA/lung abscess. Intubated for mental status [...] broad spectrum coverage. CrCl 65 (vanc trough 03/16 11:30 AM; rec'd dose at osh ED) [...] of right foot 06/02/2016 08/07/2020 Atherosclerosis of [place] apache artery of extremity 06/10/20 15 11/14/2020 Hyperlipidemia 03/08/2015 11/14/2020 Assessment & Plan (11/08/2020 3:51 PM PRACTICE PROFESSIONAL): Hx HLD -holding pravastatin Assessment & Plan (03/18/2019 12:36 PM CDT): Continue home statin Assessment & Plan (03/15/2019 6:14 AM CDT): Cont home statin. Arteriosclerosis of artery of extremity 03/31/2013 11/14/2020 Encounters Date Type Department Care Team Description 07/23/20 7:00 AM CDT - 07/23/20 7:45 AM CDT Surgery [facility] GI Lab [address] [place] [address] Fernando Rodarte MD CAPSULE ENDOSCOPY SMALL BOWEL EXAM 07/23/20 6:54 AM CDT - 07/23/20 4:07 PM CDT Hospital Encounter [facility] GI Lab [address] [place] [address] Fernando Rodaret MD Discharge Disposition: Discharge to home or self care 07/17/20 Orders Only [facility] Gastroenterology at [place] [address] [facility] [address] [place] [address] Fernando Rodarte MD 07/02/20 Telephone [facility] Transplant Liver [address] [facility] [address] [phone] [place] [address] Melania Hall RN Medication 07/02/20 25 Telephone [facility] Transplant Liver [address] [facility] [address] Mail[address] [phone] [place] [address] Leeanne Flores 06/26/20 25 Results Follow-Up [facility] Gastroenterology at [address] [place] [address] Fernando Rodarte MD Pancreatic elastase, stool 06/25/20 25 Orders Only [facility] Gastroenterology at [address] [place] [address] Fernando Rodarte MD Anemia, unspecified type (Primary Dx) 06/21/[address] [facility] [place] Endocrinology Metabolism and Lipid [address] [facility] 13th [place] [address] [place] [address] May Cadena, DIAN dexcom 06/20/20 25 Orders Only [facility] Gastroenterology at [address] [place] [phone] Fernando Rodarte MD Anemia, unspecified type (Primary Dx) 06/15/20 25 9:55 AM CDT Lab [facility] Lab [address] [place] [address] Diarrhea, unspecified type 06/14/20 25 10:00 AM CDT Lab [facility] Lab [address] [place] [address] Diarrhea, unspecified type 06/14/20 25 Orders Only [facility] Gastroenterology at [address] [place] [address] Fernando Rodarte MD Diarrhea, unspecified type (Primary Dx) 06/10/20 25 Results Follow-Up [facility] Gastroenterology at [address] [place] [address] Fernando Rodarte MD Surgical pathology 06/07/[address] [facility] [place] Endocrinology Metabolism and Lipid [address] [facility] 5th [place] [address] [place] [address] Radha Nelson RMA Prior Auth 06/05/20 2:00 PM CDT Office Visit [facility] [place] Vascular Surgery [address] [facility] Medical Office Building [address] [place] [address] Roger Osullivan MD Aftercare following surgery of the circulatory system (Primary Dx) 06/05/20 1:00 PM CDT Ancillary Procedure [facility] Vascular Lab Vascular Surgery [address] [facility] [address] [place], [place] [id number] Venous insufficiency; Atheroscler of [place] apache artery of both legs with intermit claudication; Encounter for surgical aftercare following surgery on the circulatory system 06/01/20 9:40 AM CDT Office Visit [facility] [place] Endocrinology Metabolism and Lipid [address] [facility] [address], [address] [place] [phone] Madelyn Gonzalez MD Type 2 diabetes mellitus with stage 3b chronic kidney disease, with long-term current use of insulin (HCC) (Primary Dx) 05/31/20 Results Follow-Up [facility] Gastroenterology at [address] [place] [phone] Fernando Rodarte MD Comprehensive metabolic panel, CBC without differential, CRP (acute phase), Additional followed-up results: 6 05/29/20 8:58 AM CDT Anesthesia Event [facility] GI Lab [address] [place] [address] Carlos Zafar MD Nicholson, Elizabeth Lee, YVONNE 05/29/20 8:00 AM CDT - 05/29/20 8:30 AM CDT Surgery [facility] GI Lab [address] [place] [address] Fernando Rodarte MD ESOPHAGOGASTRODUODENOSCOPY BIOPSY 05/29/20 7:05 AM CDT - 05/29/20 10:30 AM CDT Hospital Encounter [facility] GI Lab [address] [place] [address], [place] [address] Fernando Rodarte MD Diarrhea, unspecified type Discharge Disposition: Discharge to home or self care 05/29/20 Orders Only [facility] Medicine Surgery [address] [place] [address] Raymundo Nagy NP FH: kidney cancer (Primary Dx) 05/25/20 1:41 PM CDT - 05/25/20 11:59 PM CDT Hospital Encounter [facility] Lab [address] [place] [address] Discharge Disposition: Discharge to home or self care 05/23/20 1:40 PM CDT - 05/23/20 11:59 PM CDT Hospital Encounter [facility] Lab [address] [place] [address] Discharge Disposition: Discharge to home or self care 05/23/[address] [facility] [place] Surgery [address] [place] [address] 8th [place] [address] [place] [address] Roger Osullivan MD Venous insufficiency (Primary Dx); Atheroscler of [place] artery of both legs with intermit claudication; Encounter for surgical aftercare following surgery on the circulatory system 05/23/20 Results Follow-Up [facility] Surgeon [address] [place] [address] Roger Osullivan MD CTA Abdominal Aorta And Bilateral Iliofemoral Runoff 05/22/[address] [facility] [place] Endocrinology Metabolism and Lipid [address] [place] [address] 5th [place] [address] [place] [address] Madelyn Gonzalez MD 05/17/20 4:00 PM CDT - 05/17/20 11:59 PM CDT Hospital Encounter [facility] CT [address] [place] [address] Encounter for surgical aftercare following surgery on the circulatory system; PVD (peripheral vascular disease) Discharge Disposition: Discharge to home or self care 05/17/20 12:25 PM CDT Lab [facility] Lab [address] [place] [address] Diarrhea, unspecified type 05/17/20 11:00 AM CDT Office Visit [facility] Gastroenterology at [address] [place] [address] Fernando Rodarte MD Diarrhea, unspecified type (Primary Dx) 05/09/20 25 Telephone [facility] Medicine Surgery [address] [facility] Floor 1 [place] [address] Roger Osullivan MD 05/07/[address] [facility] [place] Endocrinology Metabolism and Lipid [address] [facility] 13th [place] [address] [place] [address] from Last 3 Months Immunizations Immunization Administration Dates Next Due Influenza, Quad, Adjuvantate d, Intramuscular 08/20/2021 Influenza, Quadrivalent, Hig h Dose, Preservative Free, Intrr 08/17/2023,09/01/2022,09/11/2020,08/25,09/08/2018 Influenza, Quadrivalent, Spl it, Preservative Free, Intramuscular 09/07/2016 Influenza, Trivalent, High D ose, Split, Preservative Free, Intramuscular 09/11/2020,08/25/2019,09/08/2018 Influenza, Trivalent, IM (MDV) 09/18/2012 Influenza, Trivalent, Preser vative Free, Intramuscular 09/15/2017,08/21/2015,08/29/2014,09/19 Influenza, Unspecified 07/27/2024,08/17/2023,02/2020 Imalogix Sars-Cov-2 Bivalent V accination (12+ YRS) 09/01/2022 Pneumococcal Conjugate PCV 13 06/22/2019, 015 Pneumococcal Polysaccharide PPV23 04/29/2023, Tdap 07/02/2021 Surgical History Surgery Date Site/Laterality Comments BIOPSY LIVER 12/02/2012 N/A FEMORAL BYPASS 01/20/2017 Left left femoral to above the knee popliteal bypass with vein CENTRAL LINE PLACEMENT > 5 YEARS 03/20/2019 N/A CENTRAL LINE PLACEMENT > 5 YEARS 05/03/2019 N/A CENTRAL LINE PLACEMENT > 5 YEARS 10/03/2019 N/A LIVER TRANSPLANT 11/15/2012 - 11/14/2013 KIDNEY TRANSPLANT 11/15/2012 - 11/14/2013 ESOPHAGOGASTRODUODENOSCOPY COLONOSCOPY RETINAL DETACHMENT SURGERY Left ANGIOPLASTY Left LLE TOE AMPUTATION 04/11/2020 Right Right 5th toe CATARACT EXTRACTION W/ INTRA OCULAR LENS IMPLANT Bilateral SKIN CANCER EXCISION x2- nose and right arm FOOT SURGERY 04/26/2018 Resection of 2nd metatarsal head, right foot CRYOABLATION RENAL LEFT 10/18/2020 Left TUNNELED LINE PLACEMENT > 5 YEARS 11/26/2020 N/A REMOVE TUNNELED LINE 12/04/2020 Left VASECTOMY COLON SURGERY APPENDECTOMY CHOLECYSTECTOMY UPPER GASTROINTESTINAL ENDOSCOPY Medical History Medical History Date Comments Non-pressure chronic ulcer o f unspecified heel and midfoot with unspecified severity (HCC) Ulcer of heel - (Added by T W Conv) Peripheral artery disease Hypertension History of liver transplant (HCC) 2012 Alcohol dependence in remission (HCC) Diabetic neuropathy (HCC) Diabetic retinopathy (HCC) Hyperlipidemia Osteomyelitis 4th toe OM CKD (chronic kidney disease) stage 3, GFR 30-59 ml/min (HCC) Former smoker Sleep apnea Liver cancer (HCC) s/p liver tra nsplant Aortic aneurysm 12/2018 History of transfusion Pneumothorax 2009 spontaneous Osteomyelitis of fifth toe o f right foot (HCC) 06/02/2016 Acute hypoxemic respiratory failure (HCC) 03/16/2019 Sepsis (HCC) 03/16/2019 Septicemia due to group B Streptococcus 05/01/20 19 Metabolic acidosis 11/07/2020 Anemia 11/23/2020 Type 2 diabetes mellitus Cancer of ascending colon (HCC) 04/27/2024 Diabetes mellitus type I (HCC) Insulin pump in place Uses self-applied continuous glucose monitoring device Colon polyp Colon cancer (HCC) Family History Medical History Relation Name Comments Diabetes Brother 1 Diabetes Mellit us - (Added by TW Conv) Cancer Brother 2 Diabetes Brother 2 Transient ischemic attack Brother 2 Tr ansient Ischemic Attack - (Added by TW Conv) Heart attack Father Acute Myocardia l Infarction - age 67 (Added by TW Conv)/Acute Myocardial Infarction - age 44 (Added by TW Conv) Heart attack Mother Acute Myocardia l Infarction - age 44 (Added by TW Conv) Anesthesia problems Neg Hx Relation Name Status Comments Brother 1 Brother 2 Father (Age 76) Mother (Age 44) Social History Tobacco Use Types Packs/Day Years [...] on file Legal Sex Male 1:13 AM PRACTICE PROFESSIONAL Gender Identity Not on file Sexual Orientation Straight 05/24/2019 8: 40 AM CDT Occupation Industry Job Start Date Job End Date Retired Not on file Not on file Not on file Obstetrics History Last Filed Vital Signs Vital Sign Reading [...] Mass Index 26.54 06/05/2025 2:28 PM CDT Plan of Treatment Health Maintenance Due Date Last Done Comments Depression Screening 1955 Foot Exam 1955 Dilated Eye Exam 1963 Hepatitis B Screening 1971 Well Visit 65+ 2018 Albumin Creatinine Ratio, Urine 12/20/2024 Covid-19 Vaccine (2024-2 6 season) 2025 09/01/2022, 09/18/2021, 04/10/2021, Additional history exists Influenza Vaccine (#1) 2025 , 08/17/2023, 08/17/2023, Additional history exists Hemoglobin A1C 12/02/2025 06/01/2025, 04/1 03/2025, 12/20/2023, Additional history exists Lipid Panel 05/08/2026 05/08/2025, 12/2023, 12/20/2023, Additional history exists TSH Level 05/17/2026 05/17/2025, 0 03/2024, 11/06/2020 eGFR 05/17/2026 05/17/2025, 04/16, 04/26/2025, Additional history exists Fall Risk Assessment 05/29/2026 05/29/2025 DTaP/Tdap/Td Vaccine (2 - Td or Tdap) 07/02/2031 07/02/2021 Colon Cancer Screening-Colonoscopy 05/29/2035 05/29/2025, 03/01/2025, 08/07/2024, Additional history exists Hepatitis C Screening Completed 11/26/2020 , 05/02/2014, 07/24/2013, Additional history exists Pneumococcal vaccine 65+ Completed 023, 06/22/2019, 09/09/2016, Additional history exists Prostate Cancer Screening-PSA Discontinued 12/20/2023 Zoster Vaccine Completed 05/29/2024, 12/11/2023 Abdominal Aortic Aneurysm (A AA) Screen Completed 05/17/2025, 04/12/2025, 01/25/2025, Additional history exists Colon Cancer Screening-CT Colonography Discontinued 05/29/2025, 03/01/2025, 08/07/2024, Additional history exists Colon Cancer Screening-DNA Stool Discontinued 05/29/2025, 03/01/2025, 08/07/2024, Additional history exists Colon Cancer Screening-FIT Discontinued 05/29, 03/01/2025, 08/07/2024, Additional history exists Colon Cancer Screening-Sigmoidoscopy Discontinued 05/29/2025, 03/01/2025, 08/07/2024, Additional history exists Goals Goal Patient Goal Type Associated Problems Recent Progress Patient-Stated? Author Colorectal Pre-Surgical Steps Care Plan Colorectal Pre-Surgical Plan No Arin Cook RN Medical Devices Implanted Type Area Waitress Device Identifier Shelf Expiration Date Model / Serial / Lot Medtronic Ra Lead /6/202 3 Implanted:2022 by Peter Arevalo MD (Quantity not on file) Lead Heart Medtronic Cardiac Rhythm Mgmt 5076-52 / [id number] / Medtronic Rv Lead /6/202 3 Implanted:2022 by Peter Arevalo MD (Quantity not on file) Lead Heart Medtronic Cardiac Rhythm Mgmt 3830-69 / [id number] / Medtronic Pm [id number]/6/2023 Implanted:2022 by Peter Arevalo MD (Quantity not on file) Pacemaker Chest Wall Medtronic Cardiac Rhythm Mgmt [id number] / [id number] / Powerline Polyurethane Catheter With Surecuff Implanted:Qty: 1 on 04/09/2023 by Emeka Marinelli MD at [facility] Right: Neck [employer] 02/12/2027 [id number] / [id number] Procedures Procedure Name Priority Date/Time Associated Diagnosis [...] 1:42 PM CDT Venous insufficiency Atheroscler of [place] artery of both legs with intermit claudication Encounter for surgical aftercare following surgery on the circulatory system US ARTERIAL DOPPLER LOWER EXTREMITY BILATERAL Schedule Routine, Read Routine (OP Routine) 06/05/2025 1:42 PM CDT Venous insufficiency Atheroscler of [place] artery of both legs with intermit claudication [...] HEPATITIS C ANTIBODY Routine 11/26/2020 5:17 AM PRACTICE PROFESSIONAL from Last 3 Months or Most Recently Relevant to Health Maintenance Results * POCT glucose (07/23/2025 7:16 AM CDT) Glucose, POC 176 70 - 199 mg/dL Blood 07/23/2025 7:16 AM CDT 07/23/2025 7:16 AM CDT Fernando Rodarte MD LAB POCT ORDERABLES - DEV ICE Final Result Performing Organization Address [facility] de Phone Number [facility] [address] [address] * (ABNORMAL) Pancreatic elastase, stool (06/15/2025 9:44 AM CDT) Pathologist [facility] Pancreatic elastase, stool 191(L) >200 (Normal) mcg/g [facility] ref Lab Comment: Interpretation: Borderline (100-200 mcg/g); Consistent with slight to moderate pancreatic insufficiency Test Performed by: [place] [id number] Blow Torch Operator: Anuradha Meyers Ph.D.; [place]# [id number] Stool 06/15/2025 9:44 AM CDT 06/15/2025 9:46 AM CDT Fernando Rodarte MD LAB BODY FLUIDS AND STOOL S ORDERABLES Final Result Performing Organization Address [facility] de Phone Number [facility] [address] [address] [facility] Lab * C. difficile testing Stool (06/14/2025 8:00 AM CDT) [facility] C. diff result Negative, DNA Negative , [...] L ORDERABLES Final Result Performing Organization Address [facility]/State/ZIP Co de Phone Number [place] [id number] [facility] [place] [address] * Cryptosporidium and Giardia antigen assay Stool (06/14/2025 8:00 AM CDT) Giardia Ag Negative Negative Comment:Testing performed by : [facility], [address] [place] [address]., [id number] Cryptosporidium Ag Negative Negative [facility] Comment: Interpretive data: Testing performed by the [facility] using an immunoassay that detects Cryptosporidium and Giardia antigens in stool specimens. If comprehensive examination for ova and parasites is required, please request Ova and Parasite Examination. Testing performed by: [facility], [address] [place] [address]., [address] Stool 06/14/2025 8:00 AM CDT 06/14/2025 3:55 PM CDT Fernando Rodarte MD LAB MICROBIOLOGY - GENERA L ORDERABLES Final Result [place] [id number] [facility] [place] [address] * Stool culture Stool Rectum (06/14/2025 8:00 AM CDT) Direct Specimen Exam Shiga Toxin Testing: Antigen detection assay for Shiga-toxin NEGATIVE for Shiga Toxin 1 and Shiga Toxin 2. Comment:Testing performed by : [facility], [address] [place] [address], [place]., [id number] Report Final Report: No growth of enteric bacterial pathogens [facility] Comment:Testing performed by : [address] [address] Stool (Rectum) 06/14/2025 8: 00 AM CDT 06/14/2025 3:54 PM CDT Narrative [facility] - 06/18/2025 11:37 AM CDT Specimen received in a sterile container. Testing performed by [facility] ([phone]). Routine stool cultures include procedures to detect Salmonella, Shigella, Edwardsiella, Aeromonas, Pleisiomonas, Campylobacter, Yersinia, E. coli O157, and Shiga-like toxins. Vibrio is cultured only upon special request. If Vibrio is suspected, please call the laboratory at [phone]. Interpretive data was last updated March 22, 2017. us Fernando Rodarte MD LAB MICROBIOLOGY - GENERA L ORDERABLES Final Result [facility] [address] [facility] Department [place] [address] * US Arterial Duplex Lower Extremity Right Limited (06/05/2025 1:42 PM CDT) Anatomical Region Laterality Modality Vascular Right Ultrasound 06/05/2025 12:4 5 PM CDT Narrative 06/06/2025 9:10 AM CDT [facility] - Department of Vascular Surgery, Vascular Laboratory [address] [place] [address] [place] Lower Extremity Arterial Duplex Report Patient Name: LUIS MANUEL TRACY : 1955 Study Date: 06/05/2025 12:45:00 PM Gender: M Tech: BAD [facility] Provider: ROGER OSULLIVAN Quality: Adequate Order Provider: ROGER OSULLIVAN PROCEDURES: Arterial Report: Right Lower Extremity Arterial Duplex Exam. INDICATIONS: I87.2 Venous insufficiency (chronic) (peripheral), I70.213 Atherosclerosis of [place] apache arteries of extremities with intermittent claudication, bilateral legs, and Z48.812 Encounter for surgical aftercare following surgery on the circulatory system. MEASUREMENTS: Right Value Units Rt INSEAMER Dst PSV 62 cm/s Rt Profunda Dst PSV 170 cm/s Rt Superficial Femoral Prx PSV 121 cm/s Rt Superficial Femoral Mid PSV 85 cm/s Rt Superficial Femoral Dst PSV 51 cm/s Rt Pop Prx PSV 42 cm/s Rt Post Tibial Mid PSV 51 cm/s Rt Ant Tibial Mid PSV 111 cm/s Rt Peroneal Mid PSV 68 cm/s Right Value Units FINDINGS: Performing Plant Operations Manager: Natalya Moya RVT. Right Common Femoral: The [...] Duplex imaging of the right lower extremity [place] arteries reveals patent vessels with no flow [...] above. Electronically Signed By: Roger Osullivan MD [facility] [phone] 06/06/2025 9:09:44 AM CDT Procedure Note Roger Osullivan MD - 06/06/2025 [facility] - Department of Vascular Surgery,Vascular Laboratory [address] [place] [address] [place] Lower Extremity Arterial Duplex Report Patient Name: LUIS MANUEL TRACY : 1955 Study Date: 06/05/2025 12:45:00 PM Gender: M Tech: BAD [facility] Provider: ROGER OSULLIVAN Quality: Adequate Order Provider: ROGER OSULLIVAN PROCEDURES: Arterial Report: Right Lower Extremity Arterial Duplex Exam. INDICATIONS: I87.2 Venous insufficiency (chronic) (peripheral), I70.213 Atherosclerosisof [place] arteries of extremities with intermittent claudication, bilateral legs,and Z48.812 Encounter for surgical aftercare following surgery on the circulatorysystem. MEASUREMENTS: Right Value Units Rt INSEAMER Dst PSV 62 cm/s Rt Profunda Dst PSV 170 cm/s Rt Superficial Femoral Prx PSV 121 cm/s Rt Superficial Femoral Mid PSV 85 cm/s Rt Superficial Femoral Dst PSV 51 cm/s Rt Pop Prx PSV 42 cm/s Rt Post Tibial Mid PSV 51 cm/s Rt Ant Tibial Mid PSV 111 cm/s Rt Peroneal Mid PSV 68 cm/s Right Value Units FINDINGS: Performing Plant Operations Manager: Natalya Moya RVT. Right Common Femoral: The [...] Duplex imaging of the right lower extremity [place] arteries revealspatent vessels with no flow limiting [...] above. Electronically Signed By: Roger Osullivan MD [facility] [phone] 06/06/2025 9:09:44 AM CDT us Roger Osullivan MD IMG US PROCEDURES Final Result * US Arterial Doppler Lower Extremity Bilateral (06/05/2025 1:42 PM CDT) Anatomical Region Laterality Modality Vascular Bilateral Ultrasound 06/05/2025 12:4 8 PM CDT Narrative 06/06/2025 9:11 AM CDT [facility] - Department of Vascular Surgery, Vascular Laboratory [address] [place] [id number] Lower Extremity Arterial Doppler Report Patient Name: LUIS MANUEL TRACY : 1955 Study Date: 06/05/2025 12:48:00 PM Gender: M Tech: Natalya Moya RVT [facility] Provider: ROGER OSULLIVNA Quality: Adequate Order Provider: ROGER OSULLIVAN PROCEDURES: Arterial Report: Bilateral lower extremity arterial Doppler exam at rest. INDICATIONS: I87.2 Venous insufficiency (chronic) (peripheral), I70.213 Atherosclerosis of [place] arteries of extremities with intermittent claudication, bilateral legs, and Z48.812 Encounter for surgical aftercare following surgery on the circulatory system. MEASUREMENTS: Right Value Units Left Value Units Rt Brachial Pressure 183 mmHg Lt Brachial Pressure 178 mmHg Rt KNITTING DEMONSTRATOR Pressure 196 mmHg Lt KNITTING DEMONSTRATOR Pressure 149 mmHg Rt DPA Pressure 184 mmHg Lt DPA Pressure 241 mmHg Rt 1st Digit Pressure 94 mmHg Lt 1st Digit Pressure 94 mmHg Rt PT DEXTER Resting 1.07 Lt PT DEXTER Resting 0.81 Rt AT DEXTER Resting 1.01 Lt AT DEXTER Resting 1.32 Rt Digit/Arm Index 0.51 Lt Digit/Arm Index 0.51 Right Value Units Left Value Units FINDINGS: Performing Plant Operations Manager: Natalya Moya RVT. Right All Levels: The [...] leg angiogram 5 mm cutting balloon Angiosculpt KNITTING DEMONSTRATOR of bypass graft. 06/22/17 Lt Fem to [...] above. Electronically Signed By: Roger Osullivan MD [facility] [phone] 06/06/2025 9:10:29 AM CDT Procedure Note Roger Osullivan MD - 06/06/2025 [facility] - Department of Vascular Surgery,Vascular Laboratory [address] [place] [address] Lower Extremity Arterial Doppler Report Patient Name: LUIS MANUEL TRACY : 1955 Study Date: 06/05/2025 12:48:00 PM Gender: M Tech: Natalya Moya RVT [facility] Provider: ROGER OSULLIVAN Quality: Adequate Order Provider: ROGER OSULLIVAN PROCEDURES: Arterial Report: Bilateral lower extremity arterial Doppler exam at rest. INDICATIONS: I87.2 Venous insufficiency (chronic) (peripheral), I70.213 Atherosclerosisof [place] arteries of extremities with intermittent claudication, bilateral legs,and Z48.812 Encounter for surgical aftercare following surgery on the circulatorysystem. MEASUREMENTS: Right Value Units Left Value Units Rt Brachial Pressure 183 mmHg Lt Brachial Pressure 178 mmHg Rt KNITTING DEMONSTRATOR Pressure 196 mmHg Lt KNITTING DEMONSTRATOR Pressure 149 mmHg Rt DPA Pressure 184 mmHg Lt DPA Pressure 241 mmHg Rt 1st Digit Pressure 94 mmHg Lt 1st Digit Pressure 94 mmHg Rt PT DEXTER Resting 1.07 Lt PT DEXTER Resting 0.81 Rt AT DEXTER Resting 1.01 Lt AT DEXTER Resting 1.32 Rt Digit/Arm Index 0.51 Lt Digit/Arm Index 0.51 Right Value Units Left Value Units FINDINGS: Performing Plant Operations Manager: Natalya Moya RVT. Right All Levels: The [...] above. Electronically Signed By: Roger Osullivan MD [facility] [phone] 06/06/2025 9:10:29 AM CDT us Roger Osullivan MD IM US PROCEDURES Final Result * POCT hemoglobin [...] POCT ORDERABLES - DEV ICE Final Result [facility] [address] Department of Laboratories [place] [id number] * Surgical pathology (05/29/2025 9:04 AM CDT) Tissue (Duodenum, Biopsy) 05/29/2025 9:04 AM CDT Tissue specimen (specimen) (Gastric/Stomach biopsy) 05/29/2025 9:05 AM CDT Tissue specimen (specimen) (Colon, Biopsy) 05/29/2025 9:21 AM CD[address] PATH[address] [facility] - 05/30/2025 3:30 PM CDT [facility] Department of Pathology [address] [place] [address] Note to Patients: This report may contain [...] : 1955 (Age: 69) Gender: M Address: [address] [place] [address] Hospital #: [id number] Service: Gastro Location: Patient Type: [facility] OUTPATIENT Taken: 05/29/2025 Received: 05/29/2025 Accessioned: [...] examination is performed. Microscopic examination is performed. [place] [address] Distribution Clinical History: The patient is a [...] interpretation for this case was performed at [facility], Department of Surgical Pathology, [address] [facility] [place], [place] [id number], [place] [address] CLIA # [id number] us Fernando Rodarte MD LAB PATHOLOGY ORDERABLES Final Result PATHOLOGY [facility] * EGD (05/29/2025 8:55 AM CDT) Anatomical Region Laterality Modality Other Narrative Procedure Note Fernando Rodarte MD - 05/29/2025 8:55 AM CDT [facility] GI ENDOSCOPY Patient Name: Luis Manuel Tracy Procedure Date: 05/29/2025 8:55 AM Date of : 1955 Admit Type: Outpatient Age: 69 Gender: Male Attending MD: Fernando Rodarte M.D., Room: [facility] ENDOSCOPY ROOM 04 Note Status: Finalized Procedure: [...] On: 05/29/2025 8:55 AM Recognized by the [place] [employer] for Gastrointestinal Endoscopy for promoting quality in endoscopy us Fernando Rodarte MD ENDOSCOPY PROCEDURES Taya l Result * Colonoscopy (05/29/2025 8:55 AM CDT) Anatomical Region Laterality Modality Other Narrative Procedure Note Fernando Rodarte MD - 05/29/2025 8:55 AM CDT [facility] GI ENDOSCOPY Patient Name: Luis Manuel Tracy Procedure Date: 05/29/2025 8:55 AM Date of : 1955 Admit Type: Outpatient Age: 69 Gender: Male Attending MD: Fernando Rodarte M.D., Room: [facility] ENDOSCOPY ROOM 04 Note Status: Finalized Procedure: [...] The scope was passed under direct vision.The [id number] colonoscope was introduced through theanus and advanced [...] On: 05/29/2025 8:55 AM Recognized by the [employer] [place] [employer] for Gastrointestinal Endoscopy for promoting quality in endoscopy Fernando Rodarte MD ENDOSCOPY PROCEDURES Taya l Result * (ABNORMAL) POC Blood Gas and Chemistries, Venous - (05/29/2025 7:42 AM CDT) Pathologist [facility] pH,michael POC 7.35 7.32 - 7.43 pCO2, michael POC 49 40 - 50 mmHg [facility] pO2,michael POC 28 mmHg [facility] Comment: Interpretive Data No reference range established. Current interpretive data was last revised 2020. HCO3, michael (Calc) POC 27 20 - 30 mmol/L [facility] Base excess, michael POC 1 mmol/L [facility] Comment: Interpretive Data No reference range established. Current interpretive data was last revised 2020. Hemoglobin, michael POC 11.2(L) 13.0 - 17.5 g/dL [facility] Hematocrit, michael POC 33.0(L) 38.9 - 50.3 % [facility] Sodium, michael POC 145 135 - 145 mmol/L [facility] Potassium, michael POC 3.4 3.3 - 4.9 mmol/L [facility] Comment: Interpretive Data This method is not able to assess for hemolysis, which may falsely increase potassium concentrations. If further testing is needed to evaluate this result, consider in-laboratory plasma potassium. Current Interpretive Data was last revised on 2022. Glucose, michael POC 64(L) 70 - 199 mg/dL [facility] Ionized Calcium, michael POC 4.80 4.50 - 5.10 mg/dL [facility] Blood 05/29/2025 7:42 AM CDT 05/29/2025 7:42 AM CDT Fernando Rodarte MD LAB POCT ORDERABLES - DEV ICE Final Result [facility] [address] [facility] Department [place] [address] * (ABNORMAL) C-peptide (05/22/2025 11:53 AM CDT) [facility] C-Peptide, Serum 0.8(L) 1.1 - 4.4 ng/mL [facility] - 01 Comment:C-Peptide reference interval is for fasting patients. 05/22/2025 11:5 3 AM CDT 05/22/2025 Narrative [facility] - 05/23/2025 9:10 AM CDT Performed at: - [address] [id number] Blow Torch Operator: Jacob Cho PhD, Phone: [phone] us Madelyn Gonzalez MD LAB BLOOD ORDERABLES Final Re sult [facility] - * CTA Abdominal Aorta And Bilateral Iliofemoral [...] Johnny Dennis M.D. RB T: Report ID: [id number] Reading Location: [id number] Procedure Note Johnny Dennis MD - 05/23/2025 [...] 8:36 AM - Electronically signed by Johnny PAIGE T: Report ID: [id number] Reading Location: [place] [address] Roger Osullivan MD IM CT PROCEDURES Final Result * (ABNORMAL) eGFR [...] of Race in Diagnosing Kidney Disease, JASN 2020). The CKD-EPI equation should not be used for patients with unstable renal function and has not been validated in children and those over 70. Current interpretive data was last reviewed 2021. Blood 05/17/2025 12:4 2 PM CDT 05/17/2025 12:54 PM CDT Fernando Rodarte MD LAB BLOOD ORDERABLES Taya l Result Performing Organization Address City/[facility] Co de Phone Number [facility] [employer] [facility] [place] [address] * Tissue transglutaminase IgA (TGG-IgA Ab) (05/17/2025 12:42 PM CDT) TTG ab, IgA <0.5 <=14.9 units/mL Comment: Interpretive data Negative: <15 units/mL Positive: > or equal to 15 units/mL Current interpretive data was last revised on 2017. Testing performed by: [facility], [address] [facility], [place]., [address] Blood 05/17/2025 12:4 2 PM CDT 05/17/2025 3:33 PM CDT Fernando Rodarte MD LAB BLOOD ORDERABLES Taya l Result [place] [address] [place] [address] * (ABNORMAL) CBC without differential (05/17/2025 12:42 PM CDT) [facility] WBC 8.14 3.80 - 9.90 K/cumm Hgb 10.7(L) 13.0 - 17.5 g/dL [facility] Hct 34.0(L) 38.9 - 50.3 % [facility] Plt 190 150 - 400 K/cumm [facility] MPV 11.1 9.1 - 12.3 fL [facility] RBC 3.96(L) 4.30 - 5.80 M/cumm [facility] MCV 85.9 81.3 - 96.4 fL [facility] MCH 27.0(L) 27.1 - 33.3 pg [facility] MCHC 31.5(L) 32.3 - 35.7 g/dL [facility] RDW CV 15.4(H) 11.1 - 14.9 % [facility] RDW SD 48.3(H) 35.7 - 48.1 fL [facility] NRBC abs 0.00 0.00 - 0.01 K/cumm [facility] Blood 05/17/2025 12:4 2 PM CDT 05/17/2025 12:54 PM CDT Fernando Rodarte MD LAB BLOOD ORDERABLES Taya l Result Performing Organization Address [facility] Co de Phone Number [address] [address] * CRP (acute phase) (05/17/2025 12:42 PM CDT) [facility] CRP 5.0 <=10.0 mg/L Blood 05/17/2025 12:4 2 PM CDT 05/17/2025 12:54 PM CDT Fernando Rodarte MD LAB BLOOD ORDERABLES Taya l Result Performing Organization Address [facility] Co de Phone Number [address] [address] * TSH (05/17/2025 12:42 PM CDT) Pathologist [facility] Thyroid Stimulating Hormone 0.87 0.30 - 4.20 mcIUnit/mL Blood 05/17/2025 12:4 2 PM CDT 05/17/2025 12:54 PM CDT us Fernando Rodarte MD LAB BLOOD ORDERABLES Taya lilliam Result [facility] [address] [facility] Department [place] [address] * (ABNORMAL) Comprehensive metabolic panel (05/17/2025 12:42 PM CDT) Pathologist [facility] Sodium 141 135 - 145 mmol/L Potassium, pl 4.4 3.3 - 4.9 mmol/L [facility] Chloride 112(H) 97 - 110 mmol/L [facility] CO2 19(L) 22 - 32 mmol/L [facility] Anion gap 10 2 - 15 mmol/L [facility] BUN 51(H) 6 - 25 mg/dL [facility] Creatinine 1.82(H) 0.80 - 1.30 mg/dL [facility] Glucose 105 70 - 199 mg/dL [facility] Comment: Interpretive Data Fasting glucose >/= 126 [...] classification and Diagnosis of Diabetes Diabetes Care 202; 46: S19-S40. Current interpretive data was last revised 2022. Calcium 9.1 8.5 - 10.3 mg/dL [facility] Bilirubin, total 0.4 0.1 - 1.2 mg/dL [facility] Protein, pl 6.9 6.5 - 8.5 g/dL [facility] Albumin 4.2 3.5 - 5.0 g/dL [facility] Alk phos 87 40 - 130 Units/L [facility] ALT 15 7 - 55 Units/L [facility] AST 22 10 - 50 Units/L [facility] Blood 05/17/2025 12:4 2 PM CDT 05/17/2025 12:54 PM CDT us Fernando Rodarte MD LAB BLOOD ORDERABLES Taya l Result [facility] [address] [facility] Department [place] [address] * Iron profile w/ IBC (05/08/2025 11:35 AM CDT) Pathologist [facility] Iron Bind.Cap.(TIBC) 259 250 - 450 ug/dL [facility] - 01 UIBC 214 111 - 343 ug/dL [facility] - 01 Iron 45 38 - 169 ug/dL [facility] - 01 Iron saturation 17 15 - 55 % [facility] - 01 Blood 05/08/2025 11:3 5 AM CDT 05/08/2025 Narrative [facility] - 05/09/2025 11:36 AM CDT Performed at: 01 - [address] [id number] Blow Torch Operator: Jacob Cho PhD, Phone: [phone] Nakul Hinojosa MD LAB BLOOD ORDERABLES Final Result [facility] - 01 * (ABNORMAL) CBC with auto differential (05/08/2025 11:35 AM CDT) Pathologist [facility] WBC 5.4 3.4 - 10.8 x10E3/uL [facility] [...] - 05/09/2025 8:11 AM CDT Performed at: [facility] [id number] Blow Torch Operator: Jacob Cho PhD, Phone: [phone] Nakul Hinojosa MD LAB BLOOD ORDERABLES Final Result [facility] - 01 * Ferritin (05/08/2025 11:35 AM CDT) [facility] Ferritin 126 30 - 400 ng/mL [facility] - 01 Blood 05/08/2025 11:3 5 AM CDT 05/08/2025 Narrative [facility] - 05/09/2025 11:36 AM CDT Performed at: [address] [place] [id number] Blow Torch Operator: Jacob Cho PhD, Phone: [phone] Nakul Hinojosa MD LAB BLOOD ORDERABLES Final Result Performing Organization Address [facility] de Phone Number [facility] - * CEA (05/08/2025 11:35 AM [...] - 05/09/2025 11:36 AM CDT Performed at: [address] [id number] Blow Torch Operator: Jacob Cho PhD, Phone: [phone] Nakul Hinojosa MD LAB BLOOD ORDERABLES Final Result Performing Organization Address [facility] de Phone Number [facility] - * (ABNORMAL) Lipid panel (05/08/2025 [...] - 05/09/2025 3:10 PM CDT Performed at: - [address] [id number] Blow Torch Operator: Jacob Cho PhD, Phone: [phone] us Madelyn Gonzalez MD LAB BLOOD ORDERABLES Final Re sult [facility] - 01 * (ABNORMAL) Comprehensive metabolic panel (05/08/2025 11:35 AM CDT) [facility] Glucose 89 70 - 99 mg/dL [facility] [...] - 05/09/2025 11:36 AM CDT Performed at: [address] [id number] Blow Torch Operator: Jacob Cho PhD, Phone: [phone] Nakul Hinojosa MD LAB BLOOD ORDERABLES Final Result Performing Organization Address City/[facility]/ZIP Co de Phone Number [facility] - 01 * PSA, total (12/20/2023) SCRIBED PSA, Total 0.6 0.0 - 4.0 TXP NO LAB FOUND Blood 12/20/2023 Historical Provider LAB BLOOD ORDERABLES Taya l Result Performing Organization Address [facility] Co de Phone Number TX[facility] NO LAB FOUND * Albumin Creatinine Ratio, Urine (12/20/2023) SCRIBED Creatinine, Urine 92.5 N/A TXP NO LAB FOUND SCRIBED Microalbumin 7.6 N/A TX[facility] NO LAB FOUND SCRIBED Microalb/Creat Ratio 8 0 - 29 TXP NO LAB FOUND Urine 12/20/2023 Result [facility] Historical Provider LAB URINE ORDERABLES Taya l Result Performing Organization Address [facility] de Phone Number TXP NO LAB FOUND * Hepatitis C antibody (11/26/2020 5:17 AM PRACTICE PROFESSIONAL) Hep C Ab Nonreactive Nonreactive [facility] Comment:Antibodies to HCV no t detected. Does NOT exclude the possibility of recent exposure to HCV. Blood specimen (specimen) 11/26/2020 5:17 AM PRACTICE PROFESSIONAL 11/26/2020 5:35 AM PRACTICE PROFESSIONAL Latisha Lemus MD LAB MICROBIOLOGY - GEN ERAL ORDERABLES Edited Result - Final Performing Organization Address [facility] Co de Phone Number [facility] [place] [address] from Last 3 Months or Most Recently Relevant to Health Maintenance Additional Health Concerns Active Problems Noted Date Diagnosed Date Colorectal Pre-Surgical Plan 07/12/[address] [facility] MEDICARE ADVANTAGE [facility] MEDICARE ADVANTAGE [facility] MEDICARE [facility] MED[facility] Address: [address] [place] [address] [facility] MEDICARE ADVANTAGE Advance Directives For more information, please contact: [phone] * Full Code (Latest Code Status on File) Date Activated Date Inactivated Comments 03/01/2025 7:53 AM 03/01/2025 2:34 PM * Full Code Date Activated Date Inactivated Comments 08/15/2024 6:08 PM 08/18/2024 8:09 PM * Full Code Date Activated Date Inactivated Comments 08/07/2024 6:59 AM 08/07/2024 2:07 PM * Full Code Date Activated Date Inactivated Comments 11/06/2020 3:15 AM 12/16/2020 6:29 PM * Full Code Date Activated Date Inactivated Comments 10/18/2020 5:13 PM 10/19/2020 2:07 PM Care Teams Rn Staffing Relationship Specialty Start Date End Date Marlon Trujillo MD [address] [place] [address] PCP - General Internal Medicine 12/01/24 Melania Hall RN [address] [address] Sliver Lap Tender 04/20/18 Jean-Pierre Long DPM [address] [place] [address] Consulting Physician Foot and Ankle Surg 06/11/23 Dhiraj Gaitan DO [address] [place] [address] Consulting Physician Gastroenterology 05/16/24 Adrian Sanchez MD [address] [facility] [phone] [place] [address] Surgeon Colon and Rectal Surgery 06/28/24 Madelyn Gonzalez MD [address] [facility] [address] [place] [address] Consulting Physician Endocrinology Diabetes & Metabolism 05/25/25 Peter Felton, office technology professorSliver Lap Tender Transplant 06/19/25
--- OUTSIDE RECORDS SUMMARY | 2025-08-04 08:54 | XMS_ITS | Clinical Summary ---
Author Organization [facility] Address [facility] [place] [address] Care Team Providers Care Eating Disorder Psychologist Name Role Phone Marlon Trujillo MD Primary Care Provider [phone] Peter Arevalo MD Unavailable [phone] Allergies No known active allergies Medications aspirin EC 81 MG EC tablet Take 1 tablet (81 mg total) by mouth every other day. 3 Active tacrolimus 1 MG capsule 1 capsule (1 mg total). Take 2 tablets (2mg) in the morning and 1 tablet (1mg) at bedtime Active predniSONE 5 mg tablet Take 1 tablet (5 mg total) by mouth daily. Active Multiple Vitamins-Minerals (MULTIVITAMIN ADULT OR) Take 1 tablet by mouth daily. Active Cholecalciferol (VITAMIN D) 125 MCG (5000 UT) Cap Take 1 capsule by mouth daily. Active BD PEN NEEDLE JOHN U/F 32G X 4 MM MiscIndications:T ype 2 diabetes mellitus with stage 3 chronic kidney disease, without long-term current use of insulin ([facility] HHS/HCC) USE 1 PEN NEEDLE NEEDED 360 each 4 2 Active amLODIPine (NORVASC) 10 MG tablet Take 1 tablet (10 mg total) by mouth daily. 2 Active Blood Glucose Monitoring Suppl (BLOOD GLUCOSE MONITOR SYSTEM) w/Device KitIndications:Ty pe 2 diabetes mellitus with stage 3b chronic kidney disease, with long-term current use of insulin ([facility] HHS/HCC) 1 kit by Does not apply route daily. 1 kit 3 Active CPAP DEVICE, DME,Indications:O bstructive sleep apnea Settings: CPAP 10 cmH20 w/ 10 min ramp @ 5 1 Device 3 Active Magnesium 500 MG Cap Take 1 tablet by mouth daily. Active Alpha-Lipoic Acid 600 MG Cap Take 600 mg by mouth daily. Active loperamide (IMODIUM A-D) 2 MG tablet Take 3 tablets (6 mg total) by mouth daily as needed for Diarrhea. Active ketoconazole (NIZORAL) 2 % shampoo APPLY TOPICALLY 3 TIMES A WEEK 3 Active fluorouracil (EFUDEX) 5 % cream APPLY TO THE LEFT CHEEK TWICE DAILY 4 Active ipratropium (ATROVENT) 0.06 % nasal sprayIndications: Chronic rhinitis 2 sprays by Nasal route 3 (three) times daily as needed. 15 mL 3 4 Active Coenzyme Q10 (COQ-10) 100 MG Cap Take 1 capsule by mouth daily. Active rosuvastatin (CRESTOR) 40 MG tablet Take 0.5 tablets (20 mg total) by mouth daily for 30 days, THEN 1 tablet (40 mg total) daily. 5 12/31/19 26 Active OZEMPIC, 0.25 OR 0.5 MG/DOSE, 2 MG/3ML injection (PEN) inject 0.5mg under the skin once weekly Active HUMALOG 100 UNIT/ML injection (VIAL) For use via insulin pump. TDD 100 units. 5 Active losartan (COZAAR) 100 MG tabletIndications :Essential hypertension TAKE 1 TABLET BY MOUTH DAILY 90 tablet 1 5 Active cholestyramine light (QUESTRAN) 4 G packet Take 1 packet (4 g total) by mouth 3 (three) times daily. 5 Active metoprolol tartrate (LOPRESSOR) 25 MG tabletIndications :Essential hypertension TAKE 1 TABLET BY MOUTH TWICE DAILY 180 tablet 3 5 Active Active Problems Problem Noted Date Diagnosed Date Immunocompromised state ([facility]/HCC) 04/24/2025 Pneumonia 04/24/2025 Type 2 diabetes mellitus ([facility] HHS/HCC) 04/24 Chronic kidney disease, stage 4 (severe) ([facility] HHS/HCC) 03/30/2025 Primary malignant neoplasm of liver ([facility] HHS /HCC) 03/30/2025 Abnormal findings on diagnostic imaging of abdom en 02/09/2025 History of colon cancer 02/09/2025 Presence of heart assist device ([facility]/HCC ) 12/01/2024 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, sequela ([facility]) 12/01/2024 Malignant neoplasm of transverse colon ([facility] HHS/HCC) 10/02/2024 Upper respiratory infection 09/17/2024 Acute postoperative abdominal pain 08/17/2024 Colonic mass 08/15/2024 Malignant neoplasm of ascending colon ([facility] H HS/HCC) 07/05/2024 Second degree AV block 05/02/2024 Sinus node dysfunction ([facility] HHS/HCC) Emphysema of left lung ([facility]/HCC) 024 Chronic diarrhea 01/03/2024 Hx of colonic polyps 01/03/2024 History of cirrhosis of liver 01/03/2024 S/P liver transplant ([facility]/HCC) 4 S/p cadaver renal transplant ([facility]) 4 Amputation of fourth toe, left, traumatic 2023 Sinoatrial node dysfunction ([facility]/HCC) Overview (10/20/2023): XIOMARA WHITE implanted 10/20/23 for SSS. Pacemaker 10/20/2023 Overview (10/20/2023): XIOMARA WHITE implanted 10/20/23 for SSS. 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 Cont FATOU hose and abdominal binder. Thrombocytopenia 11/28/2020 Overview (01/02/2021): Last Assessment & Plan: Unclear etiology. Down from normal (was in the 200s on admission), suspect due to COVID - now resolved Leukopenia 11/26/2020 Overview (01/02/2021): Last Assessment & Plan: WBC 1.7 with ANC ~1000, has been persistently 1-2 over the last several days. Not neutropenic. Possibly related to critical illness and now recovery vs immunosuppression (tacro level was elevated for several days with now reduced dose) -now resolved Abdominal aortic aneurysm (AAA) 11/06/2020 Overview (01/02/2021): Last Assessment & Plan: Stable at 2.2cm on OSH CT. -Continue outpatient follow up. Clear cell renal cell carcinoma ([facility]/HCC [facility]/HCC ) 08/07/2020 Overview (01/02/2021): Last Assessment & Plan: Mass of left [place] kidney seen on MRI on 07/15/20, followed up with IR with biopsy and cryoablation on 10/18/20, pathology positive for clear cell RCC. -Pt already follows with Urology and does not require referral to Oncology at this point in time given that he has localized disease (discussed with Urology) Rheumatoid factor positive 06/22/2019 Encounter for long-term (current) use of antibio tics 03/18/2019 Overview (04/03/2019): Last Assessment & Plan: Ampicillin can cause seizure, rash, hepatitis, drug fever/serum sickness like reaction, hemolytic anemia, thrombocytopenia, leukopenia, interstitial nephritis and transaminitis. - CBC/CMP should be monitored weekly while on this medication. Peripheral arterial disease 03/15/2019 Overview (01/02/2021): Last Assessment & Plan: S/p left femoral bypass -Resume aspirin and statin on discharge for secondary prevention. Encounter for aftercare foll owing kidney transplant ([facility]) 09/14/2018 Ulcer of right great toe due to diabetes mellitus ([facility]) 04/19/2018 Overview (04/24/2025): Added automatically from request for surgery [id number] BMI 33.0-33.9,adult 09/28/2017 Rosacea 06/25/2016 Peripheral vascular disease 03/05/2016 Liver transplanted ([facility]) 03/02/2016 Erectile dysfunction 09/09/2015 Hyperlipidemia 03/08/2015 Hypertension 09/03/2014 Obstructive sleep apnea 09/03/2014 Rhinitis, nonallergic 09/03/2014 Type 2 diabetes mellitus wit h stage 3 chronic kidney disease ([facility]) 09/03/2014 High risk medications (not anticoagulants) long- term use 08/14/2013 History of liver transplant ([facility]) Overview (01/02/2021): Last Assessment & Plan: -Transplant team following. History of renal transplant ([facility]) 07/27/2013 Overview (01/02/2021): Last Assessment & Plan: 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/2013 -c/w pred 5 every day -c/w tacro to 2mg/1mg, check trough daily -transplant has signed off as we are awaiting dispo Heart failure ([facility]) 04/10/2013 Atherosclerosis of [place] artery of extremity Stage 3b chronic kidney disease 01/01/2013 Proteinuria 05/05/2012 Overview (04/03/2019): Overview: Converted unresolved ICD9, potential mismatch. Resolved Problems Problem Noted Date Diagnosed Date Resolved Date Acute osteomyelitis of toe o f right foot ([facility]) 04/09/2023 12/09/2023 Coronavirus infection 11/29/20202021 Overview (01/02/2021): Last Assessment & Plan: - He presented with no symptoms. A [...] day quarantine from 11/28 despite minimal symptoms Anemia 11/23/2020 07/16/2021 Overview (01/02/2021): Last Assessment & Plan: 2/2 AoCKD + AoCD. No clinical signs of bleeding or hemodynamic instability. -Hgb stable 8-9 -blood consented, transfuse as needed Acute renal failure (ARF) 11/07/2020 Overview (01/02/2021): Last Assessment & Plan: Failure of transplant kidney secondary to sepsis now has had renal recovery - s/p tunneled HD line 11/26 removed 12/04 - Renal has now signed off Sepsis ([facility]) 11/06/202011/2020 Overview (01/02/2021): Last Assessment & Plan: Initially admitted for E faecalis pyelonephritis/bacteremia along with multifocal PNA, s/p 2 weeks of IV unasyn (completed 11/19). Then developed new fevers 11/18 with sxs of sepsis in setting of neutropenia (although fevers started prior to decline in WBC). - s/p empiric treatment with linezolid/cefe for 7 days (11/21-) - appreciate transplant ID recs, now signed off Diabetic ulcer of toe of lef t foot associated with type 2 diabetes mellitus, limited to breakdown of skin ([facility]) 04/24/201911/16 Influenza vaccine needed 09/08/201809/2020 Diabetes mellitus ([facility]) 10/15/2017 05/27/2021 Overview (01/02/2021): Last Assessment & Plan: Complicated by severe hyperglycemia requiring insulin gtt in ICU. -Blood sugars have been well controlled, now elevating due to HC -c/w lantus to 30u qhs, lispro 7U TID, SSI. Now that HC stopped expect improvement in glycemic control Osteomyelitis of fifth toe o f right foot ([facility]) 06/02/2016 12/09/2023 Diabetic ulcer of toe of rig ht foot associated with diabetes mellitus due to underlying condition, limited to breakdown of skin ([facility]) 11/07/2014 10/12/2018 Overview (10/12/2018): Overview: Added automatically from request for surgery [id number] Primary malignant neoplasm o f liver ([facility]) 09/03/2014 04/29/2023 Overview (04/03/2019): Overview: Converted unresolved ICD9, potential mismatch. Encounters Date Type Department Care Team Description 06/04/2025 Travel 06/03/2025 2:20 PM CDT Allied Health/Nurse Visit [facility], [address] [address] Peter Arevalo MD Remote Device Check 05/29/2025 Scan [facility] INFO SRVCS Scanned, [facility] Pathology (SCAN); Endoscopy (SCAN); Colonoscopy Report (SCAN) 05/27/2025 Scan [facility] INFO SRVCS Scanned, [facility] 05/21/2025 Telephone [place] [facility], [address] [address] Peter Arevalo MD Surgical Clearance from Last 3 Months Immunizations Immunization Administration Dates Next Due Arexvy Respiratory Syncytial Virus (RSV, adjuvanted) 0.5 mL, PF 12/11/2023 Fluad influenza vaccine, Cesar drivalent (aIIV4), Inactivated, adjuvanted, preservative free, 0.5 mL,IM use 08/20/2021 Fluzone High Dose (IIV, triv alent, 0.5mL) 07/27/2024,09/08/2018 Fluzone High Dose - >Age 65 (Prefilled Syringe) 08/17/2023,09/01/2022,09/11/2020,2018,09/08/2018 Influenza (Generic) 09/15/2017,08/21/2015,2013 Influenza Adult (Generic) 08/17/2023,04/2021,09/08/2018,2015,09/19/2013,09/18/2012 MODERNA COVID-19 (12+), MRNA , LNP-S, PF, 50 MCG/0.5 ML (SPIKEVAX) 07/27/2024 PFIZER COVID-19 (ORIGINAL FORMULATION, PURPLE CAP) mRNA, LNP-S, PF, 30 MCG/0.3 ML DOSE 09/18/2021 PFIZER COVID-19 BIVALENT (12 +) mRNA, LNP-S, PF, 30 MCG/0.3 ML DOSE 09/01/2022 Pneumococcal (Pneumovax 23) 04/29/2023, 6 Pneumococcal (Prevnar 13) 06/22/2019,08/21/2015 Shingrix 05/29/2024,12/11/2023 Tdap (Adacel) 07/02/2021 Family History Medical History Relation Comments Cancer Brother Heart Father Heart Disease Father No Known Problems Maternal Grandfather No Known Problems Maternal Grandmother Heart Mother Heart Disease Mother No Known Problems Paternal Grandfather No Known Problems Paternal Grandmother Diabetes Sister Relation Status Comments Brother Father Maternal Grandfather Maternal Grandmother Mother Paternal Grandfather Paternal Grandmother Sister Social History Tobacco Use Types Packs/Day Years Used Date Smoking Tobacco: Former Cigarettes 3 35 0 01/02/1967 - 01/02/2002 Smokeless Tobacco: Former Chew Tobacco Cessation:Counseling Given: Not Answered Comments:Former smoker Alcohol Use Standard Drinks/Week Comments No 0 (1 standard drink = 0.6 oz pur e alcohol) AUDIT-C Answer Date Recorded Frequency of Alcohol Consumption Never 10/12/2018 Average Number of Drinks Not on file 018 Frequency of Binge Drinking Not on file 09/16 PHQ-2 Answer Date Recorded Patient Health Questionnaire-2 Score 0 01/31/2025 Sex and Gender Information Value Date Recorded Sex Assigned at Male 10/12/2018 8:46 AM MONORAIL CRANE OPERATOR Legal Sex Male 8:57 PM CDT Gender Identity Male 10/12/2018 8:46 AM MONORAIL CRANE OPERATOR Sexual Orientation Straight 10/12/2018 8: 46 AM MONORAIL CRANE OPERATOR Last Filed Vital Signs Vital Sign Reading Time Taken Comments Blood Pressure 112/72 04/24/2025 11:54 AM CDT Pulse 94 04/24/2025 11:54 AM CDT Temperature 37 C (98.6 F) 01/31/2025 11:14 AM CDT Respiratory Rate 16 01/31/2025 11:14 AM CDT Oxygen Saturation 98% 04/24/2025 11:54 AM CDT Inhaled Oxygen Concentration - - Weight 90.3 kg (199 lb) 04/24/2025 11:54 AM CDT Height 177.8 cm (5' 10) 04/24/2025 11:54 AM CDT Body Mass Index 28.55 04/24/2025 11:54 AM CDT Plan of Treatment Upcoming Encounters Date Type Department Care Team (Late st Contact Info) Description 08/06/2025 9:40 AM CDT Office Visit [facility] Family & Internal Medicine [address] [address] Marlon Trujillo MD [address] [place] [phone] Elena Bradshaw DO [address] [facility]. [address] [place], [place] [address] 09/02/2025 2:15 PM CDT Allied Health/Nurse Visit [place] [facility] [facility], [address] [place] [address] Peter Arevalo MD Three [facility]. [address] [place], [place] [address] 09/03/2025 2:35 PM CDT Allied Health/Nurse Visit [place] [facility] [facility], [address] [place] [address] Peter Arevalo MD Three [facility]. [address] [place], [place] [address] 04/30/2026 10:00 AM CDT Office Visit [place] [facility], [address] [place], [place] [address] Liz Burr PA [address] [facility] [address] [place], [place] [address] Health Maintenance Due Date Last Done Comments Hepatitis C 1973 Annual Medicare Wellness Visit 2018 Diabetes: Retinopathy Eye Exam 12/10/2024 12/10/2023, 11/24/2022, 08/11/2022, Additional history exists COVID-19 Vaccine (7 - Pfizer risk 2023- season) 2025 07/27/2024, 09/10/2023, 09/01/2022, Additional history exists Hemoglobin A1C 08/03/2025 01/31/2025, 12/12/2023, 10/02/2024, Additional history exists Kidney Health Evaluation 10/16/2025 10/16/2024 Lipid Panel 10/16/2025 10/16/2024, 0 03/2024, 08/20/2023, Additional history exists DTaP, Tdap and Td Vaccines (2 - Td or Tdap) 07/02/2031 07/02/2021 Pneumococcal Vaccine: 50+ Years Completed 04/29/2023, 06/22/2019, 09/09/2016, Additional history exists RSV Immunization or 60+ Years Completed 12/11/2023 Zoster Vaccines Completed 05/29/2024, 12/11/2023 PHQ-2 (Physician Kenaitze) Completed 01/31/2025 AAA SCREENING Completed 05/17/2025, 01/2025, 04/12/2025, Additional history exists Colorectal Cancer Screening Colonoscopy (10 Years) Discontinued 05/29/2025, 04/27/2024, 04/27/2024, Additional history exists Meningococcal B Vaccine Aged Out No l onger eligible based on patient's age to complete this topic Meningococcal Vaccine Aged Out No garrett jean eligible based on patient's age to complete this topic RSV Immunizations Under 20 Months Aged Out No longer eligible based on patient's age to complete this topic Medical Devices Implanted Type Area Medical Affairs Specialist Device Identifier Shelf Expiration Date Model / Serial / Lot Rv Lbb Lead Implant-2022 Implanted:Qty : 1 on 10/20/2023 by Peter Arevalo MD Lead Implant [employer] CARDIAC RHYTHM AND HEART FAILURE - DIV M 07/05/2025 [id number] / [id number] / Description:LBB Ra Lead Implant-2022 Implanted:Qty : 1 on 10/20/2023 by Peter Arevalo MD Lead Implant [employer] CARDIAC RHYTHM AND HEART FAILURE - DIV M 07/21/2025 [id number] / [id number] / Description:Appendage Pacemaker-10/20/2023 Implanted:Qty : 1 on 10/20/2023 by Peter Arevalo MD Pacemaker Left: Chest Wall [employer] CARDIAC RHYTHM AND HEART FAILURE - DIV M 03/12/2025 [id number] / [id number] / Procedures Procedure Name Priority Date/Time Associated Diagnosis Comments PATHOLOGY GENERIC (SCAN ORDER) 05/29/2025 ENDOSCOPY (SCAN ORDER) 05/29/2025 COLONOSCOPY GENERIC (SCAN ORDER) 05/29/2025 HEMOGLOBIN, GLYCOSYLATED Routine 01/31/2025 12:14 PM CDT Type 2 diabetes mellitus with stage 3b chronic kidney disease, with long-term current use of insulin ([facility] HHS/HCC) LIPID PANEL Routine 10/16/2024 8:25 AM MONORAIL CRANE OPERATOR Type 2 diabetes mellitus with stage 3b chronic kidney disease, with long-term current use of insulin ([facility]) Primary hypertension Pure hypercholesterolemia Atherosclerosis of [place] artery of left lower extremity, with unspecified presence of clinical manifestation US AORTA Routine 02/07/2024 8:19 AM CDT Pararenal abdominal aortic aneurysm (AAA) without rupture DIABETIC RETINOPATHY EXAM (POSITIVE)(SCAN ORDER) Routine 12/10/2023 from Last 3 Months or Most Recently Relevant to Health Maintenance Results * PATHOLOGY GENERIC (SCAN ORDER) (05/29/2025) 05/29/2025 [facility] Scanned SCANNING Final Resu lt * ENDOSCOPY (SCAN ORDER) (05/29/2025) 05/29/2025 [facility] Scanned SCANNING Final Resu lt * COLONOSCOPY GENERIC (SCAN ORDER) (05/29/2025) 05/29/2025 [facility] Scanned SCANNING Final Resu lt * (ABNORMAL) HEMOGLOBIN, GLYCOSYLATED (01/31/2025 12:14 PM CDT) HGB A1C 5.9 4.5 - 6.2 % 01/31/2025 7:56 PM CDT [facility] ESTIMATED AVG GLUCOSE 123(H) 74 - 106 MG/DL 01/31/2025 7:56 PM CDT -MARIE CONNER GRACEY 01/31/2025 12:1 4 PM CDT Marlon Trujillo MD LABORATORY Final Result Performing Organization Address City/[facility]/ZIP Co de Phone Number [facility] [place] [address] [facility] [place] [address], * (ABNORMAL) LIPID PANEL (10/16/2024 8:25 AM MONORAIL CRANE OPERATOR) Pathologist [facility] CHOLESTEROL 143 100 - 199 mg/dL [facility] TRIGLYCERIDES 144 0 - 149 mg/dL [facility] HDL 39(L) >39 mg/dL [facility] VLDL CALCULATION 25 5 - 40 mg/dL [facility] LDL (CALCULATED) 79 0 - 99 mg/dL [facility] 1 10/16/2024 8:25 AM MONORAIL CRANE OPERATOR 10/16/2024 Narrative [facility] - 10/17/2024 12:10 PM MONORAIL CRANE OPERATOR Performed at: 01 - [facility] [place] [id number] Stove Fitter: Jacob Cho PhD, Phone: [phone] Marlon Trujillo MD LABORATORY Final Result Performing Organization Address City/[facility]/ZIP Co de Phone Number [facility] [address] [place] [address] [facility] * DIABETIC RETINOPATHY EXAM (POSITIVE) (12/10/2023) [facility] Scanned SCANNING Final Resu lt [facility] ONBASE from Last 3 Months or Most Recently Relevant to Health Maintenance Insurance [facility] [place] [address] Advance Directives * Full Code (Latest Code Status on File) Date Activated Date Inactivated Comments 10/20/2023 11:13 AM 10/20/2023 3:09 PM Care Teams Eating Disorder Psychologist Relationship Specialty Start Date End Date Marlon Trujillo MD [address] [place] [address] PCP - General INTERNAL MEDICINE 08/25/18 Peter Arevalo MD [address] [address] EP Reading Recovery Teacher CLINICAL CARDIAC ELECTROPHYSIOLOGY 12/06/24
--- OUTSIDE RECORDS SUMMARY | 2025-08-04 08:54 | XMS_ITS ---
Author Organization [facility] Address [address] [place] [address] Care Team Providers Care Nonprofit Fundraiser Name Role Phone Melania Hall RN Unavailable [phone] Jean-Pierre Long DPM Unavailable [phone] Dhiraj Gaitan DO Unavailable [phone] Adrian Sanchez MD Unavailable [phone] Marlon Trujillo MD Primary Care Provider [phone] Madelyn Gonzalez MD Unavailable [phone] Peter Felton RN Unavailable Unavaila ble Transplant Episode Liver Recipient [facility] ([place], [place]) [facility] Organ Received: Liver Transplanted on 07/25/2013 Marked as Active Follow-up on 07/25/2013 Liver CoordinatorMelania Hall RN Fax: N/A Email: N/A [place] Organ Diagnosis Organ Primary Contributory Liver Primary Liver Malignancy: Hepato ma (HCC) and Cirrhosis Retransplant Diagnosis Organ Primary Contributory Liver Primary Liver Malignancy: Hepato ma (HCC) and Cirrhosis Infection History Noted Survival Infection Treatment Organism [...] Risk Criteria HLA Match Mismatches Cross Match Liver Transplanted O DBD No A: B: DR: Liver Donor Serology Results Anti-CMV CMV IgG: Positive EBV IgG EBV VCA IgG: Positive Anti-HBcAb HBC Total: Negative HBsAg HBsAg: Negative HBV DNA No results on file Anti-HCV HCV: Negative Anti-HIV I/II No results on file Anti-HTLV I/II HTLV: Not Done RPR/VDRL RPR: Negative EBV IgM EBV VCA IgM: Negative HBsAb No results on file EBNA No results on file Toxoplasma No results on file SARS CoV-2 No results on file Care Team Name Role Phone Fax Email Melania Hall RN Liver Coordinator [phone] N/A N/A Mally Madrigal RN Secondary Coordinator Secondary Liver Coordinator [phone] N/A N/A Melania Hall RN Transportation Services Representative [phone] N/A N/A Sara Jansen Pump Oiler [phone] N/A N/A Marta Kwong, early years teacherTransportation Services Representative [phone] N/A N/A Events Post-Transplant Pre-Transplant Admitted: 07/24/2013 Referred: 10/27/2012 Transplanted: 07/25/2013 Evaluation began: 2 Discharged: 07/31/2013 Center waitlisted: 3
--- OUTSIDE RECORDS SUMMARY | 2025-08-04 08:54 | XMS_ITS ---
Author Organization [facility] Address [address] [place] [address] Care Team Providers Care Skin Therapist Name Role Phone Marlon Trujillo MD Primary Care Provider Peter Arevalo MD Unavailable [phone] Active Problems Problem Noted Date Diagnosed Date Immunocompromised state ([facility]) 04/24/2025 Pneumonia 04/24/2025 Type 2 diabetes mellitus ([facility]/HCC) 04/24 Chronic kidney disease, stage 4 (severe) ([facility]/HCC) 03/30/2025 Primary malignant neoplasm of liver ([facility] HHS /HCC) 03/30/2025 Abnormal findings on diagnostic imaging of abdom en 02/09/2025 History of colon cancer 02/09/2025 Presence of heart assist device (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/HCC) 10/02/2024 Upper respiratory infection 09/17/2024 Acute postoperative abdominal pain 08/17/2024 Colonic mass 08/15/2024 Malignant neoplasm of ascending colon ([facility]/HCC H HS/HCC) 07/05/2024 Second degree AV block 05/02/2024 Sinus node dysfunction ([facility] HHS/HCC) Emphysema of left lung ([facility] HHS/HCC) 024 Chronic diarrhea 01/03/2024 Hx of colonic polyps 01/03/2024 History of cirrhosis of liver 01/03/2024 S/P liver transplant ([facility]) 4 S/p cadaver renal transplant ([facility]) 4 Amputation of fourth toe, left, traumatic 2023 Sinoatrial node dysfunction ([facility]) Overview (10/20/2023): MDT Brackenridge DCPPM implanted 10/20/23 for SSS. Pacemaker 10/20/2023 Overview (10/20/2023): MDT Myriam DCPPM implanted 10/20/23 for SSS. 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 Clear cell renal cell carcinoma ([facility] ) 08/07/2020 Overview (01/02/2021): Last Assessment & Plan: Mass of left [place] kidney seen on MRI on 07/15/20, followed [...] Encounter for aftercare foll owing kidney transplant ([facility]) 09/14/2018 Ulcer of right great toe due to diabetes mellitus ([facility]) 04/19/2018 Overview (04/24/2025): Added automatically from request for surgery [id number] BMI 33.0-33.9,adult 09/28/2017 Rosacea 06/25/2016 Peripheral vascular disease 03/05/2016 Liver transplanted ([facility]) 03/02/2016 Erectile dysfunction 09/09/2015 Hyperlipidemia 03/08/2015 Hypertension 09/03/2014 Obstructive sleep apnea 09/03/2014 Rhinitis, nonallergic 09/03/2014 Type 2 diabetes mellitus wit h stage 3 chronic kidney disease ([facility]) 09/03/2014 High risk medications (not anticoagulants) long- term use 08/14/2013 History of liver transplant ([facility]) Overview (01/02/2021): Last Assessment & Plan: -Transplant team following. History of renal transplant ([facility]) 07/27/2013 Overview (01/02/2021): Last Assessment & Plan: 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/2013 -c/w pred 5 every day -c/w tacro to 2mg/1mg, check trough daily -transplant has signed off as we are awaiting dispo Heart failure ([facility]) 04/10/2013 Atherosclerosis of [place] artery of extremity Stage 3b chronic kidney disease 01/01/2013 Proteinuria 05/05/2012 Overview (04/03/2019): Overview: Converted unresolved ICD9, potential mismatch. Current Treatment and Therapy Plans No current plan information found. Past Treatment and Therapy Plans Resolved Problems Problem Noted Date Diagnosed Date Resolved Date Acute osteomyelitis of toe o f right foot ([facility]) 04/09/2023 12/09/2023 Coronavirus infection 11/29/20202021 Overview (01/02/2021): [...] 07/16/2021 Overview (01/02/2021): Last Assessment & Plan: 12/17 AoCKD + AoCD. No clinical signs of bleeding or hemodynamic instability. -Hgb stable 8-9 -blood consented, transfuse as needed Acute renal failure (ARF) 11/07/2020 Overview (01/02/2021): Last Assessment & Plan: Failure of transplant kidney secondary to sepsis now has had renal recovery - s/p tunneled HD line 11/26 removed 12/04 - Renal has now signed off Sepsis ([facility]) 11/06/202011/2020 Overview (01/02/2021): Last Assessment & Plan: [...] diabetes mellitus, limited to breakdown of skin ([facility]) 04/24/201911/16 Influenza vaccine needed 09/08/201809/2020 Diabetes mellitus ([facility]) 10/15/2017 05/27/2021 Overview (01/02/2021): Last Assessment & Plan: Complicated by severe hyperglycemia requiring insulin gtt in ICU. -Blood sugars have been well controlled, now elevating due to HC -c/w lantus to 30u qhs, lispro 7U TID, SSI. Now that HC stopped expect improvement in glycemic control Osteomyelitis of fifth toe o f right foot ([facility]) 06/02/2016 12/09/2023 Diabetic ulcer of toe of rig ht foot associated with diabetes mellitus due to underlying condition, limited to breakdown of skin ([facility]) 11/07/2014 10/12/2018 Overview (10/12/2018): Overview: Added automatically from request for surgery [id number] Primary malignant neoplasm o f liver ([facility]) 09/03/2014 04/29/2023 Overview (04/03/2019): Overview: Converted unresolved ICD9, potential mismatch.
--- OUTSIDE RECORDS SUMMARY | 2025-08-04 08:54 | XMS_ITS | Encounter Summary ---
Author Organization [facility] Address [address] [place] [address] Phone Care Team Providers Care Auto Service Writer Name Role Phone Marlon Trujillo MD Primary Care Provider [phone] Katheryn Nguyen RN Unavailable [phone] Marta Kwong RN Unavailable [phone] Marlon Trujillo MD Primary Care Provider [phone] Melania Hall RN Unavailable [phone] Jean-Pierre LongM Unavailable [phone] Dhiraj Gaitan DO Unavailable [phone] Adrian Sanchez MD Unavailable [phone] Sherry Funes Unavailable Unavailable Nakul Hinojosa MD Unavailable [phone] Marlon Trujillo MD Primary Care Provider [phone] Madelyn Gonzalez MD Unavailable [phone] Peter Felton RN Unavailable Unavaila ble Encounter Details Date Type Department Care Team (Latest Contact Info) Description 03/17/2018 Orders Only [facility] CONVERSION Scanning, Provider Social History Tobacco Use Types Packs/Day Years Used Date Smoking Tobacco: Former Sex and Gender Information Value Date Recorded Sex Assigned at Not on file Legal Sex Male 1:13 AM FIELD SUPERVISOR SEED PRODUCTION Gender Identity Not on file Sexual Orientation Straight 05/24/2019 8: 40 AM CDT documented as of this encounter Plan of Treatment Not on file documented as of this encounter Procedures Procedure Name Priority Date/Time Associated Diagnosis Comments VASCULAR LABORATORY REPORT 03/17/2018 2:37 PM CDT VASCULAR LABORATORY REPORT 03/17/2018 2:37 PM CDT documented in this encounter Results * VASCULAR LABORATORY REPORT (03/17/2018 2:37 PM CDT) Anatomical Region Laterality Modality Ultrasound us Provider Scanning CV VASCULAR PROCEDURES Final R esult * VASCULAR LABORATORY REPORT (03/17/2018 2:37 PM CDT) Anatomical Region Laterality Modality Ultrasound us Provider Scanning CV VASCULAR PROCEDURES Final R esult documented in this encounter Visit Diagnoses Not on filedocumented in this encounter Additional Health Concerns Infection Onset Date Last Indicated Resolved Time COVID: Suspected 11/08/2020 11/08/2020 11/08/2020 10:03 AM FIELD SUPERVISOR SEED PRODUCTION Respiratory Infection (BLAINE), contact + droplet Comment:IP Review - Patient classified as Low Risk for COVID-19 and has one negative COVID-19 test. Patient meets criteria for COVID-19 isolation discontinuation Automatically added due to negative COVID-19 result. 11/08/2020 11/08/2020 11/08/2020 3:[address] Exposure, COVID-19 Comment:IP Review- Patient was exposed to a positive patient Isreal Cohen ([id number]). Testing not required for exposed patient unless symptomatic. Will need to be on precautions until 12/02/20 11/18/20 6:29 PM Lisa Galindo 11/18/2020 11/18/2020 11/28/2020 6:43 PM FIELD SUPERVISOR SEED PRODUCTION COVID: Suspected 11/19/2020 11/19/2020 11/19/2020 11:09 AM FIELD SUPERVISOR SEED PRODUCTION Respiratory Infection (BLAINE), contact + droplet Comment:Automatically added due to negative COVID-19 result. 11/19/2020 11/19/2020 11/20/2020 4:2 1 PM FIELD SUPERVISOR SEED PRODUCTION VRE 11/23/2020 11/23/2020 07/02/2021 5:00 AM CDT COVID: Suspected 11/28/2020 11/28/2020 11/28/2020 6:43 PM FIELD SUPERVISOR SEED PRODUCTION COVID19 11/28/2020 11/28/2020 12/30/2020 3:05 AM FIELD SUPERVISOR SEED PRODUCTION COVID: Recovered Comment:Added based on recent COVID infection. 12/30/2020 01/03/2021 04/29/2021 3:05 AM C DT COVID: Suspected 09/17/2024 09/17/2024 09/17/2024 10:55 AM FIELD SUPERVISOR SEED PRODUCTION C. difficile suspected 05/17/2025 06/14/202505/18 7:26 PM CDT C. difficile suspected 06/14/2025 06/14/202506/14 12:01 PM CDT documented as of this encounter Care Teams Auto Service Writer Relationship Specialty Start Date End Date Marlon Trujillo MD PCP - General 12/30/16 09/08/18 Marlon Trujillo MD PCP - General Internal Medicine 09/09/18 11/30/24 Marlon Trujillo MD [address] [place] [address] PCP - General Internal Medicine 12/01/24 Katheryn Nguyen RN [address] [address] Content Editor 04/12/18 09/08/18 Marta Kwong RN [address] [address] Content Editor 04/18/18 06/19/25 Melania Hall RN [address] [address] Content Editor 04/20/18 Jean-Pierre Long, ZHAO [address] [place] [address] Consulting Physician Foot and Ankle Surg 06/11/23 Dhiraj Gaitan DO [address] [facility] [place] [address] Consulting Physician Gastroenterology 05/16/24 Adrian Sanchez MD [address] [facility] [phone] [place] [address] Surgeon Colon and Rectal Surgery 06/28/24 Sherry Funes RMA Surgical Prehabilitation and Readiness (SPAR) Coordinator 07/06/24 08/14/24 Nakul Hinojosa MD Medical Oncologist/Orthopedic Shoe Fitter Medical Oncology 09/11/24 06/27/25 Madelyn Gonzalez MD [address] [facility] [address] [place], [place] [address] Consulting Physician Endocrinology Diabetes & Metabolism 05/25/25 Peter Felton, inspector conveyor lineContent Editor Transplant 06/19/25 documented as of this encounter
--- OUTSIDE RECORDS SUMMARY | 2025-08-04 08:54 | XMS_ITS | Encounter Summary ---
Author Organization [facility] Address [address] [place] [address] Phone Care Team Providers Care Junior Manufacturing Engineer Name Role Phone Marlon Trujillo MD Primary Care Provider [phone] Katheryn Nguyen RN Unavailable [phone] Marta Kwong RN Unavailable [phone] Marlon Trujillo MD Primary Care Provider [phone] Melania Hall RN Unavailable [phone] Jean-Pierre LongM Unavailable [phone] Dhiraj Gaitan DO Unavailable [phone] Adrian Sanchez MD Unavailable [phone] Sherry Funes Unavailable Unavailable Nakul Hinojosa MD Unavailable [phone] Marlon Trujillo MD Primary Care Provider [phone] Madelyn Gonzalez MD Unavailable [phone] Peter Felton RN Unavailable Unavaila ble Encounter Details Date Type Department Care Team (Latest Contact Info) Description 01/06/2018 Orders Only [facility] CONVERSION Scanning, Provider Social History Tobacco Use Types Packs/Day Years Used Date Smoking Tobacco: Former Sex and Gender Information Value Date Recorded Sex Assigned at Not on file Legal Sex Male 1:13 AM FOOD MIXER Gender Identity Not on file Sexual Orientation Straight 05/24/2019 8: 40 AM CDT documented as of this encounter Plan of Treatment Not on file documented as of this encounter Procedures Procedure Name Priority Date/Time Associated Diagnosis Comments VASCULAR LABORATORY REPORT 01/06/2018 2:30 PM FOOD MIXER documented in this encounter Results * VASCULAR LABORATORY REPORT (01/06/2018 2:30 PM FOOD MIXER) Anatomical Region Laterality Modality Ultrasound us Provider Scanning CV VASCULAR PROCEDURES Final R esult documented in this encounter Visit Diagnoses Not on filedocumented in this encounter Additional Health Concerns Infection Onset Date Last Indicated Resolved Time COVID: Suspected 11/08/2020 11/08/2020 11/08/2020 10:03 AM FOOD MIXER Respiratory Infection (BLAINE), contact + droplet Comment:IP Review - Patient classified as Low Risk for COVID-19 and has one negative COVID-19 test. Patient meets criteria for COVID-19 isolation discontinuation Automatically added due to negative COVID-19 result. 11/08/2020 11/08/2020 11/08/2020 3:[address] Exposure, COVID-19 Comment:IP Review- Patient was exposed to a positive patient Isreal Cohen ([id number]). Testing not required for exposed patient unless symptomatic. Will need to be on precautions until 12/02/20 11/18/20 6:29 PM Lisa Galindo 11/18/2020 11/18/2020 11/28/2020 6:43 PM FOOD MIXER COVID: Suspected 11/19/2020 11/19/2020 11/19/2020 11:09 AM FOOD MIXER Respiratory Infection (BLAINE), contact + droplet Comment:Automatically added due to negative COVID-19 result. 11/19/2020 11/19/2020 11/20/2020 4:2 1 PM FOOD MIXER VRE 11/23/2020 11/23/2020 07/02/2021 5:00 AM CDT COVID: Suspected 11/28/2020 11/28/2020 11/28/2020 6:43 PM FOOD MIXER COVID19 11/28/2020 11/28/2020 12/30/2020 3:05 AM FOOD MIXER COVID: Recovered Comment:Added based on recent COVID infection. 12/30/2020 01/03/2021 04/29/2021 3:05 AM C DT COVID: Suspected 09/17/2024 09/17/2024 09/17/2024 10:55 AM FOOD MIXER C. difficile suspected 05/17/2025 06/14/202505/18 7:26 PM CDT C. difficile suspected 06/14/2025 06/14/202506/14 12:01 PM CDT documented as of this encounter Care Teams Junior Manufacturing Engineer Relationship Specialty Start Date End Date Marlon Trujillo MD PCP - General 12/30/16 09/08/18 Marlon Trujillo MD PCP - General Internal Medicine 09/09/18 11/30/24 Marlon Trujillo MD [address] [place] [address] PCP - General Internal Medicine 12/01/24 Katehryn Nguyen, RN [address] [address] Ground Support Equipment Fitter 04/12/18 09/08/18 Marta Kwong RN [address] [address] Ground Support Equipment Fitter 04/18/18 06/19/25 Melania Hall RN [address] [address] Ground Support Equipment Fitter 04/20/18 Jean-Pierre Long DPM [address] [place] [address] Consulting Physician Foot and Ankle Surg 06/11/23 Dhiraj Gaitan DO [address] [place] [address] Consulting Physician Gastroenterology 05/16/24 Adrian Sanchez MD [address] [phone] [place] [address] Surgeon Colon and Rectal Surgery 06/28/24 Sherry Funes RMA Surgical Prehabilitation and Readiness (SPAR) Coordinator 07/06/24 08/14/24 Nakul Hinojosa MD Medical Oncologist/Special Service Representative Medical Oncology 09/11/24 06/27/25 Madelyn Gonzalez MD [address] [facility] [address] [place] [address] Consulting Physician Endocrinology Diabetes & Metabolism 05/25/25 Peter Felton, site inspectorGround Support Equipment Fitter Transplant 06/19/25 documented as of this encounter
--- OUTSIDE RECORDS SUMMARY | 2025-08-04 08:54 | XMS_ITS | Encounter Summary ---
Author Organization [facility] Address [address] [place] [address] Care Team Providers Care Metal Room Dental Technician Name Role Phone Marlon Trujillo MD Primary Care Provider [phone] Peter Arevalo MD Unavailable [phone] Encounter Details Date Type Department Care Team (Latest Contact Info) Description 05/11/2024 19payt Message Enc [facility] Medical Group Multispecialty Care - [facility] [address] [facility], [address] [place] [address] Sherry Julien NP 3 [facility] [address] [place] [address] Colorectal Surgery Consult Social History Tobacco Use Types Packs/Day Years Used Date Smoking Tobacco: Former Cigarettes 3 35 0 01/02/1967 - 01/02/2002 Smokeless Tobacco: Former Chew Comments:Former smoker Alcohol Use Standard Drinks/Week Comments No 0 (1 standard drink = 0.6 oz pur e alcohol) AUDIT-C Answer Date Recorded Frequency of Alcohol Consumption Never 10/12/2018 Average Number of Drinks Not on file 018 Frequency of Binge Drinking Not on file 09/16 PHQ-2 Answer Date Recorded Patient Health Questionnaire-2 Score 0 12/30/2023 Sex and Gender Information Value Date Recorded Sex Assigned at Male 10/12/2018 8:46 AM SENIOR PACKAGING ENGINEER Legal Sex Male 8:57 PM CDT Gender Identity Male 10/12/2018 8:46 AM SENIOR PACKAGING ENGINEER Sexual Orientation Straight 10/12/2018 8: 46 AM SENIOR PACKAGING ENGINEER documented as of this encounter Plan of Treatment Upcoming Encounters Date Type Department Care Team (Late st Contact Info) Description 08/06/2025 9:40 AM CDT Office Visit [facility] Medical [facility] Family & Internal Medicine - [address] [address] Marlon Trujillo MD [address] [place] [address] Elena Bradshaw DO 3 [facility]. [address] [place], [place] [address] 09/02/2025 2:15 PM CDT Allied Health/Nurse Visit [facility] [place] [address] [place], [place] [address] Peter Arevalo MD [address] [facility]. [address] [place], [place] [id number] 09/03/2025 2:35 PM CDT Allied Health/Nurse Visit [facility] [address] [place], [place] [address] Peter Arevalo MD [facility] [address] [place], [place] [address] 04/30/2026 10:00 AM CDT Office Visit [facility] [place] [address] [place], [place] [id number] Liz Burr PA 3 [facility] [address] [place], [place] [address] documented as of this encounter Visit Diagnoses Not on filedocumented in this encounter Additional Health Concerns Assessment Noted Time PHQ-9 Depression Total Score: 6 04/12/20 21 2:04 PM CDT documented as of this encounter Care Teams Metal Room Dental Technician Relationship Specialty Start Date End Date Marlon Trujillo MD [address] [place] [address] PCP - General INTERNAL MEDICINE 08/25/18 Peter Arevalo MD [address] [address] EP Manager Action CLINICAL CARDIAC ELECTROPHYSIOLOGY 12/06/24 documented as of this encounter
--- OUTSIDE RECORDS SUMMARY | 2025-08-04 08:54 | XMS_ITS | Encounter Summary ---
Author Organization [facility] Address [address] [place] [address] Care Team Providers Care Contracts Representative Name Role Phone Melania Hall RN Unavailable [phone] Jean-Pierre Long DPM Unavailable [phone] Dhiraj Gaitan DO Unavailable [phone] Adrian Sanchez MD Unavailable [phone] Nakul Hinojosa MD Unavailable [phone] Marlon Trujillo MD Primary Care Provider [phone] Madelyn Gonzalez MD Unavailable [phone] Peter Felton RN Unavailable Unavaila ble Encounter Details Date Type Department Care Team (Latest Contact Info) Description 06/26/2025 Results Follow-Up [facility] Medical Group Gastroenterology at [address] [place] [address] Fernando Rodarte MD [address] [place] [address] [address] [place] [address] Pancreatic elastase, stool Social History Tobacco Use Types Packs/Day Years Used Date Smoking Tobacco: Former Cigarettes 3 36 1 966 - 2001 Passive Smoke Exposure: Never Smokeless Tobacco: Never Alcohol Use Standard Drinks/Week [...] making you feel afraid or unsafe? Denies 05/29/2025 Sex and Gender Information Value Date Recorded Sex Assigned at Not on file Legal Sex Male 1:13 AM RETAIL LOSS PREVENTION SPECIALIST Gender Identity Not on file Sexual Orientation Straight 05/24/2019 8: 40 AM CDT Occupation Industry Job Start Date Job End Date Retired Not on file Not on file Not on file documented as of this encounter Plan of Treatment Not on file documented as of this encounter Goals Goal Patient Goal Type Associated Problems Recent Progress Patient-Stated? Author Colorectal Pre-Surgical Steps Care Plan Colorectal Pre-Surgical Plan No Arin Cook RN documented as of this encounter Visit Diagnoses Not on filedocumented in this encounter Additional Health Concerns Active Problems Noted Date Diagnosed Date Colorectal Pre-Surgical Plan 07/12/2024 documented as of this encounter Care Teams Contracts Representative Relationship Specialty Start Date End Date Marlon Trujillo MD [address] [place] [address] PCP - General Internal Medicine 12/01/24 Melania Hall RN [address] [address] Carton Forming Machine Helper 04/20/18 Jean-Pierre Long DPM [address] [place] [address] Consulting Physician Foot and Ankle Surg 06/11/23 Dhiraj Gaitan DO [address] [place] [address] Consulting Physician Gastroenterology 05/16/24 Adrian Sanchez MD [address] [phone] [place] [address] Surgeon Colon and Rectal Surgery 06/28/24 Nakul Hinojosa MD [address] [phone] [place] [address] Medical Oncologist/Hematologi Medical Oncology 09/11/24 06/27/25 Madelyn Gonzalez MD [address] [facility] [address] [place] [address] Consulting Physician Endocrinology Diabetes & Metabolism 05/25/25 Peter Felton, chief operator hydroformerCarton Forming Machine Helper Transplant 06/19/25 documented as of this encounter
--- OUTSIDE RECORDS SUMMARY | 2025-08-04 08:54 | XMS_ITS | Encounter Summary ---
Author Organization [facility] Address [address] [place] [address] Care Team Providers Care Vice President Payment Name Role Phone Marlon Trujillo MD Primary Care Provider [phone] Peter Arevalo MD Unavailable [phone] Encounter Details Date Type Department Care Team (Late st Contact Info) Description 08/24/2023 Abstract [facility] [address] Farnaz Stephenson MA Social History Tobacco Use Types Packs/Day Years [...] Sex Assigned at Male 10/12/2018 8:46 AM WEB MARKETING MANAGER Legal Sex Male 8:57 PM CDT Gender Identity Male 10/12/2018 8:46 AM WEB MARKETING MANAGER Sexual Orientation Straight 10/12/2018 8: 46 AM WEB MARKETING MANAGER documented as of this encounter Plan of Treatment Upcoming Encounters Date Type Department Care Team (Late st Contact Info) Description 08/06/2025 9:40 AM CDT Office Visit [facility] Family & Internal Medicine [address] [address] Marlon Trujillo MD [address] [place], [place] [id number] Elena Bradshaw DO 3 [facility]. [address] [place] [address] 09/02/2025 2:15 PM CDT Allied Health/Nurse Visit [facility] THREE [facility], [address] [place], [place] [address] Peter Arevalo MD Three [facility]. [address] [place], [place] [address] 09/03/2025 2:35 PM CDT Allied Health/Nurse Visit [facility] THREE [facility], [address] [place], [place] [address] Peter Arevalo MD Three [facility]. [address] [place], [place] [address] 04/30/2026 10:00 AM CDT Office Visit [facility] THREE [facility], [facility] [address] [place], [place] [address] Liz Burr PA 3 [facility] [address] [place], [place] [address] documented as of this encounter Procedures Procedure Name Priority Date/Time Associated Diagnosis Comments PRO-BRAIN NATRIURETIC PEPTIDE Routine 08/09/2023 COMPREHENSIVE METABOLIC PANEL Routine 08/09/2023 CBC, MANUAL DIFF Routine 08/09/2023 documented in this encounter Results * (ABNORMAL) COMPREHENSIVE METABOLIC PANEL (08/09/2023) SODIUM S/P/B 141 GLUCOSE 80 mg/dL AST 32 BUN 35 CREATININE S/P/B 1.60(A) 0.7 - 1.3 CALCIUM S/P/B 9.3 POTASSIUM S/P/B 4.1 CHLORIDE S/P/B 105 ALT 34 GFR ESTIMATE 43 Narrative Resulting Agency Comment us Default History Genericprovider LABORATORY Final Result * PRO-BRAIN NATRIURETIC PEPTIDE (08/09/2023) Pathologist [facility] PRO-B TYPE NATRIURETIC PEPTIDE 1,510 Narrative Resulting Agency Comment us Default History Genericprovider LABORATORY Final Result * CBC, MANUAL DIFF (08/09/2023) Pathologist [facility] WBC 7.1 HGB 11.3 HCT 36.7 PLT 165 Narrative Resulting Agency Comment us Default History Genericprovider LABORATORY Final Result documented in this encounter Visit Diagnoses Not on filedocumented in this encounter Additional Health Concerns Assessment Noted Time PHQ-9 Depression Total Score: 6 02/25/20 21 2:04 PM CDT documented as of this encounter Care Teams Vice President Payment Relationship Specialty Start Date End Date Marlon Trujillo MD [address] [place] [address] PCP - General INTERNAL MEDICINE 08/25/18 Peter Arevalo MD [address] [address] EP Supervisor Cytogenetic Laboratory CLINICAL CARDIAC ELECTROPHYSIOLOGY 12/06/24 documented as of this encounter
--- OUTSIDE RECORDS SUMMARY | 2025-08-04 08:54 | XMS_ITS | Encounter Summary ---
Author Organization [employer] Address [address] [place] [address] Care Team Providers Care Custom Garment Designer Name Role Phone Cliff Sen MD Primary Care Provider [phone] Encounter Details Date Type Department Care Team (Late st Contact Info) Description 05/08/2005 Outpatient Historical [facility] Internal Medicine [address] [place] [address]. 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
--- OUTSIDE RECORDS SUMMARY | 2025-08-04 08:54 | XMS_ITS | Encounter Summary ---
Author Organization [employer] Address [address] [place] [address] Care Team Providers Care Bank Clerk Name Role Phone Cliff Sen MD Primary Care Provider [phone] Encounter Details Date Type Department Care Team (Late st Contact Info) Description 10/01/2003 Outpatient Historical [facility] Internal Medicine [address] [place] [address]. [address] [place] [address] Cliff Sen MD [address] [facility] [address] [place] [address] Social History Tobacco Use Types Packs/Day Years Used Date Smoking Tobacco: Never Assessed Sex and Gender Information Value Date Recorded Sex Assigned at Not on file Legal Sex Male 3:17 AM PAPER SORTER AND COUNTER Gender Identity Not on file Sexual Orientation Not on file documented as of this encounter Plan of Treatment Not on file documented as of this encounter Visit Diagnoses Not on filedocumented in this encounter Care Teams Bank Clerk Relationship Specialty Start Date End Date Cliff Sen MD [address] [facility] [address] [place] [address] PCP - General 10/01/03 documented as of this encounter
--- OUTSIDE RECORDS SUMMARY | 2025-08-04 08:54 | XMS_ITS | Encounter Summary ---
Author Organization [facility] Address [address] [place] [address] Care Team Providers Care Womens Volleyball Coach Name Role Phone Marlon Trujillo MD Primary Care Provider [phone] Peter Arevalo MD Unavailable [phone] Encounter Details Date Type Department Care Team (Late st Contact Info) Description 08/30/2023 Crunchbutton Message Enc [facility] [address] [place] [address] Chuy Santos MD 3 [facility] [address] [place] [address] Heart Monitor Social History Tobacco Use Types Packs/Day Years [...] Sex Assigned at Male 10/12/2018 8:46 AM BRUSH FINISHER Legal Sex Male 8:57 PM CDT Gender Identity Male 10/12/2018 8:46 AM BRUSH FINISHER Sexual Orientation Straight 10/12/2018 8: 46 AM BRUSH FINISHER documented as of this encounter Plan of Treatment Upcoming Encounters Date Type Department Care Team (Late st Contact Info) Description 08/06/2025 9:40 AM CDT Office Visit [facility] Family & Internal Medicine - [place] [address] [place] [address] Marlon Trujillo MD [address] [place] [address] Elena Bradshaw DO 3 [facility]. [address] [place] [address] 09/02/2025 2:15 PM CDT Allied Health/Nurse Visit [facility] THREE [facility], [address] [place] [address] Peter Arevalo MD Three [facility]. [address] [place] [address] 09/03/2025 2:35 PM CDT Allied Health/Nurse Visit [facility] THREE [facility], [facility] [address] [place] [address] Peter Arevalo MD Three [facility]. [address] [place] [address] 04/30/2026 10:00 AM CDT Office Visit [facility] THREE [facility], [address] [place] [address] Liz Brur PA 3 [facility] [address] [place], [place] [address] documented as of this encounter Visit Diagnoses Not on filedocumented in this encounter Additional Health Concerns Assessment Noted Time PHQ-9 Depression Total Score: 6 02/25/20 21 2:04 PM CDT documented as of this encounter Care Teams Womens Volleyball Coach Relationship Specialty Start Date End Date Marlon Trujillo MD [address] [place] [address] PCP - General INTERNAL MEDICINE 08/25/18 Peter Arevalo MD [address] [address] EP Software Quality Automation Engineer CLINICAL CARDIAC ELECTROPHYSIOLOGY 12/06/24 documented as of this encounter
--- OUTSIDE RECORDS SUMMARY | 2025-08-04 08:54 | XMS_ITS | Encounter Summary ---
Author Organization [employer] Address [address] [place] [address] Care Team Providers Care Coat Finisher Name Role Phone Cliff Sen MD Primary Care Provider [phone] Encounter Details Date Type Department Care Team (Late st Contact Info) Description 11/12/2004 Outpatient Historical [facility] Internal Medicine [address] [place] [address]. 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
--- OUTSIDE RECORDS SUMMARY | 2025-08-04 08:54 | XMS_ITS | Encounter Summary ---
Author Organization [employer] Address [address] [place] [address] Care Team Providers Care Creative Services Manager Name Role Phone Cliff Sen MD Primary Care Provider [phone] Encounter Details Date Type Department Care Team (Late st Contact Info) Description 07/15/2004 Outpatient Historical [facility] Internal Medicine [address] [place] [address]. [address] [place] [address] Cliff Sen MD [address] [facility] [address] [place] [address] Social History Tobacco Use Types Packs/Day Years Used Date Smoking Tobacco: Never Assessed Sex and Gender Information Value Date Recorded Sex Assigned at Not on file Legal Sex Male 3:17 AM REFERRAL MANAGEMENT LIAISON Gender Identity Not on file Sexual Orientation Not on file documented as of this encounter Plan of Treatment Not on file documented as of this encounter Visit Diagnoses Not on filedocumented in this encounter Care Teams Creative Services Manager Relationship Specialty Start Date End Date Cliff Sen MD [address] [facility] [address] [place] [address] PCP - General 10/01/03 documented as of this encounter
--- OUTSIDE RECORDS SUMMARY | 2025-08-04 08:54 | XMS_ITS | Encounter Summary ---
Author Organization [employer] Address [address] [place] [address] Care Team Providers Care Surgeon Assistant Name Role Phone Cliff Sen MD Primary Care Provider [phone] Encounter Details Date Type Department Care Team (Late st Contact Info) Description 10/01/2003 Outpatient [facility] [address] [place] [address] & [place] [address] Cliff Sen MD [address] [address] DIAB W COMPL NOS ADULT (CMS/HCC) (Primary Dx) Social History Tobacco Use Types Packs/Day Years Used Date Smoking Tobacco: Never Assessed Sex and Gender Information Value Date Recorded Sex Assigned at Not on file Legal Sex Male 3:17 AM VACUUM PAN TENDER Gender Identity Not on file Sexual Orientation Not on file documented as of this encounter Plan of Treatment Not on file documented as of this encounter Visit Diagnoses Diagnosis Type II or unspecified type diabetes mellitus with unspecified complication, not stated as uncontrolled- Primary documented in this encounter Care Teams Surgeon Assistant Relationship Specialty Start Date End Date Cliff Sen MD [address] [address] PCP - General 10/01/03 documented as of this encounter
--- OUTSIDE RECORDS SUMMARY | 2025-08-04 08:54 | XMS_ITS | Encounter Summary ---
Author Organization [employer] Address [address] [place] [address] Care Team Providers Care Research Laboratory Technician Name Role Phone Cliff Sen MD Primary Care Provider [phone] Encounter Details Date Type Department Care Team (Late st Contact Info) Description 11/29/2003 Outpatient Historical [facility] Internal Medicine [address] [place] [address]. 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
--- OUTSIDE RECORDS SUMMARY | 2025-08-04 08:54 | XMS_ITS | Encounter Summary ---
Author Organization [employer] Address [address] [place] [address] Care Team Providers Care City Marshal Name Role Phone Cliff Sen MD Primary Care Provider [phone] Encounter Details Date Type Department Care Team (Late st Contact Info) Description 02/18/2004 Outpatient Historical [facility] Internal Medicine [address] [place] [address]. 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
--- OUTSIDE RECORDS SUMMARY | 2025-08-04 08:54 | XMS_ITS | Encounter Summary ---
Author Organization [employer] Address [address] [place] [address] Care Team Providers Care Crew Scheduler Name Role Phone Cliff Sen MD Primary Care Provider [phone] Encounter Details Date Type Department Care Team (Late st Contact Info) Description 11/29/2003 Outpatient Historical [facility] Internal Medicine [address] [place] [address]. [address] [place] [address] Cliff Sen MD 15[address] [facility] [address] [place] [address] Social History Tobacco Use Types Packs/Day Years Used Date Smoking Tobacco: Never Assessed Sex and Gender Information Value Date Recorded Sex Assigned at Not on file Legal Sex Male 3:17 AM HACKLER DOLL WIGS Gender Identity Not on file Sexual Orientation Not on file documented as of this encounter Plan of Treatment Not on file documented as of this encounter Visit Diagnoses Not on filedocumented in this encounter Care Teams Crew Scheduler Relationship Specialty Start Date End Date Cliff Sen MD 15[address] [facility] [address] [place] [address] PCP - General 10/01/03 documented as of this encounter
--- OUTSIDE RECORDS SUMMARY | 2025-08-04 08:54 | XMS_ITS | Encounter Summary ---
Author Organization [employer] Address [address] [place] [address] Care Team Providers Care Farm Technician Name Role Phone Cliff Sen MD Primary Care Provider [phone] Encounter Details Date Type Department Care Team (Late st Contact Info) Description 02/06/2005 Outpatient Historical [facility] Internal Medicine [address] [place] [address]. [address] [place] [address] Cliff Sen MD [address] [facility] [address] [place] [address] Social History Tobacco Use Types Packs/Day Years Used Date Smoking Tobacco: Never Assessed Sex and Gender Information Value Date Recorded Sex Assigned at Not on file Legal Sex Male 3:17 AM INSTRUMENTATION ENGINEER Gender Identity Not on file Sexual Orientation Not on file documented as of this encounter Plan of Treatment Not on file documented as of this encounter Visit Diagnoses Not on filedocumented in this encounter Care Teams Farm Technician Relationship Specialty Start Date End Date Cliff Sen MD [address] [facility] [address] [place] [address] PCP - General 10/01/03 documented as of this encounter
--- OUTSIDE RECORDS SUMMARY | 2025-08-04 08:54 | XMS_ITS | Encounter Summary ---
Author Organization [facility] Address [address] [place] [address] Care Team Providers Care Energy Specialist Name Role Phone Marta Kwong RN Unavailable [phone] Melania Hall RN Unavailable [phone] Jean-Pierre Long DPM Unavailable [phone] Dhiraj Gaitan DO Unavailable [phone] Adrian Sanchez MD Unavailable [phone] Nakul Hinojosa MD Unavailable [phone] Marlon Trujillo MD Primary Care Provider [phone] Madelyn Gonzalez MD Unavailable [phone] Peter Felton RN Unavailable Unavaila ble Encounter Details Date Type Department Care Team (Latest Contact Info) Description 06/10/2025 Results Follow-Up [facility] Gastroenterology at [address] [place] [address] Fernando Rodarte MD [address] [place] [address] [address] [place] [address] Surgical pathology Social History Tobacco Use Types Packs/Day Years [...] on file Legal Sex Male 1:13 AM FLEXOGRAPHIC PRESS SET UP OPERATOR Gender Identity Not on file Sexual [...] Date Diagnosed Date Colorectal Pre-Surgical Plan 07/12/2024 Infection Onset Date Last Indicated Resolved Time C. difficile suspected 06/14/2025 06/14/202506/14 12:01 PM CDT documented as of this encounter Care Teams Energy Specialist Relationship Specialty Start Date End Date Marlon Trujillo MD [address] [place] [address] PCP - General Internal Medicine 12/01/24 Marta Kwong RN [address] [address] Sleeve Presser Operator 04/18/18 06/19/25 Melania Hall RN [address] [address] Sleeve Presser Operator 04/20/18 Jean-Pierre Long DPM [address] [place] [address] Consulting Physician Foot and Ankle Surg 06/11/23 Dhiraj Gaitan DO [address] [place] [address] Consulting Physician Gastroenterology 05/16/24 Adrian Sanchez MD [address] [facility] [phone] [place] [address] Surgeon Colon and Rectal Surgery 06/28/24 Nakul Hinojosa MD [address] [facility] [phone] [place] [address] Medical Oncologist/Hematologi Medical Oncology 09/11/24 06/27/25 Madelyn Gonzalez MD [address] [facility], [address] [place], [place] [address] Consulting Physician Endocrinology Diabetes & Metabolism 05/25/25 Peter Felton, supervisor bloodSleeve Presser Operator Transplant 06/19/25 documented as of this encounter
--- OUTSIDE RECORDS SUMMARY | 2025-08-04 08:54 | XMS_ITS | Encounter Summary ---
Author Organization [employer] Address [address] [place] [address] Care Team Providers Care Coal Tram Driver Name Role Phone Cliff Sen MD Primary Care Provider [phone] Encounter Details Date Type Department Care Team (Late st Contact Info) Description 02/19/2005 Outpatient Historical [facility] Internal Medicine [address] [place] [address]. 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
--- OUTSIDE RECORDS SUMMARY | 2025-08-04 08:54 | XMS_ITS | Encounter Summary ---
Author Organization [employer] Address [address] [place] [address] Care Team Providers Care Porcelain Enamel Repairer Name Role Phone Cliff Sen MD Primary Care Provider [phone] Encounter Details Date Type Department Care Team (Late st Contact Info) Description 02/06/2005 Outpatient Historical [facility] [address] [facility]. [address] [place] [address] Mich Olivera MD [address] [place] [address] Social History Tobacco Use Types Packs/Day Years Used Date Smoking Tobacco: Never Assessed Sex and Gender Information Value Date Recorded Sex Assigned at Not on file Legal Sex Male 3:17 AM PAPER REEL OPERATOR Gender Identity Not on file Sexual Orientation Not on file documented as of this encounter Plan of Treatment Not on file documented as of this encounter Visit Diagnoses Not on filedocumented in this encounter Care Teams Porcelain Enamel Repairer Relationship Specialty Start Date End Date Cliff Sen MD [address] [place] [address] [address] [place] [address] PCP - General 10/01/03 documented as of this encounter
--- OUTSIDE RECORDS SUMMARY | 2025-08-04 08:54 | XMS_ITS | Encounter Summary ---
Author Organization [facility] Address [address] [place] [address] Phone Care Team Providers Care Table Operator Name Role Phone Marlon Trujillo MD Primary Care Provider [phone] Katheryn Nguyen RN Unavailable [phone] Marta Kwong RN Unavailable [phone] Marlon Trujillo MD Primary Care Provider [phone] Melania Hall RN Unavailable [phone] Jean-Pierre LongM Unavailable [phone] Dhiraj Gaitan DO Unavailable [phone] Adrian Sanchez MD Unavailable [phone] Sherry Funes Unavailable Unavailable Nakul Hinojosa MD Unavailable [phone] Marlon Trujillo MD Primary Care Provider [phone] Madelyn Gonzalez MD Unavailable [phone] Peter Felton RN Unavailable Unavaila ble Encounter Details Date Type Department Care Team (Latest Contact Info) Description 06/10/2017 Orders Only [facility] CONVERSION Scanning, Provider Social History Tobacco Use Types Packs/Day Years Used Date Smoking Tobacco: Never Assessed Sex and Gender Information Value Date Recorded Sex Assigned at Not on file Legal Sex Male 1:13 AM JOB ANALYSIS MANAGER Gender Identity Not on file Sexual Orientation Straight 05/24/2019 8: 40 AM CDT documented as of this encounter Plan of Treatment Not on file documented as of this encounter Procedures Procedure Name Priority Date/Time Associated Diagnosis Comments VASCULAR LABORATORY REPORT 06/10/2017 1:08 PM CDT documented in this encounter Results * VASCULAR LABORATORY REPORT (06/10/2017 1:08 PM CDT) Anatomical Region Laterality Modality Ultrasound us Provider Scanning CV VASCULAR PROCEDURES Final R esult documented in this encounter Visit Diagnoses Not on filedocumented in this encounter Additional Health Concerns Infection Onset Date Last Indicated Resolved Time COVID: Suspected 11/08/2020 11/08/2020 11/08/2020 10:03 AM JOB ANALYSIS MANAGER Respiratory Infection (BLAINE), contact + droplet Comment:IP Review - Patient classified as Low Risk for COVID-19 and has one negative COVID-19 test. Patient meets criteria for COVID-19 isolation discontinuation Automatically added due to negative COVID-19 result. 11/08/2020 11/08/2020 11/08/2020 3:[address] Exposure, COVID-19 Comment:IP Review- Patient was exposed to a positive patient Isreal Cohen ([id number]). Testing not required for exposed patient unless symptomatic. Will need to be on precautions until 12/02/20 11/18/20 6:29 PM Lisa Galindo 11/18/2020 11/18/2020 11/28/2020 6:43 PM JOB ANALYSIS MANAGER COVID: Suspected 11/19/2020 11/19/2020 11/19/2020 11:09 AM JOB ANALYSIS MANAGER Respiratory Infection (BLAINE), contact + droplet Comment:Automatically added due to negative COVID-19 result. 11/19/2020 11/19/2020 11/20/2020 4:2 1 PM JOB ANALYSIS MANAGER VRE 11/23/2020 11/23/2020 07/02/2021 5:00 AM CDT COVID: Suspected 11/28/2020 11/28/2020 11/28/2020 6:43 PM JOB ANALYSIS MANAGER COVID19 11/28/2020 11/28/2020 12/30/2020 3:05 AM JOB ANALYSIS MANAGER COVID: Recovered Comment:Added based on recent COVID infection. 12/30/2020 01/03/202104/29/2021 3:05 AM C DT COVID: Suspected 09/17/2024 09/17/2024 09/17/2024 10:55 AM JOB ANALYSIS MANAGER C. difficile suspected 05/17/2025 06/14/202505/18 7:26 PM CDT C. difficile suspected 06/14/2025 06/14/202506/14 12:01 PM CDT documented as of this encounter Care Teams Table Operator Relationship Specialty Start Date End Date Marlon Trujillo MD PCP - General 12/30/16 09/08/18 Marlon Trujillo MD PCP - General Internal Medicine 09/09/18 11/30/24 Marlon Trujillo MD [address] [place] [id number] PCP - General Internal Medicine 12/01/24 Katheryn Nguyen, RN [address] [address] Office Clinician 04/12/18 09/08/18 Marta Kwong RN [address] [address] Office Clinician 04/18/18 06/19/25 Melania Hall RN [address] [address] Office Clinician 04/20/18 Jean-Pierre Long DPM [address] [facility] [place] [address] Consulting Physician Foot and Ankle Surg 06/11/23 Dhiraj Gaitan DO [address] [facility] [place] [address] Consulting Physician Gastroenterology 05/16/24 Adrian Sanchez MD [address] [facility] [id number] [place] [address] Surgeon Colon and Rectal Surgery 06/28/24 Sherry Funes RMA Surgical Prehabilitation and Readiness (SPAR) Coordinator 07/06/24 08/14/24 Nakul Hinojosa MD Medical Oncologist/Loan Secretary Medical Oncology 09/11/24 06/27/25 Madelyn Gonzalez MD [address] [facility] [address] [place] [address] Consulting Physician Endocrinology Diabetes & Metabolism 05/25/25 Peter Felton, nuclear equipment operatorOffice Clinician Transplant 06/19/25 documented as of this encounter
[2025-08-04] MEDS: LACTATED RINGERS 1,000 ML 999 ML IV CONT (08:56)
[2025-08-04] MEDS: ONDANSETRON INJ 4 MG/2 ML VIAL IV PUSH (08:56)
[2025-08-04 09:03] LABS: Hematocrit 33.9 % (42.0-52.0); Hemoglobin 10.4 g/dL (14.0-18.0); Immature Granulocyte Percent A 0.4 % (0-0.5); Lymphocytes Absolute Auto 1.34 K/mm3 (0.9-3.2); Mean Corpuscular HGB Conc 30.7 g/dl (32-36); Mean Corpuscular Hemoglobin 26.6 pg (26-34); Mean Corpuscular Volume 86.7 fl (80-100); Nucleated Red Blood Cells Absolute Auto 0.000 K/mm3 (0.0-0.012); Nucleated Red Blood Cells Perc 0.0 % (0.0-0.2); Platelet Count Result 187 k/mm3 (150-375); Red Blood Count 3.91 M/mm3 (4.6-6.20); White Blood Count 9.6 K/mm3 (4.5-10.0)
--- NOTE | 2025-08-04 09:04 | PC.NURSE ---
Pt given urinal for urine sample.
[2025-08-04 09:21] LABS: Alanine Aminotransferase 18 U/L (6-50); Albumin Level 4.2 g/dL (3.5-5.1); Alkaline Phosphatase 75 U/L (38-126); Anion Gap 9 mmol/L (4-12); Aspartate Amino Transferase 28 U/L (17-59); Bilirubin,Total 0.6 mg/dL (0.2-1.3); Blood Urea Nitrogen 56 mg/dL (9-20); Calcium 8.9 mg/dL (8.4-10.2); Carbon Dioxide 25 mmol/L (22-30); Chloride 104 mmol/L (98-107); Estimated CRCL calculation 34 ml/min; Estimated Glomerular Filt Rate 36; Glucose 184 mg/dL (65-110); Lipase 67 U/L (23-300); Potassium 4.2 mmol/L (3.4-5.0); Sodium 138 mmol/L (137-145); Total Protein 7.0 g/dL (6.3-8.2)
[2025-08-04 09:55] LABS: Add Urine Microscopic? YES; Appearance Urine Clear (Clear); Glucose Urine UA Negative (Negative); Leukocyte Esterase Ur Negative LEU/UL (Negative); Nitrate Urine Negative (Negative); Specific Grav Ur 1.015 (1.001-1.035)
--- NOTE | 2025-08-04 11:06 | ED.GENADULT ---
HPI - General Adult General Chief complaint: Nausea/Vomiting/Diarrhea Stated complaint: fever, vomiting Time Seen by Provider: 08/04/25 08:37 History of Present Illness HPI narrative: 70-year-old male presents to the emergency department for evaluation for fever and nausea vomiting diarrhea. Patient began having a fever this morning of 101.5. Patient also started having vomiting at approximately 9:00 a.m.. Upon arrival to the emergency department patient states that the nausea and vomiting is resolved patient denies any current abdominal pain. Patient did have a recent episode similar to this a few months ago and it was attributed to a urinary tract infection. Patient does have a prior history of a liver transplant in 2012 performed at [facility]. Patient does take tacrolimus and prednisone. Patient initially stated he had a liver transplant but appear as it was both liver and kidney transplant. Related Data Home Medications ?Medication ?Instructions ?Recorded ?Confirmed ?Last Taken ?Type alendronate 70 mg-cholecalciferol 1 tablet PO DAILY 11/05/20 08/04/25 08/03/25 History (vitamin D3) 2,800 unit tablet amlodipine 5 mg tablet 5 mg PO BID 11/05/20 08/04/25 08/03/25 History aspirin 81 mg tablet 81 mg PO EVERY OTHER DAY 11/05/20 08/04/25 03/08/24 12:00 History insulin lispro 100 unit/mL 1 sliding scale dose subcut TIDWM 11/05/20 08/04/25 08/04/25 History subcutaneous cartridge PRN Hyperglycemia losartan 100 mg tablet 100 mg PO DAILY 11/05/20 08/04/25 08/03/25 History multivit with minerals-iron 18 1 tablet PO QNOON 11/05/20 08/04/25 08/03/25 History mg-folic ac 400 mcg-vit K 25 mcg tablet (Adults Multivitamin) tacrolimus 1 mg capsule, 2 mg PO Q12H 11/05/20 08/04/25 08/03/25 History immediate-release (Prograf) metoprolol tartrate 25 mg tablet 25 mg PO BID 11/15/21 08/04/25 08/03/25 History pravastatin 40 mg tablet 40 mg PO QHS 03/09/24 08/04/25 08/03/25 History prednisone 5 mg tablet 5 mg PO QHS 03/09/24 08/04/25 08/03/25 History cholestyramine 4 gram oral powder g 08/04/25 08/03/25 History for suspension in a packet (Cholestyramine Light) ferrous sulfate 325 mg (65 mg mg 08/04/25 08/03/25 History iron) tablet (FeroSul) flyrou-doqazjzi-xggqfpm cap PO 08/04/25 08/03/25 History 24,000-76,000-120,000 unit capsule,delayed rel (Creon) Allergies Allergy/AdvReac Type Severity Reaction Status Date / Time No Known Allergies Allergy Verified 08/04/25 16:08 Review of Systems Review of Systems: All systems reviewed & are unremarkable except as noted in HPI and below PMFSH Past Medical History Medical History (Updated 08/04/25 @ 15:21 by Janey Stahl APRN) Renal cell carcinoma History of pneumothorax Diabetes type 2, controlled Hyperlipidemia Hypertension Surgical History Surgical History (Updated 08/04/25 @ 18:29 by Hank Robles MD) History of kidney surgery History of liver transplant History of colonoscopy History of chest tube placement Family History Family History (Updated 08/04/25 @ 16:14 by Cher Stovall RN) Father Heart disease Mother Family history unknown Heart attack Social History Social History Smoking status: Former smoker Alcohol intake: former Substance use: never Do You Feel Safe in your Home?: Yes Lack of Transportation: No Lack of Food: Never True Current Housing: I Have Housing Concerned About Future Housing: No Difficulty Paying Gas/Electric Bills: No Difficulty Paying for Meds: No Currently Unemployed: No Education: High School Diploma/GED Difficulty w/ Childcare or Family Care: No Gender identity (if verbalized by the patient): Male Sexual Orientation (if Verbalized by the Patient): Straight or Heterosexual Spiritual care concerns: Yes Exam Narrative: APPEARANCE: Well-appearing HEAD: normocephalic, atraumatic. EYES: PERRLA/EOMI, conjunctivae clear. NOSE: Normal no drainage EARS:TMS clear with good light reflex. THROAT: Pharynx clear, no exudate. NECK: Supple. No adenopathy, no masses. RESPIRATORY: Airway patent, respirations nonlabored. Clear to auscultation bilaterally, no rales, rhonchi, wheezing. CARDIOVASCULAR: Regular rate and rhythm without murmurs rubs or gallops. ABDOMINAL: Soft, nontender, nondistended, normal bowel sounds MUSCULOSKELETAL: Moves all extremities. Strength/ROM intact, No edema, No calf tenderness. NEURO: Alert. Cranial nerves II through XII intact. Grossly intact SKIN: Warm, dry. Normal Color Course Vital Signs Vital signs: Vital Signs Temperature 99.6 F 08/04/25 08:35 Pulse Rate 110 H 08/04/25 08:35 Respiratory Rate 08/04/25 08:35 Blood Pressure 115/71 08/04/25 08:35 Pulse Oximetry 99 08/04/25 08:35 Oxygen Delivery Room Air 08/04/25 08:35 Temperature 100.2 F H 08/04/25 14:07 Pulse Rate 94 08/04/25 14:31 Respiratory Rate 08/04/25 14:31 Blood Pressure 100/52 L 08/04/25 14:31 Pulse Oximetry 92 08/04/25 14:31 Oxygen Delivery Room Air 08/04/25 17:15 Medical Decision Making [facility] Narrative Medical decision making narrative: 70-year-old male presents emergency department for evaluation for nausea vomiting diarrhea fever. Patient does feel improved upon arrival to the emergency department. Patient does still have fever he was treated with Tylenol. Patient has no leukocytosis hemoglobin of 10.4. Patient's kidney function is at his typical baseline. No evidence of urinary tract infection. Patient does have some proteinuria. Case was discussed with Dr. Roly Lemus who was covering the transplant team at [facility] and they were comfortable with the plan to continue antibiotics for pneumonia and keep the patient at our facility. The did recommend continuing the Tacrolimus and prednisone. case was discussed with hospitalist patient was accepted to our facility. Patient family were updated on the results of the workup and plan for admission. All questions concerns were addressed. Differential Diagnosis Differential Diagnosis: Urinary tract infection, COVID, RSV, influenza, pneumonia, viral syndrome Vital Signs Vital Signs: Vital Signs Temperature 99.6 F 08/04/25 08:35 Pulse Rate 110 H 08/04/25 08:35 Respiratory Rate 08/04/25 08:35 Blood Pressure 115/71 08/04/25 08:35 Pulse Oximetry 99 08/04/25 08:35 Oxygen Delivery Room Air 08/04/25 08:35 Temperature 100.2 F H 08/04/25 14:07 Pulse Rate 94 08/04/25 14:31 Respiratory Rate 20 08/04/25 14:31 Blood Pressure 100/52 L 08/04/25 14:31 Pulse Oximetry 92 08/04/25 14:31 Oxygen Delivery Room Air 08/04/25 17:15 Lab Data Lab results reviewed: Yes I reviewed the patient's lab results. 08/04/25 08:55 08/04/25 08:55 Labs: Lab Results 08/04/25 08/04/25 Range/Units 08:55 09:43 WBC 9.6 (4.5-10.0) K/mm3 RBC 3.91 L (4.6-6.20) M/mm3 Hgb 10.4 L (14.0-18.0) g/dL Hct 33.9 L (42.0-52.0) % MCV 86.7 (80-100) fl MCH 26.6 (26-34) pg MCHC 30.7 L (32-36) g/dl RDW 15.3 H (11.5-14.5) % Plt Count 187 (150-375) k/mm3 MPV 10.5 H (7.4-10.4) fl Immature Gran % (Auto) 0.4 (0-0.5) % Neut % (Auto) 76.5 H (45.5-73.1) % Lymph % (Auto) 13.9 L (18.3-44.2) % [facility] % (Auto) 7.1 (2.6-8.5) % Eos % (Auto) 1.8 (0-4.4) % Baso % (Auto) 0.3 (0.2-1.2) % Lymph # (Auto) 1.34 (0.9-3.2) K/mm3 [facility] [place] # (Auto) 0.7 H (0.1-0.6) K/mm3 Eos # (Auto) 0.2 (0-0.3) K/mm3 Baso # (Auto) 0.0 (0.0-0.1) K/mm3 Abs Immat Gran (auto) 0.04 H (0.00-0.031) K/mm3 Absolute Neuts (auto) 7.4 H (1.3-6.7) K/mm3 Absolute Nucleated RBC 0.000 (0.0-0.012) K/mm3 Nucleated RBC % 0.0 (0.0-0.2) % Sodium 138 (137-145) mmol/L Potassium 4.2 (3.4-5.0) mmol/L Chloride 104 (98-107) mmol/L Carbon Dioxide 25 (22-30) mmol/L Anion Gap 9 (4-12) mmol/L BUN 56 H D (9-20) mg/dL Creatinine 1.85 H (0.7-1.3) mg/dL Estim Creat Clear Calc 34 ml/min Estimated GFR 36 L (59 - ) Glucose 184 H (65-110) mg/dL Lactic Acid 1.1 (0.7-2.0) mmol/L Calcium 8.9 (8.4-10.2) mg/dL Total Bilirubin 0.6 (0.2-1.3) mg/dL AST 28 (17-59) U/L ALT 18 (6-50) U/L Alkaline Phosphatase 75 (38-126) U/L Total Protein 7.0 (6.3-8.2) g/dL Albumin 4.2 (3.5-5.1) g/dL Lipase 67 (23-300) U/L Urine Color Yellow (Yellow) Urine Appearance Clear (Clear) Urine pH 5.0 (5.0-9.0) Ur Specific [place] 1.015 (1.001-1.035) Urine Protein 1+ H (Negative) mg/dL Urine Glucose (UA) Negative (Negative) mg/dL Urine Ketones Negative (Negative) mg/dL Ur Blood (Man) Negative (Negative) Urine Nitrate Negative (Negative) Urine Bilirubin Negative (Negative) Urine Urobilinogen 0.2 (<2.0) mg/dL Leukocyte Esterase Rfl Negative (Negative) HUGO/UL Urine RBC 0-2 (0-2) /hpf Urine WBC 0-5 (0-3) /hpf Ur Squamous Epith Cells None seen (Few) /hpf Urine Bacteria None seen /hpf Urine Casts 3-5 Imaging Data Radiologist's impression: Impressions Chest X-Ray 08/04/25 12:33 IMPRESSION: 1. Right basilar pneumonia. Recommend surveillance until resolution. Discharge Plan Discharge Clinical Impression: Nausea & vomiting, Pneumonia, Fever, Kidney transplant recipient, Liver transplant recipient Patient Disposition: Still a Patient Condition: Stable
[2025-08-04] MEDS: ACETAMINOPHEN 500 MG TABLET 1000 MG PO (12:26)
[2025-08-04] MEDS: cefTRIAXone 1 GM in SODIUM CHLORIDE 0.9% IV 50 ML 100 ML IVPB (14:06)
--- NOTE | 2025-08-04 15:12 | P.HP_ITS ---
H&P: HPI History of Present Illness Date/Time: 08/04/25 15:12 Chief Complaint: Fever and vomiting Narrative: 70-year-old patient with past medical renal cell carcinoma, pneumothorax, hypertension hyperlipidemia, diabetes type 2, history of kidney and deliver transplant in 2013 performed at [facility] presents the hospital with nausea vomiting and diarrhea. Patient states that he woke up this morning with a fever of 101.5 and vomiting. Patient states that he was unable to take his tacro limits this morning due to nausea and vomiting. Patient states that all his symptoms started today. Patient has no respiratory complaints, states that he is still making urine, no other complaints at this time. Lab work in the ED shows hemoglobin of 10.4, BUN of 56, creatinine 0 1.85, GFR of 36, glucose of 184, UA negative for infection. Chest x-ray positive for right basilar pneumonia. COVID flu RSV pending. Patient started on azithromycin and Rocephin. On-call surgeon for the transplant team was notified about the patient and stated that he did not need to be transferred as it has been over 10 years since his transplant however he does with the patient to continue tacro and prednisone. Review of Systems Review of Systems: 12 systems were reviewed and are negativ e except for as per HPI. [facility] Past Medical History Medical History (Updated 08/04/25 @ 15:21 by Janey Stahl APRN) Renal cell carcinoma History of pneumothorax Diabetes type 2, controlled Hyperlipidemia Hypertension Surgical History Surgical History (Updated 08/04/25 @ 20:15 by Janey Stahl APRN) History of kidney surgery History of liver transplant History of colonoscopy History of chest tube placement Family History Family History (Updated 08/04/25 @ 16:14 by Cher Stovall RN) Father Heart disease Mother Family history unknown Heart attack Social History Social History Smoking status: Former smoker Alcohol intake: former Substance use: never Do You Feel Safe in your Home?: Yes Lack of Transportation: No Lack of Food: Never True Current Housing: I Have Housing Concerned About Future Housing: No Difficulty Paying Gas/Electric Bills: No Difficulty Paying for Meds: No Currently Unemployed: No Education: High School Diploma/GED Difficulty w/ Childcare or Family Care: No Gender identity (if verbalized by the patient): Male Sexual Orientation (if Verbalized by the Patient): Straight or Heterosexual Spiritual care concerns: Yes Meds Home Medications and Allergies Home Medications ?Medication ?Instructions ?Recorded ?Confirmed ?Type alendronate 70 mg-cholecalciferol 1 tablet PO DAILY 08/04/25 History (vitamin D3) 2,800 unit tablet amlodipine 5 mg tablet 5 mg PO BID 11/05/20 5 History aspirin 81 mg tablet 81 mg PO EVERY OTHER DAY 08/04/25 History insulin lispro 100 unit/mL 1 sliding scale dose subcut TIDWM 11/05/20 08/04/25 History subcutaneous cartridge PRN Hyperglycemia losartan 100 mg tablet 100 mg PO DAILY 11/05/20 History multivit with minerals-iron 18 1 tablet PO QNOON 11/0508/04/25 History mg-folic ac 400 mcg-vit K 25 mcg tablet (Adults Multivitamin) tacrolimus 1 mg capsule, 2 mg PO Q12H 11/05/20 History immediate-release (Prograf) metoprolol tartrate 25 mg tablet 25 mg PO BID 11/15/21 08/04/25 History pravastatin 40 mg tablet 40 mg PO QHS 03/09/24 History prednisone 5 mg tablet 5 mg PO QHS 03/09/24 5 History cholestyramine 4 gram oral powder g 08/04/25 History for suspension in a packet (Cholestyramine Light) ferrous sulfate 325 mg (65 mg mg 08/04/25 History iron) tablet (FeroSul) sclpnk-ddirtexl-mpwvgjc cap PO 08/04/25 History 24,000-76,000-120,000 unit capsule,delayed rel (Creon) Allergies Allergy/AdvReac Type Severity Reaction Status Date / Time No Known Allergies Allergy Verified 08/04/25 16:08 Vital Signs Vital Signs - 24 hr 08/04/25 08:35 08/04/25 08:45 08/04/25 09:01 Temperature 99.6 F Pulse Rate 110 H 112 H 108 H Respiratory Rate 20 21 H 23 H Blood Pressure 115/71 139/63 Pulse Oximetry 99 100 98 Oxygen Delivery Room Air 08/04/25 09:15 08/04/25 09:45 08/04/25 09:46 Temperature Pulse Rate 109 H 108 H 107 H Respiratory Rate 22 H 21 H 20 Blood Pressure 140/68 Pulse Oximetry 100 98 96 Oxygen Delivery 08/04/25 10:00 08/04/25 10:22 08/04/25 10:48 Temperature Pulse Rate 99 107 H 105 H Respiratory Rate 24 H 26 H 22 H Blood Pressure Pulse Oximetry 96 94 95 Oxygen Delivery 08/04/25 11:00 08/04/25 11:15 08/04/25 11:28 Temperature 102.9 F H Pulse Rate 105 H 105 H 104 H Respiratory Rate 22 H 23 H 20 Blood Pressure 120/48 L Pulse Oximetry 95 95 Oxygen Delivery 08/04/25 11:42 08/04/25 11:52 08/04/25 12:00 Temperature Pulse Rate 103 H 102 H 102 H Respiratory Rate 23 H 26 H 23 H Blood Pressure Pulse Oximetry 95 94 92 Oxygen Delivery 08/04/25 12:01 08/04/25 14:07 08/04/25 14:31 Temperature 100.2 F H Pulse Rate 102 H 94 Respiratory Rate 22 H 20 Blood Pressure 121/63 100/52 L Pulse Oximetry 93 92 Oxygen Delivery Exam Narrative: General: well appearing, appears stated age. HEENT: normocephalic, atraumatic. Mucous membranes moist. EOMI, PERRLA, bilateral sclera anicteric, no conjunctival injection. Neck supple without JVD, lymphadenopathy, or bruit. Respiratory: clear to ascultation bilaterally. No rales/rhonic/wheezes. Cardiovascular: Regular rate and rhythm, normal S1-S2 upon ascultation. No murmurs, rubs, or clicks. PMI is nondisplaced, capillary refill less than 3 second. Abdomen: Soft, round, no pulsatile masses, nondistended and nontender. No rebound, no guarding. Bowel sounds present to all four quadrants. No high pitch or tinkling sounds, resonant to percussion. Extremities: No cyanosis, clubbing, or edema present. Pulses are palpable 2/2. Active ROM to all four extremities. Neuro: Alert and orientated x 4. PERRLA. Cranial nerves 2-12 intact without focal deficit. Skin: Warm, dry, and intact, without rash, erythema, or lesion. Psych: pleasant, cooperative, normal speech, normal affect, no hallucinations, no dysarthia H&P: Results Labs Labs: Short CBC 08/04/25 Range/Units 08:55 WBC 9.6 (4.5-10.0) K/mm3 Hgb 10.4 L (14.0-18.0) g/dL Hct 33.9 L (42.0-52.0) % Plt Count 187 (150-375) k/mm3 BMP 08/04/25 08:55 Sodium 138 Potassium 4.2 Chloride 104 Carbon Dioxide 25 BUN 56 H D Creatinine 1.85 H Glucose 184 H Calcium 8.9 Liver Function 08/04/25 Range/Units 08:55 Total Bilirubin 0.6 (0.2-1.3) mg/dL AST 28 (17-59) U/L ALT 18 (6-50) U/L Alkaline Phosphatase 75 (38-126) U/L Albumin 4.2 (3.5-5.1) g/dL Urine 08/04/25 Range/Units 09:43 Urine Color Yellow (Yellow) Urine Appearance Clear (Clear) Urine pH 5.0 (5.0-9.0) Ur Specific [place] 1.015 (1.001-1.035) Urine Protein 1+ H (Negative) mg/dL Urine Glucose (UA) Negative (Negative) mg/dL Assessment and Plan Assessment and plan (1) Pneumonia: Code(s): J18.9 - Pneumonia, unspecified organism Status: Acute Assessment and Plan: Rocephin and azithromycin DuoNeb Guaifenesin (2) Nausea & vomiting: Code(s): R11.2 - Nausea with vomiting, unspecified Status: Acute Assessment and Plan: IV fluid Tigan (3) BONNIE (acute kidney injury): Code(s): N17.9 - Acute kidney failure, unspecified Status: Acute Assessment and Plan: IV fluids BMP in the morning (4) Hypertension: Code(s): I10 - Essential (primary) hypertension Status: Acute Assessment and Plan: Continue amlodipine and Cozaar (5) Kidney transplanted: Code(s): Z94.0 - Kidney transplant status Status: Acute Assessment and Plan: Kidney and liver transplant Continue prednisone and tacrolimus Tacro level in a.m. (6) Diabetes type 2, controlled: Code(s): E11.9 - Type 2 diabetes mellitus without complications Status: Acute Assessment and Plan: Accu-Cheks a.cAshlyn HS Okay for patient to wear insulin pump Diabetic diet in the morning Around 11:00 p.m. patient with hypoglycemic with his Dexcom alerting him patient given juice. If patient is not nauseated he may have a diabetic diet Quality VTE Prophylaxis VTE prophylaxis: mechanical ordered and pharmacologic ordered Hospitalist MIPS Advance Care Plan I have confirmed that the patient's Advanced Care Plan is present, code status is documented, or surrogate decision maker is listed in patient medical record.: Yes Medication Reconciliation I have utilized all available resources to obtain, update and review the patients current medications (includes all prescriptions, OTC, herbals, cannabis, and nutritional supplements).: Yes
[2025-08-04] MEDS: SODIUM CHLORIDE 0.9% IV 1,000 ML 100 ML IV CONT (16:30)
--- NOTE | 2025-08-04 16:59 | ADMGEN ---
This patient, Luis Manuel Tracy, was admitted to 3 [facility] Surg Room 328-01. Patient/family oriented to hospital policies and general routines including ID bracelet, bed and alarms, visiting hours, pain management, procedures, bathroom and other care routines, personal items, smoking policy, room service/diet, and visiting hours. Information on how to activate the Rapid Response Team has been discussed. Patient/Family are encouraged to report perceived risks to care and to ask questions if they do not understand what they are told or what they should do. received report from ty.
[2025-08-04] MEDS: PRAVASTATIN SODIUM 20 MG TABLET 40 MG PO (20:47)
[2025-08-04] MEDS: METOPROLOL TARTRATE 25 MG TABLET PO (20:47)
[2025-08-04] MEDS: TACROLIMUS 0.5 MG CAPSULE 2 MG BY MOUTH (20:48)
[2025-08-04] MEDS: ACETAMINOPHEN 325 MG TABLET 650 MG PO (20:48)
[2025-08-04] MEDS: AZITHROMYCIN IV 500 MG in SODIUM CHLORIDE 0.9% IV 250 ML IVPB (22:49)
[2025-08-05] VITALS (11 sets, daily range): BP systolic 127–152; BP diastolic 60–64; PULSE 80–92; RESP 16–20; TEMP 36.5–37.4; O2SAT 95–100
[2025-08-05] MEDS: SODIUM CHLORIDE 0.9% IV 1,000 ML 100 ML IV CONT (03:30)
[2025-08-05 06:55] LABS: Hematocrit 31.3 % (42.0-52.0); Hemoglobin 9.6 g/dL (14.0-18.0); Immature Granulocyte Percent A 0.6 % (0-0.5); Lymphocytes Absolute Auto 1.01 K/mm3 (0.9-3.2); Mean Corpuscular HGB Conc 30.7 g/dl (32-36); Mean Corpuscular Hemoglobin 27.1 pg (26-34); Mean Corpuscular Volume 88.4 fl (80-100); Nucleated Red Blood Cells Absolute Auto 0.000 K/mm3 (0.0-0.012); Nucleated Red Blood Cells Perc 0.0 % (0.0-0.2); Platelet Count Result 174 k/mm3 (150-375); Red Blood Count 3.54 M/mm3 (4.6-6.20); White Blood Count 8.2 K/mm3 (4.5-10.0)
[2025-08-05 07:28] LABS: Anion Gap 9 mmol/L (4-12); Blood Urea Nitrogen 44 mg/dL (9-20); Calcium 8.4 mg/dL (8.4-10.2); Carbon Dioxide 24 mmol/L (22-30); Chloride 105 mmol/L (98-107); Estimated CRCL calculation 38 ml/min; Estimated Glomerular Filt Rate 41; Glucose 135 mg/dL (65-110); Potassium 4.5 mmol/L (3.4-5.0); Sodium 138 mmol/L (137-145)
--- NOTE | 2025-08-05 07:53 | P.PNIM_ITS ---
Progress Note: A&P Assessment and Plan (1) Pneumonia: Code(s): J18.9 - Pneumonia, unspecified organism Status: Acute Assessment and Plan: Rocephin and azithromycin DuoNeb Guaifenesin afebrile today repeat CXR in am plan for discharge home on PO antibiotics if continuing to improve (2) Nausea & vomiting: Code(s): R11.2 - Nausea with vomiting, unspecified Status: Acute Assessment and Plan: IV fluid - stop Tigan PRN tolerating diet AM labs (3) BONNIE (acute kidney injury): Code(s): N17.9 - Acute kidney failure, unspecified Status: Acute Assessment and Plan: IV fluids stop improved to patients baseline BMP in the morning (4) Hypertension: Code(s): I10 - Essential (primary) hypertension Status: Acute Assessment and Plan: Continue amlodipine and Cozaar (5) Kidney transplanted: Code(s): Z94.0 - Kidney transplant status Status: Acute Assessment and Plan: Kidney and liver transplant Continue prednisone and tacrolimus Tacro level pending (6) Diabetes type 2, controlled: Code(s): E11.9 - Type 2 diabetes mellitus without complications Status: Acute Assessment and Plan: Accu-Chenito dahl.cAshlyn HS Okay for patient to wear insulin pump Diabetic diet in the morning Around 11:00 p.m. patient with hypoglycemic with his Dexcom alerting him patient given juice. If patient is not nauseated he may have a diabetic diet Subjective Date/time seen: 08/05/25 07:53 Interval history: Patient seen for a follow up visit. Patient seen lying in bed, in no acute distress. Patient afebrile this morning. Patient denies nausea and vomiting and is tolerating a diet. Patient has his insulin pump on and is able to manage his pump. Patient continues on IV antibiotics. Plan for repeat chest x-ray in the morning. Plan for discharge home tomorrow if continuing to improve. Review of Systems Review of Systems: 12 systems were reviewed and are negativ e except for as per HPI. Exam Narrative: General: well appearing, appears stated age. HEENT: normocephalic, atraumatic. Mucous membranes moist. EOMI, PERRLA, bilateral sclera anicteric, no conjunctival injection. Neck supple without JVD, lymphadenopathy, or bruit. Respiratory: clear to ascultation bilaterally. No rales/rhonic/wheezes. Cardiovascular: Regular rate and rhythm, normal S1-S2 upon ascultation. No murmurs, rubs, or clicks. Abdomen: Soft, round, no pulsatile masses, nondistended and nontender. No rebound, no guarding. Bowel sounds present to all four quadrants. No high pitch or tinkling sounds Extremities: No cyanosis, clubbing, or edema present. Pulses are palpable 2/2. Active ROM to all four extremities. Neuro: Alert and orientated x 4. PERRLA. Cranial nerves 2-12 intact without focal deficit. Skin: Warm, dry, and intact, without rash, erythema, or lesion. Psych: pleasant, cooperative, normal speech, normal affect, no hallucinations, no dysarthia Objective Data Vital Signs Vital Signs: Vital Signs - 24 hr 08/04/25 08:35 08/04/25 08:45 08/04/25 09:01 Temperature 99.6 F Pulse Rate 110 H 112 H 108 H Respiratory Rate 20 21 H 23 H Blood Pressure 115/71 139/63 Pulse Oximetry 99 100 98 Oxygen Delivery Room Air 08/04/25 09:15 08/04/25 09:45 08/04/25 09:46 Temperature Pulse Rate 109 H 108 H 107 H Respiratory Rate 22 H 21 H 20 Blood Pressure 140/68 Pulse Oximetry 100 98 96 Oxygen Delivery 08/04/25 10:00 08/04/25 10:22 08/04/25 10:48 Temperature Pulse Rate 99 107 H 105 H Respiratory Rate 24 H 26 H 22 H Blood Pressure Pulse Oximetry 96 94 95 Oxygen Delivery 08/04/25 11:00 08/04/25 11:15 08/04/25 11:28 Temperature 102.9 F H Pulse Rate 105 H 105 H 104 H Respiratory Rate 22 H 23 H 20 Blood Pressure 120/48 L Pulse Oximetry 95 95 Oxygen Delivery 08/04/25 11:42 08/04/25 11:52 08/04/25 12:00 Temperature Pulse Rate 103 H 102 H 102 H Respiratory Rate 23 H 26 H 23 H Blood Pressure Pulse Oximetry 95 94 92 Oxygen Delivery 08/04/25 12:01 08/04/25 14:07 08/04/25 14:31 Temperature 100.2 F H Pulse Rate 102 H 94 Respiratory Rate 22 H 20 Blood Pressure 121/63 100/52 L Pulse Oximetry 93 92 Oxygen Delivery 08/04/25 17:15 08/04/25 20:00 08/04/25 20:00 Temperature Pulse Rate 90 Respiratory Rate Blood Pressure Pulse Oximetry Oxygen Delivery Room Air Room Air 08/04/25 20:48 08/04/25 21:45 08/04/25 21:59 Temperature 99.4 F 99.4 F 99.4 F Pulse Rate 91 Respiratory Rate 18 Blood Pressure 149/62 H Pulse Oximetry 98 Oxygen Delivery 08/04/25 22:11 08/05/25 00:00 08/05/25 04:00 Temperature Pulse Rate 84 80 Respiratory Rate Blood Pressure Pulse Oximetry 98 Oxygen Delivery Room Air 08/05/25 06:00 Temperature 97.8 F Pulse Rate 81 Respiratory Rate 16 Blood Pressure 140/62 Pulse Oximetry 96 Oxygen Delivery Intake/Output Intake/Output: Intake & Output 08/02/25 08/03/25 08/04/25 08/05/25 23:59 23:59 23:59 23:59 Intake Total 1290 1150 Balance 1290 1150 Meds/Results Medications: Active Medications Generic Name Dose Route Start Last Admin Trade Name Freq PRN Reason Stop Dose Admin Acetaminophen 650 mg 08/04/25 15:19 08/04/25 20:48 Acetaminophen 325 Mg Tablet PO 650 mg Q4H PRN Administration Mild Pain (1-3) or Fever Amlodipine Besylate 5 mg 08/04/25 21:00 08/04/25 20:47 Amlodipine Besylate 5 Mg Tablet PO 5 mg Q12HR RAJNI Administration Aspirin 81 mg 08/05/25 09:00 Aspirin 81 Mg Enteric Tablet PO Q48H RAJNI Dextrose 12.5 gm 08/04/25 16:55 Dextrose 50% 25 Gm/50 Ml Syringe IV PUSH PRN PRN Hypoglycemia Protocol Docusate Sodium 100 mg 08/04/25 15:19 Docusate Sodium 100 Mg Capsule PO BID PRN Constipation Glucagon 1 mg 08/04/25 16:55 Glucagon For Inj 1 Mg Vial IM PRN PRN Hypoglycemia Protocol Glucose 15 gm 08/04/25 16:55 Glucose Oral Gel 15 Gm Of Glucse In 37.5 Gm Tube PO PRN PRN Hypoglycemia Protocol Heparin Sodium (Porcine) 5,000 units 08/05/25 09:00 Heparin Sodium 5,000 Units/Ml Vial SUB-Q Q12HR RAJNI Ceftriaxone Sodium 1 gm/ 50 mls @ 100 mls/hr 08/05/25 14:00 Sodium Chloride IVPB Q24H RAJNI Azithromycin 500 mg/ Sodium 250 mls @ 250 mls/hr 08/04/25 22:00 08/04/25 22:49 Chloride IVPB 08/08/25 22:59 250 mls/hr Q24H RAJNI Administration Sodium Chloride 1,000 mls @ 100 mls/hr 08/04/25 15:20 08/05/25 03:30 Normal Saline Iv IV CONT 100 mls/hr .Q10H RAJNI Administration Dextrose 1,000 mls @ 100 mls/hr 08/04/25 16:55 Dextrose 5% 1,000 Ml IVPB PRN PRN Hypoglycemia Protocol Losartan Potassium 100 mg 08/05/25 09:00 Losartan Potassium 100 Mg Tablet PO DAILY RAJNI Metoprolol Tartrate 25 mg 08/04/25 21:00 08/04/25 20:47 Metoprolol Tartrate 25 Mg Tablet PO 25 mg Q12HR RAJNI Administration Pravastatin Sodium 40 mg 08/04/25 21:00 08/04/25 20:47 Pravastatin Sodium 20 Mg Tablet PO 40 mg QHS RAJNI Administration Prednisone 5 mg 08/04/25 21:00 08/04/25 20:47 Prednisone 5 Mg Tablet PO 5 mg QHS RAJNI Administration Tacrolimus 2 mg 08/05/25 09:00 Tacrolimus 0.5 [facility] Tac[facility] 1 mg 08/05/25 21:00 Tacrolimus 0.5 Mg Capsule BY MOUTH HS [facility] Trimethobenzamide HCl 200 mg 08/04/25 15:19 Trimethobenzamide Hcl 200 Mg/2 Ml Vial IM Q6H PRN Nausea And Vomiting Radiology Results: ITS Impressions Chest X-Ray 08/04/25 12:33 IMPRESSION: 1. Right basilar pneumonia. Recommend surveillance until resolution. Labs Labs: Laboratory Results - last 24 hr 08/04/25 08/04/25 08/04/25 08:55 09:43 20:13 WBC 9.6 RBC 3.91 L Hgb 10.4 L Hct 33.9 L MCV 86.7 MCH 26.6 MCHC 30.7 L RDW 15.3 H Plt Count 187 MPV 10.5 H Immature Gran % (Auto) 0.4 Neut % (Auto) 76.5 H Lymph % (Auto) 13.9 L [place] % (Auto) 7.1 Eos % (Auto) 1.8 Baso % (Auto) 0.3 Lymph # (Auto) 1.34 [place] # (Auto) 0.7 H Eos # (Auto) 0.2 Baso # (Auto) 0.0 Abs Immat Gran (auto) 0.04 H Absolute Neuts (auto) 7.4 H Absolute Nucleated RBC 0.000 Nucleated RBC % 0.0 Sodium 138 Potassium 4.2 Chloride 104 Carbon Dioxide 25 Anion Gap 9 BUN 56 H D Creatinine 1.85 H Estim Creat Clear Calc 34 Estimated GFR 36 L Glucose 184 H POC Capillary Glucose 127 H Lactic Acid 1.1 Calcium 8.9 Total Bilirubin 0.6 AST 28 ALT 18 Alkaline Phosphatase 75 Total Protein 7.0 Albumin 4.2 Lipase 67 Urine Color Yellow Urine Appearance Clear Urine pH 5.0 Ur Specific [place] 1.015 Urine Protein 1+ H Urine Glucose (UA) Negative Urine Ketones Negative Ur Blood (Man) Negative Urine Nitrate Negative Urine Bilirubin Negative Urine Urobilinogen 0.2 Leukocyte Esterase Rfl Negative Urine RBC 0-2 Urine WBC 0-5 Ur Squamous Epith Cells None seen Urine Bacteria None seen Urine Casts 3-5 08/04/25 08/04/25 08/05/25 23:00 23:21 06:31 WBC 8.2 RBC 3.54 L Hgb 9.6 L Hct 31.3 L MCV 88.4 MCH 27.1 MCHC 30.7 L RDW 15.4 H Plt Count 174 MPV 10.8 H Immature Gran % (Auto) 0.6 H Neut % (Auto) 78.2 H Lymph % (Auto) 12.3 L [place] % (Auto) 7.7 Eos % (Auto) 1.0 Baso % (Auto) 0.2 Lymph # (Auto) 1.01 [place] # (Auto) 0.6 Eos # (Auto) 0.1 Baso # (Auto) 0.0 Abs Immat Gran (auto) 0.05 H Absolute Neuts (auto) 6.4 Absolute Nucleated RBC 0.000 Nucleated RBC % 0.0 Sodium 138 Potassium 4.5 Chloride 105 Carbon Dioxide 24 Anion Gap 9 BUN 44 H D Creatinine 1.65 H Estim Creat Clear Calc 38 Estimated GFR 41 L Glucose 135 H POC Capillary Glucose 62 L 89 Lactic Acid Calcium 8.4 Total Bilirubin AST ALT Alkaline Phosphatase Total Protein Albumin Lipase Urine Color Urine Appearance Urine pH Ur Specific [place] Urine Protein Urine Glucose (UA) Urine Ketones Ur Blood (Man) Urine Nitrate Urine Bilirubin Urine Urobilinogen Leukocyte Esterase Rfl Urine RBC Urine WBC Ur Squamous Epith Cells Urine Bacteria Urine Casts Quality VTE Prophylaxis VTE prophylaxis: mechanical ordered and pharmacologic ordered
[2025-08-05] MEDS: METOPROLOL TARTRATE 25 MG TABLET PO ×2 (08:52→21:27)
[2025-08-05] MEDS: ASPIRIN 81 MG ENTERIC TABLET PO (08:52)
[2025-08-05] MEDS: LOSARTAN POTASSIUM 100 MG TABLET PO (08:53)
[2025-08-05] MEDS: TACROLIMUS 0.5 MG CAPSULE 2 MG BY MOUTH (08:56)
[2025-08-05] MEDS: LIPASE/AMYLASE/PROTEASE 12,000 UNITS CAP 2 CAP PO ×4 (12:00→21:27)
[2025-08-05] MEDS: MULTIVITAMINS /C LUTEIN (CENTRUM SILVER) TABLET *BKC 1 TAB PO (12:01)
[2025-08-05] MEDS: cefTRIAXone 1 GM in SODIUM CHLORIDE 0.9% IV 50 ML 100 ML IVPB (14:23)
[2025-08-05] MEDS: CHOLESTYRAMINE LIGHT 4 GM POWD.PACK PO ×2 (16:14→21:28)
[2025-08-05] MEDS: FERROUS SULFATE 325 MG TABLET BY MOUTH (16:14)
[2025-08-05] MEDS: TACROLIMUS 0.5 MG CAPSULE 1 MG BY MOUTH (21:27)
[2025-08-05] MEDS: ACETAMINOPHEN 325 MG TABLET 650 MG PO (21:27)
[2025-08-05] MEDS: PRAVASTATIN SODIUM 20 MG TABLET 40 MG PO (21:28)
[2025-08-05] MEDS: AZITHROMYCIN IV 500 MG in SODIUM CHLORIDE 0.9% IV 250 ML 125 ML IVPB (21:28)
[2025-08-06 01:18] VITALS: PULSE 85; O2SAT 95
[2025-08-06 04:26] VITALS: PULSE 86; O2SAT 95
[2025-08-06 06:00] VITALS: BP 163/78; PULSE 98; RESP 16; TEMP 36.7; O2SAT 99
[2025-08-06 06:46] LABS: Hematocrit 32.0 % (42.0-52.0); Hemoglobin 9.7 g/dL (14.0-18.0); Immature Granulocyte Percent A 0.3 % (0-0.5); Lymphocytes Absolute Auto 0.81 K/mm3 (0.9-3.2); Mean Corpuscular HGB Conc 30.3 g/dl (32-36); Mean Corpuscular Hemoglobin 26.8 pg (26-34); Mean Corpuscular Volume 88.4 fl (80-100); Nucleated Red Blood Cells Absolute Auto 0.000 K/mm3 (0.0-0.012); Nucleated Red Blood Cells Perc 0.0 % (0.0-0.2); Platelet Count Result 179 k/mm3 (150-375); Red Blood Count 3.62 M/mm3 (4.6-6.20); White Blood Count 5.8 K/mm3 (4.5-10.0)
[2025-08-06 07:04] LABS: Alanine Aminotransferase 13 U/L (6-50); Albumin Level 3.7 g/dL (3.5-5.1); Alkaline Phosphatase 64 U/L (38-126); Anion Gap 9 mmol/L (4-12); Aspartate Amino Transferase 25 U/L (17-59); Bilirubin,Total 0.5 mg/dL (0.2-1.3); Blood Urea Nitrogen 34 mg/dL (9-20); Calcium 8.9 mg/dL (8.4-10.2); Carbon Dioxide 25 mmol/L (22-30); Chloride 105 mmol/L (98-107); Estimated CRCL calculation 42 ml/min; Estimated Glomerular Filt Rate 47; Glucose 129 mg/dL (65-110); Potassium 4.5 mmol/L (3.4-5.0); Sodium 139 mmol/L (137-145); Total Protein 6.4 g/dL (6.3-8.2)
[2025-08-06] MEDS: CHOLECALCIFEROL (VITAMIN D3) 25 MCG (1,000 UNITS) TABLET 50 MCG PO (08:27)
[2025-08-06] MEDS: CHOLECALCIFEROL (VITAMIN D3) 10 MCG (400 UNITS) TABLET 20 MCG PO (08:27)
[2025-08-06] MEDS: LOSARTAN POTASSIUM 100 MG TABLET PO (08:28)
[2025-08-06] MEDS: FERROUS SULFATE 325 MG TABLET BY MOUTH (08:28)
[2025-08-06] MEDS: ALENDRONATE SODIUM 70 MG TABLET BY MOUTH (08:28)
[2025-08-06] MEDS: TACROLIMUS 0.5 MG CAPSULE 2 MG BY MOUTH (08:28)
[2025-08-06] MEDS: LIPASE/AMYLASE/PROTEASE 12,000 UNITS CAP 2 CAP PO (08:28)
[2025-08-06 08:29] VITALS: PULSE 98
[2025-08-06] MEDS: METOPROLOL TARTRATE 25 MG TABLET PO (08:29)
[2025-08-06] MEDS: CHOLESTYRAMINE LIGHT 4 GM POWD.PACK PO (09:34)
[2025-08-06 11:10] VITALS: BMI 25.9
--- NOTE | 2025-08-06 11:50 | P.DS_ITS ---
DS: Admitting Diagnosis Discharge Date 08/06/2025 Admitting Diagnosis pneumonia DS: Discharge Diagnosis Discharge Diagnosis (1) Pneumonia: Code(s): J18.9 - Pneumonia, unspecified organism Status: Acute Assessment and Plan: Rocephin and azithromycin DuoNeb Guaifenesin afebrile today repeat CXR shows right basilar airspace disease resolved discharge home on PO azithromycin x 3 days and cefdinir x 6 days (2) Nausea & vomiting: Code(s): R11.2 - Nausea with vomiting, unspecified Status: Acute Assessment and Plan: IV fluid - stop Tigan PRN tolerating diet (3) BONNIE (acute kidney injury): Code(s): N17.9 - Acute kidney failure, unspecified Status: Acute Assessment and Plan: IV fluids stop improved to patients baseline (4) Hypertension: Code(s): I10 - Essential (primary) hypertension Status: Acute Assessment and Plan: Continue amlodipine and Cozaar (5) Kidney transplanted: Code(s): Z94.0 - Kidney transplant status Status: Acute Assessment and Plan: Kidney and liver transplant Continue prednisone and tacrolimus Tacro level pending (6) Diabetes type 2, controlled: Code(s): E11.9 - Type 2 diabetes mellitus without complications Status: Acute Assessment and Plan: Accu-Cheks a.cAshlyn HS Okay for patient to wear insulin pump Diabetic diet in the morning Around 11:00 p.m. patient with hypoglycemic with his Dexcom alerting him patient given juice. If patient is not nauseated he may have a diabetic diet DS: Summary Hospital Course Reason for hospitalization: nausea and vomiting, fever Hospital Course: Patient s a 70 year old male with PMH of renal cell carcinoma, HTN, HLD, DM type 2, history of kidney and liver transplant in 2012. Patient presented with complaints of nausea, vomiting and fever of 101.5. Patient denies any other complaints. In the ED the patient was noted to have a BUN 56, Creatinine 1.85, UA negative for infection and chest x-ray showed right basilar pneumonia. Rapid covid, flu and RSV were negative. Patient was started on IV azithromycin and IV Rocephin. Patients nausea and vomiting resolved. Patient remained afebrile. Patient was able to take his home medications as normal including his prednisone and tacrolimus. Patient was improving. Patient was discharged home with PO azithromycin x 3 days and PO Cefdinir x 6 days. Patients kidney function remained stable at his baseline during admission. Patient will follow up with his PCP within 1-2 weeks of discharge. Time Spent with Patient Time attestation: Total time spent providing and/or coordinating discharge services: Exam Narrative: General: well appearing, appears stated age. HEENT: normocephalic, atraumatic. Mucous membranes moist. EOMI, PERRLA, bilateral sclera anicteric, no conjunctival injection. Neck supple without JVD, lymphadenopathy, or bruit. Respiratory: clear to ascultation bilaterally. No rales/rhonic/wheezes. Cardiovascular: Regular rate and rhythm, normal S1-S2 upon ascultation. No murmurs, rubs, or clicks. Abdomen: Soft, round, no pulsatile masses, nondistended and nontender. No rebound, no guarding. Bowel sounds present to all four quadrants. No high pitch or tinkling sounds Extremities: No cyanosis, clubbing, or edema present. Pulses are palpable 2/2. Active ROM to all four extremities. Neuro: Alert and orientated x 4. PERRLA. Cranial nerves 2-12 intact without focal deficit. Skin: Warm, dry, and intact, without rash, erythema, or lesion. Psych: pleasant, cooperative, normal speech, normal affect, no hallucinations, no dysarthia DS: Data Data Completed and Pending Labs on day of discharge: Labs from last 24 hours 08/06/25 08/06/25 08/06/25 11:36 07:44 06:01 WBC 5.8 RBC 3.62 L Hgb 9.7 L Hct 32.0 L MCV 88.4 MCH 26.8 MCHC 30.3 L RDW 15.0 H Plt Count 179 MPV 10.9 H Immature Gran % (Auto) 0.3 Neut % (Auto) 74.9 H Lymph % (Auto) 14.0 L [place] % (Auto) 9.0 H Eos % (Auto) 1.6 Baso % (Auto) 0.2 Lymph # (Auto) 0.81 L [place] # (Auto) 0.5 Eos # (Auto) 0.1 Baso # (Auto) 0.0 Abs Immat Gran (auto) 0.02 Absolute Neuts (auto) 4.3 Absolute Nucleated RBC 0.000 Nucleated RBC % 0.0 Sodium 139 Potassium 4.5 Chloride 105 Carbon Dioxide 25 Anion Gap 9 BUN 34 H D Creatinine 1.47 H Estim Creat Clear Calc 42 Estimated GFR 47 L Glucose 129 H POC Capillary Glucose 126 H 112 H Calcium 8.9 Total Bilirubin 0.5 AST 25 ALT 13 Alkaline Phosphatase 64 Total Protein 6.4 Albumin 3.7 08/05/25 08/05/25 08/05/25 20:22 16:41 11:38 WBC RBC Hgb Hct MCV MCH MCHC RDW Plt Count MPV Immature Gran % (Auto) Neut % (Auto) Lymph % (Auto) [place] % (Auto) Eos % (Auto) Baso % (Auto) Lymph # (Auto) [place] # (Auto) Eos # (Auto) Baso # (Auto) Abs Immat Gran (auto) Absolute Neuts (auto) Absolute Nucleated RBC Nucleated RBC % Sodium Potassium Chloride Carbon Dioxide Anion Gap BUN Creatinine Estim Creat Clear Calc Estimated GFR Glucose POC Capillary Glucose 132 H 174 H 158 H Calcium Total Bilirubin AST ALT Alkaline Phosphatase Total Protein Albumin Discharge Plan Discharge Attending physician on discharge: William Maldonado Consulting providers: Janey Stahl; Esha Mohan; Roverto Alexander Discharging Clinician: Esha Mohan Patient Disposition: Home Activity: as tolerated Diet: heart healthy Patient Instructions: Antibiotic Form Patient Language: Vietnamese Stand Alone Forms: General Discharge Information Follow-up/Referrals: Ronnie,Marlon De Los Santos MD [Primary Care Provider] Referral Note: Please call for an appointment to be seen 1-2 weeks after discharge. Please ask your PCP to check a chest x-ray for resolution of the pneumonia. Discharge Medications: New azithromycin 500 mg tablet 500 mg PO DAILY Qty: 3 0RF cefdinir 300 mg capsule 300 mg PO Q12H Qty: 12 0RF Continued metoprolol tartrate 25 mg tablet 25 mg PO BID pravastatin 40 mg tablet 40 mg PO QHS prednisone 5 mg tablet 5 mg PO QHS ferrous sulfate [FeroSul] 325 mg (65 mg iron) tablet 325 mg PO BID Cholestyramine Light 4 gram powder in packet 4 g PO TID Creon 24,000-76,000 -120,000 unit capsule,delayed release(DR/EC) 1 cap PO QID Patient Comments: 1 cap with snack also amlodipine 5 mg Tablet 5 mg PO BID aspirin 81 mg Tablet 81 mg PO EVERY OTHER DAY losartan 100 mg Tablet 100 mg PO DAILY tacrolimus [Prograf] 1 mg Capsule 2 mg PO Q12H insulin lispro 100 unit/mL Cartridge 1 sliding scale dose SUBCUT TIDWM PRN (Reason: Hyperglycemia) Rx Instructions: detremines how many carbs he is going to take and his bs,then takes amount of insulin alendronate-vitamin D3 70 mg- 2,800 unit Tablet 1 tablet PO DAILY Adults Multivitamin 18 mg iron-400 mcg-25 mcg Tablet 1 tablet PO QNOON Date of admission: 08/05/25 17:04 Primary Care Provider: RonnieMarlon Admitting Provider: William Maldonado Attending physician on admission: William Maldonado Condition: Stable Quality VTE Prophylaxis VTE prophylaxis: mechanical ordered and pharmacologic ordered
[2025-08-08 07:09] LABS: Tacrolimus (FK506), Blood 3.9 ng/mL (5.0-20.0)
--- NOTE | 2025-08-12 07:36 | PC.NURSE ---
Blood cx show no growth.
--- NOTE | 2025-08-17 15:28 | PCCDE ---
DM Educator attempted Courtesy follow up call - Message left including direct call back #
== END 2025-08-06 12:10 | disposition home or self-care (01) | DRG 194 ==
LOC: ANHED 13:16 → ANH3MEDSUR 14:29
PROVIDERS: Nurse Practitioner Adult Health; Nurse Practitioner Gerontology; Admitting Provider Internal Medicine; Emergency Provider Emergency Medicine; PCP Internal Medicine; Visit Provider Internal Medicine
DX: J18.9 Pneumonia, unspecified organism (principal); N17.9 Acute kidney failure, unspecified; Z94.0 Kidney transplant status; Z94.4 Liver transplant status; I10 Essential (primary) hypertension; E11.9 Type 2 diabetes mellitus without complications; E78.5 Hyperlipidemia, unspecified; F10.21 Alcohol dependence, in remission; Z96.41 Presence of insulin pump (external) (internal); Z85.528 Personal history of other malignant neoplasm of kidney; Z87.891 Personal history of nicotine dependence; Z79.82 Long term (current) use of aspirin; Z79.621 Long term (current) use of calcineurin inhibitor; Z79.52 Long term (current) use of systemic steroids; Z79.4 Long term (current) use of insulin
CPT/HCPCS: 36415; 71046; 80048; 80053; 80197; 81001; 82948; 83605; 83690; 85025; 87040; 96361; 96365; 96367; 96375; 99285; A9270; G0378; J0456; J0696; J1644; J2405; J7030; J7050; J7120; J7512